=== PATIENT | male | born 1940 | race Caucasian/White ===

== ENCOUNTER 2017-02-26 18:19 | Observation (INO) | payer MEDICARE ==
[~2017-02-26 18:19] MED LIST: ISOVUE-370 76%-LOCM 1 ML ONE
[2017-02-26 18:44] LABS: #Basophils 0.1 thou/uL (0.0-0.2); #Eosinphils 0.2 thou/uL (0.0-0.7); #Lymphocytes 2.3 thou/uL (1.20-3.40); #Monocytes 1.1 thou/uL (0.11-0.59); #Neutrophils 5.6 thou/uL (1.40-6.50); %Basophils 0.6 % (0.0-1.0); %Eosinophils 2.1 % (0.0-10.0); %Monocytes 11.6 % (0.0-10.0); %Neutrophils 60.7 % (42.0-75.0); Hemoglobin 13.4 g/dL (14.0-18.0); Mean Corpuscular HGB CONC 32.2 g/dL (32.0-36.0); Mean Corpuscular Hemoglobin 32.7 pg (27.0-31.0); Mean Platelet Volume 6.6 fL (7.4-10.4); Platelet Count 257 thou/uL (130-400); RBC Distribution Width 15.2 % (11.5-14.5); Red Blood Cell (RBC) Count 4.09 mill/uL (4.70-6.10); White Blood Cell (WBC) Count 9.3 thou/uL (4.8-10.8)
[2017-02-26 18:53] LABS: PTT 29.1 SEC (22.9-36.1); Prothrombin Time 13.4 SEC (12.0-14.7)
[2017-02-26 19:12] LABS: ALT (SGPT) 27 U/L (8-55); AST (SGOT) 42 U/L (5-34); Albumin 4.1 g/dL (3.4-4.8); Alkaline Phosphatase 79 U/L (40-150); Anion Gap 16 mmol/L (10-20); BUN (Urea Nitrogen) 28 mg/dL (8.4-25.7); Bilirubin, Total 0.4 mg/dL (0.2-1.2); Calc. Creatinine Clearance 0 mL/min (70-130); Calcium 10.6 mg/dL (7.8-10.44); Carbon Dioxide 30 mmol/L (23-31); Chloride 97 mmol/L (98-107); Estimated GFR-MDRD 11; Globulin 4.5 g/dL (2.4-3.5); Glucose 88 mg/dL (83-110); Protein, Total 8.6 g/dL (5.8-8.1); Sodium 139 mmol/L (136-145)
[2017-02-26 19:15] LABS: CKMB 1.4 ng/mL (0-6.6); Troponin I 0.027 ng/mL (< 0.028)
--- NOTE | 2017-02-26 20:40 | CON ---
DATE OF CONSULTATION: 02/26/2017 NEUROLOGY CONSULTATION REASON FOR CONSULTATION: Stage 3 chronic kidney disease and CVA like symptoms. HISTORY OF PRESENT ILLNESS: This is a 76-year-old gentleman with a history of ESRD, who presented to the hospital with stroke like symptoms and the patient received contrast. The patient had dialysis today. Denies any nausea, vomiting , or chest pain, headache, numbness and tingling or weakness at this time. The patient at this time has no headache, weakness, numbness and tingling noted. PAST MEDICAL HISTORY: Significant atrial fibrillation, CABG, congestive heart failure, hypertension, ESRD, history of tunneled dialysis catheter, history of AV graft, history of knee surgery, history of CABG, and cataract extraction. ALLERGIES: The patient is allergic to PENICILLIN. SOCIAL HISTORY: No alcohol or drug use. FAMILY HISTORY: Negative for ESRD. REVIEW OF SYSTEMS: A 15-point review of systems was performed and negative except positives noted above. GENERAL: Weakness- HEAD: Headache- NECK: No swelling or lumps. NOSE: No epistaxis or discharge. EYES: No diplopia or pain. RESPIRATORY: Dyspnea- CARDIOVASCULAR: Chest pain- GASTROINTESTINAL: Nausea- /BURN OUT TENDER LACE: Hematuria- MUSCULOSKELETAL: No joint pain. NEUROPSYCHIATIC SYSTEMS: No suicidal ideation. No ideation. SKIN: Denies any rash or ulcer. CONSTITUTIONAL: No fever or chills. PHYSICAL EXAMINATION: GENERAL: The patient is awake, alert. VITAL SIGNS: Afebrile, pulse 75, breathing at 16, blood pressure 130/70. GENERAL APPEARANCE AND MENTAL STATUS: Fair. HEAD/NECK: Normocephalic. Atraumatic. EYES: EOMI. No deformity. EARS: Clear. No ulcers. NOSE: Intact. No lesions. MOUTH: Clear. No discharge. THROAT: Clear. No exudate. LUNGS: Clear. No crackles. CARDIAC: S1, S2. No rub. ABDOMEN: Benign. BS+. GENITALIA/RECTUM: Lyons absent. BACK/EXTREMITIES: Edema 0+ Ulcer- NEUROLOGICAL: Alert and motor intact. SKIN: Rash- Bruise- LYMPHATICS: Edema- Ulcer- LABORATORY DATA: Reviewed. ASSESSMENT AND RECOMMENDATIONS: 1. Stage 6 chronic kidney disease. We will plan hemodialysis per schedule. 2. Hypertension, stable. 3. Anemia, stable. 4. Medications based on glomerular filtration rate are appropriate. MTDD
--- NOTE | 2017-02-26 21:41 | CT ---
HEAD CT WITHOUT CONTRAST 02/26/17 COMPARISON: None. HISTORY: Right sided facial droop and right sided weakness following dialysis, stroke alert. TECHNIQUE: Serial axial CT imaging obtained at 5 mm intervals from vertex through skull base without contrast,. FINDINGS: There is hyperdensity in expected location of the M1 segment as well as in the region of MCA bifurcat ion on the left, possibly representing intra-arterial clot. No intracranial hemorrhage, midline shift or mass effect is seen. There is periventricular hypodensity suggesting small vessel disease. Imaged paranasal sinuses and mastoid air cells are well aerated. There is no displaced calvarial fracture. There is atherosclerotic calcification of the cavernous carotid arteries. IMPRESSION: Hyperdensity in the region of the M1 segment. No intracranial hemorrhage is seen. Dr. Gonzales made aware, 6:28 p.m., 02/26/17. Code CR
[2017-02-26] MEDS ORDERED: Aspirin 325 MG TAB ONE (21:53)
[2017-02-26] MEDS ORDERED: Ondansetron HCl/PF 4 MG/2 ML Vial IVP PRN (22:52)
[2017-02-26] MEDS ORDERED: Acetaminophen 325 MG TAB PO PRN ×2 (22:52→23:42)
[2017-02-26] MEDS ORDERED: Ondansetron ODT 4 MG TAB SL PRN (22:52)
--- NOTE | 2017-02-26 23:33 | CT ---
CT ANGIOGRAM OF THE HEAD 02/26/17 COMPARISON: None. HISTORY: Recent episode of right leg and are weakness. Two recent falls secondary to right lower extremity we akness. TECHNIQUE: Serial axial CT imaging is obtained at 1.25 mm intervals from skull base through vertex with IV contr ast using a CT angiogram protocol. Coronal and sagittal 3D reformatted imaging obtained. FINDINGS: The distal vertebral arteries are patent. The right vertebral artery is hypoplastic. The basilar artery and its branches are patent. There is a focal area of severe stenosis involving th e proximal aspect of the P1 segment on the left. There is multifocal high grade stenosis involving bi lateral posterior cerebral arteries, left greater than right. There is atherosclerotic calcification of the distal cervical ICA on the left. There is atherosclerotic calcification of bilateral cavernous carotid arteries. There is high grade stenosis within the right cavernous ICA best seen on axial images 44-46. The M1 segment appears patent bilaterally. The MCA bifurcation appears within normal limits bilateral ly. Distal MCA branches appear patent. The A1 segment on the right is hypoplastic but patent. Left A1 segment is unremarkable. Distal ALLIE br anches appear intact as does the region of the anterior communicating artery. The imaged paranasal sinuses/mastoid air cells are well aerated. There is no displaced calvarial frac ture. IMPRESSION: No central arterial occlusion noted. The M1 segment on the left is patent. There are areas of high gr anh stenosis involving the cavernous segment of the right internal carotid artery as well as bilatera l posterior cerebral arteries. Results called to Dr. Goyo Gonzales at 9:30 p.m., 02/26/17. Code CR POS: LM
[2017-02-26] MEDS ORDERED: Guaifenesin DM 100-10/5 ML UDCUP PO PRN (23:42)
[2017-02-26] MEDS ORDERED: Mag-Al 1200 mg/1200 mg/30 ML UDCUP PO PRN (23:42)
[2017-02-27 01:41] VITALS: BMI 29.0
--- NOTE | 2017-02-27 04:30 | HP ---
REASON FOR ADMISSION: Right-sided weakness. HISTORY OF PRESENT ILLNESS: The patient gives history of having hemodialysis yesterday. 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 He apparently fell x2, they are 20 minutes apart. He could not really move his right lower extremity. He had a tingling pain in his right upper extremity. He tried to walk with a walker and was unable. His family took him to his primary care physician, who in turn called the EMS and patient was brought here. His initial symptoms started around 2:00 p.m. By the time he arrived here, it was 6:30 or so. Currently, he is able to move all 4 extremities. He still has a little uneasy feeling in his right upper and lower extremities, but can easily move them at present. PAST MEDICAL AND SURGICAL HISTORY: Hypertension, end-stage renal disease from last 2 years on hemodialysis, coronary artery disease with prior CABG done in September of this year at [facility], dialysis access procedures in the left upper extremity. CURRENT MEDICATIONS: Please note, patient does not recall all his medications. He knows he takes baby aspirin but beyond that, he does not recall any of his medications. We will try to obtain the same from his or his pharmacy when it opens. ALLERGIES: PENICILLIN. PERSONAL HISTORY: Does not abuse alcohol or drugs. Quit smoking 30 years ago, prior to which smoked 2 packs a day for almost 30 years. FAMILY HISTORY: Mother of old age at the age of 88 years. Father was electrocuted at 41 years. Power of traffic law attorney is his . CODE STATUS: Full. REVIEW OF SYSTEMS: The following complete review of systems was negative, unless otherwise mentioned in the HPI or below: Constitutional: Weight loss or gain, ability to conduct usual activities. Skin: Rash, itching. Eyes: Double vision, pain. ENT/Mouth: Nose bleeding, neck stiffness, pain, tenderness. Cardiovascular: Palpitations, dyspnea on exertion, orthopnea. Respiratory: Shortness of breath, wheezing, cough, hemoptysis, fever or night sweats. Gastrointestinal: Poor appetite, abdominal pain, heartburn, nausea, vomiting, constipation, or diarrhea. Genitourinary: Urgency, frequency, dysuria, nocturia. Musculoskeletal: Pain, swelling. Neurologic/Psychiatric: Anxiety, depression. Allergy/Immunologic: Skin rash, bleeding tendency. PHYSICAL EXAMINATION: GENERAL: The patient is a 76-year-old male, who is currently not in any acute distress. VITAL SIGNS: Blood pressure 118/58, pulse 66 per minute, respiratory rate 16 per minute, saturating 97% on room air, temperature is 98.2 degrees Fahrenheit. NECK: Supple, no elevated JVD. HEENT: Eyes, extraocular muscles intact. Pupils reacting to light. Oral cavity, mucous membranes are moist. No exudates or congestion. CARDIOVASCULAR SYSTEM: S1, S2 heard. Regular rhythm. RESPIRATORY SYSTEM: Air entry 2+ bilateral. No rales or rhonchi. ABDOMEN: Soft, bowel sounds heard. No tenderness, rigidity, or guarding. EXTREMITIES: No peripheral edema or calf tenderness. VASCULAR SYSTEM: Peripheral pulses 1+ bilateral. No ischemic ulcerations or gangrene. CENTRAL NERVOUS SYSTEM: Cranial nerves are grossly intact. Motor system strength is 4/5 in right upper and lower extremity. When compared to left, patient is right-handed. Reflexes are 2+ bilateral. Babinski is downgoing. Cerebellar signs are intact. Gait was not tested. PSYCHIATRIC SYSTEM: The patient's mood is euthymic. No hallucinations or delusions. LABORATORY AND X-RAY FINDINGS: White count 9, H and H 13 and 41, platelet count 257, MCV is 101 with 60% neutrophils. PT, INR, PTT within normal limits. Electrolytes were stable. BUN 28, creatinine 5.0. Serum bicarbonate is 30, glucose 88, calcium 10, AST 42, ALT 27, alkaline phosphatase 79, troponin I 0.02. Albumin is 4.1. CT brain showed hyperdensity in the region of the M1 segment. No intracranial hemorrhage was seen. A CT angio of the brain done showed no central artery occlusion was seen, the left M1 segment was patent. There are areas of high-grade stenosis involving cavernous segment of the right internal carotid artery as well as bilateral posterior cerebral arteries. EKG done showed sinus rhythm at 64 beats per minute. CLINICAL IMPRESSION AND PLAN: The patient will be under observation on stroke unit for likely transient ischemic attack with right hemiparesis with rapid resolution prior to arrival. He will be on aspirin 325 mg daily along with Lipitor, Pepcid. We will obtain an echo with 2D Doppler for LV function and an MRI to complete his Neurology workup. We will also obtain a neurology consultation with Dr. Helton. We will continue to closely monitor him on stroke floor. [facility]ITALId[facility]
[2017-02-27 05:16] LABS: #Eosinphils 0.2 thou/uL (0.0-0.7); #Lymphocytes 2.4 thou/uL (1.20-3.40); #Monocytes 0.7 thou/uL (0.11-0.59); %Basophils 0.5 % (0.0-1.0); %Eosinophils 2.2 % (0.0-10.0); %Lymphocytes 32.8 % (21.0-51.0); %Monocytes 9.9 % (0.0-10.0); %Neutrophils 54.6 % (42.0-75.0); Hemoglobin 12.3 g/dL (14.0-18.0); Mean Corpuscular HGB CONC 32.4 g/dL (32.0-36.0); Mean Corpuscular Hemoglobin 32.7 pg (27.0-31.0); Mean Platelet Volume 6.4 fL (7.4-10.4); Platelet Count 238 thou/uL (130-400); RBC Distribution Width 15.1 % (11.5-14.5); Red Blood Cell (RBC) Count 3.75 mill/uL (4.70-6.10); White Blood Cell (WBC) Count 7.4 thou/uL (4.8-10.8)
[2017-02-27 05:44] LABS: Anion Gap 12 mmol/L (10-20); BUN (Urea Nitrogen) 34 mg/dL (8.4-25.7); Calc. Creatinine Clearance 13 mL/min (70-130); Calcium 9.8 mg/dL (7.8-10.44); Carbon Dioxide 29 mmol/L (23-31); Cardiac Risk 4.5 (Less than 4.5); Chloride 98 mmol/L (98-107); Cholesterol 197 mg/dl (< 200 Desired); Estimated GFR-MDRD 9; Glucose 74 mg/dL (83-110); HDL Cholesterol 44 mg/dL (>60 Neg Risk); LDL Cholesterol, Calculated 122 mg/dL; Potassium 4.1 mmol/L (3.5-5.1); Sodium 135 mmol/L (136-145); Triglycerides 154 mg/dL (Less than 150)
[2017-02-27] MEDS ORDERED: Aspirin 325 MG TAB PO SCH (08:00)
[2017-02-27 09:13] LABS: Prothrombin Time 13.7 SEC (12.0-14.7)
--- NOTE | 2017-02-27 09:26 | CON ---
DATE OF CONSULTATION: 02/27/2017 NEUROLOGY CONSULTATION CONSULTING PHYSICIAN: Hospitalist Service. IMPRESSION: 1. Transient ischemic attack. 2. End-stage renal disease. 3. Multivessel cerebral artery stenosis. 4. Coronary artery disease. 5. Hyperlipidemia. 6. Hypertension. PLAN: 1. Add aspirin. 2. MRI of the brain. HOSPITAL COURSE: Mr. Carrillo is a 76-year-old gentleman who presented with complaints of right arm and leg weakness and numbness that has lasted about 3 hours. It was not associated with any facial weak ness, slurred speech, headache, nausea, vomiting, vertigo, double vision, or vision loss. He has nev er had any symptoms like this in the past. His CT of the brain did not show any acute ischemic wade es. CTA was notable for high grade stenosis in the right cavernous ICA as well as bilateral posterio r cerebral artery stenosis. The left M1 segment was patent. He was started on aspirin and admitted for further evaluation and he has not had any further symptoms. PAST MEDICAL HISTORY: As listed above. ALLERGIES: PENICILLIN. MEDICATIONS: Reviewed. SOCIAL HISTORY: No tobacco or alcohol use. FAMILY HISTORY: Noncontributory. REVIEW OF SYSTEMS: No chest pain or shortness of breath. No history of palpitations. PHYSICAL EXAMINATION: GENERAL: Generally, he is a well-nourished elderly gentleman in no distress. VITAL SIGNS: Blood pressure 119/66, pulse 68, respirations 20, temperature 97.8. HEENT: Unremarkable. NECK: No lymphadenopathy. EXTREMITIES: No cyanosis. NEUROLOGIC: He is alert and appropriate. His speech is fluent and clear. His exam is nonfocal. LABORATORY STUDIES: Only notable for BUN of 34 and creatinine of 6.1. Coags and CBC were unremarkab le. Imaging was reviewed. SUMMARY: An elderly gentleman with symptoms consistent with TIA. I agree with adding aspirin. He w ill continue his statin. Echocardiogram and MRI are pending. I will be happy to follow up with him as an outpatient.
[2017-02-27] MEDS: Famotidine 20 MG TAB PO SCH (10:24)
[2017-02-27] MEDS: Heparin 5,000 UNITS/ML VIAL SC SCH ×2 (10:25→20:04)
[2017-02-27] MEDS: Aspirin 325 mg Enteric Coated Tablet PO SCH (10:25)
[2017-02-27] MEDS: Lactinex Tablet PO SCH ×2 (10:30→20:14)
[2017-02-27] MEDS: Calcitriol 0.25 MCG CAP PO SCH ×2 (10:31→20:04)
[2017-02-27] MEDS: Amiodarone 200 MG TAB PO SCH ×2 (10:31→20:05)
[2017-02-27] MEDS: Folic Acid/Vit B Comp W-C PO SCH (10:31)
--- NOTE | 2017-02-27 11:00 | PRG ---
DATE OF SERVICE: 02/27/2017 SUBJECTIVE: This is a 76-year-old gentleman being seen for end-stage renal disease. Patient denies any nausea, vomiting or chest pain. OBJECTIVE: GENERAL: Patient is awake and alert. VITAL SIGNS: Afebrile, pulse 60, breathing at 16 and blood pressure 119/62. HEAD/NECK: Normocephalic. Atraumatic. EYES: EOMI. No deformity. EARS: Clear. No ulcers. NOSE: Intact. No lesions. MOUTH: Clear. No discharge. THROAT: Clear. No exudate. LUNGS: Clear. No crackles. CARDIAC: S1, S2. No rub. ABDOMEN: Benign. BS+. GENITALIA/RECTUM: Lyons absent. BACK/EXTREMITIES: Edema 0+. Ulcer-. NEUROLOGICAL: Alert and motor intact. SKIN: Rash-. Bruise-. LYMPHATICS: Edema-. Ulcer-. LABORATORY DATA: Showed a hemoglobin of 12.3. ASSESSMENT AND RECOMMENDATIONS: 1. Stage 6 chronic kidney disease, continue hemodialysis. 2. Hypertension, stable. 3. Anemia, stable. 4. Medications based on glomerular filtration rate are appropriate.
--- NOTE | 2017-02-27 11:28 | MRI ---
BRAIN MRI WITHOUT CONTRAST: Date: 02/27/17 HISTORY: Transient ischemic attack. Left facial droop. Patient was treated with dialysis yesterday. Right-side d weakness. Right arm and leg tingling. COMPARISON: None. TECHNIQUE: MRI brain is performed without Gadolinium administration. Multisequential, multiplanar imaging is per formed. FINDINGS: No acute hemorrhage on the axial gradient echo sequence. Remote hemorrhage due to remote insults of t he left caudate nucleus and left luna radiata is noted. No parenchymal mass, mass effect, or midline shift. Brain volume is age-appropriate. Cortical barlow-wh ite matter differentiation is preserved. Ventricles and sulci are patent and symmetric. T2 and FLAIR white matter hyperintensities due to chronic small vessel ischemic changes are noted. Central arterial flow-voids are maintained. Absent restricted diffusion. Calvarium has a normal marrow signal intensity. Midline brain parenchymal structures are unremarkabl e. Adequate aeration of the sinuses and mastoid air cells. Bilateral ocular lens implants are noted. IMPRESSION: 1. Absent restricted diffusion. No acute infarct. 2. Chronic small vessel ischemic changes of the white matter. POS: LM
--- NOTE | 2017-02-27 13:13 | PDOC.PN ---
- Subjective Encounter Start Date: 02/27/17 Encounter Start Time: 13:12 Subjective: feels better. weakness has improved. - Objective Resuscitation Status: Resuscitation Status FULL:Full Resuscitation MAR Reviewed: Yes Vital Signs & Weight: Vital Signs (12 hours) Temp Pulse Pulse Pulse Resp BP BP 02/27/17 12:00 99.5 F 66 20 02/27/17 11:25 113/63 02/27/17 11:08 58 L 65 110/65 02/27/17 11:05 84/67 L 02/27/17 08:00 97.8 F 68 20 02/27/17 04:16 98.5 F 60 16 BP BP Pulse Ox 02/27/17 12:00 128/63 94 L 02/27/17 11:25 02/27/17 11:08 84/67 L 02/27/17 11:05 02/27/17 08:00 119/66 95 02/27/17 04:16 103/58 L 92 L Weight Weight 192 lb 6.4 oz I&O: 02/26/17 02/27/17 02/28/17 06:59 06:59 06:59 Intake Total 240 Balance 240 Result Diagrams: 02/27/17 04:13 02/27/17 04:13 Additional Labs: Laboratory Tests 02/26/17 02/26/17 02/27/17 18:35 18:35 04:13 INR 1.0 Calcium 10.6 H 9.8 Triglycerides 154 H Cholesterol 197 LDL Cholesterol, Calc 122 HDL Cholesterol 44 02/27/17 08:54 INR 1.0 Calcium Triglycerides Cholesterol LDL Cholesterol, Calc HDL Cholesterol Radiology Reviewed by me: Yes (MRI brain-no acute infarct) Phys Exam - Physical Examination Constitutional: NAD weak and tired looking HEENT: PERRLA, moist MMs, sclera anicteric, oral pharynx no lesions Neck: no nodes, no JVD, supple, full ROM Respiratory: no wheezing, no rales, no rhonchi, clear to auscultation bilateral Cardiovascular: RRR, no significant murmur Gastrointestinal: soft, non-tender, no distention, positive bowel sounds Musculoskeletal: no edema, pulses present Neurological: non-focal, normal sensation, moves all 4 limbs Psychiatric: normal affect, A&O x 3 Skin: no rash Dx/Plan (1) TIA (transient ischemic attack) Status: Acute (2) Chronic atrial fibrillation Code(s): I48.2 - CHRONIC ATRIAL FIBRILLATION Status: Chronic Comment: on Couamdin.NSR for now (3) Chronic anticoagulation Code(s): Z79.01 - PRECISION ASSEMBLER (CURRENT) USE OF ANTICOAGULANTS Status: Chronic Comment: INR subtherapeutic (4) ESRD (end stage renal disease) on dialysis Code(s): N18.6 - END STAGE RENAL DISEASE; Z99.2 - DEPENDENCE ON RENAL DIALYSIS Status: Chronic Comment: HD per nephrology. (5) HTN (hypertension) Code(s): I10 - ESSENTIAL (PRIMARY) HYPERTENSION Status: Chronic (6) CAD (coronary artery disease) Code(s): I25.10 - ATHSCL HEART DISEASE OF [place] CORONARY ARTERY W/O ANG PCTRS Status: Chronic (7) Cerebral artery occlusion Code(s): I66.9 - OCCLUSION AND STENOSIS OF UNSPECIFIED CEREBRAL ARTERY Status : Chronic - Plan PT/OT, nephrology social worker, out of bed/ambulate, DVT proph w/SCDs cont ASA,statin.ECHO pending.OP neurology follow up.Rehab eval. -: Increase coumadin dose as INR sub therapeutic.Set up Coumadin clinic. -: Pt will continue to F/U w his virtual reality specialist.cont Amiodarone -: Cont rest of the home meds as below. Hold anti-hypertensives as BP low -: am labs.DC when approved from rehab Vs Home w HH * . Review of Systems - Review of Systems Constitutional: Weakness, Malaise. negative: Fever, Chills, Sweats, Other Respiratory: negative: Cough, Dry, Shortness of Breath, Hemoptysis, SOB with Excertion, Pleuritic Pain, Sputum, Wheezing Cardiovascular: negative: Chest Pain, Palpitations, Orthopnea, Paroxysmal Noc. Dyspnea, Edema, Light Headedness, Other Gastrointestinal: negative: Nausea, Vomiting, Abdominal Pain, Diarrhea, Constipation, Melena, Hematochezia, Other Genitourinary: negative: Dysuria, Frequency, Incontinence, Hematuria, Retention , Other Musculoskeletal: negative: Neck Pain, Shoulder Pain, Arm Pain, Back Pain, Hand Pain, Leg Pain, Foot Pain, Other Neurological: negative: Weakness, Numbness, Incoordination, Change in Speech, Confusion, Seizures, Other - Medications/Allergies Allergies/Adverse Reactions: Allergies Allergy/AdvReac Type Severity Reaction Status Date / Time Penicillins Allergy Rash Verified 02/27/17 01:35 Medications: Current Medications Acetaminophen (Tylenol) 650 mg PO Q4H PRN PRN Reason: Headache/Fever or Pain Acidophilus (Floranex) 1 tab PO BID [facility] Last Admin: 02/27/17 10:30 Dose: 1 tab Al Hydroxide/Mg Hydroxide (Maalox) 30 ml PO Q6H PRN PRN Reason: Heartburn or Indigestion Amiodarone HCl (Cordarone) 200 mg PO BID [facility] Last Admin: 02/27/17 10:31 Dose: 200 mg Aspirin (Ecotrin) 325 mg PO DAILY [facility] Last Admin: 02/27/17 10:25 Dose: 325 mg Atorvastatin Calcium (Lipitor) 20 mg PO HS [facility] Calcitriol (Rocaltrol) 0.5 mcg PO BID [facility] Last Admin: 02/27/17 10:31 Dose: 0.5 mcg Calcium Acetate (Phoslo) 1,334 mg PO TID[facility] Famotidine (Pepcid) 20 mg PO DAILY [facility] Last Admin: 02/27/17 10:24 Dose: 20 mg Guaifenesin/Dextromethorphan (Robitussin Dm) 15 ml PO Q4H PRN PRN Reason: Cough Heparin Sodium (Porcine) (Heparin) 5,000 units SC BID [facility] Last Admin: 02/27/17 10:25 Dose: 5,000 units Sertraline HCl (Zoloft) 50 mg PO DAILY [facility] Vitamin B Complex/Vit C/Folic Acid (Nephro-Ramiro Tablet) 1 tab PO DAILY [facility] Last Admin: 02/27/17 10:31 Dose: 1 tab Warfarin Sodium (Coumadin) 5 mg PO 1700 [facility]
[2017-02-27] MEDS: Calcium Acetate 667 MG CAP PO SCH ×2 (14:06→17:45)
[2017-02-27] MEDS ORDERED: Warfarin Sodium 2 MG TAB PO SCH (17:00)
[2017-02-27] MEDS ORDERED: Warfarin Sodium 5 MG TAB PO SCH (17:00)
[2017-02-27] MEDS ORDERED: Atorvastatin Calcium 20 MG TAB PO SCH (21:00)
[2017-02-28 04:58] LABS: Prothrombin Time 13.6 SEC (12.0-14.7)
[2017-02-28 07:58] VITALS: TEMP 98.3
[2017-02-28] MEDS: Calcium Acetate 667 MG CAP PO SCH ×2 (08:56→15:30)
[2017-02-28] MEDS: Amiodarone 200 MG TAB PO SCH (08:56)
[2017-02-28] MEDS: Calcitriol 0.25 MCG CAP PO SCH (08:56)
[2017-02-28] MEDS: Folic Acid/Vit B Comp W-C PO SCH (08:56)
[2017-02-28] MEDS: Famotidine 20 MG TAB PO SCH (08:57)
[2017-02-28] MEDS: Heparin 5,000 UNITS/ML VIAL SC SCH (08:57)
[2017-02-28] MEDS: Lactinex Tablet PO SCH (08:57)
[2017-02-28] MEDS: Aspirin 325 mg Enteric Coated Tablet PO SCH (08:57)
[2017-02-28 11:57] VITALS: BP 141/68
--- NOTE | 2017-02-28 12:16 | PRG ---
DATE OF SERVICE: 02/28/2017 SUBJECTIVE: This is a 76-year-old gentleman being seen for end-stage renal disease. Patient denies any nausea, vomiting or chest pain. PHYSICAL EXAMINATION: GENERAL: Patient is awake, alert. VITAL SIGNS: Afebrile, pulse 79, breathing at 16, blood pressure 133/72. HEAD/NECK: Normocephalic. Atraumatic. EYES: EOMI. No deformity. EARS: Clear. No ulcers. NOSE: Intact. No lesions. MOUTH: Clear. No discharge. THROAT: Clear. No exudate. LUNGS: Clear. No crackles. CARDIAC: S1, S2. No rub. ABDOMEN: Benign. BS+. GENITALIA/RECTUM: Lyons absent. BACK/EXTREMITIES: Edema 0+ Ulcer- NEUROLOGICAL: Alert and motor intact. SKIN: Rash- Bruise- LYMPHATICS: Edema- Ulcer- LABORATORY DATA: Show hemoglobin is 12.5. ASSESSMENT AND PLAN: 1. Stage 6 chronic kidney disease, continue hemodialysis. 2. Hypertension, stable. 3. Anemia, stable. 4. Medications based on glomerular filtration rate are appropriate.
--- NOTE | 2017-02-28 12:19 | PDOC.PN ---
- Subjective Encounter Start Date: 02/28/17 Encounter Start Time: 12:17 Subjective: feels well. no weakness/paraesthesias - Objective Resuscitation Status: Resuscitation Status FULL:Full Resuscitation MAR Reviewed: Yes Vital Signs & Weight: Vital Signs (12 hours) Temp Pulse Resp BP Pulse Ox 02/28/17 11:57 98.3 F 79 20 141/68 H 95 02/28/17 08:20 98.3 F 80 20 02/28/17 07:58 98.3 F 80 20 142/72 H 95 02/28/17 04:00 98.5 F 79 14 133/72 95 Weight Weight 194 lb 1.6 oz I&O: 02/27/17 02/28/17 03/01/17 06:59 06:59 06:59 Intake Total 240 1910 Balance 240 1910 Result Diagrams: 02/27/17 04:13 02/27/17 04:13 Additional Labs: Laboratory Tests 02/26/17 02/27/17 02/28/17 18:35 08:54 03:36 INR 1.0 1.0 1.0 Phys Exam - Physical Examination Constitutional: NAD HEENT: PERRLA, moist MMs, sclera anicteric, oral pharynx no lesions Neck: no nodes, no JVD, supple, full ROM Respiratory: no wheezing, no rales, no rhonchi, clear to auscultation bilateral Cardiovascular: RRR, no significant murmur Gastrointestinal: soft, non-tender, no distention, positive bowel sounds Musculoskeletal: no edema, pulses present Neurological: non-focal, normal sensation, moves all 4 limbs Psychiatric: normal affect, A&O x 3 Skin: no rash Dx/Plan (1) TIA (transient ischemic attack) Status: Acute (2) Chronic atrial fibrillation Code(s): I48.2 - CHRONIC ATRIAL FIBRILLATION Status: Chronic Comment: on Couamdin.NSR for now (3) Chronic anticoagulation Code(s): Z79.01 - OFFICE ASST (CURRENT) USE OF ANTICOAGULANTS Status: Chronic Comment: INR subtherapeutic (4) ESRD (end stage renal disease) on dialysis Code(s): N18.6 - END STAGE RENAL DISEASE; Z99.2 - DEPENDENCE ON RENAL DIALYSIS Status: Chronic Comment: HD per nephrology. (5) HTN (hypertension) Code(s): I10 - ESSENTIAL (PRIMARY) HYPERTENSION Status: Chronic (6) CAD (coronary artery disease) Code(s): I25.10 - ATHSCL HEART DISEASE OF [place] CORONARY ARTERY W/O ANG PCTRS Status: Chronic (7) Cerebral artery occlusion Code(s): I66.9 - OCCLUSION AND STENOSIS OF UNSPECIFIED CEREBRAL ARTERY Status : Chronic - Plan DVT proph w/SCDs arrange HH for INR follow up. -: hemodynamically stable. -: OK to DC form IN stand point w OP Neurology f/u -: cont ASA,statin.home meds reconciled * . Review of Systems - Review of Systems Constitutional: negative: Fever, Chills, Sweats, Weakness, Malaise, Other ENT: negative: Ear Pain, Ear Discharge, Nose Pain, Nose Discharge, Nose Congestion, Mouth Pain, Mouth Swelling, Throat Pain, Throat Swelling, Other Respiratory: negative: Cough, Dry, Shortness of Breath, Hemoptysis, SOB with Excertion, Pleuritic Pain, Sputum, Wheezing Cardiovascular: negative: Chest Pain, Palpitations, Orthopnea, Paroxysmal Noc. Dyspnea, Edema, Light Headedness, Other Gastrointestinal: negative: Nausea, Vomiting, Abdominal Pain, Diarrhea, Constipation, Melena, Hematochezia, Other Genitourinary: negative: Dysuria, Frequency, Incontinence, Hematuria, Retention , Other Musculoskeletal: negative: Neck Pain, Shoulder Pain, Arm Pain, Back Pain, Hand Pain, Leg Pain, Foot Pain, Other Neurological: negative: Weakness, Numbness, Incoordination, Change in Speech, Confusion, Seizures, Other - Medications/Allergies Allergies/Adverse Reactions: Allergies Allergy/AdvReac Type Severity Reaction Status Date / Time Penicillins Allergy Rash Verified 02/27/17 01:35 Medications: Current Medications Acetaminophen (Tylenol) 650 mg PO Q4H PRN PRN Reason: Headache/Fever or Pain Acidophilus (Floranex) 1 tab PO BID [facility] Last Admin: 02/28/17 08:57 Dose: 1 tab Al Hydroxide/Mg Hydroxide (Maalox) 30 ml PO Q6H PRN PRN Reason: Heartburn or Indigestion Amiodarone HCl (Cordarone) 200 mg PO BID [facility] Last Admin: 02/28/17 08:56 Dose: 200 mg Aspirin (Ecotrin) 325 mg PO DAILY [facility] Last Admin: 02/28/17 08:57 Dose: 325 mg Atorvastatin Calcium (Lipitor) 20 mg PO HS [facility] Last Admin: 02/27/17 20:05 Dose: 20 mg Calcitriol (Rocaltrol) 0.5 mcg PO BID [facility] Last Admin: 02/28/17 08:56 Dose: 0.5 mcg Calcium Acetate (Phoslo) 1,334 mg PO TID[facility] Last Admin: 02/28/17 08:56 Dose: 1,334 mg Famotidine (Pepcid) 20 mg PO DAILY [facility] Last Admin: 02/28/17 08:57 Dose: 20 mg Guaifenesin/Dextromethorphan (Robitussin Dm) 15 ml PO Q4H PRN PRN Reason: Cough Heparin Sodium (Porcine) (Heparin) 5,000 units SC BID [facility] Last Admin: 02/28/17 08:57 Dose: 5,000 units Miscellaneous Medication (Pharmacy To Dose) 0 each PO DAILY [facility] Last Admin: 02/28/17 08:57 Dose: Not Given Sertraline HCl (Zoloft) 50 mg PO DAILY [facility] Last Admin: 02/28/17 08:56 Dose: 50 mg Vitamin B Complex/Vit C/Folic Acid (Nephro-Ramiro Tablet) 1 tab PO DAILY [facility] Last Admin: 02/28/17 08:56 Dose: 1 tab Warfarin Sodium (Coumadin) 7.5 mg PO 1700 [facility]
[2017-02-28] MEDS ORDERED: Warfarin Sodium 7.5 MG TAB PO SCH (17:00)
[2017-02-28] MEDS ORDERED: Apixaban 5 MG TAB PO SCH (21:00)
--- NOTE | 2017-02-28 22:14 | DIS ---
DATE OF ADMISSION: 02/27/2017 DATE OF DISCHARGE: 02/28/2017 CONDITION AT THE TIME OF DISCHARGE: Stable and improved. DISCHARGE DIAGNOSES: 1. Transient ischemic attack with transient right-sided hemiparesis. 2. Chronic atrial fibrillation on chronic anticoagulation with Coumadin. 3. End-stage renal disease on dialysis. 4. Hypertension. 5. Coronary artery disease. PRIMARY CARE PHYSICIAN: Dr. Kaci Pickens. PRIMARY ENGINE ASSEMBLY SUPERVISOR: Dr. Nir Macias. PRIMARY GREENKEEPER: Dr. Arron Medley. DISCHARGE DISPOSITION: Home with home health. DISCHARGE MEDICATIONS: Include allopurinol 100 mg daily, multivitamin daily, calcitriol 0.5 mcg p.o. b.i.d., amlodipine 5 mg daily, amiodarone 200 mg p.o. b.i.d., sertraline 50 mg daily, metoprolol tar trate 50 mg p.o. b.i.d., lactobacillus daily, PhosLo t.i.d., Tums b.i.d., warfarin. Please note the dose has been increased from 2 to 4 mg daily transiently without patient follow up for PT/INR. Atorv astatin increased from 10 mg to 40 mg daily. Aspirin increased from 81 mg to 325 mg daily. PROCEDURES DONE IN THE HOSPITAL: Included: 1. CT scan of the brain upon presentation, which does not show any acute hemorrhage or infarction. It does show hyperdensity in the region of M1 segment. 2. CT angio of the k[place] of [place] upon admission, which showed high grade stenosis in the cavernou s segment of the right internal carotid as well as bilateral posterior cerebral arteries. 3. Transthoracic echocardiogram, which showed an EF estimated at 60% to 65% with grade 2/3 diastolic dysfunction, moderately dilated left atrium. No significant valvular abnormalities. 4. MRI of the brain, which was negative for any acute infarction. Chronic small vessel ischemic oniel nges are noticed. No acute hemorrhage. 5. Hemodialysis. CONSULTATIONS IN-HOUSE: Include; 1. Nephrology, Dr. Arron Medley. 2. Neurology, Dr. Adryan Helton. HOSPITAL COURSE: Mr. Carrillo is a 76-year-old male with past medical history of hypertension, end-stag e renal disease, coronary artery disease, status post CABG and chronic atrial fibrillation, who prese nted to the emergency room with complaints of right-sided weakness. His symptoms have resolved by th e time he arrived to the emergency room. CT scan of the brain upon admission showed hyperdensity in the region of the M1 segment. A CT angio was followed and it did show findings consistent with high grade stenosis in the right internal carotid artery as well as bilateral posterior cerebral arteries. He was admitted to the stroke floor and started a full dose aspirin and Lipitor. Neurology was con sulted as well as stroke team. Please see admission history and physical for further details. HOSPITAL COURSE: The patient underwent evaluation for stroke. His MRI of the brain did not show any acute stroke and Neurology saw the patient. The consensus was that he most likely has suffered a TI A. He was evaluated by physical therapist, occupational therapist as well as speech therapist and was di scharged as he does not have any residual deficits. He was found to be taking Coumadin, but unfortunately he was not aware that he needs to get his blood work regularly checked. His INR was subtherapeutic at 1.0. His Coumadin was restarted at a higher dose and home health was set up for regular Coumadin checkup. I discussed this with the patient and his multiple times and emphasized the need for weekly PT/INR followups for him being on Coumadin . Thankfully, the patient has been in normal sinus rhythm at least for now. He has close followup w ith his primary sfdc consultant, Dr. Nir Macias and I have encouraged them to make another appointmen t with the sfdc consultant as well as the PCP. At this time, I have also called the pharmacy to confirm his medications. Please note that the patie nt was put on Eliquis, but during sometime earlier this year he was instructed to switch it to Coumad in likely due to financial reasons. He is not taking Eliquis anymore. He will resume his home dose of Coumadin once his INR is therapeutic with plans to follow up with a primary care physician. Home health has been arranged for PT/INR blood draws. The results should be evaluated by his PCP as well as his sfdc consultant. I have emphasized this once again to the patient's who verbalizes understa nding. He was seen and examined prior to discharge. Please see hospitalist progress note from today's date for further detail including [id number] interaction.
== END 2017-02-28 15:30 | disposition home health service (06) ==
LOC: ERS 18:19 → 2SE 20:45
PROVIDERS: ADMIT Internal Medicine; ATTEND Internal Medicine
DX: G45.9 Transient cerebral ischemic attack, unspecified (principal); G81.91 Hemiplegia, unspecified affecting right dominant side; I48.2 Chronic atrial fibrillation; D63.1 Anemia in chronic kidney disease; E78.5 Hyperlipidemia, unspecified; I25.10 Atherosclerotic heart disease of native coronary artery without angina pectoris; I13.2 Hypertensive heart and chronic kidney disease with heart failure and with stage 5 chronic kidney disease, or end stage renal disease; I50.9 Heart failure, unspecified; N18.6 End stage renal disease; Z99.2 Dependence on renal dialysis; Z79.01 Long term (current) use of anticoagulants; Z79.82 Long term (current) use of aspirin; Z79.899 Other long term (current) drug therapy; Z88.0 Allergy status to penicillin; Z95.1 Presence of aortocoronary bypass graft; Z98.49 Cataract extraction status, unspecified eye; Z98.890 Other specified postprocedural states; Z87.891 Personal history of nicotine dependence
CPT/HCPCS: 70450; 70496; 70551; 80048; 80053; 80061; 82553; 82962; 84484; 85025 ×2; 85610 ×3; 85730; 93005; 93306; 97116; 97139; 99285; G0378; G8978; G8979; 36415; 36416; G8996-GN-CH; G8997-GN-CH; J1644

== ENCOUNTER 2017-03-16 17:46 | Emergency (ER) | payer MEDICARE ==
[2017-03-16 18:33] LABS: #Eosinphils 0.2 thou/uL (0.0-0.7); #Lymphocytes 1.5 thou/uL (1.20-3.40); #Monocytes 0.6 thou/uL (0.11-0.59); #Neutrophils 7.5 thou/uL (1.40-6.50); %Basophils 0.4 % (0.0-1.0); %Eosinophils 1.8 % (0.0-10.0); %Lymphocytes 15.1 % (21.0-51.0); %Monocytes 6.6 % (0.0-10.0); Hematocrit 38.6 % (42.0-52.0); Mean Platelet Volume 6.3 fL (7.4-10.4); White Blood Cell (WBC) Count 9.8 thou/uL (4.8-10.8)
[2017-03-16 18:46] LABS: ALT (SGPT) 22 U/L (8-55); AST (SGOT) 25 U/L (5-34); Alkaline Phosphatase 86 U/L (40-150); Anion Gap 13 mmol/L (10-20); BUN (Urea Nitrogen) 38 mg/dL (8.4-25.7); Bilirubin, Total 0.4 mg/dL (0.2-1.2); Calc. Creatinine Clearance 0 mL/min (70-130); Calcium 11.4 mg/dL (7.8-10.44); Carbon Dioxide 30 mmol/L (23-31); Chloride 100 mmol/L (98-107); Estimated GFR-MDRD 9; Globulin 4.1 g/dL (2.4-3.5)
[2017-03-16 18:51] LABS: Troponin I 0.051 ng/mL (< 0.028)
[2017-03-16 19:54] LABS: PTT 38.8 SEC (22.9-36.1); Prothrombin Time 19.7 SEC (12.0-14.7)
--- NOTE | 2017-03-16 20:41 | RAD ---
PORTABLE CHEST: 03/16/17 HISTORY: Stroke-like symptoms. Numbness and tingling, wheezing. Heart size is borderline. There are postop sternotomy changes. The lungs are clear of infiltrates. IMPRESSION: Borderline heart size. POS: [facility]
== END 2017-03-16 21:35 | disposition home or self-care (01) ==
LOC: ERS 17:46
DX: R53.1 Weakness (principal); I12.0 Hypertensive chronic kidney disease with stage 5 chronic kidney disease or end stage renal disease; N18.6 End stage renal disease; Z99.2 Dependence on renal dialysis
CPT/HCPCS: 36415; 71010; 80053; 82553; 84484; 85025; 85610; 85730; 93005

== ENCOUNTER 2018-02-22 12:08 | Outpatient (CLI) | payer MEDICARE, OTHER ==
[2018-02-22 13:23] LABS: #Eosinphils 0.1 thou/uL (0.0-0.7); #Lymphocytes 1.3 thou/uL (1.20-3.40); #Monocytes 0.6 thou/uL (0.11-0.59); #Neutrophils 5.4 thou/uL (1.40-6.50); %Basophils 0.4 % (0.0-1.0); %Eosinophils 1.6 % (0.0-10.0); %Lymphocytes 17.7 % (21.0-51.0); %Monocytes 7.4 % (0.0-10.0); Hemoglobin 13.3 g/dL (14.0-18.0); Mean Corpuscular HGB CONC 32.2 g/dL (32.0-36.0); Mean Corpuscular Hemoglobin 33.2 pg (27.0-31.0); Mean Platelet Volume 6.8 fL (7.4-10.4); Platelet Count 301 thou/uL (130-400); RBC Distribution Width 14.6 % (11.5-14.5); White Blood Cell (WBC) Count 7.4 thou/uL (4.8-10.8)
--- NOTE | 2018-02-22 13:46 | RAD ---
CHEST TWO VIEWS: HISTORY: Preop. COMPARISON: 03/16/2017 FINDINGS: The cardiac silhouette remains at the upper limits of normal in size. The pulmonary vasculature is u nremarkable. The mediastinum is midline with postoperative changes and aortic calcification. No con fluent air space consolidation, pneumothorax, or pleural fluid. IMPRESSION: 1. Atherosclerosis. 2. Chronic type findings are stable. POS: [facility]
[2018-02-22 14:00] LABS: Anion Gap 19 mmol/L (10-20); BUN (Urea Nitrogen) 39 mg/dL (8.4-25.7); Calc. Creatinine Clearance 0 mL/min (70-130); Calcium 10.7 mg/dL (7.8-10.44); Carbon Dioxide 26 mmol/L (23-31); Chloride 99 mmol/L (98-107); Estimated GFR-MDRD 6; Glucose 87 mg/dL (83-110); Potassium 5.6 mmol/L (3.5-5.1); Sodium 138 mmol/L (136-145)
--- NOTE | 2018-02-23 08:21 | HP ---
HISTORY OF PRESENT ILLNESS: Quinn Carrillo is a 77-year-old male patient, who lives in [place]. The patient has a left Vonda fistula established in [place] three years ago. I am asked to see him regarding peritoneal dialysis catheter placement. The plan is for laparoscopic peritoneal dialysis catheter as an outpatient. He also has an umbilical hernia, small, and we will plan repair of that in an open fashion, possibly using mesh, although likely not. The patient is ambulatory with a walker. He has symptoms suggestive of spinal stenosis. He has an appointment to see Neurosurgery, Dr. Bae, in the near future. The patient has had a coronary artery bypass grafting in September 2016 in [place]. His seamer elastic band is Dr. Nir Macias in [place], telephone #[phone]. The patient denies coronary symptomatology. He denies dyspnea. He denies chest pain or pressure. Risk of laparoscopic peritoneal dialysis catheter placement, infection, bleeding, reoperation, malfunction of the catheter have been discussed, and he consents and we will proceed. ALLERGIES: PENICILLIN. SOCIAL HISTORY: Tobacco, none. Alcohol, none. MEDICATIONS: 1. Sevelamer two tablets with meals three times a day. 2. Midodrine 10 mg three times a day. 3. Allopurinol 300 mg once a day. 4. Lactobacillus daily. 5. Sertraline 100 mg once a day. 6. Atorvastatin 1 tablet once a day. 7. Tylenol with Codeine p.r.n. 8. Protonix p.r.n. 9. The patient has a lift chair and a rolling walker. 10. Quetiapine fumarate daily 25 mg. PAST MEDICAL HISTORY: 1. Hypertension. 2. History of coronary artery disease and coronary artery stenting with coronary artery bypass grafting last year in [place]. 3. Arthritis of the lumbar spine. 4. End-stage renal disease, on maintenance dialysis. 5. 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 6. Sleep apnea. He uses CPAP at home. PAST SURGICAL HISTORY: 1. Lumbar surgery in 1985. 2. Coronary artery stenting x2. 3. Last stress test in April 2016, after which he underwent coronary artery bypass grafting. 4. AV fistula placement 3 years ago in [place]. 5. Colonoscopy, up to date. 6. Coronary artery bypass grafting, two vessels in September 2016. 7. EGD, capsule endoscopy earlier this year. 8. AV fistula and balloon angioplasty in May 2017. PRIMARY CARE PHYSICIAN: Dr. Pickens. COUNTER CHECKER: Dr. Wellington. He dialyzes Wednesday, Wednesday, and Wednesday at [facility]. PHYSICAL EXAMINATION: VITAL SIGNS: 202 pounds, 68 inches, 30 of BMI. Blood pressure 130/60, pulse 91, temperature 98.6 degrees. HEAD, EARS, EYES, NOSE, AND THROAT: Unremarkable. LUNGS: Clear to auscultation. CARDIAC: Regular rhythm without murmur or gallop. ABDOMEN: Soft and nontender. Small umbilical hernia, reducible. Groins without hernia. Standing Valsava maneuver and testicles normal. EXTREMITIES: Unremarkable. Vonda fistula in left wrist. Left wrist brace in place. ASSESSMENT AND PLAN: 1. End-stage renal disease, desires peritoneal dialysis. We will plan on laparoscopic peritoneal dialysis catheter and umbilical hernia repair with or without mesh performed in an open fashion. Risks of infection, bleeding, reoperation, recurrence of hernia discussed. 2. Coronary artery disease, stable. Coronary artery bypass grafting last year. No further intervention from a cardiac standpoint prior to laparoscopic peritoneal dialysis catheter placement under general anesthesia. 3. Sleep apnea. 4. Ambulatory with a walker. Neurosurgery appointment in the near future. Job ID: [id number]
--- NOTE | 2018-02-23 22:02 | EKG ---
Test Reason : Blood Pressure : / mmHG Vent. Rate : 078 BPM Atrial Rate : 078 BPM P-R Int : 194 ms QRS Dur : 094 ms QT Int : 376 ms P-R-T Axes : 055 031 -27 degrees QTc Int : 428 ms Normal sinus rhythm T wave abnormality, consider inferior ischemia Abnormal ECG When compared with ECG of 16-MAR-2017 17:57, Non-specific change in ST segment in Inferior leads T wave inversion now evident in Inferior leads Confirmed by Javad TERRAZAS ([id number]) on 02/23/2018 10:02:27 PM Referred By: ANTOLIN Confirmed By:Javad TERRAZAS
== END 2018-02-22 12:09 | disposition home or self-care (01) ==
LOC: LABBT 12:08
PROVIDERS: ATTEND Specialist
DX: Z01.818 Encounter for other preprocedural examination (principal); K42.9 Umbilical hernia without obstruction or gangrene; I12.0 Hypertensive chronic kidney disease with stage 5 chronic kidney disease or end stage renal disease; N18.6 End stage renal disease; I70.0 Atherosclerosis of aorta; I25.10 Atherosclerotic heart disease of native coronary artery without angina pectoris; G47.30 Sleep apnea, unspecified; Z95.1 Presence of aortocoronary bypass graft
CPT/HCPCS: 71046; 80048; 85025; 93005; 93010

== ENCOUNTER 2018-03-01 05:48 | Day surgery (SDC) | payer MEDICARE, OTHER ==
[2018-02-22 12:29] VITALS: BMI 30.4
[2018-03-01] MEDS ORDERED: Fentanyl 100 MCG/2 ML VIAL ONE (06:22)
[2018-03-01] MEDS ORDERED: Levofloxacin 500 mg/D5W 100 ml Premix Bag ONE (06:29)
[2018-03-01] MEDS ORDERED: Bupivacaine/Epinephrine 0.25% 30 ML VIAL ONE ×2 (06:50→07:09)
[2018-03-01] MEDS ORDERED: Heparin 10,000 UNITS/1 ML VIAL ONE (06:50)
[2018-03-01] MEDS ORDERED: Bupivacaine HCl 0.5%/Epinephrine 1:200,000/PF 30 ml Vial ONE (06:50)
[2018-03-01] MEDS ORDERED: Lidocaine 2% PF 5 ML VIAL ONE ×2 (06:50→07:09)
--- NOTE | 2018-03-01 14:29 | OP ---
DATE OF PROCEDURE: 03/01/2018 PREOPERATIVE DIAGNOSES: End-stage renal disease, functioning left Vonda fistula, umbilical hernia. POSTOPERATIVE DIAGNOSES: End-stage renal disease, functioning left Vonda fistula, umbilical hernia. PROCEDURES PERFORMED: Laparoscopic peritoneal dialysis catheter, laparoscopic omentopexy, laparoscopic sling suture of 2-0 Ethibond, umbilical hernia repair without mesh (smaller defect). ANESTHESIA: General, local 0.25% Marcaine with epinephrine 60 mL. DESCRIPTION OF PROCEDURE: The patient was taken to the operating room, where under general anesthesia in the supine position, his abdomen was clipped of hair, prepared with ChloraPrep, and draped in routine fashion. Local anesthetic was infiltrated in the skin and subcutaneous tissue about the operative sites. Bilateral subcostal incision was made. Pneumoperitoneum to 15 mmHg was obtained with a Veress needle, replaced with a 5 port, and the laparoscope inserted. A contralateral 5 mm port placed under laparoscopic visualization. A stab incision was made at the planned exit site in the left lower quadrant and superior and medial to this, slightly above the umbilical level, a counterincision was made and an 8 mm port placed under laparoscopic visualization and it was directed through the subcutaneous tissue caudally, obliquely directed into the rectus sheath and penetrated the abdominal wall inferiorly. The PD catheter with double-cuffed pigtail was placed through this 8 mm port into the pelvis under laparoscopic visualization, and an internal cuff was placed in the rectus sheath and 8 mm port used. A [place] dissector was placed through the planned exit site to the counterincision, grasping the PD catheter and pulling it out the exit site. We placed an external cuff beneath the skin and subcutaneous tissues proximally 3-0 Monocryl, skin with subdermal 4-0 Monocryl as the catheter was flushed with saline solution and then heparinized saline solution with 1000 units of heparin per mL. Omentopexy was performed with 2-0 Vicryl GraNee needle the omentum to the upper abdomen. A sling suture was placed directing the catheter in the right hemipelvis because of some fatty tissue extending from the sigmoid colon to the left lower quadrant in the left hemipelvis. This was left in place. At this point, pneumoperitoneum was reduced. All instruments were removed, and all skin incisions were approximated with subdermal 4-0 Monocryl. Infraumbilical skin incision made and carried down through the skin and subcutaneous tissue and fascial defects noted for the small umbilical hernia too small to place mesh and fascial defect was closed [id number] with interrupted sutures of 0 PDS pop-offs. Subcutaneous tissue was approximated with 3-0 Monocryl, skin with subdermal 4-0 Monocryl, and [place] glue applied. Sterile dressings were applied. The patient tolerated the procedure well. Job ID: [id number]
== END 2018-03-01 09:43 | disposition home or self-care (01) ==
LOC: SDC 05:48
PROVIDERS: ATTEND Specialist
PROC: 0WQF0ZZ Repair Abdominal Wall, Open Approach (ICD-10-PCS; principal; 2018-03-01)
PROC: 0DQU4ZZ Repair Omentum, Percutaneous Endoscopic Approach (ICD-10-PCS; 2018-03-01)
DX: K42.9 Umbilical hernia without obstruction or gangrene (principal); I12.0 Hypertensive chronic kidney disease with stage 5 chronic kidney disease or end stage renal disease; N18.6 End stage renal disease; Z99.2 Dependence on renal dialysis; I25.10 Atherosclerotic heart disease of native coronary artery without angina pectoris; G47.30 Sleep apnea, unspecified; Z99.89 Dependence on other enabling machines and devices; Z88.0 Allergy status to penicillin; Z95.5 Presence of coronary angioplasty implant and graft; Z95.1 Presence of aortocoronary bypass graft; Z79.899 Other long term (current) drug therapy; Z98.890 Other specified postprocedural states
CPT/HCPCS: J0131; J0670; J1644; J1956; J2001; J3010

== ENCOUNTER 2018-03-05 08:05 | Inpatient (IN) | payer MEDICARE, OTHER ==
[2018-03-05 08:49] LABS: #Eosinphils 0.2 thou/uL (0.0-0.7); #Lymphocytes 1.4 thou/uL (1.20-3.40); #Monocytes 0.9 thou/uL (0.11-0.59); #Neutrophils 4.9 thou/uL (1.40-6.50); %Basophils 0.1 % (0.0-1.0); %Eosinophils 2.7 % (0.0-10.0); %Lymphocytes 18.7 % (21.0-51.0); %Monocytes 12.1 % (0.0-10.0); %Neutrophils 66.4 % (42.0-75.0); Hemoglobin 11.9 g/dL (14.0-18.0); Mean Corpuscular HGB CONC 31.8 g/dL (32.0-36.0); Mean Corpuscular Hemoglobin 33.2 pg (27.0-31.0); Mean Platelet Volume 6.5 fL (7.4-10.4); Platelet Count 270 thou/uL (130-400); Red Blood Cell (RBC) Count 3.59 mill/uL (4.70-6.10); White Blood Cell (WBC) Count 7.4 thou/uL (4.8-10.8)
--- NOTE | 2018-03-05 08:58 | CT ---
CT BRAIN NONCONTRAST: DATE: 03/05/18 TIME: 0826 hours HISTORY: 77-year-old male with altered mental status. COMPARISON: 02/26/17 CT. FINDINGS: There is no midline shift or any other mass effect. There is no evidence of acute intracranial hemor rhage, large cortical infarct, obstructive hydrocephalus, or extraaxial fluid collection. The calvar ium is intact. There is diffuse parenchymal volume loss. There are low attenuation areas in the whi te matter. These are nonspecific, but in a patient of this age, they are probably chronic ischemic w monty matter changes due to microvascular atherosclerosis. Multiple small and tiny old lacunar infarct ions of bilateral basal ganglia, external capsules, and caudate nuclei. No interval change overall. IMPRESSION: 1. No acute intracranial findings. 2. Involutional changes and chronic ischemic white matter changes. 3. 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 james [] POS: [facility]
--- NOTE | 2018-03-05 08:59 | RAD ---
RADIOGRAPH CHEST 1 VIEW: HISTORY: 77-year-old male with chronic renal failure, on peritoneal dialysis with altered mental status. FINDINGS: The thoracic aorta is tortuous and ectatic. There is no evidence of air space density, pneumothorax, or pulmonary edema. The lateral costophrenic angles are sharp. There is no cardiomegaly. There are sternotomy wires. IMPRESSION: 1. No acute pulmonary findings. 2. Ectasia of thoracic aorta. james [] POS: [facility]
[2018-03-05 09:09] LABS: ALT (SGPT) 12 U/L (8-55); AST (SGOT) 30 U/L (5-34); Albumin 3.8 g/dL (3.4-4.8); Alkaline Phosphatase 106 U/L (40-150); Anion Gap 15 mmol/L (10-20); BUN (Urea Nitrogen) 24 mg/dL (8.4-25.7); Bilirubin, Total 0.7 mg/dL (0.2-1.2); Calc. Creatinine Clearance 0 mL/min (70-130); Calcium 10.5 mg/dL (7.8-10.44); Carbon Dioxide 24 mmol/L (23-31); Chloride 99 mmol/L (98-107); Estimated GFR-MDRD 7; Globulin 3.9 g/dL (2.4-3.5); Glucose 82 mg/dL (83-110); Potassium 5.2 mmol/L (3.5-5.1); Protein, Total 7.7 g/dL (5.8-8.1); Sodium 133 mmol/L (136-145)
[2018-03-05 09:22] LABS: Bilirubin Negative (Negative); Blood, Urine Trace (Negative); Clarity CLEAR (Clear); Glucose, Urine (Dipstick) Negative (Negative); Leukocyte Negative (Negative); Nitrite Negative (Negative); Protein, Urine (Dipstick) 100 mg/dL (Neg-Trace); Urobilinogen 0.2 mg/dL (0.2-1.0)
[2018-03-05 09:25] LABS: Amphetamine Not Detected (NotDetected); Bacteria/HPF None Seen HPF (None Seen); Barbiturates Screen Not Detected (NotDetected); Benzodiazepine Screen Detected (NotDetected); Cocaine Metabolite Screen Not Detected (NotDetected); Hyaline Casts/LPF 0-3 HYALINE CAST LPF (0-3 Hyaline); Medtox Reader # READER 4; Methadone Not Detected (NotDetected); Methamphetamine Not Detected (NotDetected); Opiate Screen Detected (NotDetected); Oxycodone Screen Not Detected (NotDetected); Pathc Cast-AUWi Flag 0.14 (0-2.49); Phencyclidine (PCP) Not Detected (NotDetected); RBC/HPF 0-3 HPF (0-3); Squamous Epithelial 0-3 HPF (0-3); THC/Cannabinoid Screen Not Detected (NotDetected); Tricyclic Screen Not Detected (NotDetected); WBC/HPF 0-3 HPF (0-3)
[2018-03-05 09:27] LABS: Medtox Control Line Valid? VALID (VALID)
[2018-03-05 09:31] LABS: CKMB 2.5 ng/mL (0-6.6)
--- NOTE | 2018-03-05 12:34 | CON ---
DATE OF CONSULTATION: 03/05/2018 NEPHROLOGY CONSULTATION REASON FOR CONSULTATION: End-stage renal disease and hyperkalemia. HISTORY OF PRESENT ILLNESS: This is a 77-year-old gentleman, presented to the hospital with altered mental status. The patient denies any nausea, vomiting, or chest pain, but has had weakness and jerky movements, and was noted to have a potassium of 5.2. The patient was dialyzed yesterday through the AV fistula. The patient also had recent abdominal surgery for hernia as well as peritoneal dialysis catheter. PAST MEDICAL HISTORY: Hypertension, end-stage renal disease, CABG, AV fistula, tunneled dialysis catheter, peritoneal dialysis catheter, hernia repair. MEDICATIONS: Home medications list reviewed. Hospital medications list reviewed. ALLERGIES: REVIEWED. REVIEW OF SYSTEMS: A 15-point review of systems was performed and was negative except for positives noted above. NECK: No swelling or lumps. NOSE: No epistaxis or discharge. EYES: No diplopia or pain. MUSCULOSKELETAL: No joint pain. NEUROPSYCHIATRIC SYSTEMS: No suicidal ideation. No ideation. SKIN: Denies any rash or ulcer. CONSTITUTIONAL: No fever or chills. PHYSICAL EXAMINATION: CONSTITUTIONAL: Awake, alert, in no acute distress. VITAL SIGNS: Afebrile, pulse 75, breathing 16, blood pressure 140/75. GENERAL APPEARANCE AND MENTAL STATUS: Fair. HEAD/NECK: Normocephalic. Atraumatic. EYES: EOMI. No deformity. EARS: Clear. No ulcers. NOSE: Intact. No lesions. MOUTH: Clear. No discharge. THROAT: Clear. No exudate. LUNGS: Clear. No crackles. CARDIAC: S1, S2. No rub. ABDOMEN: Benign. Bowel sounds positive. GENITALIA/RECTUM: Lyons absent. BACK/EXTREMITIES: Edema 0+. NEUROLOGICAL: Alert and motor intact. LABORATORY DATA: Labs show potassium 5.2, BUN 24. ASSESSMENT AND PLAN: 1. Stage 6 chronic kidney disease, plan dialysis. 2. Hyperkalemia, plan dialysis. 3. Anemia, stable. 4. Medications based on glomerular filtration rate are appropriate. 5. Alerted mental status, could be due to infection from recent surgery versus other etiology. Management per Primary team. Job ID: [id number]
[2018-03-05] MEDS ORDERED: Vancomycin HCl 1 GM in Premix Bag 1 BAG IVPB SCH (13:00)
[2018-03-05] MEDS ORDERED: Ondansetron PF 4 MG/2 ML Vial IVP PRN (13:01)
[2018-03-05] MEDS ORDERED: HYDROcodone/Acetaminophen 5/325 mg Tablet PO PRN ×2 (13:01→13:02)
[2018-03-05] MEDS ORDERED: Acetaminophen 325 MG TAB PO PRN ×2 (13:01→14:37)
[2018-03-05] MEDS ORDERED: Ondansetron ODT 4 MG TAB PO PRN (13:01)
[2018-03-05 13:36] LABS: Troponin I 0.075 ng/mL (< 0.028)
[2018-03-05] MEDS ORDERED: Calcium Carbonate 500 MG ChewTAB PO PRN (14:37)
[2018-03-05] MEDS ORDERED: Guaifenesin DM 100-10/5 ML UDCUP PO PRN (14:37)
[2018-03-05 15:16] VITALS: BMI 31.3
--- NOTE | 2018-03-05 15:44 | HP ---
REASON FOR ADMISSION: Acute encephalopathy, acute psychosis. HISTORY OF PRESENTING ILLNESS: The patient had umbilical hernia repair with peritoneal dialysis catheter placed on Wednesday. Wednesday evening, the patient kept rolling out of bed nearly 3 times. He fell and hurt his knee. Please note, majority of this history is obtained by talking to the patient's , Ms. Trenton Carrillo, as the patient is not fully oriented. The patient thinks he is in [place], but knows that he is to his for 50 years and they have no children. The patient answers questions right about for every one in four questions. The mentions that he has not been sleeping well. On , he was answering inappropriately for questions at home. Yesterday, at dialysis, the patient was arguing with windows deployment technician, which is totally not him per . He is asking his what will they do with the house in [place], which they do not really have one. All of this prompted the to bring him to the emergency room. Also, the patient was started on temazepam from yesterday. The patient's thinks 6 hours after taking the temazepam, things got worse and he became more confused per . She also mentions that his lower extremity strength has not been the same after he had bypass for 2-vessel disease done in September of 2016 at [facility] by Dr. Jordan. His legs feel like jelly. Also, he has had a back surgery done 35 years back and she thinks that it might have been worn out. He got no strength in his leg and has severe pain in his back and is planning to see either Dr. Bae or Cheryl. She is awaiting an appointment for him. No history of fever, cough, or expectoration. No complaints of chest pain or palpitation. No complaints of shortness of breath at present. He is currently getting dialyzed. He had a 4-hour session of dialysis yesterday. The also mentions that he usually has trouble clearing out his anesthetic medications. Last time, he had CABG, he was in ICU for nearly 5 days. PAST MEDICAL AND SURGICAL HISTORY: History of CABG for 2-vessel disease done in September [address] Jordan in [facility]. He has had 2 stents placed [address] Nir Macias. End-stage renal disease, on hemodialysis; back surgery, done 35 years ago; hypertension, dyslipidemia, gout, dialysis access procedures in the left upper extremity. He has had a small umbilical hernia repair done on Wednesday without a mesh along with placement of peritoneal dialysis catheter by Dr. Escamilla. CURRENT MEDICATIONS: The patient is on allopurinol 200 mg p.o. daily; aspirin 81 mg p.o. daily; calcium acetate 667 mg p.o. daily; atorvastatin 10 mg daily; lactobacillus one tablet daily; midodrine 10 mg on Wednesday, Wednesday, Wednesday, 1 hour before dialysis; Protonix 40 mg daily; sertraline 25 mg daily; Seroquel 25 mg p.o. q.h.s. for insomnia; started temazepam 15 mg q.h.s. from the last 2 days; melatonin q.h.s. from the last 2 weeks, gbyv-rcy-acfaker; Ultram 50 mg q.6 hourly, the patient has taken nearly 6 tablets after his surgery on Wednesday. ALLERGIES: ALLERGIC TO PENICILLIN. PERSONAL HISTORY: Quit smoking 35 years ago. Quit drinking alcohol 30 years ago. Does not abuse drugs. Lives with his of 50 years. FAMILY HISTORY: Mother of old age at the age of 88 years. Father was electrocuted at 41 years of age. Code status is full. Power of environmental attorney is his . REVIEW OF SYSTEMS: Cannot be obtained as the patient is not fully oriented. PHYSICAL EXAMINATION: GENERAL: The patient is a 77-year-old male, who is currently not fully oriented and is getting hemodialysis at present. VITAL SIGNS: Blood pressure 134/70, pulse 96 per minute, respiratory rate 20 per minute, temperature 97.5 degrees Fahrenheit, saturating 97% on room air. NECK: Supple. No elevated JVD. HEENT: Eyes; extraocular muscles intact. Pupils reacting to light. Oral cavity; mucous membranes are dry. No exudates or congestion. CARDIOVASCULAR: S1, S2 heard. Regular rhythm. RESPIRATORY: Air entry 1+ bilateral. No rales or rhonchi. ABDOMEN: Soft. Bowel sounds heard. No tenderness, rigidity, or guarding. His umbilical hernia repair laparoscopic scars are healing well. EXTREMITIES: No peripheral edema or calf tenderness. VASCULAR: Peripheral pulses 1+ bilateral. No ischemic ulcerations or gangrene. CENTRAL NERVOUS SYSTEM: No gross focal deficits noted. The patient is not oriented, but awake and responds verbally to all questions, but not very accurately. PSYCHIATRIC: The patient is not oriented at present. The patient thinks he is in [place] at present. He has hallucinations. No obvious delusions at present. The patient is calm and getting dialyzed. DIAGNOSTIC STUDIES: EKG done shows normal sinus rhythm at 96 beats per minute. There is poor R-wave progression seen. CT brain done shows no acute infarct or bleed. There are involutional changes and chronic ischemic white matter changes seen. There is diffuse parenchymal volume loss seen on the CAT scan. The small and tiny old lacunar infarcts in bilateral basal ganglia, external capsules, and cardiac nuclei. Chest x-ray done shows no acute cardiopulmonary findings. There is ectasia of thoracic aorta. White count of 7, H and H of 11 and 37, platelet count 270, with 66% neutrophils , MCV is 104. Potassium 5.2, serum bicarb 24, BUN 24, creatinine 7.23, calcium is 10, serum glucose 82. Troponin I 0.07. CK-MB 2.5. CRP 11. Albumin is 3.8. TSH 4.53. Urine drug screen is positive for opioids and benzodiazepine. CLINICAL IMPRESSION AND PLAN: The patient will be admitted to telemetry for acute encephalopathy with psychosis, likely multifactorial with the patient taking multiple medications for his insomnia. He recently started melatonin from the last 2 weeks and temazepam from the last 2 days along with Seroquel that he already takes at bedtime. He also took nearly 6 tablets of Ultram. All of the above could be causing his current psychosis with hallucinations. The patient has chronic low back issue and we will place him on lidocaine patch for now and start him on 25 mg of Lyrica daily. We will also continue his allopurinol and midodrine on dialysis days, Protonix, Seroquel at bedtime, sertraline in the morning, sevelamer and Lipitor as before. We will also give him a small dose of aspirin as well. Blood and urine cultures have been obtained in the ER. I have discussed the current lab findings and the plan with the patient's over the phone. We will also obtain PT/OT evaluations. The patient has bruising on both knees from his falls at home after the procedure now. Discharge plan will be to either rehab or swing bed or if he gets better, he might go home with home health and PT. We will continue to closely monitor him for clearance of his acute encephalopathy/psychosis, possible delirium for now. Job ID: [id number] MTDIdalia
[2018-03-05] MEDS ORDERED: Prevnar 13-Val Conj/PF 0.5 ML SYRINGE IM ONE (15:45)
--- NOTE | 2018-03-05 15:45 | CT ---
CT ABDOMEN NONCONTRAST CT PELVIS NONCONTRAST: (urolithiasis protocol) DATE: 03/05/18 TIME: 2:59 p.m. HISTORY: 77-year-old male with postoperative abdominal pain. Abdominal surgery was yesterday. COMPARISON: None available. TECHNIQUE: IV injection of iodinated contrast media: none Oral contrast media: none FINDINGS: Other than for urolithiasis, the lack of IV and oral contrast limits the evaluation. There is subcutaneous emphysema anterior to the left upper quadrant anterior abdominal wall, and ther e is a small amount of gas within the intramuscular plane of that abdominal wall. This is presumably site of port from recent laparoscopy. There is a peritoneal dialysis catheter entering through the in ferior portion of the left rectus abdominis muscle, coiled in the right lower quadrant of the periton eal cavity. No ascites. Sigmoid and descending colonic diverticula. No signs of diverticulitis. No sm all bowel dilation. There is a tiny amount of extraluminal gas in the far anterior aspect of the rig ht upper quadrant intraperitoneal cavity anterior to the liver. Bilateral kidneys are small. Atherosc lerotic calcification of abdominal aorta and iliac arteries without aneurysm. A normal appendix is vi sualized anterolateral to the ascending aorta. No small bowel dilation. No hydronephrosis. Small 1 cm low density round lesion at lower pole of left kidney, too small to definitively characterize. Withi n the limitations of a noncontrast scan, no gross pathology identified involving the liver, adrenals, pancreas, spleen, or right adrenal gland. Left adrenal gland is mildly thickened, nonspecific. IMPRESSION: 1. Evidence of recent laparoscopic surgery. 2. Evidence for chronic renal failure. 3. Peritoneal dialysis catheter. 4. Colonic diverticulosis without diverticulitis. 5. No other acute pathology identified. TIMOTHY Herbert POS: LM
[2018-03-05] MEDS: Lidocaine 5% Patch TD SCH (15:58)
[2018-03-05] MEDS: Sevelamer Carbonate 800 MG TAB PO SCH (16:47)
[2018-03-05 17:00] LABS: Potassium 4.3 mmol/L (3.5-5.1)
[2018-03-05 17:12] LABS: Troponin I 0.071 ng/mL (< 0.028)
[2018-03-06] MEDS: Allopurinol 100 MG TAB PO SCH ×3 (04:26→22:00)
[2018-03-06] MEDS: Lactinex Tablet PO SCH ×3 (04:26→22:01)
[2018-03-06] MEDS: Lidocaine Patch Removal 1 EACH TOP SCH (04:35)
[2018-03-06 05:31] LABS: #Eosinphils 0.1 thou/uL (0.0-0.7); #Lymphocytes 0.9 thou/uL (1.20-3.40); #Monocytes 0.9 thou/uL (0.11-0.59); #Neutrophils 4.2 thou/uL (1.40-6.50); %Basophils 0.5 % (0.0-1.0); %Eosinophils 2.2 % (0.0-10.0); %Lymphocytes 14.2 % (21.0-51.0); %Monocytes 13.9 % (0.0-10.0); %Neutrophils 69.3 % (42.0-75.0); Hemoglobin 11.3 g/dL (14.0-18.0); Mean Corpuscular HGB CONC 32.7 g/dL (32.0-36.0); Mean Corpuscular Hemoglobin 33.8 pg (27.0-31.0); Mean Platelet Volume 6.7 fL (7.4-10.4); Platelet Count 264 thou/uL (130-400); Red Blood Cell (RBC) Count 3.33 mill/uL (4.70-6.10); White Blood Cell (WBC) Count 6.1 thou/uL (4.8-10.8)
[2018-03-06 05:39] LABS: Anion Gap 17 mmol/L (10-20); BUN (Urea Nitrogen) 19 mg/dL (8.4-25.7); Calc. Creatinine Clearance 14 mL/min (70-130); Calcium 10.1 mg/dL (7.8-10.44); Carbon Dioxide 27 mmol/L (23-31); Chloride 96 mmol/L (98-107); Estimated GFR-MDRD 10; Glucose 72 mg/dL (83-110); Potassium 4.4 mmol/L (3.5-5.1); Sodium 136 mmol/L (136-145)
[2018-03-06] MEDS: Sevelamer Carbonate 800 MG TAB PO SCH ×3 (08:44→16:35)
[2018-03-06] MEDS: Atorvastatin Calcium 10 MG TAB PO SCH (08:45)
[2018-03-06] MEDS: Folic Acid/Vit B Comp W-C PO SCH (08:45)
[2018-03-06] MEDS: Enoxaparin Sodium 30 MG/0.3 ML SYRINGE SC SCH (08:45)
[2018-03-06] MEDS: Pregabalin 25 MG CAP PO SCH (09:52)
--- NOTE | 2018-03-06 12:25 | PDOC.PN ---
- Subjective Encounter Start Date: 03/06/18 Encounter Start Time: 12:24 Subjective: Doing well. Alert and oriented, less confused. No complains - Objective Resuscitation Status - Order Detail: 03/05/18 14:31 Resuscitation Status Routine Resuscitation Status: FULL: Full Resuscitation MAR Reviewed: Yes Vital Signs & Weight: Vital Signs (12 hours) Temp Pulse Resp BP Pulse Ox 03/06/18 12:00 98.9 F 100 18 184/84 H 95 03/06/18 08:00 97.9 F 110 H 18 142/93 H 93 L 03/06/18 04:00 98.1 F 124 H 22 H 95 Weight Weight 201 lb 11.2 oz I&O: 03/05/18 03/06/18 03/07/18 06:59 06:59 06:59 Intake Total 200 Output Total 0 Balance 200 Result Diagrams: 03/06/18 04:38 03/06/18 04:38 Phys Exam - Physical Examination HEENT: PERRLA, moist MMs, sclera anicteric, TM's clear, oral pharynx no lesions , 2+ tonsils Neck: no nodes, no JVD, supple, full ROM Respiratory: no wheezing, no rales Cardiovascular: RRR, no significant murmur Gastrointestinal: soft, non-tender, no distention, positive bowel sounds Musculoskeletal: edema present Neurological: non-focal, normal sensation, moves all 4 limbs Psychiatric: normal affect Deviation from normal: alert and oriented X 2, pleasant Skin: no rash, normal turgor, cap refill <2 seconds Dx/Plan (1) Acute encephalopathy Code(s): G93.40 - ENCEPHALOPATHY, UNSPECIFIED Status: Acute Comment: CTH with no acute changes, multpile psych meds and pain meds, possible poly pharmacy , deescalate meds. Cx so far has been negative, possible DC in am after PT AND dialysis (2) Confusion Code(s): R41.0 - DISORIENTATION, UNSPECIFIED Status: Acute Comment: as above (3) Fall Code(s): W19.XXXA - UNSPECIFIED FALL, INITIAL ENCOUNTER Status: Acute Qualifiers: Encounter type: initial encounter Qualified Code(s): W19.XXXA - Unspecified fall, initial encounter Comment: S/P fall, scrapped knees, did not hit his head (4) CAD (coronary artery disease) Code(s): I25.10 - ATHSCL HEART DISEASE OF [place] CORONARY ARTERY W/O ANG PCTRS Status: Chronic Qualifiers: Coronary Disease-Associated Artery/Lesion type: [place] artery Comment: continue statin (5) Chronic anticoagulation Code(s): Z79.01 - [facility] (CURRENT) USE OF ANTICOAGULANTS Status: Chronic Comment: INR subtherapeutic (6) Chronic atrial fibrillation Code(s): I48.2 - CHRONIC ATRIAL FIBRILLATION Status: Chronic Comment: on Kostas.NSR for now (7) ESRD (end stage renal disease) on dialysis Code(s): N18.6 - END STAGE RENAL DISEASE; Z99.2 - DEPENDENCE ON RENAL DIALYSIS Status: Chronic Comment: HD per nephrology. (8) HTN (hypertension) Code(s): I10 - ESSENTIAL (PRIMARY) HYPERTENSION Status: Chronic Qualifiers: Hypertension type: essential hypertension Qualified Code(s): I10 - Essential (primary) hypertension Comment: continue home meds - Plan cont current plan of care, social contact worker, DVT proph w/SCDs * .
--- NOTE | 2018-03-06 12:43 | PRG ---
DATE OF SERVICE: SUBJECTIVE: A 77-year-old male, being seen for end-stage renal disease. The patient denies any nausea, vomiting, or chest pain. OBJECTIVE: CONSTITUTIONAL: The patient is awake and alert. VITAL SIGNS: Afebrile, pulse 110, breathing 16, and blood pressure 142/96. GENERAL APPEARANCE AND MENTAL STATUS: Fair. HEAD/NECK: Normocephalic. Atraumatic. EYES: EOMI. No deformity. EARS: Clear. No ulcers. NOSE: Intact. No lesions. MOUTH: Clear. No discharge. THROAT: Clear. No exudate. LUNGS: Clear. No crackles. CARDIAC: S1, S2. No rub. ABDOMEN: Benign. Bowel sounds positive. GENITALIA/RECTUM: Lyons absent. BACK/EXTREMITIES: Edema 0+. NEUROLOGICAL: Alert and motor intact. LABORATORY DATA: Labs show hemoglobin 11.3. ASSESSMENT AND PLAN: 1. Stage 6 chronic kidney disease, plan dialysis tomorrow. 2. Hypertension, stable. 3. Anemia, stable. 4. Medications based on GFR as appropriate. Job ID: [id number]
[2018-03-06] MEDS: Lidocaine 5% Patch TD SCH (16:29)
[2018-03-07] MEDS: Lidocaine Patch Removal 1 EACH TOP SCH (03:28)
[2018-03-07] MEDS: Folic Acid/Vit B Comp W-C PO SCH (09:37)
[2018-03-07] MEDS: Lactinex Tablet PO SCH ×2 (09:37→21:18)
[2018-03-07] MEDS: Sevelamer Carbonate 800 MG TAB PO SCH ×3 (09:37→17:10)
[2018-03-07] MEDS: Midodrine HCl 5 MG TAB PO SCH (09:37)
[2018-03-07] MEDS: Atorvastatin Calcium 10 MG TAB PO SCH (09:37)
[2018-03-07] MEDS: Allopurinol 100 MG TAB PO SCH ×2 (09:38→21:18)
[2018-03-07] MEDS: Enoxaparin Sodium 30 MG/0.3 ML SYRINGE SC SCH (09:38)
[2018-03-07] MEDS: Pregabalin 25 MG CAP PO SCH ×2 (11:55→12:14)
--- NOTE | 2018-03-07 12:24 | PQF ---
CLINICAL DOCUMENTATION IMPROVEMENT CLARIFICATION FORM: ICD-10 Updated PLEASE DO AN ADDENDUM TO THE PROGRESS NOTE WITH ANY DOCUMENTATION UPDATES OR ADDITIONS AND CARRY THROUGH TO DC SUMMARY. THANK YOU. DATE: 03/08/18 ATTN: DR. STARR Please exercise your independent, professional judgment in responding to the clarification form. Clinical indicators are provided on the bottom of this form for your review Please check appropriate box(s): [ X ] Encephalopathy: Type: [ X ] Acute [ ] Subacute [ ] Chronic Etiology: [ ] Hypertensive [ X] Metabolic [ ] Toxic [ ] Hepatic with Coma [ ] Hepatic w/o Coma [ ] Hypoxic [ ] Septic [ ] Drug induced: [ ] Unspecified [ ] in the setting of underlying dementia [ ] Other (please specify) [ ] Transient Alteration of Awareness [ ] Other diagnosis [ ] Unable to determine In addition, please specify: Present on Admission (POA): [ ] Yes [ ] No [ ] Unable to determine For continuity of documentation, please document condition throughout progress notes and discharge summary. Thank You. CLINICAL INDICATORS - SIGNS / SYMPTOMS / LABS H&P: "ACUTE ENCEPHALOPATHY" RISKS: "POSSIBLE POLY PHARMACY" (PROGRESS NOTE 03/06) "MULTIPLE PSYCH MEDS AND PAIN MEDS" TREATMENT: BRAIN CT SEROQUEL (03/05-PRESENT) "DEESCALATION OF MEDS" (PROGRESS NOTE 03/06) TELEMETRY MONITORING (This form is maintained as a part of the permanent medical record) 2014 [employer]. All Rights Reserved [email or web address] Office: [phone] [facility]PITAL CENTERIdalia
--- NOTE | 2018-03-07 14:32 | PRG ---
DATE OF SERVICE: 03/07/2018 SUBJECTIVE: A 77-year-old male, being seen for end-stage renal disease. The patient denies any nausea, vomiting, or chest pain. OBJECTIVE: CONSTITUTIONAL: The patient is awake and alert. VITAL SIGNS: Afebrile, pulse 75, breathing 16, and blood pressure /74. GENERAL APPEARANCE AND MENTAL STATUS: Fair. HEAD/NECK: Normocephalic. Atraumatic. EYES: EOMI. No deformity. EARS: Clear. No ulcers. NOSE: Intact. No lesions. MOUTH: Clear. No discharge. THROAT: Clear. No exudate. LUNGS: Clear. No crackles. CARDIAC: S1, S2. No rub. ABDOMEN: Benign. Bowel sounds positive. GENITALIA/RECTUM: Lyons absent. BACK/EXTREMITIES: Edema 0+. NEUROLOGICAL: Alert and motor intact. SKIN: LYMPHATICS: LABORATORY DATA: Labs showed hemoglobin 11.3, creatinine 5.8. ASSESSMENT AND PLAN: 1. Stage 6 chronic kidney disease, plan dialysis. 2. Hypertension, stable. 3. Anemia, stable. 4. Medications based on GFR as appropriate. Job ID: [id number]
--- NOTE | 2018-03-07 14:37 | PDOC.PN ---
- Subjective Encounter Start Date: 03/07/18 Encounter Start Time: 14:36 Subjective: Sleeping peacefully for the first time since admission -: Continued confusion, ongoing since a week,since PD cather was placed - Objective Resuscitation Status - Order Detail: 03/05/18 14:31 Resuscitation Status Routine Resuscitation Status: FULL: Full Resuscitation MAR Reviewed: Yes Vital Signs & Weight: Vital Signs (12 hours) Temp Pulse Resp BP Pulse Ox 03/07/18 08:00 97.4 F L 98 17 155/74 H 93 L 03/07/18 03:20 97.9 F 99 16 154/80 H 93 L Weight Weight 200 lb 8 oz I&O: 03/06/18 03/07/18 03/08/18 06:59 06:59 06:59 Intake Total 200 1080 Output Total 0 0 Balance 200 1080 Result Diagrams: 03/06/18 04:38 03/06/18 04:38 Phys Exam - Physical Examination HEENT: PERRLA, moist MMs, sclera anicteric, TM's clear, oral pharynx no lesions , 2+ tonsils Neck: no nodes, no JVD, supple, full ROM Respiratory: no wheezing, no rales Cardiovascular: RRR, no significant murmur Gastrointestinal: soft, non-tender, no distention Musculoskeletal: edema present Neurological: non-focal, normal sensation, moves all 4 limbs Deviation from normal: Oreinted X 2, some confusion Skin: no rash, normal turgor, cap refill <2 seconds Dx/Plan (1) Acute encephalopathy Code(s): G93.40 - ENCEPHALOPATHY, UNSPECIFIED Status: Acute Comment: CTH with no acute changes, multpile psych meds and pain meds, possible poly pharmacy , deescalate meds. Cx so far has been negative. DC to SNF when bed is available. (2) Confusion Code(s): R41.0 - DISORIENTATION, UNSPECIFIED Status: Acute Comment: as above (3) Fall Code(s): W19.XXXA - UNSPECIFIED FALL, INITIAL ENCOUNTER Status: Acute Qualifiers: Encounter type: initial encounter Qualified Code(s): W19.XXXA - Unspecified fall, initial encounter Comment: S/P fall, scrapped knees, did not hit his head (4) CAD (coronary artery disease) Code(s): I25.10 - ATHSCL HEART DISEASE OF [place] CORONARY ARTERY W/O ANG PCTRS Status: Chronic Qualifiers: Coronary Disease-Associated Artery/Lesion type: [place] artery Comment: continue statin (5) Chronic anticoagulation Code(s): Z79.01 - [facility] (CURRENT) USE OF ANTICOAGULANTS Status: Chronic Comment: INR subtherapeutic (6) Chronic atrial fibrillation Code(s): I48.2 - CHRONIC ATRIAL FIBRILLATION Status: Chronic Comment: on [place].NSR for now (7) ESRD (end stage renal disease) on dialysis Code(s): N18.6 - END STAGE RENAL DISEASE; Z99.2 - DEPENDENCE ON RENAL DIALYSIS Status: Chronic Comment: HD per nephrology. (8) HTN (hypertension) Code(s): I10 - ESSENTIAL (PRIMARY) HYPERTENSION Status: Chronic Qualifiers: Hypertension type: essential hypertension Qualified Code(s): I10 - Essential (primary) hypertension Comment: continue home meds - Plan cont current plan of care, plan discussed w/ family, PT/OT, DVT proph w/lovenox Long DW . There are main 3 areas of concern: Subacute encephalopathy: Patient has some degree of confusion in the past, seems to have increased tremndously after he received anesthesia for his PD catheter. Also significant polypharmacy Tremors: Ongoing remors/ twitching, extensive workup in the past has been unrevealing LE weakness: Since patient had his bypass surgery in 2017. Patient has an appoinment with Neurologist Dr. Dubose Presntly wants patient to go to SNF, gain some strength and rest of the follow up's as OP.
[2018-03-07] MEDS: Lidocaine 5% Patch TD SCH (17:07)
[2018-03-07] MEDS: Senokot S 8.6-50 MG TAB PO PRN (21:20)
[2018-03-08] MEDS: Lidocaine Patch Removal 1 EACH TOP SCH (03:59)
[2018-03-08] MEDS: Sevelamer Carbonate 800 MG TAB PO SCH ×3 (08:55→16:17)
[2018-03-08] MEDS: Enoxaparin Sodium 30 MG/0.3 ML SYRINGE SC SCH (08:56)
[2018-03-08] MEDS: Allopurinol 100 MG TAB PO SCH ×2 (08:56→20:12)
[2018-03-08] MEDS: Lactinex Tablet PO SCH ×2 (08:56→20:12)
[2018-03-08] MEDS: Atorvastatin Calcium 10 MG TAB PO SCH (08:56)
[2018-03-08] MEDS: Folic Acid/Vit B Comp W-C PO SCH (08:56)
[2018-03-08] MEDS: Pregabalin 25 MG CAP PO SCH (09:16)
[2018-03-08] MEDS: Senokot S 8.6-50 MG TAB PO PRN (11:48)
--- NOTE | 2018-03-08 12:14 | PRG ---
DATE OF SERVICE: SUBJECTIVE: A 77-year-old gentleman being seen for end-stage renal disease. The patient denies any nausea, vomiting, or chest pain. OBJECTIVE: CONSTITUTIONAL: The patient is awake and alert. VITAL SIGNS: Afebrile, pulse 93, breathing is 16, and blood pressure 136/76. GENERAL APPEARANCE AND MENTAL STATUS: Fair. HEAD/NECK: Normocephalic. Atraumatic. EYES: EOMI. No deformity. EARS: Clear. No ulcers. NOSE: Intact. No lesions. MOUTH: Clear. No discharge. THROAT: Clear. No exudate. LUNGS: Clear. No crackles. CARDIAC: S1, S2. No rub. ABDOMEN: Benign. Bowel sounds positive. GENITALIA/RECTUM: Lyons absent. BACK/EXTREMITIES: Edema 0+. NEUROLOGICAL: Alert and motor intact. LABORATORY DATA: Labs showed hemoglobin 11.4. ASSESSMENT AND PLAN: 1. Stage 6 chronic kidney disease. Continue hemodialysis. 2. Hypertension, stable. 3. Anemia, stable. 4. Medications based on GFR as appropriate. Job ID: [id number]
--- NOTE | 2018-03-08 14:01 | EKG ---
Test Reason : Blood Pressure : / mmHG Vent. Rate : 096 BPM Atrial Rate : 096 BPM P-R Int : 192 ms QRS Dur : 090 ms QT Int : 346 ms P-R-T Axes : 000 163 109 degrees QTc Int : 437 ms Normal sinus rhythm Right axis deviation Abnormal ECG Confirmed by NERI MARTINEZ, RIGO ([id number]), publication editor MARVIN MENDES ([id number]) on 03/08/2018 2:00:36 PM Referred By: Confirmed By:RIGO HE MD
--- NOTE | 2018-03-08 15:32 | PRG ---
DATE OF SERVICE: 03/08/2018 SUBJECTIVE: The patient is seen and examined at the bedside. He is seating in his bed and eating lunch. His mentation is significantly improved according to his , who is present during my visit in the room. OBJECTIVE: VITAL SIGNS: Blood pressure is 149/80, pulse is 99, respiratory rate is 18, temperature is 97.8, and O2 saturation is 93% on room air. GENERAL: He is not short of breath. He follows my commands. HEENT: His head is atraumatic and normocephalic. Eyes are PERRLA. Sclerae are nonicteric. Oral mucosa is moist. NECK: Supple. LUNGS: Clear. HEART: S1 and S2 normal. No S3. No S4. ABDOMEN: Soft and nontender. EXTREMITIES: No clubbing, cyanosis, or edema. NEUROLOGIC: He is following my commands. He is able to move his all 4 extremities. The examination is nonfocal. LABORATORY DATA: None today. IMPRESSION: 1. Encephalopathy, acute, resolved. 2. Status post fall without loss of consciousness. 3. Coronary artery disease, chronic, stable on statin. 4. Chronic atrial fibrillation. 5. End-stage renal disease, status post peritoneal dialysis catheter placement. 6. Hypertension. PLAN: Plan is to continue current regimen since we are still waiting for the final arrangements to go to the rehab. Job ID: [id number]
[2018-03-08] MEDS: Lidocaine 5% Patch TD SCH (16:17)
[2018-03-09] MEDS: Lidocaine Patch Removal 1 EACH TOP SCH (04:38)
[2018-03-09] MEDS: Sevelamer Carbonate 800 MG TAB PO SCH ×3 (07:26→12:13)
[2018-03-09] MEDS: Lactinex Tablet PO SCH (07:26)
[2018-03-09] MEDS: Allopurinol 100 MG TAB PO SCH (07:26)
[2018-03-09] MEDS: Folic Acid/Vit B Comp W-C PO SCH ×2 (09:02→12:13)
[2018-03-09] MEDS: Enoxaparin Sodium 30 MG/0.3 ML SYRINGE SC SCH ×2 (09:02→12:14)
[2018-03-09] MEDS: Midodrine HCl 5 MG TAB PO SCH ×2 (09:02→12:13)
[2018-03-09] MEDS: Pregabalin 25 MG CAP PO SCH (09:02)
[2018-03-09] MEDS: Atorvastatin Calcium 10 MG TAB PO SCH ×2 (09:02→12:14)
--- NOTE | 2018-03-09 10:28 | PRG ---
DATE OF SERVICE: 03/09/2018 SUBJECTIVE: This is a 77-year-old gentleman, being seen for end-stage renal disease. The patient denies any nausea, vomiting, or chest pain. OBJECTIVE: CONSTITUTIONAL: The patient is awake and alert. VITAL SIGNS: Afebrile, pulse 100, breathing 16, blood pressure 144/79. GENERAL APPEARANCE AND MENTAL STATUS: Fair. HEAD/NECK: Normocephalic. Atraumatic. EYES: EOMI. No deformity. EARS: Clear. No ulcers. NOSE: Intact. No lesions. MOUTH: Clear. No discharge. THROAT: Clear. No exudate. LUNGS: Clear. No crackles. CARDIAC: S1, S2. No rub. ABDOMEN: Benign. Bowel sounds positive. GENITALIA/RECTUM: Lyons absent. BACK/EXTREMITIES: Edema 0+. NEUROLOGICAL: Alert and motor intact. SKIN: LYMPHATICS: LABORATORY DATA: None. ASSESSMENT AND PLAN: 1. Stage 6 chronic kidney disease, plan dialysis. 2. Hypertension, stable. 3. Anemia, stable. 4. Medications based on GFR as appropriate. Job ID: [id number]
[2018-03-09 12:05] VITALS: BP 110/73; TEMP 97.7
[2018-03-09] MEDS: Lidocaine 5% Patch TD SCH (15:01)
--- NOTE | 2018-03-09 16:31 | DIS ---
DATE OF ADMISSION: 03/05/2018 DATE OF DISCHARGE: 03/09/2018 DIAGNOSES AT THE TIME OF DISCHARGE: 1. Acute encephalopathy, resolved. 2. Status post fall without loss of consciousness. 3. Coronary artery disease, chronic, stable, on statin. 4. Chronic atrial fibrillation. 5. End-stage renal disease, status post peritoneal dialysis catheter placement. 6. Hypertension. 7. Back pain. 8. Coronary artery disease, status post coronary artery bypass grafting x2 vessels. 9. Dyslipidemia. 10. Gout. CONSULTATIONS: Dr. Medley, Nephrology Service. HOSPITAL COURSE: The patient was a 77-year-old male, who was admitted to the hospital with acute encephalopathy with acute psychosis. Apparently, he had peritoneal catheter placed the day before. Apparently, he rolled out of bed three times while at home and fell and hurt his knees. He was evaluated in the emergency room. He was found to have white count of 7, hemoglobin at 11.7, hematocrit 37, and platelet count 270, with 66% of neutrophils. Potassium was 5.2, bicarbonate 24, BUN 24, creatinine 7.23, and calcium was 10. Troponin I 0.07. CK-MB was 2.5. CRP 11 and albumin 3.8. TSH 4.53. Urine drug screen was positive for opiates and benzodiazepines. He had EKG done which showed normal sinus rhythm at 96 beats per minute. There was poor R-wave progression. The CT of the brain showed no acute infarct or bleed. There were involutional changes and chronic ischemic white matter changes along with diffuse parenchymal volume loss and tiny lacunar infarcts in bilateral basal ganglia external capsules and nuclei. Chest x-ray showed no acute cardiopulmonary findings. 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 The patient got admitted to telemetry for acute encephalopathy with psychosis. It was felt that this was most likely related to the medications he is taking. He is on several medications which could contribute to this picture and recently he was started on melatonin. Apparently, he took 6 tablets of Ultram prior to this event. Also, he has some chronic low back pain. So at the time of admission, admitting doctor put him on lidocaine patch and small dose of Lyrica 25 mg once a day. His nanosystems engineer was consulted and Dr. Medley saw the patient and the patient was hemodialyzed during this hospitalization under Dr. Medley's supervision. His blood cultures came back negative. His white count was not elevated, so it was very unlikely that this was caused by recently placed peritoneal dialysis catheter. His folic acid came back on the lower side, so he was placed on folic acid. He is doing well today. His tells me that he is back to his normal. His blood pressure is 110/73, temperature 97.7, pulse is beats per minute, respiratory rate is 18, and O2 saturation is 98% on room air. He was seen and examined before he was discharged. He is discharged home on heart-healthy diet. Activities as tolerated. He will have dressing changed on his peritoneal catheter tomorrow and he will continue his dialysis per Dr. Medley's recommendations. MEDICATIONS: At the time of discharge; 1. Acetaminophen 650 mg q.4 hours p.r.n. as needed. 2. Aspirin 81 mg once a day. 3. Folic acid 1 tablet once a day. 4. Lidocaine patch 1 patch topically daily. 5. Pregabalin 25 mg daily. 6. Senokot-S 2 tablets twice a day. 7. Lactobacillus 1 tablet once a day. 8. Midodrine 10 mg as directed. 9. Pantoprazole 1 tablet once a day. 10. Atorvastatin 1 tablet once a day. 11. Allopurinol 200 mg once a day. 12. Seroquel 1 tablet at bedtime . 13. Sertraline 25 mg at bedtime. 14. Calcium acetate 1334, three times a day. FOLLOWUP: He is going to follow up with his primary care physician. TIME SPENT: The discharge is more than 30 minutes. Job ID: [id number]
--- NOTE | 2018-03-11 18:25 | PQF ---
[employer] Load [employer]anner [employer] Reports Winedy OntiverosBRYSONDEBBIECLARITA LAINEZ, FAHAD AGUILERA MD [id number] CLINICAL DOCUMENTATION CLARIFICATION FORM: POST DISCHARGE Addendum to original discharge summary date: ____ Late entry note date: __ DATE: ATTN: Please exercise your independent, professional judgment in responding to the clarification form. Clinical indicators are provided on the bottom of this form for your review Please check appropriate box(s): [ ] Adverse effect (correctly prescribed and properly administered) [ ] Overdose [ ] Other diagnosis [ ] Unable to determine In addition, please specify: Present on Admission (POA): [ ] Yes [ ] No [ ] Unable to determine For continuity of documentation, please document condition throughout progress notes and discharge summary. Thank You. CLINICAL INDICATORS - SIGNS / SYMPTOMS / LABS Encephalopathy - medication related, 6 tablets of Ultram (discharge summary) RISK FACTORS ESRD HTN AFIB CAD TREATMENTS: Change in medications (This form is maintained as a part of the permanent medical record) 2014 [email or web address]. All Rights Reserved [email or web address] [email or web address] [phone] [email or web address]
--- NOTE | 2018-03-14 10:33 | PQF ---
DEBBIE LEAL ZBIGNIEW A MD [id number] [id number] [id number] CLINICAL DOCUMENTATION CLARIFICATION FORM: POST DISCHARGE Addendum to original discharge summary date: ____ Late entry note date: __ DATE: 03/14/18 ATTN: Please exercise your independent, professional judgment in responding to the clarification form. Clinical indicators are provided on the bottom of this form for your review Please check appropriate box(s): [ X] Adverse effect (correctly prescribed and administered [ ] Overdose [ ] Other diagnosis [ ] Unable to determine In addition, please specify: Present on Admission (POA): [ ] Yes [ ] No [ ] Unable to determine For continuity of documentation, please document condition throughout progress notes and discharge summary. Thank You. CLINICAL INDICATORS - SIGNS / SYMPTOMS / LABS Encephalopathy - medication related, 6 tablets of Ultram (discharge summary) RISK FACTORS ESRD HTN AFIB CAD TREATMENTS: Change in medication (This form is maintained as a part of the permanent medical record) 2014 [email or web address]. All Rights Reserved Matteo [email or web address] [phone] [email or web address]
== END 2018-03-09 15:56 | disposition home or self-care (01) | DRG 70 ==
LOC: ERS 08:05 → ERHOLD 11:59 → 2NO 12:53 → T4-B 03-07 21:12
PROVIDERS: ADMIT Internal Medicine; ATTEND Internal Medicine
PROC: 3E1M39Z Irrigation of Peritoneal Cavity using Dialysate, Percutaneous Approach (ICD-10-PCS; principal; 2018-03-05)
DX: G93.41 Metabolic encephalopathy (principal); N18.6 End stage renal disease; F19.959 Other psychoactive substance use, unspecified with psychoactive substance-induced psychotic disorder, unspecified; Z99.2 Dependence on renal dialysis; Z95.1 Presence of aortocoronary bypass graft; T40.2X5A Adverse effect of other opioids, initial encounter; I25.10 Atherosclerotic heart disease of native coronary artery without angina pectoris; I48.2 Chronic atrial fibrillation; Z79.01 Long term (current) use of anticoagulants; Z79.899 Other long term (current) drug therapy; Z79.82 Long term (current) use of aspirin; G47.00 Insomnia, unspecified; Z88.0 Allergy status to penicillin; G89.29 Other chronic pain; E78.5 Hyperlipidemia, unspecified; M10.9 Gout, unspecified
CPT/HCPCS: 36415; 51701; 70450; 71045; 74176; 80048; 80053; 80306; 81003; 81015; 82140; 82553; 82607; 82746; 84443; 84484; 85025; 85652; 86140; 87040; 87086; 90935; 93005; G0257; G8978-GP-CM; G8979-GP-CJ; J0690; J1650

== ENCOUNTER 2018-04-01 15:22 | Inpatient (IN) | payer MEDICARE, OTHER ==
[2018-04-01 16:09] LABS: #Basophils 0.1 thou/uL (0.0-0.2); #Eosinphils 0.2 thou/uL (0.0-0.7); #Lymphocytes 1.3 thou/uL (1.20-3.40); #Monocytes 0.5 thou/uL (0.11-0.59); #Neutrophils 5.6 thou/uL (1.40-6.50); %Basophils 0.7 % (0.0-1.0); %Eosinophils 2.5 % (0.0-10.0); %Lymphocytes 16.8 % (21.0-51.0); %Monocytes 6.9 % (0.0-10.0); %Neutrophils 73.1 % (42.0-75.0); Hemoglobin 7.2 g/dL (14.0-18.0); Mean Corpuscular HGB CONC 32.1 g/dL (32.0-36.0); Mean Platelet Volume 6.7 fL (7.4-10.4); Platelet Count 296 thou/uL (130-400); RBC Distribution Width 17.3 % (11.5-14.5); Red Blood Cell (RBC) Count 2.06 mill/uL (4.70-6.10); White Blood Cell (WBC) Count 7.6 thou/uL (4.8-10.8)
[2018-04-01 16:34] LABS: ALT (SGPT) 9 U/L (8-55); AST (SGOT) 20 U/L (5-34); Albumin 3.8 g/dL (3.4-4.8); Alkaline Phosphatase 94 U/L (40-150); Anion Gap 20 mmol/L (10-20); Anisocytosis SLIGHT = 6-15 cells (100X) (0-5/hpf); BUN (Urea Nitrogen) 58 mg/dL (8.4-25.7); Basophilic Stippling SLIGHT = 1-2 cells (100X) (None Seen); Bilirubin, Total 0.6 mg/dL (0.2-1.2); Calc. Creatinine Clearance 0 mL/min (70-130); Calcium 9.9 mg/dL (7.8-10.44); Carbon Dioxide 26 mmol/L (23-31); Chloride 102 mmol/L (98-107); Estimated GFR-MDRD 5; Globulin 3.2 g/dL (2.4-3.5); MDiff Complete? YES; Macrocytosis SLIGHT = 6-15 cells (100X) (0-5/hpf); Platelet Morphology Comment Appears Adequate; Polychromasia SLIGHT = 2-3 cells (100X) (0-2/hpf); Potassium 5.1 mmol/L (3.5-5.1); Sodium 143 mmol/L (136-145)
[2018-04-01 16:38] LABS: Glucose 51 mg/dL (83-110)
[2018-04-01] MEDS ORDERED: Pantoprazole 80 MG in Sodium Chloride 0.9% 100 ML IVP SCH (18:30)
[2018-04-01 18:32] LABS: INR-International Normal Ratio 0.9; PTT 27.4 SEC (22.9-36.1); Prothrombin Time 12.6 SEC (12.0-14.7)
[2018-04-01] MEDS ORDERED: Bisacodyl 5 MG TAB PO PRN (20:38)
[2018-04-01] MEDS ORDERED: Calcium Carbonate 500 MG ChewTAB PO PRN (20:38)
[2018-04-01] MEDS ORDERED: Acetaminophen 325 MG TAB PO PRN ×2 (20:38→20:41)
[2018-04-01] MEDS ORDERED: Senokot S 8.6-50 MG TAB PO PRN (20:38)
[2018-04-01] MEDS ORDERED: Midodrine HCl 5 MG TAB PO SCH (20:45)
[2018-04-01 21:10] LABS: #Eosinphils 0.1 thou/uL (0.0-0.7); #Lymphocytes 1.2 thou/uL (1.20-3.40); #Monocytes 0.4 thou/uL (0.11-0.59); #Neutrophils 5.8 thou/uL (1.40-6.50); %Basophils 0.5 % (0.0-1.0); %Eosinophils 1.9 % (0.0-10.0); %Lymphocytes 15.6 % (21.0-51.0); %Monocytes 4.9 % (0.0-10.0); Hemoglobin 7.6 g/dL (14.0-18.0); Mean Corpuscular HGB CONC 32.7 g/dL (32.0-36.0); Mean Platelet Volume 6.2 fL (7.4-10.4); Platelet Count 253 thou/uL (130-400); RBC Distribution Width 19.7 % (11.5-14.5); Red Blood Cell (RBC) Count 2.23 mill/uL (4.70-6.10); White Blood Cell (WBC) Count 7.6 thou/uL (4.8-10.8)
[2018-04-01 21:30] LABS: Iron 221 ug/dL (65-175); Iron Binding Capacity, Total 249 mcg/dL (261-462)
[2018-04-02 01:51] VITALS: BMI 31.1
[2018-04-02] MEDS ORDERED: Lidocaine Patch Removal 1 EACH TOP SCH (03:00)
[2018-04-02] MEDS: Pantoprazole 80 MG in Sodium Chloride 0.9% 100 ML IVP SCH ×3 (04:01→23:36)
--- NOTE | 2018-04-02 07:21 | HP ---
CHIEF COMPLAINT: Abnormal labs. HISTORY OF PRESENT ILLNESS: This is a 77-year-old male with past medical history of hypertension, end-stage renal disease on peritoneal dialysis, presenting with abnormal lab results. The patient stated that he was seen by Dr. Wellington, senior ui software engineer. The patient was seen for a peritoneal dialysis, and the labs were drawn. Labs showed the patient's hemoglobin is 6.5. Therefore, the patient has been referred to come to the hospital to be further evaluated and treated. At this point, the patient endorses feeling very tired. Otherwise, the patient denies any fever, chills, headaches, dizziness, chest pain, palpitations, abdominal pain, nausea, vomiting, constipation, diarrhea, hematuria, hematochezia, or melena. Of note, the patient has history of CABG x2 vessels in the past, which was done in September of [address] Otto in the [facility]. The patient also has 2 stents placed [address] Nir Macias. The patient is on peritoneal dialysis, because the patient has end-stage renal disease. REVIEW OF SYSTEMS: Positive for fatigue, otherwise as documented in the HPI. All systems have been reviewed and are negative. PAST MEDICAL HISTORY: Hypertension; coronary artery disease, status post CABG and stents; end-stage renal disease, on hemodialysis; hypertension; hyperlipidemia. FAMILY HISTORY: Reviewed and noncontributory to this visit. PAST SURGICAL HISTORY: Coronary artery bypass graft surgery, 4 vessels; dialysis shunt, left upper extremity; peritoneal dialysis placed. PSYCHIATRIC HISTORY: No previous psych history. SOCIAL HISTORY: The patient denies alcohol use. Denies any illicit drug use. The patient denies any smoking history. ALLERGIES: THE PATIENT IS ALLERGIC TO PENICILLINS. CURRENT MEDICATIONS: The patient is on, 1. Allopurinol 100 mg. 2. Calcium acetate 667 mg t.i.d. 3. Atorvastatin 10 mg. 4. Lactobacillus. 5. Midodrine 10 mg, Mondays, Wednesdays, Fridays before dialysis. 6. Protonix. 7. Sertraline 50 mg. 8. Quetiapine 25 mg. PHYSICAL EXAMINATION: VITAL SIGNS: The patient's blood pressure is 156/79, pulse of 103, respiratory rate of 20, O2 saturation is 98, temperature is 97.6. GENERAL: The patient is currently lying in bed, does not appear to be in any acute distress. The patient is speaking in full sentences. HEENT: Normocephalic, atraumatic. Pupils are equally round and reactive to light. Extraocular movements are intact. No scleral icterus. No conjunctival pallor. Mucous membranes are moist. NECK: Trachea is midline. Full range of motion. No JVD. LUNGS: Clear to auscultation bilaterally. No wheezing, no rales, no rhonchi appreciated. CARDIAC: Positive S1 and S2. Regular rate and rhythm. The patient has a grade 3/6 holosystolic murmur that can be appreciated at the left sternal border. ABDOMEN: Soft, nontender, and nondistended. Positive bowel sounds in all quadrants. Peritoneal dialysis tube is in place at the abdomen. EXTREMITIES: The patient has 5/5 upper extremity strength and 5/5 lower extremity strength with good pulses bilaterally at the upper and lower extremities. NEURO: Cranial nerves 2 through 12 are grossly intact. No neurologic deficits noted. SKIN: Warm, dry, and intact. PSYCH: Alert and oriented x3. Good affect. LABORATORY DATA: WBC is 7.6, hemoglobin is 7.2, hematocrit is 22.5, MCV is 109.0, RDW is 17.3, MCV is 109.0. Coagulation; PT is 12.6, INR is 0.9, and PTT is 27.4. Chemistry; sodium is 143, potassium is 5.1, chloride is 102, carbon dioxide of 26, anion gap of 20, BUN is 58, creatinine is 9.53, glucose is 51. Iron level is 221, TIBC is 249, B12 is 299, and folic acid is 6.00. ASSESSMENT AND PLAN: This is a 77-year-old male being admitted for, 1. Symptomatic anemia likely due to combination of anemia of acute blood loss and anemia of chronic inflammation. At this point, we are going to transfuse the patient 1 unit of blood. We have consulted GI doctors to evaluate the patient. We will follow up with their recommendations. In addition, this patient is on peritoneal dialysis, and the patient also has anemia of chronic inflammation, most likely due to end-stage renal disease. At this point, the patient will benefit from epoetin. We will defer this treatment to Nephrology, and we will follow up with their recommendations. We will follow up on morning H and H. We will follow up on morning labs. 2. Hyperlipidemia. We will continue the patient on home medications. 3. Hypertension. We will monitor the patient's blood pressure and treat accordingly. 4. Hypoglycemia. We will give the patient orange juice and D50, if the patient's blood sugar continues to trend down. 5. Coronary artery disease, status post coronary artery bypass graft, currently stable. Continue the patient on home medications. 6. Deep venous thrombosis/gastrointestinal prophylaxis. Job ID: [id number]
[2018-04-02 07:39] LABS: Anion Gap 16 mmol/L (10-20); BUN (Urea Nitrogen) 66 mg/dL (8.4-25.7); Calc. Creatinine Clearance 8 mL/min (70-130); Calcium 9.1 mg/dL (7.8-10.44); Carbon Dioxide 26 mmol/L (23-31); Chloride 104 mmol/L (98-107); Estimated GFR-MDRD 5; Glucose 76 mg/dL (83-110); Sodium 141 mmol/L (136-145)
[2018-04-02 08:22] LABS: #Basophils 0.1 thou/uL (0.0-0.2); #Eosinphils 0.2 thou/uL (0.0-0.7); #Lymphocytes 1.4 thou/uL (1.20-3.40); #Monocytes 0.4 thou/uL (0.11-0.59); #Neutrophils 4.9 thou/uL (1.40-6.50); %Basophils 0.9 % (0.0-1.0); %Eosinophils 2.3 % (0.0-10.0); %Lymphocytes 20.2 % (21.0-51.0); %Monocytes 6.1 % (0.0-10.0); %Neutrophils 70.5 % (42.0-75.0); Basophilic Stippling SLIGHT = 1-2 cells (100X) (None Seen); Hemoglobin 6.8 g/dL (14.0-18.0); Hypochromia SLIGHT = 6-15 cells (100X) (0-5/hpf); MDiff Complete? YES; Macrocytosis SLIGHT = 6-15 cells (100X) (0-5/hpf); Mean Corpuscular HGB CONC 32.8 g/dL (32.0-36.0); Mean Corpuscular Hemoglobin 34.3 pg (27.0-31.0); Mean Platelet Volume 6.5 fL (7.4-10.4); Platelet Count 230 thou/uL (130-400); Platelet Morphology Comment Appears Adequate; Polychromasia SLIGHT = 2-3 cells (100X) (0-2/hpf); RBC Distribution Width 20.6 % (11.5-14.5); Red Blood Cell (RBC) Count 1.99 mill/uL (4.70-6.10); White Blood Cell (WBC) Count 6.9 thou/uL (4.8-10.8)
[2018-04-02] MEDS: Calcium Acetate 667 MG CAP PO SCH ×3 (09:26→19:59)
[2018-04-02] MEDS: Enoxaparin Sodium 30 MG/0.3 ML SYRINGE SC SCH (09:28)
[2018-04-02] MEDS: Lidocaine 5% Patch TD SCH (09:29)
[2018-04-02] MEDS ORDERED: Epoetin (ESRD) 20,000 UNITS/ML SC SCH (11:00)
[2018-04-02] MEDS ORDERED: Epoetin (ESRD) 10,000 UNITS/ML VIAL SC SCH (11:00)
--- NOTE | 2018-04-02 13:25 | PDOC.PN ---
- Subjective Encounter Start Date: 04/02/18 Encounter Start Time: 08:20 Pt seen for followup re:symptomatic anemia. Feels better. - Objective Resuscitation Status - Order Detail: 04/01/18 20:38 Resuscitation Status Routine Resuscitation Status: FULL: Full Resuscitation MAR Reviewed: Yes Vital Signs & Weight: Vital Signs (12 hours) Temp Pulse Resp BP Pulse Ox 04/02/18 12:00 98.7 F 98 16 110/56 L 99 04/02/18 08:00 97 04/02/18 07:46 98.3 F 103 H 18 134/61 97 04/02/18 03:53 97.8 F 110 H 18 129/60 96 Weight Weight 204 lb 11.2 oz I&O: 04/01/18 04/02/18 04/03/18 06:59 06:59 06:59 Intake Total 70 Balance 70 Result Diagrams: 04/02/18 07:04 04/02/18 07:04 Additional Labs: Accuchecks 04/02/18 04/02/18 04/01/18 11:07 01:59 22:11 POC Glucose 90 99 90 04/01/18 17:41 POC Glucose 94 EKG Reviewed by me: Yes (Tele: NSR) Phys Exam - Physical Examination Constitutional: NAD HEENT: moist MMs, sclera anicteric, oral pharynx no lesions, 2+ tonsils pallor Neck: no nodes, no JVD, supple, full ROM Respiratory: clear to auscultation bilateral Cardiovascular: RRR, no rub S1, S2 Gastrointestinal: soft, non-tender, no distention, positive bowel sounds Neurological: moves all 4 limbs Psychiatric: normal affect, A&O x 3 Dx/Plan (1) Symptomatic anemia Code(s): D64.9 - ANEMIA, UNSPECIFIED Status: Acute Comment: workup in progress, likely a combination of acute blood loss anemia and chronic inflammation (2) Folate deficiency Code(s): E53.8 - DEFICIENCY OF OTHER SPECIFIED B GROUP VITAMINS Status: Acute Comment: replace folic acid (3) CAD (coronary artery disease) Code(s): I25.10 - ATHSCL HEART DISEASE OF [place] CORONARY ARTERY W/O ANG PCTRS Status: Chronic Qualifiers: Coronary Disease-Associated Artery/Lesion type: [place] artery Comment: stable (4) ESRD (end stage renal disease) on dialysis Code(s): N18.6 - END STAGE RENAL DISEASE; Z99.2 - DEPENDENCE ON RENAL DIALYSIS Status: Chronic Comment: nephrology consulted (5) HTN (hypertension) Code(s): I10 - ESSENTIAL (PRIMARY) HYPERTENSION Status: Chronic Qualifiers: Hypertension type: essential hypertension Qualified Code(s): I10 - Essential (primary) hypertension Comment: controlled - Plan * . Review of Systems - Review of Systems Constitutional: weakness. negative: fever, chills, sweats, malaise Respiratory: negative: Cough, Shortness of Breath, SOB with Excertion, Pleuritic Pain, Wheezing Cardiovascular: negative: chest pain, palpitations, orthopnea, paroxysmal nocturnal dyspnea, edema, light headedness Gastrointestinal: negative: Nausea, Vomiting, Abdominal Pain, Diarrhea, Constipation, Melena, Hematochezia Genitourinary: negative: Dysuria, Frequency, Incontinence, Hematuria, Retention - Medications/Allergies Allergies/Adverse Reactions: Allergies Allergy/AdvReac Type Severity Reaction Status Date / Time Penicillins Allergy Rash Verified 03/05/18 15:24 Medications: Current Medications Acetaminophen (Tylenol) 650 mg PO Q4H PRN PRN Reason: Headache/Fever/Mild Pain (1-3) Acidophilus (Floranex) 1 tab PO DAILY [facility] Allopurinol (Zyloprim) 200 mg PO DAILY [facility] Aspirin (Ecotrin) 81 mg PO DAILY [facility] Atorvastatin Calcium (Lipitor) 10 mg PO QAM [facility] Bisacodyl (Dulcolax) 10 mg PO DAILYPRN PRN PRN Reason: Constipation Calcium Acetate (Phoslo) 1,334 mg PO TID-[facility] Last Admin: 04/02/18 09:26 Dose: Not Given Calcium Carbonate (Tums) 1,000 mg PO Q4H PRN PRN Reason: Heartburn or Indigestion Enoxaparin Sodium (Lovenox) 30 mg SC 0900 [facility] Last Admin: 04/02/18 09:28 Dose: Not Given Epoetin Real (Procrit) 10,000 units SC Q7D@1100 [facility] Folic Acid (Folvite) 1 mg PO DAILY [facility] Pantoprazole Sodium 80 mg/ (Sodium Chloride) 100 mls @ 10 mls/hr IVP INF [facility] Last Admin: 04/02/18 04:01 Dose: 100 mls Lidocaine (Lidoderm 5% Patch) 1 patch TD 0900 [facility] Last Admin: 01/12/19 09:29 Dose: 1 patch Midodrine (Proamatine) 5 mg PO ASDIR [facility] Miscellaneous Medication (Lidocaine Patch Removal) 1 each TOP 2100 [facility] Pregabalin (Lyrica) 25 mg PO DAILY [facility] Quetiapine Fumarate (Seroquel) 25 mg PO HS [facility] Last Admin: 04/02/18 01:05 Dose: Not Given Senna/Docusate Sodium (Senokot S) 2 tab PO BID PRN PRN Reason: Constipation Sertraline HCl (Zoloft) 50 mg PO QAM [facility] Sodium Chloride (Flush - Normal Saline) 10 ml IVF Q12HR PRN PRN Reason: Saline Flush Sodium Chloride (Flush - Normal Saline) 10 ml IVF PRN PRN PRN Reason: Saline Flush Vitamin B Complex/Vit C/Folic Acid (Nephro-Ramiro Tablet) 1 tab PO DAILY [facility] Zolpidem Tartrate (Ambien) 5 mg PO HSPRN PRN PRN Reason: Insomnia
[2018-04-02] MEDS: Lactinex Tablet PO SCH (14:32)
[2018-04-02] MEDS: Folic Acid/Vit B Comp W-C PO SCH (14:32)
[2018-04-02] MEDS: Aspirin 81 mg Enteric Coated Tablet PO SCH (14:33)
[2018-04-02] MEDS: Atorvastatin Calcium 10 MG TAB PO SCH (14:33)
[2018-04-02] MEDS: Allopurinol 100 MG TAB PO SCH (14:33)
[2018-04-02] MEDS: Pregabalin 25 MG CAP PO SCH (14:34)
--- NOTE | 2018-04-02 14:39 | CON ---
DATE OF CONSULTATION: HISTORY OF PRESENT ILLNESS: The patient is a 77-year-old male, who is in normal state of health until a few days prior to admission when he noticed some black tarry stools. He also reported feeling very fatigued and somewhat dizzy. He was noted to be significantly anemic on recent labs. The patient has end-stage renal disease, he is on hemodialysis; however, he is converting to ambulatory peritoneal dialysis in the near future. He had an episode with anemia back in 2017 at [facility]. He reports he had an evaluation, which included colonoscopy and no etiology for the anemia was noted. He denies any abdominal pain, any weight loss, any melena, or any hematochezia. PAST MEDICAL HISTORY: Includes hypertension, coronary artery disease, end-stage renal disease, on hemodialysis, and hyperlipidemia. PAST SURGICAL HISTORY: Includes coronary artery bypass with dialysis shunt, coronary artery stent placement, and placement of peritoneal dialysis catheter. SOCIAL HISTORY: He does not smoke or drink. ALLERGIES: PENICILLIN. MEDICATIONS: Include; 1. Zoloft 50 mg p.o. daily. 2. Senokot two p.o. b.i.d. p.r.n. 3. Seroquel one p.o. at bedtime. 4. Pantoprazole 40 mg p.o. daily. 5. Midodrine 10 mg p.o. daily. 6. Nephro-Ramiro one p.o. daily. 7. Calcium acetate p.o. t.i.d. 8. Atorvastatin one p.o. q.p.m. 9. Aspirin 81 mg p.o. daily. 10. Allopurinol 200 mg p.o. daily. REVIEW OF SYSTEMS: CONSTITUTIONAL: No fever or chills. No weight loss. HEENT: Eyes, no blurred vision or double vision. ENT, no sore throat or earaches. CARDIOVASCULAR: No chest pain or palpitations. PULMONARY: No shortness of breath, cough, or wheezing. GI: See above. : No hematuria or dysuria. MUSCULOSKELETAL: No joint pain or muscle weakness. SKIN: No rashes. NEUROLOGIC: No numbness or seizure activity. PHYSICAL EXAMINATION: GENERAL: Shows a pale white male, in no acute distress. VITAL SIGNS: Temperature 98.3, pulse 103, respiratory rate 18, and blood pressure 134/61. HEENT: Unremarkable. NECK: Supple. CHEST: Clear. CARDIOVASCULAR: Regular rate and rhythm. ABDOMEN: Soft and nontender without organomegaly or masses. He has a peritoneal dialysis catheter in place in the left lower quadrant. LABORATORY DATA: Shows admission hemoglobin of 7.2, decreasing to 6.8, MCV is 109. Chemistry showed BUN 66, creatinine 9.18, glucose 76. Iron is 221, TIBC is 249. B12 is 299 and folic acid level is 6. Stool for occult blood is negative. ASSESSMENT: 1. Melena. 2. Anemia-multifactorial with folate deficiency, anemia of chronic disease and possibly GI blood loss. 3. End-stage renal disease, on hemodialysis. 4. Coronary artery disease. RECOMMENDATIONS: 1. EGD in a.m. 2. Correct folate deficiency. Job ID: [id number]
[2018-04-02] MEDS: Lidocaine Patch Removal 1 EACH TOP SCH (20:01)
--- NOTE | 2018-04-02 20:46 | PRG ---
DATE OF SERVICE: 04/02/2018 OBJECTIVE: GENERAL: This is a well-built male, in no apparent distress. VITAL SIGNS: Temperature 98.7, pulse 90, respiratory rate 20, and blood pressure 110/56. LABORATORY DATA: Potassium is 5.0, BUN is 66, and creatinine is 9.0. ASSESSMENT: 1. End-stage renal disease. Continue hemodialysis as tolerated. 2. Edema. 3. Hypertension, stable. 4. Anemia status post transfusion. We will give another unit. We will dialyze today. PLAN: To continue hemodialysis while at the hospital, continue PD as outpatient. We will follow. Monitor hemoglobin. Follow up with GI. Job ID: [id number]
[2018-04-02] MEDS: Zolpidem Tartrate 5 MG TAB PO PRN ×2 (21:35→23:37)
[2018-04-03] MEDS ORDERED: KETAMINE 100 MG/ML (5ML VIAL) ONE (08:37)
[2018-04-03] MEDS ORDERED: Promethazine HCl 25 MG/ML VIAL SLOW IVP PRN (09:20)
[2018-04-03] MEDS ORDERED: Promethazine HCl 25 MG/ML VIAL IM PRN (09:20)
[2018-04-03] MEDS ORDERED: Ondansetron HCl/PF 4 MG/2 ML Vial IVP PRN (09:20)
[2018-04-03 10:04] LABS: #Eosinphils 0.2 thou/uL (0.0-0.7); #Monocytes 0.6 thou/uL (0.11-0.59); #Neutrophils 7.8 thou/uL (1.40-6.50); %Basophils 0.2 % (0.0-1.0); %Monocytes 5.9 % (0.0-10.0); Hemoglobin 8.9 g/dL (14.0-18.0); Mean Corpuscular HGB CONC 33.8 g/dL (32.0-36.0); Mean Corpuscular Hemoglobin 34.3 pg (27.0-31.0); Mean Platelet Volume 6.1 fL (7.4-10.4); Platelet Count 204 thou/uL (130-400); RBC Distribution Width 18.4 % (11.5-14.5); Red Blood Cell (RBC) Count 2.59 mill/uL (4.70-6.10); White Blood Cell (WBC) Count 9.5 thou/uL (4.8-10.8)
[2018-04-03] MEDS: Pantoprazole 80 MG in Sodium Chloride 0.9% 100 ML IVP SCH ×2 (10:25→21:11)
[2018-04-03] MEDS: Calcium Acetate 667 MG CAP PO SCH ×3 (10:27→17:24)
[2018-04-03] MEDS: Aspirin 81 mg Enteric Coated Tablet PO SCH (11:42)
[2018-04-03] MEDS: Lactinex Tablet PO SCH (11:42)
[2018-04-03] MEDS: Allopurinol 100 MG TAB PO SCH (11:42)
[2018-04-03] MEDS: Folic Acid/Vit B Comp W-C PO SCH (11:42)
[2018-04-03] MEDS: Atorvastatin Calcium 10 MG TAB PO SCH (11:42)
[2018-04-03] MEDS: Folic Acid 1 MG TAB PO SCH (11:42)
[2018-04-03] MEDS: Enoxaparin Sodium 30 MG/0.3 ML SYRINGE SC SCH (11:43)
[2018-04-03] MEDS: Lidocaine 5% Patch TD SCH (11:46)
[2018-04-03] MEDS: Pregabalin 25 MG CAP PO SCH (12:23)
--- NOTE | 2018-04-03 13:13 | PDOC.PN ---
- Subjective Encounter Start Date: 04/03/18 Encounter Start Time: 08:00 Pt seen for followup re: symptomatic anemia. Feels better. - Objective Resuscitation Status - Order Detail: 04/01/18 20:38 Resuscitation Status Routine Resuscitation Status: FULL: Full Resuscitation Vital Signs & Weight: Vital Signs (12 hours) Temp Pulse Resp BP Pulse Ox 04/03/18 11:48 97.2 F L 106 H 16 158/51 H 97 04/03/18 10:25 98 136/76 04/03/18 09:45 100 18 142/71 H 96 04/03/18 07:44 98.0 F 104 H 18 136/71 97 04/03/18 07:40 96 04/03/18 03:19 98.6 F 112 H 18 146/70 H 96 Weight Weight 201 lb 3.2 oz I&O: 04/02/18 04/03/18 04/04/18 06:59 06:59 06:59 Intake Total 70 830 Output Total 450 Balance 70 380 Result Diagrams: 04/03/18 09:58 04/02/18 07:04 Additional Labs: Accuchecks 04/03/18 04/03/18 04/02/18 11:15 05:49 17:26 POC Glucose 81 77 108 04/02/18 05:42 POC Glucose 90 Phys Exam - Physical Examination Constitutional: NAD HEENT: moist MMs Neck: supple Respiratory: clear to auscultation bilateral Cardiovascular: RRR Gastrointestinal: soft Neurological: moves all 4 limbs Psychiatric: normal affect Dx/Plan (1) Symptomatic anemia Code(s): D64.9 - ANEMIA, UNSPECIFIED Status: Acute Comment: s/p EGD. Hemoglobin stable (2) Folate deficiency Code(s): E53.8 - DEFICIENCY OF OTHER SPECIFIED B GROUP VITAMINS Status: Acute Comment: continue folic acid (3) CAD (coronary artery disease) Code(s): I25.10 - ATHSCL HEART DISEASE OF [place] CORONARY ARTERY W/O ANG PCTRS Status: Chronic Qualifiers: Coronary Disease-Associated Artery/Lesion type: [place] artery Comment: stable (4) ESRD (end stage renal disease) on dialysis Code(s): N18.6 - END STAGE RENAL DISEASE; Z99.2 - DEPENDENCE ON RENAL DIALYSIS Status: Chronic Comment: nephrology following (5) HTN (hypertension) Code(s): I10 - ESSENTIAL (PRIMARY) HYPERTENSION Status: Chronic Qualifiers: Hypertension type: essential hypertension Qualified Code(s): I10 - Essential (primary) hypertension Comment: controlled - Plan * . Review of Systems - Review of Systems Cardiovascular: negative: chest pain, palpitations, orthopnea, paroxysmal nocturnal dyspnea, edema, light headedness Gastrointestinal: negative: Nausea, Vomiting, Abdominal Pain, Diarrhea, Constipation, Melena, Hematochezia - Medications/Allergies Allergies/Adverse Reactions: Allergies Allergy/AdvReac Type Severity Reaction Status Date / Time Penicillins Allergy Rash Verified 03/05/18 15:24 Medications: Current Medications Acetaminophen (Tylenol) 650 mg PO Q4H PRN PRN Reason: Headache/Fever/Mild Pain (1-3) Last Admin: 04/03/18 01:03 Dose: 650 mg Acidophilus (Floranex) 1 tab PO DAILY [facility] Last Admin: 04/03/18 11:42 Dose: 1 tab Allopurinol (Zyloprim) 200 mg PO DAILY [facility] Last Admin: 04/03/18 11:42 Dose: 200 mg Aspirin (Ecotrin) 81 mg PO DAILY [facility] Last Admin: 04/03/18 11:42 Dose: 81 mg Atorvastatin Calcium (Lipitor) 10 mg PO QAM [facility] Last Admin: 04/03/18 11:42 Dose: 10 mg Bisacodyl (Dulcolax) 10 mg PO DAILYPRN PRN PRN Reason: Constipation Calcium Acetate (Phoslo) 1,334 mg PO TID-WM [facility] Last Admin: 04/03/18 11:42 Dose: 1,334 mg Calcium Carbonate (Tums) 1,000 mg PO Q4H PRN PRN Reason: Heartburn or Indigestion Enoxaparin Sodium (Lovenox) 30 mg SC 0900 [facility] Last Admin: 04/03/18 11:43 Dose: 30 mg Epoetin Real (Procrit) 10,000 units SC Q7D@1100 [facility] Last Admin: 04/02/18 13:54 Dose: 10,000 units Folic Acid (Folvite) 1 mg PO DAILY [facility] Last Admin: 04/03/18 11:42 Dose: 1 mg Pantoprazole Sodium 80 mg/ (Sodium Chloride) 100 mls @ 10 mls/hr IVP INF [facility] Last Admin: 04/03/18 10:25 Dose: 100 mls Lidocaine (Lidoderm 5% Patch) 1 patch TD 0900 [facility] Last Admin: 04/03/18 11:46 Dose: Not Given Midodrine (Proamatine) 5 mg PO ASDIR [facility] Miscellaneous Medication (Lidocaine Patch Removal) 1 each TOP 2100 [facility] Last Admin: 04/02/18 20:01 Dose: Not Given Pregabalin (Lyrica) 25 mg PO DAILY [facility] Last Admin: 04/03/18 12:23 Dose: 25 mg Quetiapine Fumarate (Seroquel) 25 mg PO HS [facility] Last Admin: 04/02/18 19:59 Dose: 25 mg Senna/Docusate Sodium (Senokot S) 2 tab PO BID PRN PRN Reason: Constipation Sertraline HCl (Zoloft) 50 mg PO QAM [facility] Last Admin: 04/03/18 11:42 Dose: 50 mg Sodium Chloride (Flush - Normal Saline) 10 ml IVF Q12HR PRN PRN Reason: Saline Flush Last Admin: 04/02/18 19:59 Dose: 10 ml Sodium Chloride (Flush - Normal Saline) 10 ml IVF PRN PRN PRN Reason: Saline Flush Vitamin B Complex/Vit C/Folic Acid (Nephro-Ramiro Tablet) 1 tab PO DAILY [facility] Last Admin: 04/03/18 11:42 Dose: 1 tab Zolpidem Tartrate (Ambien) 5 mg PO HSPRN PRN PRN Reason: Insomnia Last Admin: 04/02/18 23:37 Dose: 5 mg
[2018-04-03] MEDS ORDERED: PROPOFOL 200 MG/20 ML VIAL ONE (15:46)
--- NOTE | 2018-04-03 19:01 | PRG ---
DATE OF SERVICE: 04/03/2018 SUBJECTIVE: Patient was seen and examined at bedside and overnight events noted. Patient denies any shortness of breath or chest pain or palpitation. No history of nausea or vomiting or diarrhea or fever or chills or cramps. OBJECTIVE: GENERAL: This is a well-built male, in no apparent distress. VITAL SIGNS: Temperature 97.7, pulse 103, respiratory rate , and blood pressure 151/76. HEENT: Atraumatic, normocephalic. Oral mucosa is moist NECK: Supple. CARDIOVASCULAR: S1, S2 heard. Rate and rhythm regular. RESPIRATORY: Clear to auscultation. GASTROINTESTINAL: Abdomen is soft. MUSCULOSKELETAL: No tenderness. No edema. DERMATOLOGIC: No skin rash. NEUROLOGIC: Alert and awake and oriented X3. No focal neurologic deficits. Moving all the extremities. PSYCHIATRIC: Mood and affect normal. LABORATORY DATA: Not done today. ASSESSMENT AND PLAN: 1. End-stage renal disease. Continue on hemodialysis, Wednesday, Wednesday, and Wednesday. 2. Edema. 3. Hypertension. 4. Anemia. PLAN: To continue hemodialysis while inpatient and as outpatient. Monitor hemoglobin. Follow up with GI. Job ID: [id number]
[2018-04-03] MEDS: Lidocaine Patch Removal 1 EACH TOP SCH (21:04)
[2018-04-04] MEDS: Calcium Acetate 667 MG CAP PO SCH ×3 (08:59→19:36)
[2018-04-04 09:13] LABS: #Eosinphils 0.2 thou/uL (0.0-0.7); #Lymphocytes 1.2 thou/uL (1.20-3.40); #Monocytes 0.6 thou/uL (0.11-0.59); #Neutrophils 6.8 thou/uL (1.40-6.50); %Basophils 0.5 % (0.0-1.0); %Eosinophils 2.3 % (0.0-10.0); %Lymphocytes 13.2 % (21.0-51.0); %Monocytes 6.3 % (0.0-10.0); %Neutrophils 77.7 % (42.0-75.0); Mean Corpuscular HGB CONC 33.5 g/dL (32.0-36.0); Mean Corpuscular Hemoglobin 34.1 pg (27.0-31.0); Mean Platelet Volume 6.6 fL (7.4-10.4); Platelet Count 239 thou/uL (130-400); RBC Distribution Width 17.3 % (11.5-14.5); Red Blood Cell (RBC) Count 2.64 mill/uL (4.70-6.10); White Blood Cell (WBC) Count 8.7 thou/uL (4.8-10.8)
--- NOTE | 2018-04-04 09:22 | CON ---
DATE OF CONSULTATION: 04/01/2018 TYPE OF CONSULTATION: Nephrology. CONSULTING PHYSICIAN: Dr. Callahan. REASON FOR CONSULT: evaluation and care. REASON FOR ADMISSION: Low hemoglobin. HISTORY OF PRESENT ILLNESS: This is a 77-year-old white male with history of end-stage renal disease, on peritoneal dialysis, currently getting trained, was on hemodialysis; coronary artery disease, hyperlipidemia, and gout, came to the hospital with a low hemoglobin. The patient had outpatient labs done for dialysis and was found to have hemoglobin of around 7, repeat showed 6.8, was sent to the hospital. The patient was also having black tarry stools and is being evaluated and was getting blood. The patient was seen in ER. No nausea or vomiting. No shortness of breath, chest pain, or palpitations reported. No fever or chills. No skin rash. The patient recently started on peritoneal dialysis training and was getting trained today. He was on hemodialysis prior to that. PAST MEDICAL HISTORY: Positive for end-stage renal disease, coronary artery disease, hypertension, hyperlipidemia, back pain, and gait issues. PAST SURGICAL HISTORY: CABG, coronary artery stents, hemodialysis access placement, and back surgery. MEDICATIONS: Home medication list includes; 1. Zoloft. 2. Seroquel. 3. Lyrica. 4. Lactobacillus. 5. Nephro-Ramiro. 6. Atorvastatin. 7. Aspirin. 8. Allopurinol. 9. Pantoprazole. ALLERGIES: PENICILLIN. SOCIAL HISTORY: No smoking, alcohol, or illicit drug abuse. FAMILY HISTORY: No history of any kidney disease. REVIEW OF SYSTEMS: CONSTITUTIONAL: Negative for weight loss or gain, ability to conduct usual activities. SKIN: Negative for rash, itching. EYES: Negative for double vision, pain. ENT/MOUTH: Negative for nose bleeding, neck stiffness, pain, tenderness. CARDIOVASCULAR: Negative for palpitations, dyspnea on exertion, orthopnea. RESPIRATORY: Negative for shortness of breath, wheezing, cough, hemoptysis, fever or night sweats. GASTROINTESTINAL: Negative for poor appetite, abdominal pain, heartburn, nausea, vomiting, constipation, or diarrhea. GENITOURINARY: Negative for urgency, frequency, dysuria, nocturia. MUSCULOSKELETAL: Negative for pain, swelling. NEUROLOGIC/PSYCHIATRIC: Negative for anxiety, depression. ALLERGY/IMMUNOLOGIC: Negative for skin rash, bleeding tendency. PHYSICAL EXAMINATION: GENERAL: This is an elderly male, in no apparent distress. VITAL SIGNS: Temperature 98.6, pulse 70, respirations 18, blood pressure 128/78. HEENT: Atraumatic and normocephalic. Oral mucosa moist. NECK: Supple. CVS: S1 and S2 heard. Rate and rhythm regular. RESPIRATORY: Clear. GASTROINTESTINAL: Abdomen is soft. MUSCULOSKELETAL: 1+ edema. DERMATOLOGIC: No skin rash. NEUROLOGICAL: Alert and awake. PSYCHIATRIC: Normal mood and affect. LABORATORY DATA: Hemoglobin is 7.6, potassium is 5.1, BUN is 58, creatinine is 9.5 ASSESSMENT AND PLAN: 1. End-stage renal disease. Plan is to have hemodialysis tomorrow and continue hemodialysis while inpatient and can resume peritoneal dialysis training as outpatient. 2. Anemia. Agree with Gastroenterology evaluation and blood transfusion. 3. Edema, controlled. 4. Hypertension, stable. 5. . 6. Mild hyperkalemia, limit potassium intake. 7. We will repeat labs and we will have hemodialysis in the morning. No acute indication for dialysis. Thank you for the consult. Job ID: [id number]
[2018-04-04 09:34] LABS: Anion Gap 15 mmol/L (10-20); BUN (Urea Nitrogen) 51 mg/dL (8.4-25.7); Calc. Creatinine Clearance 9 mL/min (70-130); Calcium 9.2 mg/dL (7.8-10.44); Carbon Dioxide 27 mmol/L (23-31); Chloride 105 mmol/L (98-107); Estimated GFR-MDRD 5; Glucose 81 mg/dL (83-110); Potassium 4.8 mmol/L (3.5-5.1); Sodium 142 mmol/L (136-145)
[2018-04-04] MEDS: Pantoprazole 80 MG in Sodium Chloride 0.9% 100 ML IVP SCH (09:40)
[2018-04-04] MEDS: Aspirin 81 mg Enteric Coated Tablet PO SCH (09:41)
[2018-04-04] MEDS: Enoxaparin Sodium 30 MG/0.3 ML SYRINGE SC SCH (09:58)
--- NOTE | 2018-04-04 10:30 | PRG ---
DATE OF SERVICE: 04/04/2018 SUBJECTIVE: A 77-year-old gentleman being seen for end-stage renal disease. The patient denies any nausea, vomiting, or chest pain. OBJECTIVE: CONSTITUTIONAL: The patient is awake and alert. VITAL SIGNS: Afebrile, pulse 93, breathing 16, and blood pressure 142/72. GENERAL APPEARANCE AND MENTAL STATUS: Fair. HEAD/NECK: Normocephalic. Atraumatic. EYES: EOMI. No deformity. EARS: Clear. No ulcers. NOSE: Intact. No lesions. MOUTH: Clear. No discharge. THROAT: Clear. No exudate. LUNGS: Clear. No crackles. CARDIAC: S1, S2. No rub. ABDOMEN: Benign. Bowel sounds positive. GENITALIA/RECTUM: Lyons absent. BACK/EXTREMITIES: Edema 0+. NEUROLOGICAL: Alert and motor intact. SKIN: LYMPHATICS: LABORATORY DATA: Labs show hemoglobin is 9. Potassium ASSESSMENT AND PLAN: 1. Stage 6 chronic kidney disease, plan dialysis . 2. Hypertension, stable. 3. Anemia, stable. 4. Medications based on GFR appropriate. Job ID: [id number]
[2018-04-04 11:38] VITALS: BP 157/75; TEMP 98
[2018-04-04] MEDS: Lidocaine 5% Patch TD SCH (11:49)
--- NOTE | 2018-04-04 11:55 | OP ---
DATE OF PROCEDURE: 04/03/2018 PREOPERATIVE DIAGNOSIS: Gastrointestinal bleed. DESCRIPTION OF PROCEDURE: After informed consent was obtained, the patient was placed in left lateral decubitus position. Anesthesia was administered per the Anesthesia Department. Forward-viewing endoscope was inserted into the esophagus under direct visualization with ease and to the second portion of duodenum with ease. There was some bloody effluent was noted. It was difficult to find that the source of the bloody effluent, but eventually that seemed to be an AVM in the medial aspect of the second portion of the duodenum. Because of its location, it was very difficult to see. A 10-[place] BICAP electrocautery probe was used to ablate the AVM. Good hemostasis was achieved after the procedure. The remainder of the stomach was essentially normal. The esophagus was normal throughout. 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 RECOMMENDATIONS: 1. B.i.d. PPI. 2. Serial H and H. Job ID: [id number]
--- NOTE | 2018-04-04 12:44 | PRG ---
DATE OF SERVICE: 04/04/2018 SUBJECTIVE: The patient is feeling well. He is having no further bleeding. He has no abdominal pain. OBJECTIVE: VITAL SIGNS: Temperature is 98.2, pulse 96, respiratory rate is 16, and blood pressure 157/75. CHEST: Clear. CARDIOVASCULAR: Regular rate and rhythm. ABDOMEN: Soft, nontender without organomegaly or masses. LABORATORY DATA: Shows a BUN 51, creatinine 9.45. CBC shows a hemoglobin of 9, hematocrit of 26.9. ASSESSMENT: 1. Bleeding arteriovenous malformation in the duodenum - status post cautery. 2. Anemia secondary to gastrointestinal blood loss. 3. End-stage renal disease. 4. Coronary artery disease. RECOMMENDATIONS: 1. Protonix b.i.d. for the next 6 weeks and then daily thereafter. 2. Stable for discharge from GI standpoint. 3. Continue folate deficiency correction. Job ID: [id number]
[2018-04-04] MEDS ORDERED: Heparin 5,000 UNITS/ML VIAL SC SCH (15:00)
[2018-04-04] MEDS: Atorvastatin Calcium 10 MG TAB PO SCH (19:35)
[2018-04-04] MEDS: Folic Acid 1 MG TAB PO SCH (19:35)
[2018-04-04] MEDS: Allopurinol 100 MG TAB PO SCH (19:35)
[2018-04-04] MEDS: Pregabalin 25 MG CAP PO SCH (19:36)
[2018-04-04] MEDS: Lactinex Tablet PO SCH (19:36)
[2018-04-04] MEDS: Folic Acid/Vit B Comp W-C PO SCH (19:36)
--- NOTE | 2018-04-05 04:43 | DIS ---
DATE OF ADMISSION: 04/01/2018 DATE OF DISCHARGE: 04/04/2018 PRIMARY CARE PROVIDER: Kaci Pickens MD DISCHARGE DIAGNOSES: 1. Symptomatic anemia. 2. Acute blood loss anemia. 3. Folic acid deficiency. 4. Duodenal AV malformation. CONDITION OF PATIENT ON THE DAY OF DISCHARGE: Stable. I assessed Mr. Carrillo on the day of discharge. He denies any chest pain or shortness of breath. Vital signs are stable. S1 and S2 are heard, regular. Lungs are clear to auscultation bilaterally. CONSULTATIONS DURING THIS HOSPITALIZATION: 1. Nephrology, Parveen Wellington MD. 2. Gastroenterology, Rm Carpenter MD. DISCHARGE MEDICATIONS: Aspirin has been discontinued. Protonix dose has been changed to 40 mg 2 times a day for 6 weeks, followed by once daily. Otherwise, no change was made to his pre-admission home medications as dictated on Dr. Cheung's history and physical note dated April 02, 2018. HOSPITAL COURSE: Mr. Carrillo is a pleasant 77-year-old gentleman, who was admitted to [facility] on April 01, 2018 for symptomatic anemia secondary to acute blood loss. He was seen by Gastroenterology Service. He was also seen by Nephrology Service for maintenance hemodialysis. He underwent EGD on April 03 and was found to have an actively bleeding AV malformation in the medial wall of the second portion of the duodenum. He underwent electrocautery. His hemoglobin remained stable. He told me that his aspirin was discontinued by his screw driver operator in [place], because of previous episode of bleeding. I have advised him to hold aspirin and follow up with his screw driver operator. On the day of discharge, Mr. Carrillo has white count 8700, hemoglobin 9, platelet count 239,000. Sodium 142, potassium 4.8, and blood urea nitrogen 9.45. He is being dialyzed prior to discharge. Many thanks for allowing me to participate in your patient's care. Please feel free to contact me with any questions or concerns. DISCHARGE DESTINATION: Home. Total amount of time spent coordinating this discharge: 33 minutes. Job ID: [id number]
== END 2018-04-04 18:42 | disposition home or self-care (01) | DRG 377 ==
LOC: ERS 15:22 → ERHOLD 19:24 → 2NO 23:56
PROVIDERS: ADMIT Internal Medicine; ATTEND Internal Medicine
PROC: 30233N1 Transfusion of Nonautologous Red Blood Cells into Peripheral Vein, Percutaneous Approach (ICD-10-PCS; 2018-04-01)
PROC: 0W3P8ZZ Control Bleeding in Gastrointestinal Tract, Via Natural or Artificial Opening Endoscopic (ICD-10-PCS; principal; 2018-04-03)
PROC: 5A1D70Z Performance of Urinary Filtration, Intermittent, Less than 6 Hours Per Day (ICD-10-PCS; 2018-04-04)
DX: K31.811 Angiodysplasia of stomach and duodenum with bleeding (principal); N18.6 End stage renal disease; D62 Acute posthemorrhagic anemia; I12.0 Hypertensive chronic kidney disease with stage 5 chronic kidney disease or end stage renal disease; I25.10 Atherosclerotic heart disease of native coronary artery without angina pectoris; E78.5 Hyperlipidemia, unspecified; E16.2 Hypoglycemia, unspecified; D63.1 Anemia in chronic kidney disease; E87.5 Hyperkalemia; E53.8 Deficiency of other specified B group vitamins; Z95.1 Presence of aortocoronary bypass graft; Z99.2 Dependence on renal dialysis; Z88.0 Allergy status to penicillin
CPT/HCPCS: 36415; 36416; 36430; 80048; 80053; 82274; 82607; 82746; 83540; 83550; 85025; 85610; 85730; 86850; 86900; 86901; 93306; 94760; 96365; 96366; 99211; C9113; G0463; J1610; J1650; J2704; J7050; P9016; Q4081

== ENCOUNTER 2018-05-13 09:07 | Inpatient (IN) | payer MEDICARE, OTHER ==
--- NOTE | 2018-05-12 17:13 | HP ---
HISTORY OF PRESENT ILLNESS: Quinn Carrillo is a 77-year-old male patient, who had a laparoscopic peritoneal dialysis catheter on 03/01/2018. They have been trying to get trained to do this, they finally started draining. It is not draining correctly. X-ray of the abdomen was obtained and to the patient and the coroner technician's perception, he had a "kink," but on my review, the catheter is in good position and is only curved in the angle of which it appears on imaging appears kink, but it is not. Nonetheless, he needs to have laparoscopic evaluation. He currently dialyzes on Wednesday, Wednesday, and Wednesday at [facility]. Radiographically, the tube was in good position. Chest x-ray, two views, on 05/10/2018, reveals no active disease. This was obtained for falls. The patient's reminds me that after anesthesia a day later, he always gets confused and fall. She does not want him to break hip. She wants me to observe him after his general anesthetic. She insisted that this be done last admission. Prior to this visit, he fell while out in a shop. I remind him that he fell while out in a shop and did not have any anesthesia. Nonetheless, we will plan to keep him overnight, observe him, dialyze him the next day and then discharged home. Dr. Wellington is his nut sheller. MEDICATIONS: 1. Midrin 10 mg a day. 2. Atorvastatin daily. 3. Tylenol daily. 4. Rolling walker, seat, mobility, lift chair as directed. 5. Quetiapine fumarate daily. 6. Aspirin 81 mg a day. 7. Floranex daily. 8. Allopurinol daily. 9. Calcium acetate daily. 10. Melatonin daily. 11. Protonix daily. 12. Sertraline 50 mg daily. PAST MEDICAL HISTORY: Hypertension, gout, dyslipidemia, end-stage renal disease, on maintenance dialysis using right arm fistula, coronary artery disease followed by Dr. 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 PAST SURGICAL HISTORY: Lumbar surgery, cardiac stent x2, last stress test on April 2016 and early 1999 was normal, AV fistula placement, right upper arm functioning 03/01/2018, umbilical hernia repair, laparoscopic PD catheter. SOCIAL HISTORY: Tobacco use, no known history of tobacco use. Alcohol, none. PHYSICAL EXAMINATION: VITAL SIGNS: Blood pressure 147/74, pulse 119, temperature 99.3 degrees, and weight 206 pounds. HEAD, EARS, EYES, NOSE, AND THROAT: Unremarkable. LUNGS: Clear to auscultation. CARDIAC: Regular rate and rhythm without murmur or gallop. ABDOMEN: Soft. PD catheter in place. EXTREMITIES: Right upper arm fistula functioning well. ASSESSMENT: Dysfunctional peritoneal dialysis catheter, currently dialyzing via fistula. PLAN: Laparoscopic evaluation of his PD catheter as it is not draining well. Risks and benefits were explained. He consents. Job ID: [id number]
[2018-05-13] MEDS ORDERED: Levofloxacin 500 mg/D5W 100 ml Premix Bag ONE (11:04)
[2018-05-13 11:07] LABS: Hemoglobin 12.7 g/dL (14.0-18.0); Mean Corpuscular HGB CONC 30.2 g/dL (32.0-36.0); Mean Corpuscular Hemoglobin 31.9 pg (27.0-31.0); Mean Platelet Volume 7.1 fL (7.4-10.4); Platelet Count 277 thou/uL (130-400); RBC Distribution Width 15.7 % (11.5-14.5); Red Blood Cell (RBC) Count 3.99 mill/uL (4.70-6.10); White Blood Cell (WBC) Count 9.8 thou/uL (4.8-10.8)
[2018-05-13 11:21] LABS: Anion Gap 21 mmol/L (10-20); BUN (Urea Nitrogen) 56 mg/dL (8.4-25.7); Calc. Creatinine Clearance 7 mL/min (70-130); Calcium 10.1 mg/dL (7.8-10.44); Carbon Dioxide 24 mmol/L (23-31); Chloride 100 mmol/L (98-107); Estimated GFR-MDRD 4; Glucose 101 mg/dL (83-110); Potassium 5.5 mmol/L (3.5-5.1); Sodium 139 mmol/L (136-145)
[2018-05-13 11:25] LABS: Band 6 % (5-11); Eosinophils 1 % (0-10); Lymphocytes 18 % (21-51); MDiff Complete? YES; Macrocytosis SLIGHT = 6-15 cells (100X) (0-5/hpf); Monocytes 8 % (0-10); Neutrophil 67 % (42-75); Platelet Morphology Comment Appears Adequate
[2018-05-13] MEDS ORDERED: Ondansetron ODT 4 MG TAB PO PRN (11:32)
[2018-05-13] MEDS ORDERED: hydrALAZINE 20 MG/ML VIAL SLOW IVP PRN (11:32)
[2018-05-13] MEDS ORDERED: Senokot S 8.6-50 MG TAB PO PRN (11:43)
--- NOTE | 2018-05-13 12:52 | RAD ---
TWO VIEWS CHEST: COMPARISON: 02/22/2018. HISTORY: Fever and poor breath sounds. FINDINGS: A single view of the chest shows a normal-size cardiomediastinal silhouette. The patient is status p ost sternotomy. There is no evidence of consolidation, mass, or pleural effusion. IMPRESSION: No evidence of acute cardiopulmonary disease. POS: [facility]
--- NOTE | 2018-05-13 12:53 | HP ---
ADDENDUM: Mr. Carrillo was seen in my office yesterday. He has a dysfunctional peritoneal dialysis catheter, but is able to dialyze using a left Vonda fistula. The patient had fallen, having right chest wall pain. He had a chest x-ray on 05/10/2018, it was unremarkable, this was obtained prior to the fall. He presents for elective laparoscopic peritoneal dialysis catheter evaluation/revision for a dysfunctional catheter this morning, but has a fever to 100.2 degrees, is congested, and is not feeling well. The patient has been having poor balance at home and poor mobility. He is mobile with a rolling walker. He lives in [place]. He dialyzes Wednesday, Wednesday, and Wednesday. The patient's surgery was postponed today and he is admitted for further evaluation of his fever, blood cultures, sputum cultures, chest x-ray, antibiotics repeated. Perhaps in 48 to 72 hours, he can have his laparoscopic peritoneal dialysis catheter revision. We will admit him to the floor, obtain blood cultures, initiate antibiotics, and consult Pulmonary Medicine and Medical. The patient had an echocardiogram on 04/03/2018 demonstrating a 55% to 60% ejection fraction, left atrium dilated, severe mitral regurg, mild tricuspid regurg. He had laboratories obtained today. White count 9 and hemoglobin 12.7. Basic metabolic profile normal, except for potassium of 5.5, creatinine 11.65, changed to end-stage renal disease consistent with dialysis. PHYSICAL EXAMINATION: VITAL SIGNS: The patient is 100.2 degrees. He is splaying on his right side. He has tenderness. LUNGS: Demonstrated a few rhonchi, but no wheezing. CARDIAC: Regular rate and rhythm. ABDOMEN: Soft and nontender. Peritoneal dialysis catheter in place with left Vonda fistula. EXTREMITIES: Bruising. ASSESSMENT AND PLAN: A 77-year-old male with balance problems, poor mobility, and falls. We will postpone his surgery today. Admit him to the hospital. Consult Pulmonary Medicine, Medical, and Nephrology and hope that we can address his peritoneal dialysis catheter at a later date. Job ID: [id number]
--- NOTE | 2018-05-13 17:07 | EKG ---
Test Reason : PREOP Blood Pressure : / mmHG Vent. Rate : 120 BPM Atrial Rate : 120 BPM P-R Int : 180 ms QRS Dur : 088 ms QT Int : 308 ms P-R-T Axes : 047 026 041 degrees QTc Int : 435 ms Sinus tachycardia Otherwise normal ECG When compared with ECG of 05-MAR-2018 08:13, QRS axis Shifted left Confirmed by UGO CRUMP ([id number]) on 05/13/2018 5:07:29 PM Referred By: ANTOLIN Confirmed By:UGO CRUMP
[2018-05-13] MEDS ORDERED: HYDROcodone/Acetaminophen 5/325 mg Tablet PO PRN (18:06)
[2018-05-13 18:29] VITALS: BMI 31.9
[2018-05-13] MEDS ORDERED: traMADol HCl 50 MG TAB PO PRN (18:29)
[2018-05-13] MEDS ORDERED: Acetaminophen 500 MG TAB PO PRN (18:29)
[2018-05-13] MEDS: Calcium Acetate 667 MG CAP PO SCH ×2 (19:56→20:48)
[2018-05-13] MEDS: Heparin 5,000 UNITS/ML VIAL SC SCH ×2 (19:57→20:48)
--- NOTE | 2018-05-13 20:48 | CON ---
DATE OF CONSULTATION: 05/13/2018 REASON FOR CONSULTATION: Fever, questionable pneumonitis. HISTORY OF PRESENT ILLNESS: The patient is a 77-year-old male, who was scheduled to have peritoneal dialysis catheter placed today by Dr. Escamilla. Preoperatively, he was found to have a temperature 100.2. He had been complaining of chest pain for the last week after falling on his left side. The case was postponed because of question of etiology of febrile illness. PAST MEDICAL HISTORY: 1. End-stage renal disease requiring hemodialysis. 2. Hypertension. 3. Gout. 4. Hyperlipidemia. 5. Soo's syndrome. 6. Pseudogout. 7. JOSE ANGEL. PAST SURGICAL HISTORY: 1. Lumbar disk surgery. 2. Coronary stent x2. 3. AV fistula placement in the left arm. 4. Umbilical hernia repair. 5. Laparoscopic PD catheter placement. SOCIAL HISTORY: Nonsmoker. Does not consume alcohol. Does not use illicit drugs. MEDICATIONS: Prior to admission; 1. Midrin. 2. Atorvastatin. 3. Tylenol. 4. Seroquel. 5. Aspirin. 6. Floranex. 7. Allopurinol. 8. Calcium acetate. 9. Melatonin. 10. Protonix. 11. Sertraline. Current inpatient medications: Additionally, he is on Levaquin. ALLERGIES: PENICILLIN. REVIEW OF SYSTEMS: 10-point review of systems is otherwise negative. Specifically, he has not had any nausea, vomiting, diarrhea. No sore throat. No runny nose. PHYSICAL EXAMINATION: VITAL SIGNS: Temperature 100.2, pulse 85, respirations 20. GENERAL: He is awake and alert, and in no distress. Currently receiving dialysis as I am talking to him. HEENT: Pupils are reactive. Sclerae anicteric. Oropharynx is clear. NECK: No adenopathy, no JVD. LUNGS: Clear to auscultation bilaterally. He has tenderness to palpation in the left inferior chest where he has a bruise from his previous fall. CARDIAC: S1, S2. Regular. ABDOMEN: Soft, nontender, and nondistended. EXTREMITIES: No clubbing, cyanosis, or edema. LABORATORY DATA: White count 9.8, hematocrit 42.2, and platelet count 277 with 67% neutrophils, 6% bands. Sodium 133, potassium 5.5, chloride 100, CO2 of 24, BUN 56, creatinine 11.6, glucose 101. His chest x-ray showed no evidence of a rib fracture. No mass, effusion, or infiltrate. ASSESSMENT: 1. Pneumonia is possible given the scenario of fall to the chest and some splinting in the area. It is not obvious on x-ray, but I think it is reasonable to treat him for pneumonitis. 2. End-stage renal disease. PLAN: The patient will continue Levaquin. We will monitor and follow closely with you. Job ID: [id number]
--- NOTE | 2018-05-14 00:33 | CON ---
DATE OF CONSULTATION: PRIMARY CARE PHYSICIAN: Dr. Kaci Pickens. CHIEF COMPLAINT: The patient is admitted for peritoneal dialysis placement. The hospitalist team consulted for medical management. HISTORY OF PRESENT ILLNESS: The patient is a 77-year-old male with past medical history of ESRD, duodenal AV malformation, folic acid deficiency, chronic anemia , who was admitted for peritoneal dialysis placement by the Surgery Team. They were applying to do the surgery on him; however, his temperature was noted to be 100.2 and his surgery was postponed. The patient complained about chest pain after having a fall on the left side. I went to see the patient. The patient denied any chest pain. The patient reports that he has been on oxygen recently, but he is not sure why. The patient denies any nausea or vomiting. The patient reports abdominal pain. The patient has been admitted in the past for peritoneal dialysis placement. MEDICAL HISTORY: End-stage renal disease requiring hemodialysis, hypertension, gout, hyperlipidemia, Soo's disease, JOSE ANGEL. PAST SURGICAL HISTORY: Lumbar disk surgery, coronary stent placement, AV fistula placement, umbilical hernia repair, and laparoscopic peritoneal dialysis placement. SOCIAL HISTORY: The patient does not smoke or drink alcohol or use any kind of illicit drugs. MEDICATIONS: 1. Midodrine. 2. Atorvastatin. 3. Atenolol. 4. Seroquel. 5. Aspirin. 6. Allopurinol. 7. Calcium acetate. 8. Melatonin. 9. Protonix. 10. Serotonin. ALLERGIES: THE PATIENT IS ALLERGIC TO PENICILLIN. REVIEW OF SYSTEMS: A 10-point review of system negative other than mentioned in the HPI. PHYSICAL EXAMINATION: VITAL SIGNS: Blood pressure 129/72, pulse 114, temperature 97.7, O2 saturation 93% on 2.5 L nasal cannula, respiration rate 18. GENERAL: The patient appears to be alert, answering to questions. He is on nasal cannula. HEAD: Atraumatic. EARS, NOSE, AND THROAT: No drainage or exudate noted. EYES: Extraocular movement intact. NECK: No lymphadenopathy noted. CARDIOVASCULAR: The patient appeared to be tachycardic with regular rhythm. No murmurs, rubs, or gallops noted. RESPIRATORY: The patient does not have any wheezes or rales. ABDOMEN: Soft, nontender but discomfort. The patient does have a catheter and no surrounding erythema was noted. EXTREMITIES: No lower extremity edema noted. NEURO: The patient is alert. SKIN: No rash noted. FAMILY HISTORY: The patient unable to tell his family history. LABORATORY DATA: The patient's labs reviewed. Sodium 139, potassium 5.5, chloride 100, bicarb 24, BUN 56, creatinine 11.65. CBC; white blood cell count is 9.8, hemoglobin 12.7, hematocrit 42.2, and platelets 277. CXR reviewed ASSESSMENT: 1. Suspected pneumonia. 2. End-stage renal disease. 3. Hypertension 4. Abd pain 5. Low grade fever PLAN: 1. The patient was placed on Levaquin by the Pulmonary team, was continuing Levaquin at this point. 2. Nephrology consulted for end-stage dialysis. The patient will likely need dialysis soon, we will leave it up the structural steel worker helper. 3. Peritoneal dialysis catheter placement per surgery. 4. Continue home medications. 5. The patient's medical power of nuclear plant technical advisor is . 6. Ct abd/pelvis w/o contrast as pt had discomfort on exam Thank you very much for the consult. The hospitalist team will continue to follow. Job ID: [id number] [facility]ENTER[facility]
[2018-05-14] MEDS: Calcium Acetate 667 MG CAP PO SCH ×3 (08:53→20:43)
[2018-05-14] MEDS: Folic Acid/Vit B Comp W-C PO SCH (08:53)
[2018-05-14 08:54] LABS: Anion Gap 16 mmol/L (10-20); BUN (Urea Nitrogen) 37 mg/dL (8.4-25.7); Calc. Creatinine Clearance 11 mL/min (70-130); Calcium 10.1 mg/dL (7.8-10.44); Carbon Dioxide 28 mmol/L (23-31); Chloride 96 mmol/L (98-107); Estimated GFR-MDRD 7; Glucose 86 mg/dL (83-110); Potassium 4.3 mmol/L (3.5-5.1); Sodium 136 mmol/L (136-145)
[2018-05-14] MEDS: Famotidine 20 MG TAB PO SCH (08:54)
[2018-05-14] MEDS: Allopurinol 100 MG TAB PO SCH (08:54)
[2018-05-14] MEDS: Folic Acid 1 MG TAB PO SCH (08:54)
[2018-05-14] MEDS: Atorvastatin Calcium 10 MG TAB PO SCH (08:54)
[2018-05-14] MEDS: Lactinex Tablet PO SCH (08:54)
[2018-05-14] MEDS: traMADol HCl 50 MG TAB PO PRN ×2 (08:54→23:23)
[2018-05-14] MEDS: Heparin 5,000 UNITS/ML VIAL SC SCH ×3 (08:55→20:43)
[2018-05-14] MEDS: Polyethylene Glycol 3350 17 GM Packet PO SCH (08:58)
[2018-05-14] MEDS ORDERED: Prevnar 13-Val Conj/PF 0.5 ML SYRINGE IM ONE (09:00)
--- NOTE | 2018-05-14 10:47 | PRG ---
DATE OF SERVICE: 05/14/2018 SUBJECTIVE: Patient was seen and examined at bedside and overnight events noted. Patient denies any shortness of breath or chest pain or palpitation. No history of nausea or vomiting or diarrhea or fever or chills or cramps. OBJECTIVE: GENERAL: This is a well-built male, in no apparent distress. VITAL SIGNS: Temperature 98.2. Heart rate 116. Respiratory rate 20. Blood pressure 131/73. HEENT: Atraumatic, normocephalic. Oral mucosa is moist NECK: Supple. CARDIOVASCULAR: S1, S2 heard. Rate and rhythm regular. RESPIRATORY: Clear to auscultation. GASTROINTESTINAL: Abdomen is soft. MUSCULOSKELETAL: No tenderness. No edema. DERMATOLOGIC: No skin rash. NEUROLOGIC: Alert and awake and oriented X3. No focal neurologic deficits. Moving all the extremities. PSYCHIATRIC: Mood and affect normal. LABORATORY DATA: Potassium is 4.3, BUN creatinine is 7.7 ASSESSMENT AND PLAN: 1. End-stage renal disease. Currently on hemodialysis as tolerated. 2. Edema 3. Anemia. 4. Hypertension. Plan is to continue on dialysis as tolerated and limit fluid intake. Job ID: [id number] [facility]
--- NOTE | 2018-05-14 11:38 | PRG ---
DATE OF SERVICE: 05/14/2018 SUBJECTIVE: He reports that he does not feel any better compared to yesterday. OBJECTIVE: VITAL SIGNS: Temperature is 98.2, pulse 116, respirations 20, O2 saturation is 91% on 2 L, and blood pressure 131/73. HEENT: Unremarkable. NECK: No JVD. LUNGS: Clear to auscultation. CARDIAC: S1 and S2 regular without murmur. ABDOMEN: Old peritoneal dialysis catheter noted. EXTREMITIES: No edema. LABORATORY DATA: Sodium 136, potassium 4.3, chloride 96, CO2 of 28, BUN 37, creatinine 7.7, and glucose 86. ASSESSMENT: The patient's pulmonary status remains stable. He could have pneumonia given the previous fall. I think his primary problem on admission was fluid overload from inadequate dialysis prior to admission. PLAN: 1. Continue Levaquin as you are doing. 2. Continue the antibiotics. 3. Likely, he is stable enough to have his peritoneal dialysis catheter repositioned tomorrow. Job ID: [id number]
--- NOTE | 2018-05-14 14:01 | PRG ---
DATE OF SERVICE: 05/14/2018 SUBJECTIVE: Quinn Carrillo is doing fairly well today. He states he is still having some right chest pain secondary to his fall, probably chest wall contusion. OBJECTIVE: VITAL SIGNS: Temperature 98.3 degrees, heart rate 112, and 23 respiratory rate. LUNGS: Clear to auscultation. No wheezing. CARDIAC: Regular rate and rhythm. ABDOMEN: Soft. LABORATORY DATA: No new laboratories today except for basic metabolic profile, which is stable consistent with end-stage renal disease. ASSESSMENT AND PLAN: PD catheter in place. Fistula left arm good thrill and bruit. Dr. Jefferson seen the patient. His delivery supervisor Dr. Wellington seen the patient. I have discussed with both these physicians. Plan is continue Levaquin. It was felt that after discussion with Dr. Jefferson and Dr. Wellington, that I could proceed with laparoscopic peritoneal dialysis catheter evaluation. We will plan that tomorrow Wednesday. We will discuss with his discharge planning via home health versus home therapy versus rehab. Given his fall and chest wall tenderness, he may need Rehab evaluation. Job ID: [id number]
--- NOTE | 2018-05-14 17:00 | PDOC.PN ---
- Subjective Encounter Start Date: 05/14/18 Encounter Start Time: 08:40 Pt seen for followup re: pneumonia. Denies fevers. No nausea or vomiting. - Objective MAR Reviewed: Yes Vital Signs & Weight: Vital Signs (12 hours) Temp Pulse Resp BP Pulse Ox 05/14/18 15:08 98.3 F 108 H 20 143/80 H 93 L 05/14/18 11:28 98.3 F 112 H 23 H 132/77 91 L 05/14/18 11:00 98.3 F 112 H 23 H 132/77 92 L 05/14/18 07:55 98.2 F 116 H 20 131/73 91 L Weight Weight 204 lb Result Diagrams: 05/13/18 10:52 05/15/18 05:47 Additional Labs: Labs reviewed by me Phys Exam - Physical Examination Obese HEENT: moist MMs Neck: supple Respiratory: clear to auscultation bilateral Cardiovascular: RRR Gastrointestinal: soft PD catheter Neurological: moves all 4 limbs Psychiatric: normal affect Dx/Plan (1) Pneumonia Code(s): J18.9 - PNEUMONIA, UNSPECIFIED ORGANISM Status: Acute Comment: continue levofloxacin (2) CAD (coronary artery disease) Code(s): I25.10 - ATHSCL HEART DISEASE OF [place] CORONARY ARTERY W/O ANG PCTRS Status: Chronic Comment: stable (3) ESRD (end stage renal disease) on dialysis Code(s): N18.6 - END STAGE RENAL DISEASE; Z99.2 - DEPENDENCE ON RENAL DIALYSIS Status: Chronic Comment: nephrology following (4) HTN (hypertension) Code(s): I10 - ESSENTIAL (PRIMARY) HYPERTENSION Status: Chronic Qualifiers: Comment: controlled - Plan * . Review of Systems - Review of Systems Respiratory: negative: Cough, Shortness of Breath, SOB with Excertion, Pleuritic Pain, Wheezing Cardiovascular: negative: chest pain, palpitations, orthopnea, paroxysmal nocturnal dyspnea, edema, light headedness - Medications/Allergies Allergies/Adverse Reactions: Allergies Allergy/AdvReac Type Severity Reaction Status Date / Time Penicillins Allergy Rash Verified 05/12/18 17:40 Medications: Current Medications Acetaminophen (Tylenol) 650 mg PO Q4H PRN PRN Reason: Headache/Fever/Mild Pain (1-3) Acetaminophen (Tylenol) 1,000 mg PO Q6H PRN PRN Reason: Moderate to Severe Pain (6-10) Acidophilus (Floranex) 1 tab PO DAILY [facility] Last Admin: 05/14/18 08:54 Dose: 1 tab Albuterol/Ipratropium (Duoneb) 3 ml NEB [id number] PRN PRN Reason: SOB &/or Wheezing Allopurinol (Zyloprim) 200 mg PO DAILY [facility] Last Admin: 05/14/18 08:54 Dose: 200 mg Atorvastatin Calcium (Lipitor) 10 mg PO QAM [facility] Last Admin: 05/14/18 08:54 Dose: 10 mg Calcium Acetate (Phoslo) 1,334 mg PO TID [facility] Last Admin: 05/14/18 14:38 Dose: 1,334 mg Famotidine (Pepcid) 20 mg PO DAILY [facility] Last Admin: 05/14/18 08:54 Dose: 20 mg Folic Acid (Folvite) 1 mg PO DAILY [facility] Last Admin: 05/14/18 08:54 Dose: 1 mg Heparin Sodium (Porcine) (Heparin) 5,000 units SC TID [facility] Last Admin: 05/14/18 14:39 Dose: 5,000 units Hydralazine HCl (Apresoline) 10 mg SLOW IVP Q4H PRN PRN Reason: SBP > 170 or DBP > 100 Levofloxacin 500 mg/ Device 100 mls @ 100 mls/hr IVPB Q2D [facility] Midodrine (Proamatine) 5 mg PO ASDIR [facility] Ondansetron HCl (Zofran Odt) 4 mg PO Q6H PRN PRN Reason: Nausea/Vomiting Pantoprazole Sodium (Protonix) 40 mg PO BID [facility] Last Admin: 05/14/18 08:54 Dose: 40 mg Polyethylene Glycol (Miralax) 17 gm PO DAILY [facility] Last Admin: 05/14/18 08:58 Dose: 17 gm Quetiapine Fumarate (Seroquel) 25 mg PO HS [facility] Last Admin: 05/13/18 20:48 Dose: 25 mg Senna/Docusate Sodium (Senokot S) 2 tab PO BID PRN PRN Reason: Constipation Sertraline HCl (Zoloft) 50 mg PO QAM [facility] Last Admin: 05/14/18 08:54 Dose: 50 mg Sodium Chloride (Flush - Normal Saline) 10 ml IVF PRN PRN PRN Reason: Saline Flush Tramadol HCl (Ultram) 50 mg PO Q6H PRN PRN Reason: Pain 1-5 Last Admin: 05/14/18 08:54 Dose: 50 mg Vitamin B Complex/Vit C/Folic Acid (Nephro-Ramiro Tablet) 1 tab PO DAILY [facility] Last Admin: 05/14/18 08:53 Dose: 1 tab
[2018-05-14] MEDS: Acetaminophen 325 MG TAB PO PRN (23:23)
[2018-05-15 06:14] LABS: Anion Gap 20 mmol/L (10-20); Carbon Dioxide 26 mmol/L (23-31); Chloride 96 mmol/L (98-107); Potassium 4.4 mmol/L (3.5-5.1); Sodium 138 mmol/L (136-145)
[2018-05-15] MEDS: Folic Acid/Vit B Comp W-C PO SCH (09:00)
[2018-05-15] MEDS: Allopurinol 100 MG TAB PO SCH (09:00)
[2018-05-15] MEDS: Calcium Acetate 667 MG CAP PO SCH ×3 (09:00→20:32)
[2018-05-15] MEDS: Famotidine 20 MG TAB PO SCH (09:00)
[2018-05-15] MEDS: Atorvastatin Calcium 10 MG TAB PO SCH (09:00)
[2018-05-15] MEDS: Heparin 5,000 UNITS/ML VIAL SC SCH ×3 (09:00→20:31)
[2018-05-15] MEDS: Polyethylene Glycol 3350 17 GM Packet PO SCH (09:00)
[2018-05-15] MEDS: Folic Acid 1 MG TAB PO SCH (09:00)
[2018-05-15] MEDS: Lactinex Tablet PO SCH (09:00)
[2018-05-15] MEDS ORDERED: Bupivacaine HCl 0.5%/Epinephrine 1:200,000/PF 30 ml Vial ONE (09:27)
[2018-05-15] MEDS ORDERED: Lidocaine 2% PF 5 ML VIAL ONE (09:27)
[2018-05-15] MEDS ORDERED: Heparin 10,000 UNITS/1 ML VIAL ONE (09:27)
[2018-05-15] MEDS ORDERED: Sodium Chloride 0.9% 0 ML ONE (09:28)
[2018-05-15] MEDS ORDERED: PROPOFOL 40 ML ONE (09:30)
[2018-05-15] MEDS ORDERED: Fentanyl 100 MCG/2 ML VIAL ONE (09:30)
[2018-05-15] MEDS ORDERED: Lidocaine 2% PF 100 mg/5 ml Syringe ONE (09:32)
[2018-05-15] MEDS ORDERED: Levofloxacin 500 mg/D5W 100 ml Premix Bag ONE (09:38)
[2018-05-15] MEDS ORDERED: traMADol HCl 50 MG TAB PO PRN (10:08)
[2018-05-15] MEDS ORDERED: Promethazine HCl 25 MG/ML VIAL SLOW IVP PRN (10:27)
[2018-05-15] MEDS ORDERED: Morphine Sulfate 2 MG/ML SYRINGE SLOW IVP PRN (10:27)
[2018-05-15] MEDS ORDERED: Promethazine HCl 25 MG/ML VIAL IM PRN (10:27)
[2018-05-15] MEDS ORDERED: SUGAMMADEX SODIUM 500 MG/5 ML VIAL ONE (10:38)
--- NOTE | 2018-05-15 11:15 | OP ---
DATE OF PROCEDURE: 05/15/2018 PREOPERATIVE DIAGNOSES: End-stage renal disease and dysfunctional peritoneal dialysis catheter. POSTOPERATIVE DIAGNOSES: End-stage renal disease and dysfunctional peritoneal dialysis catheter. INDICATIONS FOR PROCEDURE: The patient had a laparoscopic peritoneal dialysis catheter, omentopexy, and sling suture placed. He had poor drainage from his catheter. He has undergone laparoscopic revision on Wednesday because on Wednesday when he presented, he had a fall, had low-grade fevers, and retained secretions and needed medical stabilization and dialysis prior to the procedure. FINDINGS: PD catheter was not involved with the omentum, but drainage was affected by sigmoid colon in the vicinity. ANESTHESIA: General. PROCEDURES PERFORMED: Laparoscopic revision of peritoneal dialysis catheter with omentopexy and sling suture. DESCRIPTION OF PROCEDURE: The patient was taken to the operating room, where under general anesthesia in supine position, abdomen and catheter prepared with ChloraPrep and draped in routine fashion. Bilateral subcostal incision was made at the old laparoscopic port sites and pneumoperitoneum to 15 mmHg obtained with a Veress needle, replaced with a 5 port and contralateral port placed under laparoscopic visualization. Omentopexy was intact in the upper abdomen. Omentum was not involved in the problem. Nonetheless, omentopexy performed with another leaflet of omentum secured to the abdominal wall with transabdominal wall fixation suture of 2 Ethibond using GraNee needle. The peritoneal dialysis catheter; however, was directed to the left lower quadrant of the sigmoid colon. The catheter seemed to be partially occluded by some fatty tissue around the colon. This was removed and repositioned more to the right of midline in the pelvis. A sling suture of 2 Ethibond GraNee needle transabdominal wall fixation suture applied to retract the catheter in the right lower quadrant and pelvis. This was secured. It was then flushed with heparinized saline solution with 1000 units of heparin per mL in 10 mL without obstruction. Pneumoperitoneum reduced. All instruments removed and all skin incisions were approximated with interrupted subdermal 4-0 Monocryl and [place]line glue applied. Job ID: [id number]
--- NOTE | 2018-05-15 11:18 | PRG ---
DATE OF SERVICE: 05/15/2018 SUBJECTIVE: He is seen postop in the PACU. He had his peritoneal dialysis catheter replaced. OBJECTIVE: VITAL SIGNS: Temperature 97.4, pulse 93, respirations 20, O2 saturation 95% 2 L, and blood pressure 150/82. HEENT: Unremarkable. NECK: No JVD. CHEST: Clear anteriorly. CARDIAC: S1 and S2. Regular. ABDOMEN: Soft. EXTREMITIES: No edema. LABORATORY DATA: Sodium 138, potassium 4.4, chloride 96, and CO2 of 26. ASSESSMENT: 1. Stable pulmonary status postop from peritoneal dialysis catheter replacement. 2. Possible pneumonia, although I think most of what we see on the x-ray was probably related to fluid overload at the time of admission. PLAN: 1. He is continuing Levaquin. 2. Increase activity as tolerated. 3. Likely home in the next day or 2. Job ID: [id number]
[2018-05-15] MEDS: traMADol HCl 50 MG TAB PO PRN ×2 (12:30→20:33)
--- NOTE | 2018-05-15 13:20 | PRG ---
DATE OF SERVICE: 05/15/2018 SUBJECTIVE: Patient was seen and examined at bedside and overnight events noted. Patient denies any shortness of breath or chest pain or palpitation. No history of nausea or vomiting or diarrhea or fever or chills or cramps. OBJECTIVE: GENERAL: This is a well-built male in no apparent distress. VITAL SIGNS: Temperature 97.9. Heart rate 104. Respiratory rate 18. Blood pressure 139/71. HEENT: Atraumatic, normocephalic. Oral mucosa is moist NECK: Supple. CARDIOVASCULAR: S1, S2 heard. Rate and rhythm regular. RESPIRATORY: Clear to auscultation. GASTROINTESTINAL: Abdomen is soft. MUSCULOSKELETAL: No tenderness. No edema. DERMATOLOGIC: No skin rash. NEUROLOGIC: Alert and awake and oriented X3. No focal neurologic deficits. Moving all the extremities. PSYCHIATRIC: Mood and affect normal. LABORATORY DATA: Potassium is 4.4. ASSESSMENT AND PLAN: 1. End-stage renal disease, currently on hemodialysis [id number]. 2. Edema, controlled. 3. Hypertension. 4. Anemia. Limit fluid and salt intake. We will continue dialysis with fluid removal as tolerated. Job ID: [id number]
[2018-05-15] MEDS ORDERED: PROPOFOL 200 MG/20 ML VIAL ONE (13:21)
[2018-05-15] MEDS ORDERED: Rocuronium Bromide 10 MG/ML (10ML VIAL) ONE (13:21)
[2018-05-15] MEDS ORDERED: Glycopyrrolate 0.2 MG/ML 5 ML SYRINGE ONE (13:21)
[2018-05-15] MEDS ORDERED: PHENYLEPHRINE-NS 100 MCG/ML 10 ML SYRINGE ONE (13:21)
[2018-05-15] MEDS ORDERED: Lidocaine 1% PF 5 ML VIAL ONE (13:21)
[2018-05-15] MEDS ORDERED: Ondansetron PF 4 MG/2 ML Vial ONE (13:21)
--- NOTE | 2018-05-15 15:14 | PDOC.PN ---
- Subjective Encounter Start Date: 05/15/18 Encounter Start Time: 15:12 Pt seen for followup re: pneumonia. Has cough, no fever. On and off episodes of confusion. - Objective MAR Reviewed: Yes Vital Signs & Weight: Vital Signs (12 hours) Temp Pulse Resp BP Pulse Ox 05/15/18 11:35 97.9 F 104 H 16 129/71 95 05/15/18 07:30 97.4 F L 93 20 143/82 H 95 05/15/18 07:22 97.4 F L 93 20 143/82 H 95 Weight Weight 204 lb Result Diagrams: 05/13/18 10:52 05/15/18 05:47 Additional Labs: Labs reviewed by me Phys Exam - Physical Examination Obese HEENT: moist MMs Neck: supple Respiratory: clear to auscultation bilateral Cardiovascular: RRR Gastrointestinal: soft, non-tender dialysis catheter Neurological: moves all 4 limbs Psychiatric: normal affect Dx/Plan (1) Pneumonia Code(s): J18.9 - PNEUMONIA, UNSPECIFIED ORGANISM Status: Acute Comment: on levofloxacin (2) CAD (coronary artery disease) Code(s): I25.10 - ATHSCL HEART DISEASE OF [place] CORONARY ARTERY W/O ANG PCTRS Status: Chronic Comment: stable (3) ESRD (end stage renal disease) on dialysis Code(s): N18.6 - END STAGE RENAL DISEASE; Z99.2 - DEPENDENCE ON RENAL DIALYSIS Status: Chronic Comment: nephrology following; PD catheter replaced today (4) HTN (hypertension) Code(s): I10 - ESSENTIAL (PRIMARY) HYPERTENSION Status: Chronic Qualifiers: Comment: controlled - Plan * . Review of Systems - Review of Systems Respiratory: Cough, Sputum. negative: Dry, Shortness of Breath, Hemoptysis, SOB with Excertion, Pleuritic Pain, Wheezing Cardiovascular: negative: chest pain, palpitations, orthopnea, paroxysmal nocturnal dyspnea, edema, light headedness - Medications/Allergies Allergies/Adverse Reactions: Allergies Allergy/AdvReac Type Severity Reaction Status Date / Time Penicillins Allergy Rash Verified 05/12/18 17:40 Medications: Current Medications Acetaminophen (Tylenol) 650 mg PO Q4H PRN PRN Reason: Headache/Fever/Mild Pain (1-3) Last Admin: 05/14/18 23:23 Dose: 650 mg Acetaminophen (Tylenol) 1,000 mg PO Q6H PRN PRN Reason: Moderate to Severe Pain (6-10) Acidophilus (Floranex) 1 tab PO DAILY [facility] Last Admin: 05/15/18 09:00 Dose: Not Given Albuterol/Ipratropium (Duoneb) 3 ml NEB [id number] PRN PRN Reason: SOB &/or Wheezing Allopurinol (Zyloprim) 200 mg PO DAILY [facility] Last Admin: 05/15/18 09:00 Dose: Not Given Atorvastatin Calcium (Lipitor) 10 mg PO QAM [facility] Last Admin: 05/15/18 09:00 Dose: Not Given Calcium Acetate (Phoslo) 1,334 mg PO TID [facility] Last Admin: 05/15/18 14:27 Dose: 1,334 mg Famotidine (Pepcid) 20 mg PO DAILY [facility] Last Admin: 05/15/18 09:00 Dose: Not Given Folic Acid (Folvite) 1 mg PO DAILY [facility] Last Admin: 05/15/18 09:00 Dose: Not Given Heparin Sodium (Porcine) (Heparin) 5,000 units SC TID [facility] Last Admin: 05/15/18 14:28 Dose: 5,000 units Hydralazine HCl (Apresoline) 10 mg SLOW IVP Q4H PRN PRN Reason: SBP > 170 or DBP > 100 Levofloxacin 500 mg/ Device 100 mls @ 100 mls/hr IVPB Q2D [facility] Last Admin: 05/15/18 10:00 Dose: Not Given Midodrine (Proamatine) 5 mg PO [facility] Ondansetron HCl (Zofran Odt) 4 mg PO Q6H PRN PRN Reason: Nausea/Vomiting Pantoprazole Sodium (Protonix) 40 mg PO BID [facility] Last Admin: 05/15/18 09:00 Dose: Not Given Polyethylene Glycol (Miralax) 17 gm PO DAILY [facility] Last Admin: 05/15/18 09:00 Dose: Not Given Quetiapine Fumarate (Seroquel) 25 mg PO HS [facility] Last Admin: 05/14/18 20:43 Dose: 25 mg Senna/Docusate Sodium (Senokot S) 2 tab PO BID PRN PRN Reason: Constipation Sertraline HCl (Zoloft) 50 mg PO QAM [facility] Last Admin: 05/15/18 09:00 Dose: Not Given Sodium Chloride (Flush - Normal Saline) 10 ml IVF PRN PRN PRN Reason: Saline Flush Tramadol HCl (Ultram) 50 mg PO Q6H PRN PRN Reason: Pain 1-5 Last Admin: 05/15/18 12:30 Dose: 50 mg Tramadol HCl (Ultram) 100 mg PO Q6H PRN PRN Reason: Moderate to Severe Pain (6-10) Vitamin B Complex/Vit C/Folic Acid (Nephro-Ramiro Tablet) 1 tab PO DAILY [facility] Last Admin: 05/15/18 09:00 Dose: Not Given
[2018-05-15] MEDS: Acetaminophen 325 MG TAB PO PRN (20:31)
[2018-05-15] MEDS ORDERED: Sodium Chloride 0.9% 250 ML 250 ML IVPB SCH (22:15)
[2018-05-15] MEDS: Midodrine HCl 5 MG TAB PO SCH (23:53)
--- NOTE | 2018-05-16 03:20 | CON ---
DATE OF CONSULTATION: 05/13/2018 CONSULTING PHYSICIAN: Dr. Corbin Escamilla. REASON FOR CONSULTATION: End-stage renal disease evaluation and care. REASON FOR ADMISSION: Shortness of breath. HISTORY OF PRESENT ILLNESS: This is a 77-year-old male who was being evaluated by Dr. Escamilla for peritoneal dialysis catheter exchange for possible kink in the catheter. He was brought for the surgery and was found to have shortness of breath and I was called by Dr. Escamilla to have dialysis and consulted for evaluation of care. The patient also had a fever and looked congested and was admitted for dialysis before the procedure. Potassium was also mildly elevated. The patient was seen during dialysis and tolerating well. No chest pain, palpitations. PAST MEDICAL HISTORY: Positive for: 1. Hypertension. 2. Gout. 3. Hyperlipidemia. 4. End-stage renal disease. 5. Coronary artery disease. 6. Pseudogout. 7. Sleep apnea. PAST SURGICAL HISTORY: 1. Lumbar surgery. 2. Cardiac stents. 3. AV fistula placement. HOME MEDICATIONS: Reviewed including 1. Midodrine. 2. Tylenol. 3. Quetiapine. 4. Aspirin. 5. Floranex. 6. Allopurinol. 7. Calcium acetate. 8. Melatonin. 9. Protonix. 10. Sertraline. ALLERGIES: ALLERGIC TO PENICILLIN. SOCIAL HISTORY: No smoking, alcohol, or illicit drug abuse. FAMILY HISTORY: No history of any kidney disease. REVIEW OF SYSTEMS: CONSTITUTIONAL: Negative for weight loss or gain, ability to conduct usual activities. SKIN: Negative for rash, itching. EYES: Negative for double vision, pain. ENT/MOUTH: Negative for nose bleeding, neck stiffness, pain, tenderness. CARDIOVASCULAR: Negative for palpitations, dyspnea on exertion, orthopnea. RESPIRATORY: Negative for shortness of breath, wheezing, cough, hemoptysis, fever or night sweats. GASTROINTESTINAL: Negative for poor appetite, abdominal pain, heartburn, nausea, vomiting, constipation, or diarrhea. GENITOURINARY: Negative for urgency, frequency, dysuria, nocturia. MUSCULOSKELETAL: Negative for pain, swelling. NEUROLOGIC/PSYCHIATRIC: Negative for anxiety, depression. ALLERGY/IMMUNOLOGIC: Negative for skin rash, bleeding tendency. PHYSICAL EXAMINATION: GENERAL: Reveals a well-developed male, in no apparent distress. VITAL SIGNS: Temperature 98.6, pulse 78, HEENT: Atraumatic and normocephalic. Oral mucosa is moist. NECK: Supple. CARDIOVASCULAR: S1 and S2. Regular rate and rhythm. RESPIRATORY: Clear. GASTROINTESTINAL: Abdomen is soft. MUSCULOSKELETAL: 1+ edema. DERMATOLOGIC: No rash. NEUROLOGIC: Alert and awake. PSYCHIATRIC: Mood and affect normal. LABORATORY DATA: Hemoglobin is 12.7, potassium is 5.5, BUN is 56, ASSESSMENT AND PLAN: 1. End-stage renal disease. The patient seen during dialysis. Tolerated hemodialysis well, was taken to room. 2. Edema, controlled. 3. Hypertension. 4. Mild hyperkalemia. 5. Anemia, we will monitor. 6. We will plan for dialysis as tolerated and continue dialysis Wednesday, Wednesday, Wednesday. Limit fluid take. We will reevaluate tomorrow. Thank you for the consult. Job ID: [id number] MTDD
[2018-05-16] MEDS: Midodrine HCl 5 MG TAB PO SCH (07:28)
--- NOTE | 2018-05-16 10:01 | PRG ---
DATE OF SERVICE: 05/16/2018 SUBJECTIVE: The patient feels okay. He had no acute complaints. OBJECTIVE: VITAL SIGNS: T-max 100.0 and currently 98.6, pulse 106, respirations 18, O2 saturation 96%, and blood pressure 139/72. HEENT: Unremarkable. NECK: No JVD. CHEST: Clear to auscultation. CARDIAC: S1 and S2. Regular. ABDOMEN: New peritoneal dialysis catheter site looks good. EXTREMITIES: No edema. ASSESSMENT: 1. Possible pneumonia - symptoms better. 2. Status post dialysis catheter revision. PLAN: From my standpoint, can probably converted over to oral antibiotics with discharge to home in the next 24 hours. Job ID: [id number]
--- NOTE | 2018-05-16 11:04 | PDOC.PN ---
- Subjective Encounter Start Date: 05/16/18 Encounter Start Time: 08:00 Pt seen for followup re: pneumonia. Cough+. - Objective Vital Signs & Weight: Vital Signs (12 hours) Temp Pulse Resp BP Pulse Ox 05/16/18 07:30 98.4 F 107 H 14 143/74 H 94 L 05/16/18 04:00 98.6 F 106 H 18 139/72 96 05/16/18 00:32 100.0 F H 116 H 18 132/66 94 L Weight Weight 204 lb I&O: 05/15/18 05/16/18 05/17/18 06:59 06:59 06:59 Intake Total 550 Output Total 0 Balance 550 Result Diagrams: 05/13/18 10:52 05/15/18 05:47 Phys Exam - Physical Examination Constitutional: NAD HEENT: moist MMs Neck: supple Respiratory: clear to auscultation bilateral Cardiovascular: RRR Gastrointestinal: soft PD catheter Neurological: moves all 4 limbs Psychiatric: normal affect Dx/Plan (1) Pneumonia Code(s): J18.9 - PNEUMONIA, UNSPECIFIED ORGANISM Status: Acute Comment: will continue levofloxacin (2) CAD (coronary artery disease) Code(s): I25.10 - ATHSCL HEART DISEASE OF [place] CORONARY ARTERY W/O ANG PCTRS Status: Chronic Comment: stable (3) ESRD (end stage renal disease) on dialysis Code(s): N18.6 - END STAGE RENAL DISEASE; Z99.2 - DEPENDENCE ON RENAL DIALYSIS Status: Chronic Comment: nephrology following; PD catheter replaced yesterday (4) HTN (hypertension) Code(s): I10 - ESSENTIAL (PRIMARY) HYPERTENSION Status: Chronic Qualifiers: Comment: controlled - Plan * . Review of Systems - Review of Systems Respiratory: Cough, Sputum. negative: Dry, Shortness of Breath, Hemoptysis, SOB with Excertion, Pleuritic Pain, Wheezing Cardiovascular: negative: chest pain, palpitations, orthopnea, paroxysmal nocturnal dyspnea, edema, light headedness - Medications/Allergies Allergies/Adverse Reactions: Allergies Allergy/AdvReac Type Severity Reaction Status Date / Time Penicillins Allergy Rash Verified 05/12/18 17:40 Medications: Current Medications Acetaminophen (Tylenol) 650 mg PO Q4H PRN PRN Reason: Headache/Fever/Mild Pain (1-3) Last Admin: 05/15/18 20:31 Dose: 650 mg Acetaminophen (Tylenol) 1,000 mg PO Q6H PRN PRN Reason: Moderate to Severe Pain (6-10) Acidophilus (Floranex) 1 tab PO DAILY [facility] Last Admin: 05/15/18 09:00 Dose: Not Given Albuterol/Ipratropium (Duoneb) 3 ml NEB [id number] PRN PRN Reason: SOB &/or Wheezing Allopurinol (Zyloprim) 200 mg PO DAILY [facility] Last Admin: 05/15/18 09:00 Dose: Not Given Atorvastatin Calcium (Lipitor) 10 mg PO QAM [facility] Last Admin: 05/15/18 09:00 Dose: Not Given Calcium Acetate (Phoslo) 1,334 mg PO TID [facility] Last Admin: 05/15/18 20:32 Dose: 1,334 mg Famotidine (Pepcid) 20 mg PO DAILY [facility] Last Admin: 05/15/18 09:00 Dose: Not Given Folic Acid (Folvite) 1 mg PO DAILY [facility] Last Admin: 05/15/18 09:00 Dose: Not Given Heparin Sodium (Porcine) (Heparin) 5,000 units SC TID [facility] Last Admin: 05/15/18 20:31 Dose: 5,000 units Hydralazine HCl (Apresoline) 10 mg SLOW IVP Q4H PRN PRN Reason: SBP > 170 or DBP > 100 Levofloxacin 500 mg/ Device 100 mls @ 100 mls/hr IVPB Q2D [facility] Last Admin: 05/15/18 10:00 Dose: Not Given Midodrine (Proamatine) 5 mg PO ASDIR [facility] Last Admin: 05/16/18 07:28 Dose: 5 mg Ondansetron HCl (Zofran Odt) 4 mg PO Q6H PRN PRN Reason: Nausea/Vomiting Pantoprazole Sodium (Protonix) 40 mg PO BID [facility] Last Admin: 05/15/18 20:32 Dose: 40 mg Polyethylene Glycol (Miralax) 17 gm PO DAILY [facility] Last Admin: 05/15/18 09:00 Dose: Not Given Quetiapine Fumarate (Seroquel) 25 mg PO HS [facility] Last Admin: 05/15/18 20:32 Dose: 25 mg Senna/Docusate Sodium (Senokot S) 2 tab PO BID PRN PRN Reason: Constipation Sertraline HCl (Zoloft) 50 mg PO QAM [facility] Last Admin: 05/15/18 09:00 Dose: Not Given Sodium Chloride (Flush - Normal Saline) 10 ml IVF PRN PRN PRN Reason: Saline Flush Last Admin: 05/15/18 20:32 Dose: 10 ml Tramadol HCl (Ultram) 50 mg PO Q6H PRN PRN Reason: Pain 1-5 Last Admin: 05/15/18 20:33 Dose: 50 mg Tramadol HCl (Ultram) 100 mg PO Q6H PRN PRN Reason: Moderate to Severe Pain (6-10) Vitamin B Complex/Vit C/Folic Acid (Nephro-Ramiro Tablet) 1 tab PO DAILY [facility] Last Admin: 05/15/18 09:00 Dose: Not Given
--- NOTE | 2018-05-16 11:28 | PRG ---
DATE OF SERVICE: 05/16/2018 SUBJECTIVE: A 77-year-old gentleman being seen for acute kidney injury. The patient denies any nausea, vomiting, or chest pain. OBJECTIVE: GENERAL: The patient is awake and alert. VITAL SIGNS: Afebrile. Pulse 75, breathing 16, blood pressure 143/73. GENERAL APPEARANCE AND MENTAL STATUS: Fair. HEAD/NECK: Normocephalic. Atraumatic. EYES: EOMI. No deformity. EARS: Clear. No ulcers. NOSE: Intact. No lesions. MOUTH: Clear. No discharge. THROAT: Clear. No exudate. LUNGS: Clear. No crackles. CARDIAC: S1, S2. No rub. ABDOMEN: Benign. Bowel sounds positive. GENITALIA/RECTUM: Lyons absent. BACK/EXTREMITIES: Edema 0+. NEUROLOGICAL: Alert and motor intact. SKIN: LYMPHATICS: LABORATORY DATA: Labs reviewed. ASSESSMENT: 1. Stage 6 chronic kidney disease, continue dialysis. 2. Hypertension, stable. 3. Anemia, stable. PLAN: Medication based on GFR appropriate. Job ID: [id number]
[2018-05-16] MEDS: Famotidine 20 MG TAB PO SCH (13:07)
[2018-05-16] MEDS: Calcium Acetate 667 MG CAP PO SCH ×3 (13:07→20:12)
[2018-05-16] MEDS: Allopurinol 100 MG TAB PO SCH (13:07)
[2018-05-16] MEDS: Atorvastatin Calcium 10 MG TAB PO SCH (13:07)
[2018-05-16] MEDS: Lactinex Tablet PO SCH (13:08)
[2018-05-16] MEDS: Polyethylene Glycol 3350 17 GM Packet PO SCH (13:08)
[2018-05-16] MEDS: Folic Acid 1 MG TAB PO SCH (13:08)
[2018-05-16] MEDS: Folic Acid/Vit B Comp W-C PO SCH (13:09)
[2018-05-16] MEDS: Heparin 5,000 UNITS/ML VIAL SC SCH ×3 (13:09→20:13)
[2018-05-16 14:13] LABS: Hemoglobin 12.2 g/dL (14.0-18.0); Mean Corpuscular HGB CONC 31.2 g/dL (32.0-36.0); Mean Corpuscular Hemoglobin 32.8 pg (27.0-31.0); Platelet Count 291 thou/uL (130-400); RBC Distribution Width 15.2 % (11.5-14.5); Red Blood Cell (RBC) Count 3.73 mill/uL (4.70-6.10)
[2018-05-16 14:26] LABS: Anion Gap 17 mmol/L (10-20); BUN (Urea Nitrogen) 27 mg/dL (8.4-25.7); Calc. Creatinine Clearance 13 mL/min (70-130); Calcium 10.3 mg/dL (7.8-10.44); Carbon Dioxide 27 mmol/L (23-31); Chloride 97 mmol/L (98-107); Estimated GFR-MDRD 9; Glucose 96 mg/dL (83-110); Potassium 4.1 mmol/L (3.5-5.1); Sodium 137 mmol/L (136-145)
[2018-05-16 14:50] LABS: Anisocytosis SLIGHT = 6-15 cells (100X) (0-5/hpf); Band 3 % (5-11); Lymphocytes 8 % (21-51); MDiff Complete? YES; Macrocytosis SLIGHT = 6-15 cells (100X) (0-5/hpf); Monocytes 8 % (0-10); Neutrophil 80 % (42-75); Ovalocytes SLIGHT = 2-5 cells (100X) (0-1/hpf); Platelet Morphology Comment Appears Adequate; Polychromasia SLIGHT = 2-3 cells (100X) (0-2/hpf); Reactive Lymphocytes 1 % (0-10)
--- NOTE | 2018-05-16 16:02 | PDOC.EVN ---
Event Note - Event Note Event Note: Discussed with patient's . Pt's reports worsening cognitive decline. Reports neurosurgeon recommended MRI brain three weeks ago but pt did not have it. Requesting MRI brain.
[2018-05-17] MEDS: traMADol HCl 50 MG TAB PO PRN (03:48)
[2018-05-17] MEDS: Acetaminophen 325 MG TAB PO PRN (03:48)
[2018-05-17] MEDS: Polyethylene Glycol 3350 17 GM Packet PO SCH (08:43)
[2018-05-17] MEDS: Famotidine 20 MG TAB PO SCH (08:44)
[2018-05-17] MEDS: Allopurinol 100 MG TAB PO SCH (08:44)
[2018-05-17] MEDS: Calcium Acetate 667 MG CAP PO SCH ×3 (08:44→20:38)
[2018-05-17] MEDS: Lactinex Tablet PO SCH (08:44)
[2018-05-17] MEDS: Folic Acid/Vit B Comp W-C PO SCH (08:44)
[2018-05-17] MEDS: Folic Acid 1 MG TAB PO SCH (08:44)
[2018-05-17] MEDS: Heparin 5,000 UNITS/ML VIAL SC SCH ×3 (08:45→20:39)
[2018-05-17] MEDS: Atorvastatin Calcium 10 MG TAB PO SCH (08:49)
--- NOTE | 2018-05-17 08:52 | PRG ---
DATE OF SERVICE: 05/17/2018 SUBJECTIVE: The patient is doing well. He had no acute complaints. OBJECTIVE: VITAL SIGNS: Temperature 97.6, pulse 110, respirations 20, O2 saturation 94% on room air, and blood pressure 166/79. HEENT: Unremarkable. NECK: No JVD. LUNGS: Clear anteriorly. CARDIAC: S1 and S2, regular. ABDOMEN: No distention. EXTREMITIES: No edema. ASSESSMENT: 1. Status post revision of peritoneal dialysis catheter. 2. Question pneumonitis - appears to be back to baseline. I doubt he was ever infected. I think it was probably all due to ineffective dialysis because his peritoneal dialysis catheter was malfunctioning. PLAN: From my standpoint, he can finish out a total of 5 days of antibiotics and be discharged to home. Job ID: [id number]
--- NOTE | 2018-05-17 09:56 | PQF ---
DEBBIE LEAL DAVID R MD [id number] SURG B- [id number] CLINICAL DOCUMENTATION IMPROVEMENT CLARIFICATION FORM: ICD-10 Updated PLEASE DO AN ADDENDUM TO THE PROGRESS NOTE WITH ANY DOCUMENTATION UPDATES OR ADDITIONS AND CARRY THROUGH TO DC SUMMARY. THANK YOU. DATE: 05/17/2018 ,05/18 05/19 ATTN : DR. Idalia ROCHA Please exercise your independent, professional judgment in responding to the clarification form. Clinical indicators are provided on the bottom of this form for your review. Please check appropriate box(s): Conflicting documentation was noted in the Medical Record, please clarify if patient is being treated/monitored for: [ ] Fever, unknown origin [x ] Fever d/t Simple community acquired pneumonia [ ] Fever d/t empirically treating gram negative pneumonia [ ] Other diagnosis [ ] Unable to determine In addition, please specify: Present on Admission (POA): [ x ] Yes [ ] No [ ] Unable to determine For continuity of documentation, please document condition throughout progress notes and discharge summary. Thank You. CLINICAL INDICATORS - SIGNS / SYMPTOMS/ LABS 05/13 (ANTOLIN) : FEVER 05/13 PULMONOLOGY H & P (LACHELLE): ASSESSMENT: 1) PNEUMONIA, I THINK IT IS REASONABLE TO TREAT HIM FOR PNEUMONITIS 05/14 H & P CONSULT (DWIGHT): ASSESSMENT :1) SUSPECTED PNEUMONIA 05/14-05/16 PN (ALE): ASSESSMENT: 1) PNEUMONIA-UNSPECIFIED- CONTINUE LEVAQUIN RISK FACTORS: FEVER SOB TREATMENT IV LEVAQUIN (05/13-05/16, PO 05/17) SUPPLEMENTAL O2 (05/13-PRESENT) THANK YOU! MYRIAM 2014 [employer], [employer]. All Rights Reserved [email or web address] [phone] (This form is maintained as a part of the permanent medical record) [facility]ATR[facility] CENTERIdalia
--- NOTE | 2018-05-17 12:42 | PRG ---
DATE OF SERVICE: 05/17/2018 SUBJECTIVE: A 77-year-old gentleman being seen for end-stage renal disease. The patient denies any nausea, vomiting, or chest pain. OBJECTIVE: GENERAL: The patient is awake and alert. VITAL SIGNS: Afebrile. Pulse 75, breathing 16, blood pressure 133/72. GENERAL APPEARANCE AND MENTAL STATUS: Fair. HEAD/NECK: Normocephalic. Atraumatic. EYES: EOMI. No deformity. EARS: Clear. No ulcers. NOSE: Intact. No lesions. MOUTH: Clear. No discharge. THROAT: Clear. No exudate. LUNGS: Clear. No crackles. CARDIAC: S1, S2. No rub. ABDOMEN: Benign. Bowel sounds positive. GENITALIA/RECTUM: Lyons absent. BACK/EXTREMITIES: Edema 0+. NEUROLOGICAL: Alert and motor intact. SKIN: LYMPHATICS: LABORATORY DATA: Labs reviewed. ASSESSMENT AND PLAN: 1. Stage 6 chronic kidney disease, stable. 2. Hypertension, stable. 3. Anemia, stable. 4. Medication based on GFR appropriate. Job ID: [id number]
--- NOTE | 2018-05-17 14:21 | PDOC.GSPN ---
Surgery Progress Note: Subj - Subjective Narrative: Patient is feeling okay. He is not having much postoperative pain. He feels like his breathing is better. Abdomen is soft and nondistended. Laparoscopic incisions are well-healed. Appropriate postoperative tenderness. Assessment/plan: Doing well from a surgical standpoint status post laparoscopic PD catheter placement. From a surgical standpoint he is ready for discharge. Discharge home when appropriate from a medical standpoint. Surgery Progress Note: Obj - Vital signs Vital signs: Vital Signs - Most Recent Temp Pulse Resp BP Pulse Ox 97.9 F 102 H 20 133/72 94 L 05/17/18 11:22 05/17/18 11:22 05/17/18 11:22 05/17/18 11:22 05/17/18 11:22 Surgery Progress Note: Results - Labs Result Diagrams: 05/16/18 14:01 05/16/18 14:01
--- NOTE | 2018-05-17 17:55 | PDOC.PN ---
- Subjective Encounter Start Date: 05/17/18 Encounter Start Time: 10:00 Says he has a bunch of concrete in his abdomen and we need to go in and take it out. - Objective Vital Signs & Weight: Vital Signs (12 hours) Temp Pulse Resp BP Pulse Ox 05/17/18 15:38 97.7 F 92 18 128/64 92 L 05/17/18 11:22 97.9 F 102 H 20 133/72 94 L 05/17/18 08:00 97.6 F 110 H 20 166/79 H 94 L Weight Weight 204 lb I&O: 05/16/18 05/17/18 05/18/18 06:59 06:59 06:59 Intake Total 1040 Output Total 2558 Balance -1518 Result Diagrams: 05/16/18 14:01 05/16/18 14:01 Phys Exam - Physical Examination Constitutional: NAD Respiratory: no wheezing, no rales, no rhonchi, clear to auscultation bilateral Cardiovascular: RRR, no significant murmur, no rub Gastrointestinal: soft, non-tender, no distention PD catheter in place. Abdominal binder in place. Musculoskeletal: no edema Neurological: non-focal Deviation from normal: Appears calm, but confused. Dx/Plan (1) Peritoneal dialysis catheter dysfunction Code(s): T85.611A - BREAKDOWN OF INTRAPERITONEAL DIALYSIS CATHETER, INIT Status: Acute (2) Acute encephalopathy Code(s): G93.40 - ENCEPHALOPATHY, UNSPECIFIED Status: Acute Comment: CTH with no acute changes, multpile psych meds and pain meds, possible poly pharmacy , deescalate meds. Cx so far has been negative. DC to SNF when bed is available. (3) CAD (coronary artery disease) Code(s): I25.10 - ATHSCL HEART DISEASE OF [place] CORONARY ARTERY W/O ANG PCTRS Status: Chronic Comment: stable (4) Chronic atrial fibrillation Code(s): I48.2 - CHRONIC ATRIAL FIBRILLATION Status: Chronic Comment: on Couamdin.NSR for now (5) ESRD (end stage renal disease) on dialysis Code(s): N18.6 - END STAGE RENAL DISEASE; Z99.2 - DEPENDENCE ON RENAL DIALYSIS Status: Chronic Comment: nephrology following; PD catheter replaced yesterday (6) HTN (hypertension) Code(s): I10 - ESSENTIAL (PRIMARY) HYPERTENSION Status: Chronic Qualifiers: Comment: controlled - Plan * Patient is doing well from the PD catheter. That has been resolved. * Continue HD. * Has MRI of the head pending. Unfortunately, order was for late today (in error) so results pending. * Trying to assess the source of the confusion. * Other than confusion, medically stable.
--- NOTE | 2018-05-17 18:56 | MRI ---
MRI BRAIN WITHOUT CONTRAST 05/17/18 Multiplanar and multisequential imaging of the brain obtained. INDICATIONS: Confusion. Exam is severely limited due to motion artifact. Mild cortical atrophy. Moderate chronic ischemic white matter change. No evidence of restricted diffu jocy. No mass or edema. The intracranial internal carotid arteries and proximal cerebral arteries show expected flow voids. IMPRESSION: Mild cortical atrophy and moderate chronic ischemic white matter change. No acute process apparent. POS: LM
[2018-05-18 04:56] LABS: #Eosinphils 0.2 thou/uL (0.0-0.7); #Lymphocytes 1.3 thou/uL (1.20-3.40); #Monocytes 0.7 thou/uL (0.11-0.59); #Neutrophils 4.8 thou/uL (1.40-6.50); %Basophils 0.6 % (0.0-1.0); %Eosinophils 3.1 % (0.0-10.0); %Lymphocytes 18.2 % (21.0-51.0); %Monocytes 10.5 % (0.0-10.0); %Neutrophils 67.7 % (42.0-75.0); Mean Corpuscular Hemoglobin 33.4 pg (27.0-31.0); Mean Platelet Volume 7.2 fL (7.4-10.4); Platelet Count 271 thou/uL (130-400); RBC Distribution Width 15.3 % (11.5-14.5); Red Blood Cell (RBC) Count 3.58 mill/uL (4.70-6.10); White Blood Cell (WBC) Count 7.1 thou/uL (4.8-10.8)
[2018-05-18 05:21] LABS: Anion Gap 18 mmol/L (10-20); BUN (Urea Nitrogen) 61 mg/dL (8.4-25.7); Calc. Creatinine Clearance 8 mL/min (70-130); Calcium 10.4 mg/dL (7.8-10.44); Carbon Dioxide 27 mmol/L (23-31); Chloride 96 mmol/L (98-107); Estimated GFR-MDRD 5; Glucose 73 mg/dL (83-110); Potassium 4.8 mmol/L (3.5-5.1); Sodium 136 mmol/L (136-145)
[2018-05-18] MEDS: Famotidine 20 MG TAB PO SCH (09:01)
[2018-05-18] MEDS: Atorvastatin Calcium 10 MG TAB PO SCH (09:01)
[2018-05-18] MEDS: Calcium Acetate 667 MG CAP PO SCH ×3 (09:01→20:24)
[2018-05-18] MEDS: Folic Acid 1 MG TAB PO SCH (09:01)
[2018-05-18] MEDS: Allopurinol 100 MG TAB PO SCH (09:01)
[2018-05-18] MEDS: Lactinex Tablet PO SCH (09:02)
[2018-05-18] MEDS: Heparin 5,000 UNITS/ML VIAL SC SCH ×3 (09:02→20:24)
[2018-05-18] MEDS: Polyethylene Glycol 3350 17 GM Packet PO SCH (09:02)
[2018-05-18] MEDS: Folic Acid/Vit B Comp W-C PO SCH (09:02)
--- NOTE | 2018-05-18 12:12 | PRG ---
DATE OF SERVICE: 05/18/2018 SUBJECTIVE: This 77-year-old gentleman is being seen for end-stage renal disease. The patient denied nausea, vomiting or chest pain. OBJECTIVE: CONSTITUTIONAL: The patient is awake and alert. VITAL SIGNS: Afebrile. Pulse 75, breathing 16, blood pressure 148/76. GENERAL APPEARANCE AND MENTAL STATUS: Fair. HEAD/NECK: Normocephalic. Atraumatic. EYES: EOMI. No deformity. EARS: Clear. No ulcers. NOSE: Intact. No lesions. MOUTH: Clear. No discharge. THROAT: Clear. No exudate. LUNGS: Clear. No crackles. CARDIAC: S1, S2. No rub. ABDOMEN: Benign. Bowel sounds positive. GENITALIA/RECTUM: Lyons absent. BACK/EXTREMITIES: Edema 0+. NEUROLOGICAL: Alert and motor intact. SKIN: LYMPHATICS: LABORATORY DATA: Labs reviewed. ASSESSMENT: 1. Stage 6 chronic kidney disease, continue hemodialysis. 2. Hypertension, stable. 3. Anemia, stable. 4. Medication based on GFR is appropriate. Job ID: [id number]
[2018-05-18] MEDS ORDERED: HEPARIN FS PRN (14:15)
--- NOTE | 2018-05-18 14:25 | PRG ---
DATE OF SERVICE: 05/18/2018 SUBJECTIVE: Quinn Carrillo is doing well today. His MRI of brain was normal, chronic changes. OBJECTIVE: VITAL SIGNS: Temperature 97.9 degrees, pulse 84, blood pressure 116/66. LUNGS: Clear to auscultation. CARDIAC: Regular rate and rhythm. No murmur or gallop. ABDOMEN: Soft, nontender. Laparoscopic site is well healed. EXTREMITIES: Unremarkable. LABORATORY DATA: Hemoglobin 12, white count 7.1. Basic metabolic profile is stable consistent with end-stage renal disease. ASSESSMENT/PLAN: Stable. The patient is ready to transfer to rehab. I have communicated with the Dialysis nurses that he can start peritoneal dialysis tonight to try his catheter. He is utilizing a left arm fistula for dialysis access. There is nothing surgical to add. Job ID: [id number]
--- NOTE | 2018-05-18 23:22 | PDOC.PN ---
- Subjective Encounter Start Date: 05/18/18 Encounter Start Time: 14:00 He is status post dialysis. Denies complaints. He is aware that he has had some difficulty with clarity of thinking. - Objective Vital Signs & Weight: Vital Signs (12 hours) Temp Pulse Resp BP Pulse Ox 05/18/18 20:00 98.6 F 92 17 148/81 H 93 L 05/18/18 15:25 98.2 F 82 18 107/73 94 L 05/18/18 11:40 97.9 F 84 18 116/66 94 L Weight Weight 204 lb I&O: 05/17/18 05/18/18 05/19/18 06:59 06:59 06:59 Intake Total 1040 240 200 Output Total 2558 Balance -1518 240 200 Result Diagrams: 05/18/18 04:27 05/18/18 04:27 Additional Labs: Accuchecks 05/18/18 11:43 POC Glucose 72 Phys Exam - Physical Examination Constitutional: NAD Looks a little fatigued. Respiratory: no wheezing, no rales, no rhonchi, clear to auscultation bilateral Cardiovascular: RRR, no significant murmur, no rub Gastrointestinal: soft, non-tender, no distention, positive bowel sounds PD catheter in place. Musculoskeletal: no edema Normal thrill in L FA Not oriented to place. Dx/Plan (1) Peritoneal dialysis catheter dysfunction Code(s): T85.611A - BREAKDOWN OF INTRAPERITONEAL DIALYSIS CATHETER, INIT Status: Acute (2) Acute encephalopathy Code(s): G93.40 - ENCEPHALOPATHY, UNSPECIFIED Status: Acute Comment: Has a hx of encephalopathy likely due to meds. Unclear etiology now. (3) CAD (coronary artery disease) Code(s): I25.10 - ATHSCL HEART DISEASE OF [place] CORONARY ARTERY W/O ANG PCTRS Status: Chronic Comment: stable (4) Chronic atrial fibrillation Code(s): I48.2 - CHRONIC ATRIAL FIBRILLATION Status: Chronic Comment: on Couamdin.NSR for now (5) ESRD (end stage renal disease) on dialysis Code(s): N18.6 - END STAGE RENAL DISEASE; Z99.2 - DEPENDENCE ON RENAL DIALYSIS Status: Chronic Comment: nephrology following; PD catheter replaced yesterday (6) HTN (hypertension) Code(s): I10 - ESSENTIAL (PRIMARY) HYPERTENSION Status: Chronic Qualifiers: Comment: controlled - Plan * MRI of head was negative. * Awaiting Neuro consult. * PD catheter obstruction resolved. Likely to initiate PD tonight. * Has bed at IRF when ready.
--- NOTE | 2018-05-19 09:01 | PRG ---
DATE OF SERVICE: 05/19/2018 SUBJECTIVE: The patient is doing relatively well, wants to go home. OBJECTIVE: VITAL SIGNS: Temperature 98.4, pulse 79, respirations 18, O2 saturation 98%, and blood pressure 151/74. HEENT: Unremarkable. NECK: No JVD. LUNGS: Clear. CARDIAC: S1 and S2, regular. ABDOMEN: Soft. EXTREMITIES: No edema. ASSESSMENT: Possible pneumonia/sepsis at time of admission, otherwise I think the primary issue was the patient was uremic. PLAN: He is safe to go home. I would discontinue Levaquin after seven total days of treatment. Follow up as needed. Job ID: [id number]
[2018-05-19] MEDS: Allopurinol 100 MG TAB PO SCH (09:49)
[2018-05-19] MEDS: Polyethylene Glycol 3350 17 GM Packet PO SCH (09:49)
[2018-05-19] MEDS: Atorvastatin Calcium 10 MG TAB PO SCH (09:50)
[2018-05-19] MEDS: Famotidine 20 MG TAB PO SCH (09:50)
[2018-05-19] MEDS: Lactinex Tablet PO SCH (09:51)
[2018-05-19] MEDS: Folic Acid/Vit B Comp W-C PO SCH (09:51)
[2018-05-19] MEDS: Calcium Acetate 667 MG CAP PO SCH (09:51)
[2018-05-19] MEDS: Folic Acid 1 MG TAB PO SCH (09:51)
[2018-05-19] MEDS: Heparin 5,000 UNITS/ML VIAL SC SCH (09:52)
[2018-05-19 11:42] VITALS: BP 157/78; TEMP 98.3
--- NOTE | 2018-05-19 12:30 | PRG ---
DATE OF SERVICE: 05/19/2018 SUBJECTIVE: A 77-year-old male being seen for end-stage renal disease. The patient denies any nausea, vomiting, or chest pain. OBJECTIVE: CONSTITUTIONAL: The patient is awake and alert. VITAL SIGNS: Afebrile. Pulse 98, breathing 16, blood pressure 157/78. GENERAL APPEARANCE AND MENTAL STATUS: Fair. HEAD/NECK: Normocephalic. Atraumatic. EYES: EOMI. No deformity. EARS: Clear. No ulcers. NOSE: Intact. No lesions. MOUTH: Clear. No discharge. THROAT: Clear. No exudate. LUNGS: Clear. No crackles. CARDIAC: S1, S2. No rub. ABDOMEN: Benign. Bowel sounds positive. GENITALIA/RECTUM: Lyons absent. BACK/EXTREMITIES: Edema 0+. NEUROLOGICAL: Alert and motor intact. SKIN: LYMPHATICS: LABORATORY DATA: Potassium 4.8. IMPRESSION: 1. Stage 6 chronic kidney disease, stable. 2. Hypertension, stable. 3. Anemia, stable. 4. Medication based on GFR appropriate. Job ID: [id number]
--- NOTE | 2018-05-19 14:49 | PRG ---
DATE OF SERVICE: 05/19/2018 SUBJECTIVE: Quinn Carrillo is doing well today. He did peritoneal dialysis last night, it seemed to work well for him. OBJECTIVE: LUNGS: Clear to auscultation. CARDIAC: Regular rate and rhythm. No murmur or gallop. ABDOMEN: Soft and nontender. IMAGING DATA: MRI scan brain, chronic ischemic changes. No acute changes. ASSESSMENT AND PLAN: I have discussed with Dr. Alberto. The patient is being transferred to rehab today. He will follow up with me in the next 2 to 3 weeks. He has a past history of dementia symptoms and poor balance and tendency to fall. Hopefully, he can improve his balance and ambulatory ability in rehab before going to home. Job ID: [id number]
== END 2018-05-19 13:15 | DRG 981 ==
LOC: SDC 09:07 → SURG B 11:32
PROVIDERS: ADMIT Specialist; ATTEND Specialist
PROC: 5A1D70Z Performance of Urinary Filtration, Intermittent, Less than 6 Hours Per Day (ICD-10-PCS; 2018-05-13)
PROC: 0WWG43Z Revision of Infusion Device in Peritoneal Cavity, Percutaneous Endoscopic Approach (ICD-10-PCS; principal; 2018-05-15)
PROC: 0DUU4JZ Supplement Omentum with Synthetic Substitute, Percutaneous Endoscopic Approach (ICD-10-PCS; 2018-05-15)
PROC: 5A1D70Z Performance of Urinary Filtration, Intermittent, Less than 6 Hours Per Day (ICD-10-PCS; 2018-05-16)
PROC: 5A1D70Z Performance of Urinary Filtration, Intermittent, Less than 6 Hours Per Day (ICD-10-PCS; 2018-05-18)
PROC: 3E1M39Z Irrigation of Peritoneal Cavity using Dialysate, Percutaneous Approach (ICD-10-PCS; 2018-05-18)
DX: J18.9 Pneumonia, unspecified organism (principal); N18.6 End stage renal disease; T85.611A Breakdown (mechanical) of intraperitoneal dialysis catheter, initial encounter; I12.0 Hypertensive chronic kidney disease with stage 5 chronic kidney disease or end stage renal disease; G93.40 Encephalopathy, unspecified; Z79.82 Long term (current) use of aspirin; Z99.2 Dependence on renal dialysis; M10.9 Gout, unspecified; I25.10 Atherosclerotic heart disease of native coronary artery without angina pectoris; Z95.5 Presence of coronary angioplasty implant and graft; I48.2 Chronic atrial fibrillation; G47.33 Obstructive sleep apnea (adult) (pediatric); D64.9 Anemia, unspecified; E87.5 Hyperkalemia
CPT/HCPCS: 36415; 36416; 70551; 71046; 80048; 80051; 85025; 87040; 87149; 89220; 90935; 90945; 93005; 93010; G0257; J0670; J1644; J1956; J2001; J2405; J2704; J3010; J7050

== ENCOUNTER 2018-12-08 08:18 | Outpatient (CLI) | payer MEDICARE, OTHER ==
--- NOTE | 2018-12-08 13:56 | NM ---
NUCLEAR MEDICINE BRAIN IMAGING: HISTORY: Unspecified abnormalities of gait and mobility TECHNIQUE: A Niyah scan with axial tomographic images of the brain was obtained 3 hours following the intravenous administration of 5.5mCi I-123 Ioflupane. The patient was pretreated with 130 mg of oral potassium iodide 1 hour prior to the injection. FINDINGS: There is loss of normal symmetric comma shaped shaped uptake in the striata, left greater than right. IMPRESSION: Parkinsonian syndrome. 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
== END 2018-12-08 08:19 | disposition home or self-care (01) ==
LOC: NM 08:18
PROVIDERS: ATTEND Psychiatry & Neurology Neurology
DX: R53.1 Weakness (principal); R25.9 Unspecified abnormal involuntary movements; R26.9 Unspecified abnormalities of gait and mobility; R41.81 Age-related cognitive decline; G20 Parkinson's disease
CPT/HCPCS: 78607; A9584

== ENCOUNTER 2019-01-20 07:00 | Day surgery (SDC) | payer MEDICARE, OTHER ==
[2019-01-19 11:06] VITALS: BMI 33.2
--- NOTE | 2019-01-19 11:19 | HP ---
HISTORY OF PRESENT ILLNESS: A 78-year-old male patient undergoing peritoneal dialysis utilizing a peritoneal dialysis catheter exiting his left lower quadrant. I placed this peritoneal dialysis catheter laparoscopically with omentopexy and umbilical hernia repair, March 01, 2018. The patient has a left Vonda fistula placed in [place] 6 years ago, which has undergone a balloon angioplasty May 29, 2017, but is functional. The patient is associated with [facility] in [place]. He is followed by Dr. Wellington. He has had prior coronary artery bypass grafting 3 years ago, coronary artery stents 15 years prior to that, and is followed by escrow secretary in [place], who in 2018 gave preoperative clearance for his laparoscopic PD catheter. The patient presents now with persistent peritonitis and I have been asked by his [employer] systems to remove his PD catheter and eventually, we will be able to replace it. We will plan this under IV sedation and local anesthesia. He has a left Vonda fistula use for hemodialysis. He will not need a dialysis catheter. Plan this is an outpatient under IV sedation or local anesthesia. The patient also has been seeing a neurologist at [facility], Dr. Ramires for progressive weakness. He has had multiple MRIs, spinal TAPs, and evaluations to rule out Parkinson disease, but they are still uncertain as to the etiology of his progressive weakness to the point that he is mobile in a wheelchair. He uses a rolling walker occasionally, but mostly a wheelchair. MEDICATIONS: 1. Clindamycin three tablets q.6 hours. 2. Probiotic daily. 3. Atorvastatin 10 mg once a day. 4. Quetiapine fumarate 25 mg once a day. 5. Calcium acetate three times a day 667 mg. 6. Sertraline 50 mg a day. 7. Allopurinol 100 mg two tablets once a day. 8. Dialyvite 800 mg daily. TOBACCO: Abuse in the past, none currently. ALCOHOL: None. PAST MEDICAL HISTORY: Hypertension, gout, dyslipidemia, anemia, DJD, CKD, undergoing peritoneal dialysis, now will be starting hemodialysis using his left Vonda fistula, coronary artery disease followed by Dr. Nir Macias, . The patient had a coronary artery bypass grafting three years ago prior to that stents placed. He has not had any cardiac problems since his bypass three years ago. 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 He is associated with [facility], end-stage renal disease, undergoing peritoneal dialysis, plan as above. PAST SURGICAL HISTORY: Lumbar surgery at 87, cardiac stents x2 in the early , coronary artery bypass grafting three years ago, AV fistula placed six years ago, left Vonda balloon angioplasty in May 2017, colonoscopy in the past, coronary artery bypass grafting in September [facility] [address] [facility], capsule endoscopy May 2017, laparoscopic peritoneal dialysis catheter, omental pexy, umbilical hernia repair without mesh 03/01/2018. BICAP cautery active bleeding AVM, second portion duodenum in the past. REVIEW OF SYSTEMS: Ten-point noncontributory, otherwise. ALLERGIES: PENICILLIN. PHYSICAL EXAMINATION: VITAL SIGNS: Weight, 219 pounds. Blood pressure 152/71, pulse 92, temperature 96.8 degrees. Left Vonda fistula, good thrill and bruit. Peritoneal dialysis catheter, left lower quadrant exiting. There was some inflammatory mild reaction at the exit site, probably the cuff is too close to the skin. ABDOMEN: Soft and nontender. LUNGS: Clear to auscultation. CARDIAC: Regular rate and rhythm. No murmur or gallop. ABDOMEN: Soft and nontender. GENERAL: The patient is in a wheelchair. He is alert and oriented. ASSESSMENT AND PLAN: 1. Chronic infection peritoneal dialysis catheter. Dr. Wellington has tried to treat this, but unsuccessfully and now, we need to remove it under IV sedation or local anesthesia. We can replace it under general anesthesia in 4 to 6 weeks. 2. Other medical problems as noted above. Job ID: [id number]
[2019-01-20 07:59] LABS: #Eosinphils 0.1 thou/uL (0.0-0.7); #Lymphocytes 0.8 thou/uL (1.20-3.40); #Monocytes 0.6 thou/uL (0.11-0.59); #Neutrophils 8.2 thou/uL (1.40-6.50); %Basophils 0.2 % (0.0-1.0); %Eosinophils 1.4 % (0.0-10.0); %Lymphocytes 8.6 % (21.0-51.0); %Monocytes 6.3 % (0.0-10.0); %Neutrophils 83.5 % (42.0-75.0); Hemoglobin 9.6 g/dL (14.0-18.0); Mean Corpuscular HGB CONC 31.2 g/dL (32.0-36.0); Mean Corpuscular Hemoglobin 31.6 pg (27.0-31.0); Platelet Count 333 thou/uL (130-400); Red Blood Cell (RBC) Count 3.05 mill/uL (4.70-6.10); White Blood Cell (WBC) Count 9.8 thou/uL (4.8-10.8)
[2019-01-20 08:19] LABS: Anion Gap 14 mmol/L (10-20); BUN (Urea Nitrogen) 47 mg/dL (8.4-25.7); Calc. Creatinine Clearance 8 mL/min (70-130); Calcium 10.1 mg/dL (7.8-10.44); Carbon Dioxide 31 mmol/L (23-31); Chloride 99 mmol/L (98-107); Estimated GFR-MDRD 5; Glucose 127 mg/dL (83-110); Potassium 4.1 mmol/L (3.5-5.1); Sodium 140 mmol/L (136-145)
[2019-01-20] MEDS ORDERED: Bupivacaine HCl 0.5%/Epinephrine 1:200,000/PF 30 ml Vial ONE (09:25)
[2019-01-20] MEDS ORDERED: Lidocaine 2% PF 5 ML VIAL ONE (09:25)
[2019-01-20] MEDS ORDERED: Fentanyl 100 MCG/2 ML VIAL ONE (09:33)
[2019-01-20] MEDS ORDERED: Propofol 500 MG/50 ML VIAL ONE (09:33)
[2019-01-20] MEDS ORDERED: ePHEDrine/0.9% NaCl/PF SYRINGE 50 mg/10 ml ONE (11:30)
[2019-01-20] MEDS ORDERED: PHENYLEPHRINE-NS 100 MCG/ML 10 ML SYRINGE ONE (11:31)
[2019-01-20 12:08] LABS: #Eosinphils 0.1 thou/uL (0.0-0.7); #Lymphocytes 1.3 thou/uL (1.20-3.40); #Monocytes 0.5 thou/uL (0.11-0.59); #Neutrophils 6.1 thou/uL (1.40-6.50); %Basophils 0.2 % (0.0-1.0); %Eosinophils 1.7 % (0.0-10.0); %Lymphocytes 15.9 % (21.0-51.0); %Monocytes 6.4 % (0.0-10.0); %Neutrophils 75.8 % (42.0-75.0); Mean Corpuscular HGB CONC 32.8 g/dL (32.0-36.0); Mean Corpuscular Hemoglobin 33.1 pg (27.0-31.0); Mean Platelet Volume 6.1 fL (7.4-10.4); Platelet Count 275 thou/uL (130-400); Red Blood Cell (RBC) Count 2.72 mill/uL (4.70-6.10); White Blood Cell (WBC) Count 8.1 thou/uL (4.8-10.8)
--- NOTE | 2019-01-20 16:56 | OP ---
DATE OF PROCEDURE: 01/20/2019 PREOPERATIVE DIAGNOSES: Peritoneal dialysis status, infected peritoneal dialysis catheter, refractory peritonitis, and end-stage renal disease. POSTOPERATIVE DIAGNOSES: Peritoneal dialysis status, infected peritoneal dialysis catheter, refractory peritonitis, and end-stage renal disease. PROCEDURE PERFORMED: Removal of PD catheter. ANESTHESIA: Intravenous sedation, local, 0.5% Marcaine with epinephrine 30 mL, mixed with 2% Xylocaine, 10 mL. DESCRIPTION OF PROCEDURE: The patient was taken to the operating room, where under intravenous sedation, abdomen was clipped of hair, prepared with ChloraPrep and draped in routine fashion. Local anesthetic was infiltrated in the skin and subcutaneous tissue about the operative site. The peritoneal dialysis catheter both cuffs dissected free from the skin and subcutaneous tissues, removing the catheter intact, placing a gauze dressing. The patient tolerated the procedure well. Job ID: [id number]
--- NOTE | 2019-01-23 11:26 | EKG ---
Test Reason : PREOP Blood Pressure : / mmHG Vent. Rate : 092 BPM Atrial Rate : 092 BPM P-R Int : 202 ms QRS Dur : 092 ms QT Int : 388 ms P-R-T Axes : 055 024 053 degrees QTc Int : 479 ms Normal sinus rhythm Nonspecific T wave abnormality Prolonged QT Abnormal ECG Confirmed by DAVON HINSON ([id number]) on 01/23/2019 11:26:38 AM Referred By: ANTOLIN Confirmed By:DAVON HINSON
== END 2019-01-20 13:15 | disposition home or self-care (01) ==
LOC: SDC 07:00
PROVIDERS: ATTEND Specialist
PROC: 0WPG33Z Removal of Infusion Device from Peritoneal Cavity, Percutaneous Approach (ICD-10-PCS; principal; 2019-01-20)
DX: T85.71XA Infection and inflammatory reaction due to peritoneal dialysis catheter, initial encounter (principal); K65.9 Peritonitis, unspecified; I12.0 Hypertensive chronic kidney disease with stage 5 chronic kidney disease or end stage renal disease; N18.6 End stage renal disease; M10.9 Gout, unspecified; E78.5 Hyperlipidemia, unspecified; M19.90 Unspecified osteoarthritis, unspecified site; G47.30 Sleep apnea, unspecified; Z87.891 Personal history of nicotine dependence; Z79.899 Other long term (current) drug therapy; Z88.0 Allergy status to penicillin; Z91.19 Patient's noncompliance with other medical treatment and regimen; Z95.1 Presence of aortocoronary bypass graft; Z95.5 Presence of coronary angioplasty implant and graft; Z99.2 Dependence on renal dialysis
CPT/HCPCS: 36415; 80048; 85025; 86850; 86900; 86901; 93005; 93010; J0670; J2001; J2704; J3010; J3370

== ENCOUNTER 2019-02-21 22:17 | Inpatient (IN) | payer MEDICARE, OTHER ==
--- NOTE | 2019-02-21 23:47 | RAD ---
Exam: Chest one view HISTORY:Altered metal status. Lactic acidosis. Comparison: 03/05/2018 FINDINGS: Cardiac silhouette:Normal cardiac silhouette for portable technique. Sternotomy wires are noted. Aorta: Atherosclerosis. Pulmonary vessels: Normal Costophrenic angles: Small left pleural effusion is suspected. LUNGS: Diminished lung volumes, likely due to a poor inspiratory effort. Bibasilar parenchymal opacit ies due to atelectasis, pneumonia or aspiration. Pneumothorax: None Osseous abnormalities: None IMPRESSION: 1. Diminished lung volumes due to poor history effort. Bibasilar parenchymal changes are suspected. S mall left-sided pleural effusion. 2. Atherosclerosis.
[2019-02-21 23:55] LABS: #Eosinphils 0.1 thou/uL (0.0-0.7); #Lymphocytes 1.1 thou/uL (1.20-3.40); %Basophils 0.4 % (0.0-1.0); %Eosinophils 1.3 % (0.0-10.0); %Lymphocytes 12.1 % (21.0-51.0); %Monocytes 10.7 % (0.0-10.0); %Neutrophils 75.5 % (42.0-75.0); Hemoglobin 10.8 g/dL (14.0-18.0); Mean Corpuscular HGB CONC 32.1 g/dL (32.0-36.0); Mean Corpuscular Hemoglobin 32.6 pg (27.0-31.0); Mean Platelet Volume 6.6 fL (7.4-10.4); Platelet Count 263 thou/uL (130-400); RBC Distribution Width 14.9 % (11.5-14.5); Red Blood Cell (RBC) Count 3.32 mill/uL (4.70-6.10); White Blood Cell (WBC) Count 9.3 thou/uL (4.8-10.8)
[2019-02-22 00:16] LABS: ALT (SGPT) 20 U/L (8-55); AST (SGOT) 59 U/L (5-34); Albumin 3.5 g/dL (3.4-4.8); Alkaline Phosphatase 97 U/L (40-110); Anion Gap 15 mmol/L (10-20); BUN (Urea Nitrogen) 24 mg/dL (8.4-25.7); Bilirubin, Total 0.5 mg/dL (0.2-1.2); CK (CPK) 1749 U/L (30-200); Calc. Creatinine Clearance 0 mL/min (70-130); Calcium 9.2 mg/dL (7.8-10.44); Carbon Dioxide 26 mmol/L (23-31); Chloride 101 mmol/L (98-107); Estimated GFR-MDRD 7; Globulin 3.7 g/dL (2.4-3.5); Glucose 116 mg/dL (83-110); Lipase 50 U/L (8-78); Protein, Total 7.2 g/dL (5.8-8.1); Sodium 138 mmol/L (136-145)
[2019-02-22 00:54] LABS: CKMB 29.7 ng/mL (0-6.6)
[2019-02-22] MEDS ORDERED: Ondansetron ODT 4 MG TAB SL PRN (01:06)
[2019-02-22] MEDS ORDERED: Ondansetron PF 4 MG/2 ML Vial IVP PRN (01:06)
[2019-02-22 01:12] VITALS: BMI 31.8
[2019-02-22] MEDS ORDERED: Senokot S 8.6-50 MG TAB PO PRN (01:58)
[2019-02-22] MEDS ORDERED: Acetaminophen 325 MG TAB PO PRN (01:58)
[2019-02-22] MEDS: Folic Acid 1 MG TAB PO SCH (10:55)
[2019-02-22] MEDS: Gabapentin 100 MG CAP PO SCH (10:56)
[2019-02-22] MEDS: Enoxaparin Sodium 30 MG/0.3 ML SYRINGE SC SCH (10:56)
[2019-02-22] MEDS: Atorvastatin Calcium 10 MG TAB PO SCH (10:56)
[2019-02-22] MEDS: Lactinex Tablet PO SCH (10:56)
[2019-02-22] MEDS: Allopurinol 100 MG TAB PO SCH (10:58)
--- NOTE | 2019-02-22 11:41 | HP ---
CHIEF COMPLAINT: Generalized weakness. HISTORY OF PRESENT ILLNESS: The patient is a 78-year-old male with a past medical history of atrial fibrillation, CAD, heart failure, end-stage renal disease, on dialysis, who presents to the hospital with change in his mental status. The patient has been having episodes of multiple diarrhea about 5 days ago. He went to dialysis today and after he came back from dialysis, he took all his blood pressure medications and kind of felt generalized weakness. The patient's mentioned this per notes that he was not acting right and was appeared to be confused. At this time, he was brought into the hospital for further evaluation. The patient currently denies any nausea, vomiting, chest pain, shortness of breath, fevers, or chills. He denies any diarrhea either. PAST MEDICAL HISTORY: 1. History of atrial fibrillation. 2. CAD. 3. Heart failure. 4. End-stage renal disease, on dialysis. 5. Hypertension. PAST SURGICAL HISTORY: He has had cataract extraction. He has an AV graft in his left arm. He has had a CABG. He has had an IR lumbar puncture diagnostic, knee surgery. REVIEW OF SYSTEMS: All negative except for the ones mentioned above in the HPI. FAMILY HISTORY: Denies any history of heart disease or cancer. ALLERGIES: ALLERGIC TO PENICILLIN. MEDICATIONS: Are as of the followin. Allopurinol 100 mg daily. 2. Amlodipine 5 mg daily. 3. Atorvastatin 10 mg daily. 4. Pantoprazole 40 mg daily. 5. Seroquel 50 mg nightly. 6. Zoloft 100 mg daily. 7. Sevelamer (Renagel) 800 mg daily. 8. Aspirin 81 mg daily. 9. Colchicine 0.6 mg daily. 10. Metoprolol 25 mg daily. 11. Midodrine 5 mg p.o. daily. SOCIAL HISTORY: He is a former smoker. Denies any alcohol use or drug use. He is currently a full code. Lives with his . PHYSICAL EXAMINATION: VITAL SIGNS: Temperature of 98.8, respirations 18, saturations 99% on 2 L. His initial blood pressure in the ER was 87/50, this was at the outside ER. His current blood pressure is 102/60. GENERAL: He is awake, alert, and oriented x2. Does not appear in any distress. HEENT: Normocephalic, atraumatic. No lymphadenopathy noted. Pupils equal and reactive to light. CV: S1 and S2 present. No murmurs, rubs, or gallops. LUNGS: Clear to auscultation. No rhonchi or wheezes noted. ABDOMEN: Soft. Bowel sounds are present x2. EXTREMITIES: He has no edema. Pedal pulses are present x2. NEUROVASCULAR: He is able to move all 4 extremities. SKIN: No cuts, lesions, or bruises noted. He does have an AV fistula on his left arm. He did have a PD catheter which was removed. Dermal site appears to be intact. LABORATORY RESULTS: At the outside ER, he initially had a lactic acid of 2.5, the recheck was 1.6. Urine appeared normal. His WBC was 11.0, hemoglobin of 12.2, hematocrit of 40.3, platelets of 268. His INR was 1.0. His troponin x1 was negative. His sodium was 141, potassium of 4.0, BUN of 20, creatinine of 7.17, his bilirubin was 0.6. He did have a CT head, which did not indicate any acute abnormalities. He had a CT of abdomen and pelvis without contrast, which did not indicate any acute abnormalities either. The CT head indicated just stable mild age-related changes. Chest x-ray did not show any infiltrates either. ASSESSMENT AND PLAN: The patient is a very pleasant 78-year-old male, who presents to the hospital with complaints of generalized weakness. 1. Acute metabolic encephalopathy. I believe this is transient from the hypotension. I do not see any reason for infectious etiology. His urine appears to be normal. He does not have a cough. He currently has no diarrhea, and his chest x-ray appears to be stable. I am going to go ahead and hold off on any sort of antibiotics. We will continue to monitor this patient. He did receive antibiotics in the ER. 2. Hypotension. This could be post dialysis. They removed 1 L according to the notes. The patient did take his antihypertensives after dialysis, and this could have caused hypotension. We will continue to monitor his blood pressure. We will hold antihypertensives. Also, he was given a total of 1 L bolus. 3. Atrial fibrillation. The patient only on aspirin, unclear why he is not on any anticoagulation and I am unable to look at it because the computers are not working. 4. Coronary artery disease. We will continue the aspirin and the statin and continue to monitor this patient. 5. Deep vein thrombosis prophylaxis. We will put the patient on subcu heparin. Job ID: [id number]
--- NOTE | 2019-02-22 19:31 | PDOC.HOSPP ---
- Subjective Encounter Date: 02/22/19 Encounter Time: 19:25 Subjective: f/u for AMS and hypotension now resolved. ESRD with dialysis resumed over the last month. - Objective Vital Signs & Weight: Vital Signs (12 hours) Temp Pulse Resp BP Pulse Ox 02/22/19 15:47 97.6 F 95 18 110/54 L 97 Weight Weight 209 lb 9 oz Result Diagrams: 02/21/19 23:30 02/21/19 23:30 Additional Labs: Microbiology 02/21/19 23:36 Nasal swab Influenza Types A,B Direct EIA - Final Laboratory Tests 02/21/19 23:30 Creatine Kinase 1749 H EKG Reviewed by me: Yes (Tele - SR) - Exam General Appearance: NAD, awake alert Eye: PERRL, anicteric sclera ENT: normocephalic atraumatic, no oropharyngeal lesions Neck: supple, symmetric, no JVD, no thyromegaly Heart: RRR, no gallops, no rubs, normal peripheral pulses Respiratory: CTAB, no wheezes, no rales, no ronchi, normal chest expansion Gastrointestinal: soft, non-tender, non-distended, normal bowel sounds Extremities: no cyanosis, no clubbing, no edema Skin: normal turgor, no lesions Neurological: cranial nerve grossly intact, no new deficit Musculoskeletal: normal tone, generalized weakness Psychiatric: normal affect, A&O x 3 Hosp A/P (1) Acute metabolic encephalopathy Code(s): G93.41 - METABOLIC ENCEPHALOPATHY Status: Acute Plan: ? etiology but likely multifactorial, improved (2) Hypotension Status: Acute Plan: Iatrogenic, serial BP monitoring, hold antihypertensives (3) ESRD (end stage renal disease) on dialysis Code(s): N18.6 - END STAGE RENAL DISEASE; Z99.2 - DEPENDENCE ON RENAL DIALYSIS Status: Chronic Plan: HD per Renal service (4) CAD (coronary artery disease) Code(s): I25.10 - ATHSCL HEART DISEASE OF [place] CORONARY ARTERY W/O ANG PCTRS Status: Chronic Plan: Continue med mgmt - Plan plan discussed w/ family, PT/OT, social professionals, out of bed/ambulate, DVT proph w/SCDs Stable currently HD per Renal service Hold antihypertensives PT evaluation for functional assessment AM lab: BMP, CPK Likely home in 24h
[2019-02-23 05:27] LABS: Anion Gap 15 mmol/L (10-20); BUN (Urea Nitrogen) 40 mg/dL (8.4-25.7); CK (CPK) 1038 U/L (30-200); Calc. Creatinine Clearance 8 mL/min (70-130); Calcium 9.5 mg/dL (7.8-10.44); Carbon Dioxide 25 mmol/L (23-31); Chloride 103 mmol/L (98-107); Estimated GFR-MDRD 5; Glucose 87 mg/dL (83-110); Potassium 4.1 mmol/L (3.5-5.1); Sodium 139 mmol/L (136-145)
--- NOTE | 2019-02-23 12:59 | PRG ---
DATE OF SERVICE: 02/23/2019 SUBJECTIVE: A 78-year-old gentleman being seen for endstage renal disease. The patient denied nausea, vomiting, or chest pain. OBJECTIVE: See above. The patient is awake and alert. VITAL SIGNS: Afebrile, pulse 92, breathing 16, blood pressure 122/63. GENERAL APPEARANCE AND MENTAL STATUS: Fair. HEAD/NECK: Normocephalic. Atraumatic. EYES: EOMI. No deformity. EARS: Clear. No ulcers. NOSE: Intact. No lesions. MOUTH: Clear. No discharge. THROAT: Clear. No exudate. LUNGS: Clear. No crackles. CARDIAC: S1, S2. No rub. ABDOMEN: Benign. Bowel sounds positive. GENITALIA/RECTUM: Lyons absent. BACK/EXTREMITIES: Edema 0+. NEUROLOGICAL: Alert and motor intact. SKIN: LYMPHATICS: LABORATORY DATA: Reviewed. ASSESSMENT: 1. Stage 6 chronic renal failure, on dialysis today. 2. Hypertension, stable. 3. Anemia, stable. 4. Medication, based on GFR appropriate. Job ID: [id number]
--- NOTE | 2019-02-23 13:23 | CON ---
DATE OF CONSULTATION: 02/22/2019 REASON FOR CONSULTATION: End-stage renal disease for maintenance hemodialysis. HISTORY OF PRESENT ILLNESS: This is a very pleasant 78-year-old gentleman, who presented to the hospital with generalized weakness. The patient is on dialysis on Wednesday, , and Wednesday. Denies any nausea, vomiting, or chest pain. PAST MEDICAL HISTORY: 1. Hypertension. 2. Atrial fibrillation. 3. Coronary artery disease. 4. End-stage renal disease. 5. Hypertension. 6. History of cataract extraction. 7. AV graft. 8. CABG. 9. History of lumbar puncture. 10. Knee surgery. 11. History of peritoneal dialysis. FAMILY HISTORY: Negative for ESRD. ALLERGIES: REVIEWED. SOCIOECONOMIC HISTORY: No alcohol or drug use. HOME MEDICATIONS: List reviewed. HOSPITAL MEDICATIONS: List reviewed. REVIEW OF SYSTEMS: A 13-point review of systems was performed and negative except what is noted above. GENERAL: HEAD: NECK: No swelling or lumps. NOSE: No epistaxis or discharge. EYES: No diplopia or pain. RESPIRATORY: CARDIOVASCULAR: GASTROINTESTINAL: /FIELD SUPPORT TECHNICIAN: MUSCULOSKELETAL: No joint pain. NEUROPSYCHIATRIC: No suicidal ideation. No ideation. SKIN: Denies any rash or ulcer. CONSTITUTIONAL: No fever or chills. PHYSICAL EXAMINATION: GENERAL: The patient is awake, alert. VITAL SIGNS: Afebrile. Pulse 95, breathing 16, blood pressure 102/60. GENERAL APPEARANCE AND MENTAL STATUS: Fair. HEAD/NECK: Normocephalic. Atraumatic. EYES: EOMI. No deformity. EARS: Clear. No ulcers. NOSE: Intact. No lesions. MOUTH: Clear. No discharge. THROAT: Clear. No exudate. LUNGS: Clear. No crackles. CARDIAC: S1, S2. No rub. ABDOMEN: Benign. Bowel sounds positive. GENITALIA/RECTUM: Lyons absent. BACK/EXTREMITIES: Edema 0+. NEUROLOGICAL: Alert and motor intact. SKIN: LYMPHATICS: LABORATORY DATA: Labs showed potassium was 4. ASSESSMENT: 1. Stage 6 chronic kidney disease. Plan dialysis. 2. Hypertension, stable. 3. Anemia, stable. 4. Medication based on GFR appropriate. Job ID: [id number]
[2019-02-23] MEDS: Atorvastatin Calcium 10 MG TAB PO SCH (13:50)
[2019-02-23] MEDS: Allopurinol 100 MG TAB PO SCH (13:50)
[2019-02-23] MEDS: Gabapentin 100 MG CAP PO SCH (13:51)
[2019-02-23] MEDS: Enoxaparin Sodium 30 MG/0.3 ML SYRINGE SC SCH (13:51)
[2019-02-23] MEDS: Lactinex Tablet PO SCH (13:51)
[2019-02-23] MEDS: Folic Acid 1 MG TAB PO SCH (13:51)
--- NOTE | 2019-02-23 16:23 | PDOC.HOSPP ---
- Subjective Encounter Date: 02/23/19 Encounter Time: 16:20 Subjective: f/u ESRD on HD. AMS intermittently per nursing. Feels better overall but weak. Only walked a few steps with PT. - Objective Vital Signs & Weight: Vital Signs (12 hours) Temp Pulse Pulse Pulse Resp BP BP 02/23/19 15:36 98.0 F 101 H 18 02/23/19 14:11 96 108 H 114/55 L 131/61 02/23/19 13:30 97.5 F L 99 18 02/23/19 08:00 92 18 BP Pulse Ox 02/23/19 15:36 128/60 97 02/23/19 14:11 02/23/19 13:30 130/62 97 02/23/19 08:00 122/63 Weight Weight 208 lb 9.6 oz I&O: 02/22/19 02/23/19 02/24/19 06:59 06:59 06:59 Intake Total 700 Output Total 0 Balance 700 Result Diagrams: 02/21/19 23:30 02/23/19 04:40 Additional Labs: Microbiology 02/21/19 23:36 Nasal swab Influenza Types A,B Direct EIA - Final Laboratory Tests 02/21/19 23:30 Creatine Kinase 1749 H EKG Reviewed by me: Yes (Tele - SR) Hospitalist ROS - Medication Medications: Active Medications Generic Name Dose Route Start Last Admin Trade Name Freq PRN Reason Stop Dose Admin Acidophilus 1 tab 02/22/19 09:00 02/23/19 13:51 Floranex PO Not Given DAILY [facility] Allopurinol 200 mg 02/22/19 09:00 02/23/19 13:50 Zyloprim PO Not Given DAILY [facility] Atorvastatin Calcium 10 mg 02/22/19 09:00 02/23/19 13:50 Lipitor PO Not Given QAM [facility] Enoxaparin Sodium 30 mg 02/22/19 09:00 02/23/19 13:51 Lovenox SC Not Given 0900 [facility] Folic Acid 1 mg 02/22/19 09:00 02/23/19 13:51 Folvite PO Not Given DAILY [facility] Gabapentin 100 mg 02/22/19 09:00 02/23/19 13:51 Neurontin PO Not Given DAILY [facility] Pantoprazole Sodium 40 mg 02/22/19 09:00 02/23/19 13:51 Protonix PO Not Given BID HERMILA Quetiapine Fumarate 25 mg 02/22/19 21:00 02/22/19 21:19 Seroquel PO 25 mg HS HERMILA Administration Sodium Chloride 10 ml 02/22/19 09:00 02/23/19 13:51 Flush - Normal Saline IVF Not Given Q12HR HERMILA - Exam General Appearance: NAD, awake alert Eye: PERRL, anicteric sclera ENT: normocephalic atraumatic, no oropharyngeal lesions Neck: supple, symmetric, no JVD, no thyromegaly, no lymphadenopathy Heart: RRR, no murmur, no gallops, no rubs Respiratory: CTAB, no wheezes, no rales, no ronchi Gastrointestinal: soft, non-tender, non-distended, normal bowel sounds, no palpable masses Extremities: no cyanosis, no clubbing, no edema Skin: normal turgor, no lesions Neurological: cranial nerve grossly intact, no new deficit Musculoskeletal: normal tone, generalized weakness Psychiatric: oriented to person, oriented to place, flat affect Hosp A/P (1) Acute metabolic encephalopathy Code(s): G93.41 - METABOLIC ENCEPHALOPATHY Status: Acute Plan: Persistent, likely multifactorial, re-orientation techniques, serial HD (2) Hypotension Status: Acute Plan: Resolved, continue supportive mgmt, serial BP monitoring (3) ESRD (end stage renal disease) on dialysis Code(s): N18.6 - END STAGE RENAL DISEASE; Z99.2 - DEPENDENCE ON RENAL DIALYSIS Status: Chronic Plan: HD per Renal service (4) CAD (coronary artery disease) Code(s): I25.10 - ATHSCL HEART DISEASE OF [place] CORONARY ARTERY W/O ANG PCTRS Status: Chronic (5) Physical deconditioning Code(s): R53.81 - OTHER MALAISE Status: Acute Plan: PT for mobilization, SNF options per CM - Plan PT/OT, social worker assistant, out of bed/ambulate Stable currently HD per Renal service Hold antihypertensives PT evaluation for functional assessment CM for SNF options AM lab: BMP, CPK
[2019-02-24 05:25] LABS: Anion Gap 14 mmol/L (10-20); BUN (Urea Nitrogen) 22 mg/dL (8.4-25.7); CK (CPK) 371 U/L (30-200); Calc. Creatinine Clearance 11 mL/min (70-130); Calcium 9.5 mg/dL (7.8-10.44); Carbon Dioxide 29 mmol/L (23-31); Chloride 98 mmol/L (98-107); Estimated GFR-MDRD 7; Glucose 83 mg/dL (83-110); Potassium 3.8 mmol/L (3.5-5.1); Sodium 137 mmol/L (136-145)
[2019-02-24] MEDS ORDERED: Amlodipine 5 MG TAB PO SCH (09:00)
[2019-02-24] MEDS ORDERED: Folic Acid/Vit B Comp W-C PO SCH (09:00)
[2019-02-24] MEDS: Calcium Acetate 667 MG CAP PO SCH ×3 (09:35→17:08)
[2019-02-24] MEDS: Lactinex Tablet PO SCH (09:35)
[2019-02-24] MEDS: Gabapentin 100 MG CAP PO SCH (09:35)
[2019-02-24] MEDS: Folic Acid 1 MG TAB PO SCH (09:36)
[2019-02-24] MEDS: Atorvastatin Calcium 10 MG TAB PO SCH (09:36)
[2019-02-24] MEDS: Enoxaparin Sodium 30 MG/0.3 ML SYRINGE SC SCH (09:36)
[2019-02-24] MEDS: Allopurinol 100 MG TAB PO SCH (09:36)
--- NOTE | 2019-02-24 10:28 | PRG ---
DATE OF SERVICE: 02/24/2019 SUBJECTIVE: A 78-year-old gentleman being seen for end-stage renal disease. The patient denies any nausea, vomiting, or chest pain. OBJECTIVE: See above. GENERAL: The patient is awake and alert. VITAL SIGNS: Afebrile, pulse 89, breathing 16, and blood pressure 128/62. GENERAL APPEARANCE AND MENTAL STATUS: Fair. HEAD/NECK: Normocephalic. Atraumatic. EYES: EOMI. No deformity. EARS: Clear. No ulcers. NOSE: Intact. No lesions. MOUTH: Clear. No discharge. THROAT: Clear. No exudate. LUNGS: Clear. No crackles. CARDIAC: S1, S2. No rub. ABDOMEN: Benign. Bowel sounds positive. GENITALIA/RECTUM: Lyons absent. BACK/EXTREMITIES: Edema 0+. NEUROLOGICAL: Alert and motor intact. SKIN: LYMPHATICS: LABORATORY DATA: Reviewed. ASSESSMENT AND PLAN: 1. Stage chronic kidney disease, on hemodialysis. 2. Hypertension, stable. 3. Anemia, stable. 4. Medication based on GFR appropriate. Job ID: [id number]
--- NOTE | 2019-02-24 12:30 | PDOC.HOSPP ---
- Subjective Encounter Date: 02/24/19 Encounter Time: 12:25 Subjective: f/u for AMS, deconditioining and ESRD with HD. Feels weak but no new complaints. Appetite ok. Voiding ok. - Objective Vital Signs & Weight: Vital Signs (12 hours) Temp Pulse Resp BP Pulse Ox 02/24/19 11:35 97.7 F 101 H 20 170/76 H 97 02/24/19 07:20 97.5 F L 89 18 141/66 H 96 02/24/19 03:42 97.7 F 89 16 128/66 97 Weight Weight 208 lb 9.6 oz I&O: 02/23/19 02/24/19 02/25/19 06:59 06:59 06:59 Intake Total 700 720 Output Total 0 845 Balance 700 -125 Result Diagrams: 02/21/19 23:30 02/24/19 04:41 Additional Labs: Microbiology 02/21/19 23:36 Nasal swab Influenza Types A,B Direct EIA - Final Laboratory Tests 02/21/19 23:30 Creatine Kinase 1749 H EKG Reviewed by me: Yes (Tele - SR) Hospitalist ROS - Medication Medications: Active Medications Generic Name Dose Route Start Last Admin Trade Name Freq PRN Reason Stop Dose Admin Acidophilus 1 tab 02/22/19 09:00 02/24/19 09:35 Floranex PO 1 tab DAILY HERMILA Administration Allopurinol 200 mg 02/22/19 09:00 02/24/19 09:36 Zyloprim PO 200 mg DAILY HERMILA Administration Amlodipine Besylate 5 mg 02/24/19 09:00 02/24/19 09:36 Norvasc PO 5 mg DAILY HERMILA Administration Atorvastatin Calcium 10 mg 02/22/19 09:00 02/24/19 09:36 Lipitor PO 10 mg QAM HERMILA Administration Calcium Acetate 1,334 mg 02/24/19 08:00 02/24/19 09:35 Phoslo PO 1,334 mg TID-WM HERMILA Administration Enoxaparin Sodium 30 mg 02/22/19 09:00 02/24/19 09:36 Lovenox SC Not Given 0900 HERMILA Folic Acid 1 mg 02/22/19 09:00 02/24/19 09:36 Folvite PO 1 mg DAILY HERMILA Administration Gabapentin 100 mg 02/22/19 09:00 12/06/19 09:35 Neurontin PO 100 mg DAILY [facility]MILA Administration Pantoprazole Sodium 40 mg 02/24/19 09:00 02/24/19 09:36 Protonix PO 40 mg DAILY [facility] Administration Quetiapine Fumarate 25 mg 02/22/19 21:00 02/23/19 21:16 Seroquel PO 25 mg HS HERMILA Administration Sertraline HCl 50 mg 02/24/19 09:00 02/24/19 09:35 Zoloft PO 50 mg DAILY HERMILA Administration Sodium Chloride 10 ml 02/22/19 09:00 02/24/19 09:37 Flush - Normal Saline IVF 10 ml Q12HR HERMILA Administration Vitamin B Complex/Vit C/Folic Acid 1 tab 02/24/19 09:00 02/24/19 09:36 Nephro-Ramiro Tablet PO 1 tab DAILY HERMILA Administration - Exam General Appearance: NAD, awake alert Eye: PERRL, anicteric sclera ENT: normocephalic atraumatic, no oropharyngeal lesions Neck: supple, symmetric, no JVD, no thyromegaly Heart: RRR, no gallops, no rubs, normal peripheral pulses Respiratory: CTAB, no wheezes, no rales, no ronchi, normal chest expansion Gastrointestinal: soft, non-tender, non-distended, normal bowel sounds, no palpable masses Extremities: no cyanosis, no clubbing, no edema Skin: normal turgor, no lesions Neurological: cranial nerve grossly intact, no new deficit Musculoskeletal: normal tone, generalized weakness Psychiatric: oriented to person, oriented to place Hosp A/P (1) Acute metabolic encephalopathy Code(s): G93.41 - METABOLIC ENCEPHALOPATHY Status: Acute Plan: Intermittent, improved, continue supportive mgmt (2) Hypotension Status: Acute Plan: Resolved, serial BP monitoring (3) ESRD (end stage renal disease) on dialysis Code(s): N18.6 - END STAGE RENAL DISEASE; Z99.2 - DEPENDENCE ON RENAL DIALYSIS Status: Chronic Plan: HD per Renal service (4) CAD (coronary artery disease) Code(s): I25.10 - ATHSCL HEART DISEASE OF [place] CORONARY ARTERY W/O ANG PCTRS Status: Chronic (5) Physical deconditioning Code(s): R53.81 - OTHER MALAISE Status: Chronic Plan: PT for mobilization, Rehab/SNF options per CM - Plan PT/OT, social group worker, out of bed/ambulate, DVT proph w/SCDs Stable currently HD per Renal service Resume antihypertensives PT evaluation for functional assessment CM for SNF options
[2019-02-24 16:03] VITALS: TEMP 97.9
[2019-02-24 16:33] VITALS: BP 162/74
--- NOTE | 2019-02-25 03:39 | DIS ---
DATE OF ADMISSION: 02/22/2019 DATE OF DISCHARGE: 02/24/2019 DISCHARGE DIAGNOSES: 1. Acute metabolic encephalopathy multifactorial resolving. 2. Hypotension, iatrogenic, resolved. 3. End-stage renal disease with hemodialysis, stable. 4. Coronary artery disease, chronic and stable. 5. Physical deconditioning. CONSULTATIONS: Dr. Medley with Nephrology Service. PERTINENT LABORATORY AND X-RAY FINDINGS: Creatinine ranged between 7.21 to 10.57. Estimated GFR ranged between 5-7. Total CK ranged between 371-1749. Lipase 50. CBC showed a white blood cell count of 9.3, hemoglobin 11, hematocrit 34, MCV 101, platelet count 263. Blood culture x2 dated 02/21/2019, showed no growth at 48 hours. Influenza A and B antigen dated 02/21/2019, negative. Portable chest x-ray dated 02/21/2019, showed diminished lung volumes in the bibasilar segments. HOSPITAL COURSE: The patient was initially admitted to the telemetry unit after presenting with generalized weakness in the context of end-stage renal disease with hemodialysis and coronary artery disease. The patient was also initially noted with hypotension, likely iatrogenic in conjunction with recent hemodialysis with continuation of home antihypertensive regimen. The patient was held on his blood pressure regimen for approximately 24 hours with overall resolution of the hypotension. The patient was initiated back on his blood pressure regimen with stable vital signs and blood pressure for the remainder of the hospital course. The patient continued to receive hemodialysis at the direction of the Nephrology Service, tolerating without complication. The patient was evaluated by the Physical Therapy Service due to minimal ambulatory status and generalized weakness. Due to patient's comorbid status and limited mobility, patient was deemed an appropriate candidate for ongoing acute inpatient rehabilitation. I have examined the patient at the time of discharge and discussed followup instructions. The patient verbalized understanding and agreement, ready for discharge to inpatient rehabilitation on 02/24/2019. DISCHARGE MEDICATIONS: 1. Allopurinol 100 mg p.o. daily. 2. Norvasc 5 mg p.o. daily. 3. Lipitor 10 mg p.o. q.a.m. 4. Calcium acetate 1334 mg p.o. t.i.d. with meals. 5. Folic acid with vitamin B complex 1 tablet p.o. daily. 6. Gabapentin 100 mg p.o. daily. 7. Protonix 40 mg p.o. daily. 8. Seroquel 50 mg p.o. at bedtime. 9. Sertraline 50 mg p.o. daily. FOLLOWUP: The patient followup with Dr. Kaci Pickens after discharge from inpatient rehabilitation. CONDITION ON DISCHARGE: Fair. ACTIVITY: Ad levi rolling, rolling walker with contact guard/standby assistance for ambulation. DIET: Heart healthy and renal. CODE STATUS: Full. DISPOSITION: Discharged to [facility]. TIME SPENT WITH PATIENT: Total time preparing and coordinating discharge 32 minutes. Job ID: [id number]
== END 2019-02-24 18:32 | DRG 314 ==
LOC: ERS 22:17 → 2NO 02-22 00:37
PROVIDERS: ADMIT Internal Medicine; ATTEND Internal Medicine
DX: I95.9 Hypotension, unspecified (principal); N18.6 End stage renal disease; G93.41 Metabolic encephalopathy; E87.2 Acidosis; I13.0 Hypertensive heart and chronic kidney disease with heart failure and stage 1 through stage 4 chronic kidney disease, or unspecified chronic kidney disease; D63.1 Anemia in chronic kidney disease; I25.10 Atherosclerotic heart disease of native coronary artery without angina pectoris; I48.91 Unspecified atrial fibrillation; I50.9 Heart failure, unspecified; Z99.2 Dependence on renal dialysis; Z95.1 Presence of aortocoronary bypass graft; Z88.0 Allergy status to penicillin; Z79.01 Long term (current) use of anticoagulants; Z98.49 Cataract extraction status, unspecified eye
CPT/HCPCS: 36415; 36416; 71045; 80048; 80053; 82550; 82553; 83605; 83690; 83880; 84484; 85025; 87040; 87804; 93005

== ENCOUNTER 2019-04-05 18:24 | Emergency (ER) | payer MEDICARE, OTHER ==
[2019-04-05 19:10] LABS: #Eosinphils 0.1 thou/uL (0.0-0.7); #Monocytes 0.8 thou/uL (0.11-0.59); #Neutrophils 9.8 thou/uL (1.40-6.50); %Basophils 0.1 % (0.0-1.0); %Lymphocytes 8.4 % (21.0-51.0); %Monocytes 6.6 % (0.0-10.0); %Neutrophils 83.9 % (42.0-75.0); Hemoglobin 13.3 g/dL (14.0-18.0); Mean Corpuscular HGB CONC 32.3 g/dL (32.0-36.0); Mean Corpuscular Hemoglobin 32.4 pg (27.0-31.0); Mean Platelet Volume 6.8 fL (7.4-10.4); Platelet Count 267 thou/uL (130-400); RBC Distribution Width 14.6 % (11.5-14.5); Red Blood Cell (RBC) Count 4.11 mill/uL (4.70-6.10); White Blood Cell (WBC) Count 11.7 thou/uL (4.8-10.8)
[2019-04-05] MEDS ORDERED: Lidocaine 1% w/Epinephrine 1:100K 20 ML VIAL ONE (19:15)
--- NOTE | 2019-04-05 19:15 | RAD ---
Right knee 4 views HISTORY: Knee injury. FINDINGS: Mild joint space narrowing and osteophytosis. No acute fracture or dislocation. Calcificati on over the arterial structures. Hemostasis clips at the catheter. IMPRESSION: Mild arthritic changes. No acute osseous abnormalities are demonstrated. Atherosclerosis.
[2019-04-05 19:31] LABS: ALT (SGPT) 9 U/L (8-55); AST (SGOT) 18 U/L (5-34); Albumin 3.8 g/dL (3.4-4.8); Alkaline Phosphatase 87 U/L (40-110); Anion Gap 19 mmol/L (10-20); BUN (Urea Nitrogen) 60 mg/dL (8.4-25.7); Bilirubin, Total 0.6 mg/dL (0.2-1.2); Calc. Creatinine Clearance 0 mL/min (70-130); Calcium 9.9 mg/dL (7.8-10.44); Carbon Dioxide 27 mmol/L (23-31); Chloride 102 mmol/L (98-107); Estimated GFR-MDRD 5; Glucose 100 mg/dL (83-110); Potassium 4.4 mmol/L (3.5-5.1); Protein, Total 7.8 g/dL (5.8-8.1); Sodium 144 mmol/L (136-145)
--- NOTE | 2019-04-05 19:36 | CT ---
CT HEAD WITHOUT CONTRAST: 04/05/19 HISTORY: Trauma. Fall. Pain. Scalp laceration. COMPARISON: 05/21/18. FINDINGS: Left frontal scalp laceration with associated subcutaneous emphysema. Underlying calvarium and the re mainder of the calvarium is intact. Adequate aeration of the sinuses and mastoid air cells. Cavernous carotid atherosclerosis. No parenchymal hemorrhage. No extra-axial hematoma. No midline shift. Basilar cisterns are patent. Ag e appropriate atrophy. Remote lacunar infarct involving bilateral luna radiata. White matter hypode nsities due to chronic small vessel ischemic changes are noted. Remote lacunar infarct in the right t halamus. IMPRESSION: 1. Left frontal scalp posttraumatic change. 2. No intracranial posttraumatic sequela. POS: PPP
--- NOTE | 2019-04-05 19:37 | RAD ---
LEFT KNEE FOUR VIEWS: 04/05/19 HISTORY: Fall. Pain. FINDINGS: Mild bone demineralization. Preserved joint spaces. No fracture, cortical irregularity, or periosteal reaction. No significant joint effusion. IMPRESSION: No posttraumatic change. POS: PPP
--- NOTE | 2019-04-05 19:44 | CT ---
CT CERVICAL SPINE WITHOUT CONTRAST: 04/05/19 HISTORY: Fall. Pain. FINDINGS: No craniocervical dissociation. Appropriate alignment of the lateral masses of C1 and C2. Appropriate alignment of the facets. Intact odontoid process. Cervical spine vertebral body height is maintained. There is no fracture. Th e visualized upper mediastinum and lung apices are unremarkable. Atherosclerosis of both cervical car otid arteries, incompletely evaluated. There are varying degrees of central canal stenosis and neural foraminal narrowing on the basis of de generative change. Limited evaluation due to technique. Cervical spine vertebral body height is maintained. No cervical spine fracture. IMPRESSION: No cervical spine fracture. POS: PPP
== END 2019-04-05 22:29 | disposition home or self-care (01) ==
LOC: ERS 18:24
DX: S01.81XA Laceration without foreign body of other part of head, initial encounter (principal); S61.412A Laceration without foreign body of left hand, initial encounter; I12.9 Hypertensive chronic kidney disease with stage 1 through stage 4 chronic kidney disease, or unspecified chronic kidney disease; N18.6 End stage renal disease; Z99.2 Dependence on renal dialysis; Z87.891 Personal history of nicotine dependence; W18.30XA Fall on same level, unspecified, initial encounter; Y92.009 Unspecified place in unspecified non-institutional (private) residence as the place of occurrence of the external cause
CPT/HCPCS: 12004; 12015; 36415; 70450; 72125; 80053; 85025; 93005

== ENCOUNTER 2019-04-08 10:52 | Inpatient (IN) | payer MEDICARE ==
[2019-04-08 11:27] LABS: Actual Bicarbonate (HCO3a) 29.1 mEq/L (22-28); Analyzer IN Cardio ER; Base Excess (BEa) 2.7 mEq/L (-2.0 to +3.0); Calcium, Ionized 1.14 mmol/L (1.12-1.30); Carboxyhemoglobin (COHb) 1.2 gm% (0.0-3.0); Hemoglobin (Hb) 12.1 g/dL (14.0-18.0); Potassium - ABG Lab 3.89 mmol/L (3.70-5.30); pH, Arterial 7.36 (7.35-7.45)
[2019-04-08 11:30] LABS: O2 Tension (PaO2) 58.4 mmHg (> 70.0)
[2019-04-08 11:31] LABS: Puncture Site RRA
[2019-04-08 11:36] LABS: #Basophils 0.1 thou/uL (0.0-0.2); #Eosinphils 0.2 thou/uL (0.0-0.7); #Lymphocytes 1.1 thou/uL (1.20-3.40); #Monocytes 0.9 thou/uL (0.11-0.59); #Neutrophils 8.2 thou/uL (1.40-6.50); %Basophils 0.6 % (0.0-1.0); %Eosinophils 1.7 % (0.0-10.0); %Lymphocytes 10.9 % (21.0-51.0); %Monocytes 8.6 % (0.0-10.0); %Neutrophils 78.1 % (42.0-75.0); Hemoglobin 12.2 g/dL (14.0-18.0); Mean Corpuscular HGB CONC 31.5 g/dL (32.0-36.0); Mean Corpuscular Hemoglobin 32.1 pg (27.0-31.0); Mean Platelet Volume 7.5 fL (7.4-10.4); Platelet Count 254 thou/uL (130-400); RBC Distribution Width 14.5 % (11.5-14.5); White Blood Cell (WBC) Count 10.4 thou/uL (4.8-10.8)
--- NOTE | 2019-04-08 11:45 | RAD ---
EXAM: XR Chest 1 View Portable PROVIDED CLINICAL HISTORY: Altered mental status COMPARISON: 02/21/2019 FINDINGS: Cardiac and mediastinal silhouette is unchanged in appearance. Median sternotomy changes are again se en. There is left perihilar airspace disease. Right lung appears clear. There is no pleural fluid or pneumothorax apparent. IMPRESSION: 1. Cardiomegaly. 2. Left perihilar airspace disease, which may reflect pneumonia in the appropriate clinical context. Follow-up is recommended
[2019-04-08 11:55] LABS: ALT (SGPT) 9 U/L (8-55); AST (SGOT) 27 U/L (5-34); Albumin 3.3 g/dL (3.4-4.8); Alkaline Phosphatase 82 U/L (40-110); Anion Gap 18 mmol/L (10-20); BUN (Urea Nitrogen) 50 mg/dL (8.4-25.7); Bilirubin, Total 0.7 mg/dL (0.2-1.2); CK (CPK) 261 U/L (30-200); Calc. Creatinine Clearance 0 mL/min (70-130); Calcium 9.6 mg/dL (7.8-10.44); Carbon Dioxide 29 mmol/L (23-31); Chloride 96 mmol/L (98-107); Estimated GFR-MDRD 4; Globulin 4.3 g/dL (2.4-3.5); Glucose 123 mg/dL (83-110); Lipase 7 U/L (8-78); Potassium 4.4 mmol/L (3.5-5.1); Protein, Total 7.6 g/dL (5.8-8.1); Sodium 139 mmol/L (136-145)
--- NOTE | 2019-04-08 11:55 | CT ---
EXAM: CT Abdomen Pelvis WO Con PROVIDED CLINICAL HISTORY: Chest pain COMPARISON: 03/07/2019 FINDINGS: Cardiac and mediastinal silhouettes is unchanged in appearance. Median sternotomy changes are again s een. There is left basilar pleural and/or parenchymal opacity, which appears new with respect to prior. There is no evidence for pneumothorax. IMPRESSION: Left basilar pleural and/or parenchymal opacity. This may reflect pleural effusion with adjacent atel ectasis or pneumonia. Follow-up is recommended.
[2019-04-08 12:15] LABS: CKMB 3.2 ng/mL (0-6.6)
--- NOTE | 2019-04-08 12:30 | CT ---
EXAM: CT Abdomen Pelvis WO Con PROVIDED CLINICAL HISTORY: Pain COMPARISON: 03/05/2018 FINDINGS: At least moderate right and mild left pleural effusions partially visualized. There is mild left hydronephrosis and left hydroureter, etiology of which is uncertain. No evidence f or urinary tract calculi. The kidneys are diminutive. The solid abdominal organs are suboptimally evaluated in the absence of IV contrast material but demonstrate an otherwise unremarkable CT appeara nce. Peritoneal dialysis catheter is noted with associated minimal free intraperitoneal fluid. There is conspicuous stranding of the subcutaneous adipose layer anterior to the pubis and at the ant erior aspect of the visualized scrotum. There are bilateral fat-containing inguinal hernias. There is no evidence for bowel obstruction. Small foci of free intraperitoneal air are demonstrated o n the basis of dialysis catheter. There is no inflammatory fat stranding evident. The osseous structures demonstrate no concerning lytic or blastic lesions. IMPRESSION: 1. At least moderate right and mild left pleural effusions. 2. Left hydronephrosis and left hydroureter, etiology and significance of which are uncertain. Follow -up is recommended. 3. Fat-containing bilateral inguinal hernias. 4. Stranding of the subcutaneous adipose layer involving the infrapubic anterior abdominal wall and v isualized anterior scrotum. Clinical correlation for infection is necessary.
--- NOTE | 2019-04-08 13:16 | CON ---
DATE OF CONSULTATION: REASON FOR CONSULTATION: End-stage renal disease, on maintenance hemodialysis. HISTORY OF PRESENT ILLNESS: This is a very pleasant 78-year-old gentleman, who presented to the hospital with fall and some dyspnea. The patient denies any nausea, vomiting, or chest pain. The patient was on peritoneal dialysis and had just started peritoneal dialysis again. The patient can give no further history. PAST MEDICAL HISTORY: Significant for hypertension, gout, hyperlipidemia, end-stage renal disease, coronary artery disease, pseudogout, PD catheter, AV fistula, and tunneled dialysis catheter. MEDICATIONS: Home medications list, reviewed. Hospital medications list, reviewed. ALLERGIES: REVIEWED. REVIEW OF SYSTEMS: A 15-point review of systems was performed and was negative except for positives noted above. GENERAL: HEAD: NECK: No swelling or lumps. NOSE: No epistaxis or discharge. EYES: No diplopia or pain. RESPIRATORY: CARDIOVASCULAR: GASTROINTESTINAL: /DATA ANALYTICS ANALYST: MUSCULOSKELETAL: No joint pain. NEUROPSYCHIATIC SYSTEMS: No suicidal ideation. No ideation. SKIN: Denies any rash or ulcer. CONSTITUTIONAL: No fever or chills. SOCIOECONOMIC HISTORY: No alcohol or drug use. FAMILY HISTORY: Negative for ESRD. PHYSICAL EXAMINATION: GENERAL: The patient is awake and alert. VITAL SIGNS: Afebrile, pulse 75, breathing 16, blood pressure 120/70. GENERAL APPEARANCE AND MENTAL STATUS: Fair. HEAD/NECK: Normocephalic. Atraumatic. EYES: EOMI. No deformity. EARS: Clear. No ulcers. NOSE: Intact. No lesions. MOUTH: Clear. No discharge. THROAT: Clear. No exudate. LUNGS: Clear. No crackles. CARDIAC: S1, S2. No rub. ABDOMEN: Benign. Bowel sounds positive. GENITALIA/RECTUM: Lyons absent. BACK/EXTREMITIES: Edema 0+. NEUROLOGICAL: Alert and motor intact. SKIN: LYMPHATICS: LABORATORY DATA: Reviewed. ASSESSMENT AND PLAN: 1. Stage 6 chronic kidney disease with dyspnea. We will plan on urgent dialysis. Discussed risks versus benefits. 2. Anemia, stable. 3. Medication based on GFR, appropriate. 4. Fall, management per primary team. 5. Peritoneal dialysis catheter. We will consult Surgery on Wednesday. Job ID: [id number]
--- NOTE | 2019-04-08 14:36 | HP ---
REASON FOR ADMISSION: Volume overload, acute respiratory failure with hypoxia due to volume overload, clogged up peritoneal dialysis catheter, possible pneumonia. HISTORY OF PRESENTING ILLNESS: Please note majority of this history is obtained by talking to the patient's and ER physician as he is not fully oriented. The patient apparently fell on Wednesday and had 13 stitches to his left hand and 9 stitches to the left eyebrow area. He was trying to fix something in the kitchen when he fell. Last night, the could not really lift him and she called EMS who helped her out. This morning, the patient became more incoherent and his blood pressure was elevated. Peritoneal dialysis nurse had come to check on him and found out that the catheter was not working, and with him being more lethargic, she called the EMS and the patient was brought here. mentions that the patient was hospitalized here in February. From here, he was discharged to rehab for 2 weeks and then went home with physical therapy. He was in fact doing all his activities of daily living by himself prior to the fall on Wednesday. No fever at home. No complaints of chest pain or palpitation. He has been on peritoneal dialysis catheter for the last 1 year now. He has had nearly two or three changes of his catheter done due to either infection or the catheter not working. The last one was placed in [place] and he has been using it for the last one week, but it stopped working from yesterday. PAST MEDICAL AND SURGICAL HISTORY: History of having had the peritoneal dialysis catheter removed on the 20 January 2019 due to refractory peritonitis by Dr. Escamilla. End-stage renal disease, on hemodialysis for the last 5 years or so. He was on hemodialysis for 4 years and the mentions that it would tire him out very badly and hence they started on peritoneal dialysis. History of CABG, left forearm AV fistula, history of paroxysmal atrial fibrillation, and hypertension dyslipidemia, depression, anxiety, gout. CURRENT MEDICATIONS: The patient is on; 1. Atorvastatin 10 mg p.o. q.a.m. 2. Norvasc 5 mg p.o. daily. 3. Allopurinol 100 mg p.o. daily. 4. PhosLo 1334 mg p.o. three times daily. 5. Nephro-Ramiro one tablet daily. 6. Gabapentin 100 mg daily. 7. Protonix 40 mg daily. 8. Seroquel 50 mg at bedtime. 9. Sertraline 50 mg daily. ALLERGIES: ALLERGIC TO PENICILLIN. PERSONAL HISTORY: Quit smoking more than 35 years ago. Does not abuse alcohol or drugs. He lives with his . FAMILY HISTORY: Mother at the age of 85 from natural causes. Father was electrocuted when he was 56 years old. A sister committed suicide. CODE STATUS: Do not attempt to resuscitate. This was discussed with the patient's , who is also power of core cutter and reamer for him. REVIEW OF SYSTEMS: Cannot be obtained as the patient is not oriented. PHYSICAL EXAMINATION: GENERAL: The patient is a 78-year-old male, who is currently not in any acute distress and is tolerating BiPAP. VITAL SIGNS: Blood pressure 116/54, pulse 110 per minute, respiratory rate 16 per minute, saturating 94% on BiPAP, temperature 98.3 degrees Fahrenheit. NECK: Supple. No elevated JVD. HEENT: Eyes; extraocular muscles intact. Pupils reacting to light. Oral cavity, mucous membranes are moist. No exudates or congestion. CARDIOVASCULAR SYSTEM: S1, S2 heard. Tachycardic with regular rhythm. RESPIRATORY SYSTEM: Air entry 1+ bilateral. Scattered rales plus in the infrascapular area. ABDOMEN: Soft. Bowel sounds heard. No rigidity or guarding. There is mild tenderness at the PD catheter site. EXTREMITIES: Mild peripheral edema. No calf tenderness. VASCULAR SYSTEM: Peripheral pulses 1+ bilateral. No ischemic ulcerations or gangrene. CENTRAL NERVOUS SYSTEM: No gross focal deficits noted. The patient is severely deconditioned. PSYCHIATRIC SYSTEM: No obvious hallucinations or delusions. LABORATORY DATA: CT of the abdomen and pelvis done shows left basal parenchymal opacity with mild pleural effusion. CT cervical spine done on the showed no C-spine fracture. Abdominal and pelvic CAT scan done today shows bilateral pleural effusions, left hydronephrosis with left hydroureter, fat containing bilateral inguinal hernias, stranding of subcutaneous adipose tissue involving the infrapubic anterior abdominal wall and visualized anterior scrotum. White count of 10, H and H 12 and 38, platelet count 254, MCV is 102 with 78% neutrophils. Blood gas done shows a pH of 7.36, pCO2 53, PO2 58, serum bicarb 29, BUN 50, creatinine 11.7, potassium 4.4, serum glucose 123, CK levels 261, troponin I 0.19, CK-MB 3.2. Albumin is 3.3. Lipase is 7. BNP is 105. Influenza A and B antigens are negative. EKG done shows sinus tach at 114 beats per minute. There is poor R-wave progression noted. CLINICAL IMPRESSION AND PLAN: The patient will be admitted to [facility] for volume overload, acute respiratory failure with hypoxia on BiPAP, possible peritonitis with mild tenderness around the PD catheter with peritoneal dialysis catheter not working. Blood cultures and peritoneal catheter fluid cultures have been obtained in the ER. We will place him on cefepime and vancomycin for now. He has AV fistula in the left forearm and we will get dialyzed. We will have hemodialysis per Dr. Medley today. After this, the patient may be downgraded to medical floor, once he is off BiPAP. We will continue his Norvasc Lipitor, PhosLo, Nephro-Ramiro, gabapentin, sertraline, and Protonix as before. The patient likely will need removal of his current peritoneal dialysis catheter as it is not working at present. Dr. Medley will talk to the surgeon and decide further course of action with regard to the PD catheter. We will continue to closely monitor him in [facility] for now. Job ID: [id number] MTDD
[2019-04-08 14:45] VITALS: BMI 32.4
[2019-04-08 16:05] LABS: CSF Source CSF
[2019-04-08 16:06] LABS: Clarity Hazy (Clear); Tube # EDTA
[2019-04-08 16:08] LABS: Cell Count Non Hematic 8 %; Eosinophils 5 %; Lymphocytes 67 %; Segmented Neutrophils 20 %
[2019-04-08] MEDS ORDERED: Guaifenesin DM 100-10/5 ML UDCUP PO PRN (16:33)
[2019-04-08] MEDS ORDERED: Ondansetron PF 4 MG/2 ML Vial IVP PRN (16:33)
[2019-04-08] MEDS ORDERED: Bisacodyl 10 MG SUPP PR PRN (16:33)
[2019-04-08] MEDS ORDERED: Vancomycin HCl 1.75 GM in Sodium Chloride 0.9% 500 ML IVPB SCH (16:45)
[2019-04-08] MEDS ORDERED: Vancomycin HCl 750 MG in Sodium Chloride 0.9% 250 ML 250 ML IVPB SCH ×2 (17:00→22:30)
[2019-04-08] MEDS ORDERED: Vancomycin HCl 1.25 GM in Sodium Chloride 0.9% 250 ML 250 ML IVPB SCH (17:00)
[2019-04-08] MEDS ORDERED: Vancomycin HCl 1 GM in Premix Bag 1 BAG IVPB SCH (17:00)
[2019-04-08] MEDS ORDERED: HOLD VANCOMYCIN FOR LEVEL >20 FS SCH (17:00)
[2019-04-08] MEDS ORDERED: Vancomycin HCl 500 MG in Sodium Chloride 0.9% 100 ML IVPB SCH (17:00)
[2019-04-08] MEDS ORDERED: Acetaminophen/Codeine 30-300mg Tablet PO PRN (17:29)
[2019-04-08] MEDS ORDERED: Cefepime 1 GM in Sodium Chloride 0.9% 100 ML IVPB SCH (21:00)
[2019-04-08 21:48] LABS: Vancomycin, Random 12.4 ug/mL (See Comment)
[2019-04-08] MEDS: Atorvastatin Calcium 10 MG TAB PO SCH (21:52)
[2019-04-08] MEDS: Calcium Acetate 667 MG CAP PO SCH (21:52)
[2019-04-09 03:54] LABS: #Eosinphils 0.3 thou/uL (0.0-0.7); #Monocytes 0.8 thou/uL (0.11-0.59); #Neutrophils 7.1 thou/uL (1.40-6.50); %Basophils 0.5 % (0.0-1.0); %Eosinophils 3.5 % (0.0-10.0); %Monocytes 8.3 % (0.0-10.0); %Neutrophils 76.7 % (42.0-75.0); Hemoglobin 10.4 g/dL (14.0-18.0); Mean Corpuscular Hemoglobin 31.4 pg (27.0-31.0); Mean Platelet Volume 7.1 fL (7.4-10.4); Platelet Count 237 thou/uL (130-400); RBC Distribution Width 14.2 % (11.5-14.5); Red Blood Cell (RBC) Count 3.31 mill/uL (4.70-6.10); White Blood Cell (WBC) Count 9.3 thou/uL (4.8-10.8)
[2019-04-09 04:18] LABS: Anion Gap 14 mmol/L (10-20); BUN (Urea Nitrogen) 24 mg/dL (8.4-25.7); BUN/Creatinine Ratio 3.46; Calc. Creatinine Clearance 12 mL/min (70-130); Calcium 9.4 mg/dL (7.8-10.44); Carbon Dioxide 28 mmol/L (23-31); Chloride 99 mmol/L (98-107); Estimated GFR-MDRD 8; Glucose 94 mg/dL (83-110); Phosphorus 4.1 mg/dL (2.3-4.7); Potassium 4.1 mmol/L (3.5-5.1); Sodium 137 mmol/L (136-145)
[2019-04-09] MEDS ORDERED: Acetaminophen 500 MG TAB PO SCH (08:56)
[2019-04-09] MEDS: Gabapentin 100 MG CAP PO SCH (09:35)
[2019-04-09] MEDS: Folic Acid/Vit B Comp W-C PO SCH (09:35)
[2019-04-09] MEDS: Calcium Acetate 667 MG CAP PO SCH ×3 (09:35→21:31)
[2019-04-09] MEDS: Allopurinol 100 MG TAB PO SCH (09:36)
[2019-04-09] MEDS: Amlodipine 5 MG TAB PO SCH (09:36)
[2019-04-09] MEDS: Aspirin Chewable 81 MG TAB PO SCH (09:36)
[2019-04-09] MEDS: Enoxaparin Sodium 30 MG/0.3 ML SYRINGE SC SCH (09:37)
--- NOTE | 2019-04-09 11:30 | CT ---
Exam: CT brain PROVIDED CLINICAL HISTORY: Altered mental status COMPARISON: 04/05/2019 FINDINGS: The ventricular system is normal in size and morphology. No evidence for intracranial hemorrhage or mass effect. The extracranial soft tissues and osseous structures demonstrate no evidence for an acute abnormality. Chronic microvascular ischemic changes are redemonstrated. IMPRESSION: No evidence for intracranial hemorrhage or mass effect.
--- NOTE | 2019-04-09 11:53 | PDOC.HOSPP ---
- Subjective Encounter Date: 04/09/19 Encounter Time: 09:45 Subjective: is more awake than yesterday in ER, responds to questions, still lethargic and weak - Objective Vital Signs & Weight: Vital Signs (12 hours) Temp Pulse BP Pulse Ox 04/09/19 11:10 99.6 F 04/09/19 09:36 118 H 133/74 04/09/19 07:52 99 04/09/19 07:43 100.9 F H 04/09/19 01:30 96 04/09/19 00:33 98.3 F Weight Weight 207 lb Most Recent Monitor Data Heart Rate from ECG 119 NIBP 111/50 NIBP BP-Mean 70 Respiration from ECG 27 SpO2 94 Result Diagrams: 04/09/19 03:34 04/09/19 03:34 Hospitalist ROS - Medication Medications: Active Medications Generic Name Dose Route Start Last Admin Trade Name Freq PRN Reason Stop Dose Admin Acetaminophen/Codeine Phosphate 2 tab 04/08/19 17:29 04/08/19 18:07 Tylenol #3 PO 2 tab Q6H PRN Administration Moderate Pain (4-6) Allopurinol 100 mg 04/09/19 09:00 04/09/19 09:36 Zyloprim PO 100 mg DAILY HERMILA Administration Amlodipine Besylate 5 mg 04/09/19 09:00 04/09/19 09:36 Norvasc PO 5 mg DAILY HERMILA Administration Aspirin 81 mg 04/09/19 09:00 04/09/19 09:36 Aspirin Chewable PO 81 mg DAILY HERMILA Administration Atorvastatin Calcium 10 mg 04/08/19 21:00 04/08/19 21:52 Lipitor PO 10 mg HS HERMILA Administration Calcium Acetate 1,334 mg 04/08/19 21:00 04/09/19 09:35 Phoslo PO 1,334 mg TID HERMILA Administration Enoxaparin Sodium 30 mg 04/09/19 09:00 04/09/19 09:37 Lovenox SC 30 mg 09 HERMILA Administration Gabapentin 100 mg 04/09/19 09:00 04/09/19 09:35 Neurontin PO 100 mg DAILY HERMILA Administration Pantoprazole Sodium 40 mg 04/09/19 09:00 04/09/19 09:36 Protonix PO 40 mg DAILY HERMILA Administration Sertraline HCl 50 mg 04/09/19 09:00 04/09/19 09:36 Zoloft PO 50 mg DAILY HERMILA Administration Vitamin B Complex/Vit C/Folic Acid 1 tab 04/09/19 09:00 04/09/19 09:35 Nephro-Ramiro Tablet PO 1 tab DAILY HERMILA Administration - Exam General Appearance: ill appearing Eye: PERRL, anicteric sclera ENT: no oropharyngeal lesions, dry oral mucosa Neck: supple, no JVD Heart: RRR, no murmur Respiratory: no wheezes, no rales Gastrointestinal: soft, non-tender, non-distended, normal bowel sounds, no rigidity Gastrointestinal - other findings: PD cath+ Extremities: no cyanosis, no edema Neurological: cranial nerve grossly intact, no focal deficits Hosp A/P (1) Acute respiratory failure with hypoxia Code(s): J96.01 - ACUTE RESPIRATORY FAILURE WITH HYPOXIA Status: Resolved (2) PNA (pneumonia) Code(s): J18.9 - PNEUMONIA, UNSPECIFIED ORGANISM Status: Suspected Qualifiers: Pneumonia type: due to unspecified organism Laterality: left Lung location: lower lobe of lung Qualified Code(s): J18.9 - Pneumonia, unspecified organism (3) Volume overload Code(s): E87.70 - FLUID OVERLOAD, UNSPECIFIED Status: Acute (4) Acute metabolic encephalopathy Code(s): G93.41 - METABOLIC ENCEPHALOPATHY Status: Acute (5) Fall Code(s): W19.XXXA - UNSPECIFIED FALL, INITIAL ENCOUNTER Status: Acute Qualifiers: Encounter type: subsequent encounter Qualified Code(s): W19.XXXD - Unspecified fall, subsequent encounter (6) Peritoneal dialysis catheter dysfunction Code(s): T85.611A - BREAKDOWN OF INTRAPERITONEAL DIALYSIS CATHETER, INIT Status: Acute Qualifiers: Encounter type: subsequent encounter Qualified Code(s): T85.611D - Breakdown (mechanical) of intraperitoneal dialysis catheter, subsequent encounter (7) CAD (coronary artery disease) Code(s): I25.10 - ATHSCL HEART DISEASE OF [place] CORONARY ARTERY W/O ANG PCTRS Status: Chronic Qualifiers: Coronary Disease-Associated Artery/Lesion type: bypass graft [place] vs. transplanted heart: [place] heart Associated angina: without angina Qualified Code(s): I25.810 - Atherosclerosis of coronary artery bypass graft(s) without angina pectoris (8) Chronic atrial fibrillation Code(s): I48.2 - CHRONIC ATRIAL FIBRILLATION * DO NOT USE * Status: Chronic (9) ESRD (end stage renal disease) on dialysis Code(s): N18.6 - END STAGE RENAL DISEASE; Z99.2 - DEPENDENCE ON RENAL DIALYSIS Status: Chronic (10) HTN (hypertension) Code(s): I10 - ESSENTIAL (PRIMARY) HYPERTENSION Status: Chronic Qualifiers: (11) Physical deconditioning Code(s): R53.81 - OTHER MALAISE Status: Chronic - Plan is more awake than yesterday but still lethargic CT brain did not reveal any ac cva/bleed he usually gets very weak and tired after HD per has had peritonitis before with removal of PD cath, last one was placed a week back in [place], prior to that he had one put in nov here. PT/OT to mobilize as tolerated encourage po intake with asp precautions he is off bipap may transfer to telemetry if he awakens a bit more continue cefepime and vanc PD cath fluid is -ve for any organsim on gm stain, suspected left LL infiltrate/ fluid/atelectasis hemostable for now
--- NOTE | 2019-04-09 13:05 | PRG ---
DATE OF SERVICE: 04/09/2019 SUBJECTIVE: This is a 78-year-old gentleman, being seen for end-stage renal disease. The patient denied any nausea, vomiting, or chest pain. OBJECTIVE: CONSTITUTIONAL: On exam, the patient is awake and alert. VITAL SIGNS: Afebrile, pulse 79, breathing 16, and blood pressure 120/60. GENERAL APPEARANCE AND MENTAL STATUS: Fair. HEAD/NECK: Normocephalic. Atraumatic. EYES: EOMI. No deformity. EARS: Clear. No ulcers. NOSE: Intact. No lesions. MOUTH: Clear. No discharge. THROAT: Clear. No exudate. LUNGS: Clear. No crackles. CARDIAC: S1, S2. No rub. ABDOMEN: Benign. Bowel sounds positive. GENITALIA/RECTUM: Lyons absent. BACK/EXTREMITIES: Edema 0+. NEUROLOGICAL: Alert and motor intact. SKIN: LYMPHATICS: LABORATORY DATA: Hemoglobin 10.4. ASSESSMENT AND PLAN: 1. Stage 6, chronic kidney disease. Plan dialysis as scheduled. 2. Hypertension, stable. 3. Anemia, stable. 4. Medications based on glomerular filtration rate are appropriate. Job ID: [id number]
--- NOTE | 2019-04-09 13:48 | MRI ---
MRI BRAIN WITHOUT CONTRAST: 04/09/2019 HISTORY: Fall. Worsening altered mental status. COMPARISON: None. TECHNIQUE: Multiplanar, multisequence MR imaging of the brain is obtained without contrast. FINDINGS: The diffusion weighted imaging demonstrates no evidence for acute infarction. There is mild mucosal thickening involving the ethmoid air cells bilaterally. Arterial flow voids at the axial level of the skull base appear grossly unremarkable on the T2 weighted imaging. There is mi ld mucosal thickening involving the alveolar recess of the maxillary sinus on the right. Regional bone marrow signal intensity appears within normal limits. Scattered foci of increased T2 and FLAIR signal within the periventricular, deep and subcortical whit e matter noted, evidence of moderate small vessel disease. There is associated cerebral volume loss. The axial gradient echo imaging demonstrates no evidence for intracranial hemorrhage. IMPRESSION: Small vessel disease and cerebral volume loss. No evidence for acute infarction or intracranial hemor rhage. POS: [facility]
--- NOTE | 2019-04-09 15:05 | CON ---
DATE OF CONSULTATION: 04/09/2019 HISTORY OF PRESENT ILLNESS: Quinn Carrillo is a very pleasant gentleman who has a peritoneal dialysis catheter. He presented with febrile illness. He has also been a little bit confused according to his . I was consulted because of his presence in the critical care unit/intermediate care unit. It is felt that perhaps his catheter was malfunctioning prior to this admission. He has had several catheter replacements. PAST MEDICAL HISTORY: 1. Remarkable for end-stage renal disease, on dialysis. He did not do well with hemodialysis and so they started peritoneal dialysis. 2. History of peritonitis. 3. History of coronary artery bypass grafting. 4. History of left forearm AV fistula. 5. History of atrial fibrillation. 6. History of hypertension. 7. Depression. 8. Lipid disorder. 9. Gout. 10. Status post transplant evaluation. He declined to be transplanted. MEDICATIONS: Have been reviewed. ALLERGIES: HE REPORTS PENICILLIN ALLERGY. SOCIAL HISTORY: He is a nonsmoker and nondrinker. FAMILY HISTORY: Positive for depression. He lost a sister to suicide. His father was apparently electrocuted. REVIEW OF SYSTEMS: Ten point review of systems completed, is otherwise negative , except for fever. PHYSICAL EXAMINATION: GENERAL: Quinn Carrillo is a very pleasant gentleman who has a peritoneal dialysis catheter. VITAL SIGNS: He is afebrile, heart rate is 109, blood pressure is 120/68, respiratory rates in the teens. HEENT: Pupils are equal. He has a large laceration that has been sutured over his left eye. He apparently fell and hit the floor. He has a left black eye. His extraocular movements are full. NECK: Supple without lymphadenopathy. LUNGS: Clear. HEART: Regular rhythm. S1 and S2 normal. ABDOMEN: Soft and nontender. EXTREMITIES: Without clubbing, cyanosis, or edema. LABORATORY DATA: White count is 9.3, hemoglobin 10.4, platelets 237. Sodium 137, potassium 4.1, chloride 99, bicarb 28, BUN 24, creatinine 6.94. PH yesterday 7.36, CO2 of 53, and PO2 of 58. Peritoneal fluid showed 20% neutrophils, 67% lymphocytes. This is put in as CSF, but this was peritoneal fluid. 94, nucleated white cells was 69. Chest x-ray was reviewed. He has a faint alveolar infiltrate in his left perihilar area. IMPRESSION: 1. Probable pneumonia. 2. End-stage renal disease, on peritoneal dialysis. 3. Right pleural effusion, seen on CT of his abdomen and pelvis with small area of loculated fluid in his left base, but not big enough to tap. Overall, hopefully his fever is related to a small pneumonia. We will await peritoneal fluid cultures. The preliminary cultures of his peritoneal fluid from yesterday are negative at 24 hours. We will follow with the other physicians caring for him. This is a 50 minute consult, with greater than 50% of time spent on unit coordinating care. Job ID: [id number] [facility]
[2019-04-09] MEDS ORDERED: Cefepime 0.5 GM, Admixture Fee 1 EACH in Sodium Chloride 0.9% 100 ML IVPB SCH (21:00)
[2019-04-09] MEDS: Atorvastatin Calcium 10 MG TAB PO SCH (21:31)
[2019-04-10] MEDS: Allopurinol 100 MG TAB PO SCH (09:43)
[2019-04-10] MEDS: Folic Acid/Vit B Comp W-C PO SCH (09:43)
[2019-04-10] MEDS: Amlodipine 5 MG TAB PO SCH (09:43)
[2019-04-10] MEDS: Aspirin Chewable 81 MG TAB PO SCH (09:43)
[2019-04-10] MEDS: Calcium Acetate 667 MG CAP PO SCH ×3 (09:43→23:05)
[2019-04-10] MEDS: Gabapentin 100 MG CAP PO SCH (09:43)
[2019-04-10] MEDS: Enoxaparin Sodium 30 MG/0.3 ML SYRINGE SC SCH (09:44)
[2019-04-10] MEDS ORDERED: rOPINIRole HCl 0.5 MG TAB PO SCH (11:00)
[2019-04-10 11:04] LABS: Actual Bicarbonate (HCO3a) 25.2 mEq/L (22-28); Base Excess (BEa) -0.2 mEq/L (-2.0 to +3.0); Calcium, Ionized 1.19 mmol/L (1.12-1.30); Carboxyhemoglobin (COHb) 1.2 gm% (0.0-3.0); O2 Tension (PaO2) 64.6 mmHg (> 70.0); Potassium - ABG Lab 4.12 mmol/L (3.70-5.30); pH, Arterial 7.38 (7.35-7.45)
[2019-04-10 11:05] LABS: Puncture Site RRA
--- NOTE | 2019-04-10 11:09 | PRG ---
DATE OF SERVICE: 04/10/2019 SUBJECTIVE: A 78-year-old gentleman, being seen for end-stage renal disease. The patient denied nausea, vomiting, or chest pain. OBJECTIVE: GENERAL: The patient is awake, alert. VITAL SIGNS: Show temperature 99.2, pulse 100, breathing 16, blood pressure 126/58. GENERAL APPEARANCE AND MENTAL STATUS: Fair. HEAD/NECK: Normocephalic. Atraumatic. EYES: EOMI. No deformity. EARS: Clear. No ulcers. NOSE: Intact. No lesions. MOUTH: Clear. No discharge. THROAT: Clear. No exudate. LUNGS: Clear. No crackles. CARDIAC: S1, S2. No rub. ABDOMEN: Benign. Bowel sounds positive. GENITALIA/RECTUM: Lyons absent. BACK/EXTREMITIES: Edema 0+. NEUROLOGICAL: Alert and motor intact. SKIN: LYMPHATICS: LABORATORY DATA: Labs are reviewed. ASSESSMENT AND PLAN: 1. chronic kidney disease, plan dialysis on Wednesday, , and Wednesday. 2. Hypertension, stable. 3. Anemia, stable. 4. Medication based on GFR appropriate. Job ID: [id number]
--- NOTE | 2019-04-10 13:18 | PRG ---
DATE OF SERVICE: 04/10/2019 SUBJECTIVE: Mr. Carrillo is still encephalopathic. He will awaken, but goes back to sleep. OBJECTIVE: VITAL SIGNS: He is afebrile. Heart rate is 107 and blood pressure 123/69. LUNGS: Clear. HEART: Regular rhythm. ABDOMEN: Soft. LABORATORY DATA: Blood gas; pH 7.38, CO2 of 44, pO2 of 64 on room air. Acid-base status, his CO2 level is improved. Electrolytes are normal. Creatinine 6.94. White count 9.3 yesterday. There is no CBC today. Microbiology is reviewed. Blood cultures are negative. Peritoneal fluid cultures are preliminary negative. IMPRESSION: Encephalopathy associated with febrile illness. There is no evidence of peritonitis or bacteremia. At this point in time, there is no clinical evidence of pneumonia. I doubt he has meningitis. We will continue to follow. Job ID: [id number]
--- NOTE | 2019-04-10 14:47 | PDOC.HOSPP ---
- Subjective Encounter Date: 04/10/19 Encounter Time: 10:45 Subjective: More lethargic than yesterday, not oriented. Not eating much. Not in distress. - Objective Vital Signs & Weight: Vital Signs (12 hours) Temp Pulse BP Pulse Ox 04/10/19 11:43 98.9 F 04/10/19 09:43 118 H 133/74 04/10/19 07:39 99.2 F 04/10/19 07:36 100 04/10/19 03:38 98.4 F Weight Weight 207 lb Most Recent Monitor Data Heart Rate from ECG 107 NIBP 123/69 NIBP BP-Mean 87 Respiration from ECG 19 SpO2 89 Result Diagrams: 04/09/19 03:34 04/09/19 03:34 Hospitalist ROS - Medication Medications: Active Medications Generic Name Dose Route Start Last Admin Trade Name Freq PRN Reason Stop Dose Admin Acetaminophen/Codeine Phosphate 2 tab 04/08/19 17:29 04/08/19 18:07 Tylenol #3 PO 2 tab Q6H PRN Administration Moderate Pain (4-6) Allopurinol 100 mg 04/09/19 09:00 04/10/19 09:43 Zyloprim PO 100 mg DAILY HERMILA Administration Amlodipine Besylate 5 mg 04/09/19 09:00 04/10/19 09:43 Norvasc PO 5 mg DAILY HERMILA Administration Aspirin 81 mg 04/09/19 09:00 04/10/19 09:43 Aspirin Chewable PO 81 mg DAILY HERMILA Administration Atorvastatin Calcium 10 mg 04/08/19 21:00 04/09/19 21:31 Lipitor PO 10 mg HS HERMILA Administration Calcium Acetate 1,334 mg 04/08/19 21:00 04/10/19 09:43 Phoslo PO 1,334 mg TID HERMILA Administration Enoxaparin Sodium 30 mg 04/09/19 09:00 04/10/19 09:44 Lovenox SC 30 mg 0900 HERMILA Administration Gabapentin 100 mg 04/09/19 09:00 04/10/19 09:43 Neurontin PO 100 mg DAILY HERMILA Administration Cefepime HCl 0.5 gm/ 100 mls @ 200 mls/hr 04/09/19 21:00 04/09/19 21:32 Miscellaneous Medication 1 IVPB 100 mls each/ Sodium Chloride 2100 HERMILA Administration Pantoprazole Sodium 40 mg 04/09/19 09:00 04/10/19 09:43 Protonix PO 40 mg DAILY HERMILA Administration Sertraline HCl 50 mg 04/09/19 09:00 04/10/19 09:43 Zoloft PO 50 mg DAILY HERMILA Administration Vitamin B Complex/Vit C/Folic Acid 1 tab 04/09/19 09:00 04/10/19 09:43 Nephro-Ramiro Tablet PO 1 tab DAILY HERMILA Administration - Exam General Appearance: ill appearing Eye: PERRL, anicteric sclera ENT: no oropharyngeal lesions, moist mucosa Neck: supple, no JVD Heart: RRR, no murmur Respiratory: no wheezes, no rales Gastrointestinal: soft, non-tender, normal bowel sounds Extremities: no cyanosis, no edema Neurological: cranial nerve grossly intact, no focal deficits Hosp A/P (1) Acute respiratory failure with hypoxia Code(s): J96.01 - ACUTE RESPIRATORY FAILURE WITH HYPOXIA Status: Resolved (2) PNA (pneumonia) Code(s): J18.9 - PNEUMONIA, UNSPECIFIED ORGANISM Status: Suspected Qualifiers: Pneumonia type: due to unspecified organism Laterality: left Lung location: lower lobe of lung Qualified Code(s): J18.9 - Pneumonia, unspecified organism (3) Volume overload Code(s): E87.70 - FLUID OVERLOAD, UNSPECIFIED Status: Acute (4) Acute metabolic encephalopathy Code(s): G93.41 - METABOLIC ENCEPHALOPATHY Status: Acute (5) Peritoneal dialysis catheter dysfunction Code(s): T85.611A - BREAKDOWN OF INTRAPERITONEAL DIALYSIS CATHETER, INIT Status: Acute Qualifiers: Encounter type: subsequent encounter Qualified Code(s): T85.611D - Breakdown (mechanical) of intraperitoneal dialysis catheter, subsequent encounter (6) CAD (coronary artery disease) Code(s): I25.10 - ATHSCL HEART DISEASE OF [place] CORONARY ARTERY W/O ANG PCTRS Status: Chronic Qualifiers: Coronary Disease-Associated Artery/Lesion type: bypass graft [place] vs. transplanted heart: [place] heart Associated angina: without angina Qualified Code(s): I25.810 - Atherosclerosis of coronary artery bypass graft(s) without angina pectoris (7) Chronic atrial fibrillation Code(s): I48.2 - CHRONIC ATRIAL FIBRILLATION * DO NOT USE * Status: Chronic (8) ESRD (end stage renal disease) on dialysis Code(s): N18.6 - END STAGE RENAL DISEASE; Z99.2 - DEPENDENCE ON RENAL DIALYSIS Status: Chronic (9) HTN (hypertension) Code(s): I10 - ESSENTIAL (PRIMARY) HYPERTENSION Status: Chronic Qualifiers: (10) Physical deconditioning Code(s): R53.81 - OTHER MALAISE Status: Chronic - Plan more lethargic, has myoclonic jerks CT/ MRI brain did not reveal any ac cva/bleed he usually gets very weak and tired after HD per has had peritonitis before, removal of PD cath x3, last one was placed a week back in [place], prior to that he had one put in nov here. PT/OT to mobilize as tolerated encourage po intake with asp precautions he is off bipap may transfer to telemetry if he awakens a bit more continue cefepime and vanc PD cath fluid is -ve for any organsim on gm stain, suspected left LL infiltrate/ fluid/atelectasis hemostable for now
--- NOTE | 2019-04-10 17:15 | CON ---
DATE OF CONSULTATION: HISTORY OF PRESENT ILLNESS: A 78-year-old male dialyzes in [place]. He has a Vonda fistula left arm placed in [place] 7 to 8 years ago. It is functioning for dialysis. Previous interview with him revealed that he has had an angioplasty at one point. He is not able to give a history at this point. History is obtained from the old chart. The patient was admitted with confusion and supposed to have a pneumonia followed by Pulmonary Medicine and Medical and Nephrology. I saw him in February of 2018, for laparoscopic peritoneal dialysis catheter and umbilical hernia repair. He underwent this and then on 05/15/2018, this PD catheter was laparoscopically revised because of failure to adequately drain. The sling suture was placed to directed in the right pelvis as he had sigmoid fatty tissue wrapped around the PD catheter interfering with drainage. Postoperatively, after that I saw him again when he had persistent peritonitis requiring removal of the PD catheter. Plan was to place a new one in the future. In the interim, the patient has apparently been sent to [place] for a PD catheter, which is in place. He has been admitted on this occasion because of confusion and inadequate dialysis, and Dr. Ivey seen him, believes that he has a pneumonia. The patient is not able to give me a history. Dr. Medley is seeing him and is uncertain as to the status of the PD catheter. Dr. Wellington is his yoker. He will be returning to service tomorrow. The patient again is not able to give me a history. He has a right antecubital IV, which I will have the nurses removed immediately. He has end-stage renal disease, the patient should not have this. He has a functioning fistula left arm, but he may need future fistula in his right arm if this fails. Femoral catheter and IJ catheter could be placed if necessary, if hand IV cannot be established. ALLERGIES: PENICILLIN. SOCIAL HISTORY: Tobacco, none. Alcohol, none. MEDICATIONS: 1. Vancomycin. 2. Cefepime. 3. Tylenol. 4. Aspirin. 5. Atorvastatin. 6. Lovenox. 7. ReQuip. 8. Sertraline. PAST SURGICAL HISTORY: Vonda fistula left arm, laparoscopic PD catheter was placed and revised and removed and replaced, and history of coronary artery bypass grafting. PAST MEDICAL HISTORY: End-stage renal disease, on dialysis at [facility], followed by Dr. Wellington. Paroxysmal atrial fibrillation, hypertension, dyslipidemia, depression, anxiety, gout, and pneumonia, currently in IM. PHYSICAL EXAMINATION: VITAL SIGNS: Height 5 feet 7 inches, 207 pounds, and 32 BMI. 98.9, 123/69, and 87. HEAD, EARS, EYES, NOSE, AND THROAT: Unremarkable. LUNGS: Clear to auscultation. CARDIAC: Regular rate and rhythm without murmur or gallop. ABDOMEN: Soft and nontender. PD catheter in place. Vonda fistula, left wrist. Good thrill and bruit. Antecubital IV right. EXTREMITIES: Mild edema. LABORATORY DATA: White count 10 yesterday and 9 today, and hemoglobin 10. Basic metabolic profile normal except for changes of end-stage renal disease. On 04/09/2019, CAT scan of brain, no acute disease. MRI brain, small vessel disease. No acute disease. CT scan of the abdomen and pelvis 04/08/2019, left basilar opacity density, possible pneumonia. No mention of his PD catheter in that report. ASSESSMENT AND PLAN: End-stage renal disease with functioning Vonda fistula. Right antecubital IV should be removed immediately and should not be placed in the end-stage renal disease and chronic kidney disease patient. Dysfunctional PD catheter. Continue hemodialysis. We will discuss with Dr. Medley merits of laparoscopic revising his PD catheter when he is medically more stable, certainly not appropriate at this time. Job ID: [id number]
[2019-04-10] MEDS ORDERED: Dextrose 50 % In Water 50 ML SYRINGE ONE (18:00)
--- NOTE | 2019-04-10 18:48 | CT ---
CT BRAIN WITHOUT CONTRAST: History: History of altered mental status. Comparison: 04-09-2019 FINDINGS: No midline shift is evident. Remote lacunar infarction involve the basal ganglia bilaterally are stab le appearing. Mild generalized cerebral and cerebellar atrophy is similar appearing. No acute infarct or hemorrhage is evident. No hydrocephalus. The skull and extracranial soft tissues appear within no rmal limits. IMPRESSION: 1. No acute intracranial abnormality. 2. Stable chronic findings as above. POS: BH
[2019-04-10 18:49] LABS: #Eosinphils 0.2 thou/uL (0.0-0.7); #Lymphocytes 0.8 thou/uL (1.20-3.40); #Monocytes 0.5 thou/uL (0.11-0.59); #Neutrophils 4.3 thou/uL (1.40-6.50); %Basophils 0.3 % (0.0-1.0); %Eosinophils 4.2 % (0.0-10.0); %Lymphocytes 13.4 % (21.0-51.0); %Monocytes 8.9 % (0.0-10.0); %Neutrophils 73.1 % (42.0-75.0); Hemoglobin 9.6 g/dL (14.0-18.0); Mean Corpuscular HGB CONC 31.6 g/dL (32.0-36.0); Mean Corpuscular Hemoglobin 31.8 pg (27.0-31.0); Mean Platelet Volume 6.6 fL (7.4-10.4); Platelet Count 235 thou/uL (130-400); Red Blood Cell (RBC) Count 3.02 mill/uL (4.70-6.10); White Blood Cell (WBC) Count 5.9 thou/uL (4.8-10.8)
[2019-04-10] MEDS: MEROPENEM 1 GM/50 ML 1 GM in Premix Bag 1 BAG IVPB SCH (19:16)
[2019-04-10 19:17] LABS: ALT (SGPT) 15 U/L (8-55); AST (SGOT) 33 U/L (5-34); Albumin 2.9 g/dL (3.4-4.8); Alkaline Phosphatase 81 U/L (40-110); Anion Gap 16 mmol/L (10-20); BUN (Urea Nitrogen) 50 mg/dL (8.4-25.7); Bilirubin, Total 0.4 mg/dL (0.2-1.2); Calc. Creatinine Clearance 8 mL/min (70-130); Calcium 9.3 mg/dL (7.8-10.44); Carbon Dioxide 25 mmol/L (23-31); Chloride 100 mmol/L (98-107); Estimated GFR-MDRD 5; Globulin 3.5 g/dL (2.4-3.5); Glucose 107 mg/dL (83-110); Potassium 4.1 mmol/L (3.5-5.1); Protein, Total 6.4 g/dL (5.8-8.1); Sodium 137 mmol/L (136-145)
[2019-04-10 20:03] LABS: CKMB 4.8 ng/mL (0-6.6)
[2019-04-10 22:50] LABS: Critical Call Chem Troponin I RESULT DECREASING
[2019-04-10] MEDS: Atorvastatin Calcium 10 MG TAB PO SCH (23:04)
[2019-04-10] MEDS: Dextrose 5 % And 0.9 % NaCl 1,000 ML IV SCH (23:04)
[2019-04-10] MEDS: Carbidopa/Levodopa 25-100 mg Tablet PO SCH (23:05)
[2019-04-10 23:09] LABS: CKMB 5.1 ng/mL (0-6.6)
[2019-04-11] MEDS: Dextrose 5 % And 0.9 % NaCl 1,000 ML IV SCH ×2 (03:53→15:33)
--- NOTE | 2019-04-11 08:28 | PRG ---
DATE OF SERVICE: 04/11/2019 SUBJECTIVE: Patient was seen and examined at bedside and overnight events noted. Patient denies any shortness of breath or chest pain or palpitation. No history of nausea or vomiting or diarrhea or fever or chills or cramps. OBJECTIVE: GENERAL: This is a well-built male, in no apparent distress. VITAL SIGNS: Temperature 98.0. Heart rate 97. Respiratory rate 20. Blood pressure 127/61. HEENT: Atraumatic, normocephalic. Oral mucosa is moist NECK: Supple. CARDIOVASCULAR: S1, S2 heard. Rate and rhythm regular. RESPIRATORY: Clear to auscultation. GASTROINTESTINAL: Abdomen is soft. MUSCULOSKELETAL: No tenderness. No edema. DERMATOLOGIC: No skin rash. NEUROLOGIC: Alert and awake and oriented X3. No focal neurologic deficits. Moving all the extremities. PSYCHIATRIC: Mood and affect normal. LABORATORY DATA: Not done today. ASSESSMENT AND PLAN: 1. End-stage renal disease. Continue on hemodialysis as tolerated. PD was on hold, will have hemodialysis as tolerated. 2. Altered mentation, will have dialysis. 3. Hypertension. 4. Anemia. 5. Edema, controlled. PLAN: To have dialysis as tolerated. Prognosis guarded. We will follow. Job ID: [id number]
[2019-04-11] MEDS ORDERED: rOPINIRole HCl 0.5 MG TAB PO SCH (09:00)
[2019-04-11] MEDS: Folic Acid/Vit B Comp W-C PO SCH (09:21)
[2019-04-11] MEDS: Aspirin Chewable 81 MG TAB PO SCH (09:21)
[2019-04-11] MEDS: Amlodipine 5 MG TAB PO SCH (09:21)
[2019-04-11] MEDS: Calcium Acetate 667 MG CAP PO SCH ×3 (09:21→17:58)
[2019-04-11] MEDS: Carbidopa/Levodopa 25-100 mg Tablet PO SCH ×3 (09:21→20:40)
[2019-04-11] MEDS: Allopurinol 100 MG TAB PO SCH (09:22)
[2019-04-11] MEDS: Enoxaparin Sodium 30 MG/0.3 ML SYRINGE SC SCH (09:22)
--- NOTE | 2019-04-11 14:34 | PDOC.HOSPP ---
- Subjective Encounter Date: 04/11/19 Encounter Time: 10:00 Subjective: this am is awake, eating breakfast, responds to some verbal questions at bedside is not fully oriented but alert and awake - Objective Vital Signs & Weight: Vital Signs (12 hours) Temp Pulse BP Pulse Ox 04/11/19 11:54 98.2 F 04/11/19 09:21 118 H 133/74 04/11/19 08:00 98 04/11/19 07:25 98.0 F 04/11/19 03:50 98.3 F Weight Weight 207 lb Most Recent Monitor Data Heart Rate from ECG 96 NIBP 139/67 NIBP BP-Mean 91 Respiration from ECG 15 SpO2 93 Result Diagrams: 04/10/19 18:34 04/10/19 18:34 Additional Labs: Accuchecks 04/10/19 16:52 POC Glucose 69 L Hospitalist ROS - Medication Medications: Active Medications Generic Name Dose Route Start Last Admin Trade Name Freq PRN Reason Stop Dose Admin Allopurinol 100 mg 04/09/19 09:00 04/11/19 09:22 Zyloprim PO 100 mg DAILY HERMILA Administration Amlodipine Besylate 5 mg 04/09/19 09:00 04/11/19 09:21 Norvasc PO 5 mg DAILY HERMILA Administration Aspirin 81 mg 04/09/19 09:00 04/11/19 09:21 Aspirin Chewable PO 81 mg DAILY HERMILA Administration Atorvastatin Calcium 10 mg 04/08/19 21:00 04/10/19 23:04 Lipitor PO Not Given HS [facility] Calcium Acetate 1,334 mg 04/08/19 21:00 04/11/19 09:21 Phoslo PO 1,334 mg TID HERMILA Administration Carbidopa/Levodopa 1 tab 04/10/19 21:00 04/11/19 09:21 Sinemet 25-100 PO 1 tab TID HERMILA Administration Enoxaparin Sodium 30 mg 04/09/19 09:00 04/11/19 09:22 Lovenox SC 30 mg 0900 HERMILA Administration Dextrose/Sodium Chloride 1,000 mls @ 100 mls/hr 04/10/19 18:00 04/11/19 03:53 D5 0.9% Ns IV Not Given .Q10H HERMILA Meropenem 1 gm/ Device 50 mls @ 100 mls/hr 04/10/19 18:00 04/10/19 19:16 IVPB Not Given 1800 HERMILA Pantoprazole Sodium 40 mg 04/09/19 09:00 04/11/19 09:21 Protonix PO 40 mg DAILY HERMILA Administration Sertraline HCl 50 mg 04/09/19 09:00 04/11/19 09:21 Zoloft PO 50 mg DAILY HERMILA Administration Vitamin B Complex/Vit C/Folic Acid 1 tab 04/09/19 09:00 04/11/19 09:21 Nephro-Ramiro Tablet PO 1 tab DAILY HERMILA Administration - Exam General Appearance: awake alert Eye: PERRL, anicteric sclera ENT: no oropharyngeal lesions, moist mucosa Neck: supple, no JVD Heart: RRR, no murmur Respiratory: no wheezes, no rales Gastrointestinal: soft, non-tender, non-distended, normal bowel sounds Extremities: no cyanosis, no edema Neurological: cranial nerve grossly intact, no focal deficits Hosp A/P (1) Acute respiratory failure with hypoxia Code(s): J96.01 - ACUTE RESPIRATORY FAILURE WITH HYPOXIA Status: Resolved (2) PNA (pneumonia) Code(s): J18.9 - PNEUMONIA, UNSPECIFIED ORGANISM Status: Suspected Qualifiers: Pneumonia type: due to unspecified organism Laterality: left Lung location: lower lobe of lung Qualified Code(s): J18.9 - Pneumonia, unspecified organism (3) Volume overload Code(s): E87.70 - FLUID OVERLOAD, UNSPECIFIED Status: Acute (4) Acute metabolic encephalopathy Code(s): G93.41 - METABOLIC ENCEPHALOPATHY Status: Acute (5) Peritoneal dialysis catheter dysfunction Code(s): T85.611A - BREAKDOWN OF INTRAPERITONEAL DIALYSIS CATHETER, INIT Status: Acute Qualifiers: Encounter type: subsequent encounter Qualified Code(s): T85.611D - Breakdown (mechanical) of intraperitoneal dialysis catheter, subsequent encounter (6) CAD (coronary artery disease) Code(s): I25.10 - ATHSCL HEART DISEASE OF [place] CORONARY ARTERY W/O ANG PCTRS Status: Chronic Qualifiers: Coronary Disease-Associated Artery/Lesion type: bypass graft [place] vs. transplanted heart: [place] heart Associated angina: without angina Qualified Code(s): I25.810 - Atherosclerosis of coronary artery bypass graft(s) without angina pectoris (7) Chronic atrial fibrillation Code(s): I48.2 - CHRONIC ATRIAL FIBRILLATION * DO NOT USE * Status: Chronic (8) ESRD (end stage renal disease) on dialysis Code(s): N18.6 - END STAGE RENAL DISEASE; Z99.2 - DEPENDENCE ON RENAL DIALYSIS Status: Chronic (9) HTN (hypertension) Code(s): I10 - ESSENTIAL (PRIMARY) HYPERTENSION Status: Chronic Qualifiers: (10) Physical deconditioning Code(s): R53.81 - OTHER MALAISE Status: Chronic - Plan encephalopathy sec to uremia, is getting resolved with back to back HD, is scheduled for another session today. trial of levodopa, ?parkinson's, will evaluated today. CT/ MRI brain did not reveal any ac cva/bleed he usually gets very weak and tired after HD per has had peritonitis before, removal of PD cath x3, last one was placed a week back in [place], prior to that he had one put in nov here. PT/OT to mobilize as tolerated encourage po intake with asp precautions may transfer to medical floor if he remains awake as of now continue merrem and vanc PD cath fluid is -ve for any organsim on gm stain, suspected left LL infiltrate/ fluid/atelectasis hemostable for now d/w in detail at bedside.
--- NOTE | 2019-04-11 15:09 | CON ---
DATE OF CONSULTATION: HISTORY OF PRESENT ILLNESS: The patient is an unfortunate 78-year-old gentleman , who presented after having a fall. He was noted to have an elevated troponin level. The patient has a long history of coronary artery disease,and he is status post coronary artery bypass surgery x2 several years ago. He is followed by a claims adjuster supervisor in [place]. Following the surgery, he had postoperative atrial fibrillation. The patient's states he has subsequently done well.He does have difficulty with marked weakness and is undergoing a Neurology evaluation. The patient is unable to give a coherent history. He denied having any chest discomfort or dyspnea. PAST MEDICAL HISTORY: 1. Coronary artery disease. 2. End-stage renal disease. 3. Hypertension. 4. Gout. 5. Depression. PAST SURGICAL HISTORY: Coronary artery bypass surgery, knee surgery, back surgery, and AV fistulas. SOCIAL HISTORY: Nonsmoker. ALLERGIES: TO PENICILLIN. FAMILY HISTORY: No strong family history of heart disease. REVIEW OF SYSTEMS: No history of easy bruising or bleeding or bright red blood per rectum. Unremarkable. PHYSICAL EXAMINATION: GENERAL: Obese gentleman, in no acute distress. VITAL SIGNS: Blood pressure 133/74. NECK: No jugular venous distention. LUNGS: Clear to auscultation. HEART: Regular rate and rhythm with a normal S1 and S2 and a 3/6 holosystolic murmur. ABDOMEN: Distended. EXTREMITIES: Showed mild bilateral edema. VASCULAR: Radial pulse 2+. LABORATORY DATA: Sodium 137, potassium 4.1, chloride 100, bicarbonate 25, BUN 50, and creatinine 10. Troponin was 0.6 and BNP 697. White blood cell count 5.9, hemoglobin 9.6, hematocrit 30.4, and platelets are 235. His EKG revealed sinus tachycardia, nonspecific T-wave abnormality. Chest x-ray revealed possible pneumonia. IMPRESSION AND PLAN: 1. Altered mental status. 2. Status post fall. 3. Elevated troponin level. 4. History of coronary artery bypass surgery x2. 5. History of postoperative atrial fibrillation. 6. Severe mitral regurgitation. 7. End-stage renal disease. This gentleman presented after a fall. He may have evidence of pneumonia. From a cardiac standpoint, his troponin level was elevated, which may be secondary to chronic renal failure or demand ischemia. There is no evidence this gentleman is having an acute coronary syndrome. From a cardiac standpoint, we will follow this patient with you through his hospitalization,and would continue him on his present medications. Job ID: [id number] MTDD
--- NOTE | 2019-04-11 15:39 | PRG ---
DATE OF SERVICE: 04/11/2019 SUBJECTIVE: Mr. Carrillo is in no distress. He is much more alert than he was yesterday. OBJECTIVE: VITAL SIGNS: Stable. He is afebrile. Blood pressure 139/67, heart rate 96, respiratory rate in the teens. LUNGS: Clear. HEART: Regular rhythm. ABDOMEN: Soft. EXTREMITIES: Without edema. He has been currently being dialyzed through his access in his left upper extremity. White count yesterday 5.9. There is no CBC today, no electrolytes today. Cultures all remained negative. IMPRESSION: Encephalopathy of unclear etiology. We will check a cortisol level on him in the morning. Overall, he appears to be improving. Given his negative cultures, I would think he could be switched to p.o. antimicrobial therapy. Job ID: [id number]
--- NOTE | 2019-04-11 16:21 | PRG ---
DATE OF SERVICE: 04/11/2019 SUBJECTIVE: Quinn Carrillo is doing better today. He is more communicative, although still confused. His is present. His informs me that he had his peritoneal dialysis catheter placed in [place] several weeks ago. She reports the dialysis catheter has been functioning well at home, draining well. Currently, there is no indication to remove it. He has a functioning left arm fistula. I am told he goes to Dr. Wilson's dialysis unit periodically every three months for a fistulogram, although there has been no intervention and his fistula has been working well. The patient has an antecubital IV right. I have recommended they remove that immediately to preserve right arm veins for future dialysis access should left arm fistula fail. At this point, there is no intervention indicated for his PD catheter. I will see him as needed. Please call if necessary. Job ID: [id number]
[2019-04-11] MEDS: MEROPENEM 1 GM/50 ML 1 GM in Premix Bag 1 BAG IVPB SCH (18:00)
[2019-04-11] MEDS ORDERED: Tetrahydrozoline 0.05% OPTH 15 ML BOT EA EYE PRN (19:11)
--- NOTE | 2019-04-11 20:33 | PRG ---
DATE OF SERVICE: 04/11/2019 Mr. Carrillo was admitted at this occasion for change in mental status. He was noted to be markedly uremic, as well as hypoxic and hypercapnic. He has been started on dialysis. He has awoke from his lethargy. His reports this has happened in the past when he was sick. He has more recently been seen in the office for gait difficulties. There was some suspicion for Parkinson disease. A DaTscan was performed, which was positive for Parkinson's. He has not been on any treatment for this until now. He has had some persistent gait problems and seen to other neurologist over the last couple of years. He had a spinal tap done to rule out normal-pressure hydrocephalus. He had a very brief treatment trial by Dr. Ramires for Parkinson's. He is coming out of his confusional state. He is still confused about his time and place, where he is at this point. He is able to follow commands. His exam is nonfocal. I did not really appreciate any cogwheel rigidity. No tremor was present. Gait was not testable at this time due to the fact he was on dialysis. I would suggest we get physical therapy to assess him and see how he responds to the Sinemet. Job ID: [id number]
[2019-04-11] MEDS: Atorvastatin Calcium 10 MG TAB PO SCH (20:40)
[2019-04-12] MEDS: Dextrose 5 % And 0.9 % NaCl 1,000 ML IV SCH ×2 (01:21→10:58)
[2019-04-12 04:26] LABS: Critical Call Chem Troponin I RESULT DECREASING
[2019-04-12] MEDS: Calcium Acetate 667 MG CAP PO SCH ×3 (08:47→16:42)
[2019-04-12] MEDS ORDERED: EPOETIN ALFA-EPBX (ESRD) 10,000 UNIT/ML VIAL SC SCH (09:15)
--- NOTE | 2019-04-12 09:25 | PRG ---
DATE OF SERVICE: 04/12/2019 SUBJECTIVE: Patient was seen and examined at bedside and overnight events noted. Patient denies any shortness of breath or chest pain or palpitation. No history of nausea or vomiting or diarrhea or fever or chills or cramps. OBJECTIVE: GENERAL: This is a well-built male, in no apparent distress. VITAL SIGNS: Temperature 98.2. Heart rate 75. Respiratory rate 18. Blood pressure 141/87. HEENT: Atraumatic, normocephalic. Oral mucosa is moist NECK: Supple. CARDIOVASCULAR: S1, S2 heard. Rate and rhythm regular. RESPIRATORY: Clear to auscultation. GASTROINTESTINAL: Abdomen is soft. MUSCULOSKELETAL: No tenderness. No edema. DERMATOLOGIC: No skin rash. NEUROLOGIC: Alert and awake and oriented X3. No focal neurologic deficits. Moving all the extremities. PSYCHIATRIC: Mood and affect normal. LABORATORY DATA: Not done today. ASSESSMENT AND PLAN: 1. End-stage renal disease. Plan to try peritoneal dialysis today. 2. Altered mentation, better. We will hold hemodialysis and start on peritoneal dialysis. We will also check KUB film to check on the position of PD catheter. 3. Edema, controlled. 4. Hypertension. 5. Anemia. We will have Epogen as tolerated. We will follow. Job ID: [id number]
[2019-04-12] MEDS: Folic Acid/Vit B Comp W-C PO SCH (09:48)
[2019-04-12] MEDS: Amlodipine 5 MG TAB PO SCH (09:48)
[2019-04-12] MEDS: Allopurinol 100 MG TAB PO SCH (09:48)
[2019-04-12] MEDS: Carbidopa/Levodopa 25-100 mg Tablet PO SCH ×3 (09:48→20:17)
[2019-04-12] MEDS: Aspirin Chewable 81 MG TAB PO SCH (09:48)
[2019-04-12] MEDS: Enoxaparin Sodium 30 MG/0.3 ML SYRINGE SC SCH (09:49)
--- NOTE | 2019-04-12 11:17 | PDOC.HOSPP ---
- Subjective Encounter Date: 04/12/19 Encounter Time: 10:00 Subjective: didn't sleep well last night is more alert and awake at bedside is eating better now - Objective Vital Signs & Weight: Vital Signs (12 hours) Temp Pulse BP Pulse Ox 04/12/19 09:48 118 H 133/74 04/12/19 08:00 96 04/12/19 07:32 98.2 F 04/12/19 03:27 95 04/12/19 00:00 98.5 F 94 L Weight Weight 207 lb Most Recent Monitor Data Heart Rate from ECG 96 NIBP 141/87 NIBP BP-Mean 105 Respiration from ECG 21 SpO2 93 I&O: 04/11/19 04/12/19 04/13/19 06:59 06:59 06:59 Intake Total 970 Output Total 2700 Balance -1730 Result Diagrams: 04/10/19 18:34 04/10/19 18:34 Hospitalist ROS - Medication Medications: Active Medications Generic Name Dose Route Start Last Admin Trade Name Freq PRN Reason Stop Dose Admin Allopurinol 100 mg 04/09/19 09:00 04/12/19 09:48 Zyloprim PO 100 mg DAILY HERMILA Administration Amlodipine Besylate 5 mg 04/09/19 09:00 04/12/19 09:48 Norvasc PO 5 mg DAILY HERMILA Administration Aspirin 81 mg 04/09/19 09:00 04/12/19 09:48 Aspirin Chewable PO 81 mg DAILY HERMILA Administration Atorvastatin Calcium 10 mg 04/08/19 21:00 04/11/19 20:40 Lipitor PO 10 mg HS HERMILA Administration Calcium Acetate 1,334 mg 04/11/19 17:00 04/12/19 08:47 Phoslo PO 1,334 mg TID-WM HERMILA Administration Carbidopa/Levodopa 1 tab 04/10/19 21:00 04/12/19 09:48 Sinemet 25-100 PO 1 tab TID HERMILA Administration Enoxaparin Sodium 30 mg 04/09/19 09:00 04/12/19 09:49 Lovenox SC 30 mg 0900 HERMILA Administration Dextrose/Sodium Chloride 1,000 mls @ 100 mls/hr 04/10/19 18:00 04/12/19 10:58 D5 0.9% Ns IV Not Given .Q10H HERMILA Meropenem 1 gm/ Device 50 mls @ 100 mls/hr 04/10/19 18:00 04/11/19 18:00 IVPB 50 mls 1800 HERMILA Administration Pantoprazole Sodium 40 mg 04/09/19 09:00 04/12/19 09:48 Protonix PO 40 mg DAILY HERMILA Administration Sertraline HCl 50 mg 04/09/19 09:00 04/12/19 09:48 Zoloft PO 50 mg DAILY HERMILA Administration Vitamin B Complex/Vit C/Folic Acid 1 tab 04/09/19 09:00 04/12/19 09:48 Nephro-Ramiro Tablet PO 1 tab DAILY HERMILA Administration - Exam General Appearance: NAD, awake alert Eye: PERRL, anicteric sclera ENT: no oropharyngeal lesions, moist mucosa Neck: supple, no JVD Heart: RRR, no murmur Respiratory: no wheezes, no rales Gastrointestinal: soft, non-tender, non-distended, normal bowel sounds Gastrointestinal - other findings: PD cath+ Extremities: no clubbing, no edema Skin: normal turgor, no rashes Neurological: cranial nerve grossly intact, no focal deficits Hosp A/P (1) Acute respiratory failure with hypoxia Code(s): J96.01 - ACUTE RESPIRATORY FAILURE WITH HYPOXIA Status: Resolved (2) PNA (pneumonia) Code(s): J18.9 - PNEUMONIA, UNSPECIFIED ORGANISM Status: Suspected Qualifiers: Pneumonia type: due to unspecified organism Laterality: left Lung location: lower lobe of lung Qualified Code(s): J18.9 - Pneumonia, unspecified organism (3) Volume overload Code(s): E87.70 - FLUID OVERLOAD, UNSPECIFIED Status: Acute (4) Acute metabolic encephalopathy Code(s): G93.41 - METABOLIC ENCEPHALOPATHY Status: Acute (5) Peritoneal dialysis catheter dysfunction Code(s): T85.611A - BREAKDOWN OF INTRAPERITONEAL DIALYSIS CATHETER, INIT Status: Acute Qualifiers: Encounter type: subsequent encounter Qualified Code(s): T85.611D - Breakdown (mechanical) of intraperitoneal dialysis catheter, subsequent encounter (6) CAD (coronary artery disease) Code(s): I25.10 - ATHSCL HEART DISEASE OF [place] CORONARY ARTERY W/O ANG PCTRS Status: Chronic Qualifiers: Coronary Disease-Associated Artery/Lesion type: bypass graft [place] vs. transplanted heart: [place] heart Associated angina: without angina Qualified Code(s): I25.810 - Atherosclerosis of coronary artery bypass graft(s) without angina pectoris (7) Chronic atrial fibrillation Code(s): I48.2 - CHRONIC ATRIAL FIBRILLATION * DO NOT USE * Status: Chronic (8) ESRD (end stage renal disease) on dialysis Code(s): N18.6 - END STAGE RENAL DISEASE; Z99.2 - DEPENDENCE ON RENAL DIALYSIS Status: Chronic (9) HTN (hypertension) Code(s): I10 - ESSENTIAL (PRIMARY) HYPERTENSION Status: Chronic Qualifiers: (10) Physical deconditioning Code(s): R53.81 - OTHER MALAISE Status: Chronic - Plan encephalopathy sec to uremia, is getting resolved with back to back HD. will try to work his PD cath to see if it works well today. trial of levodopa, ?parkinson's, is seeing him CT/ MRI brain did not reveal any ac cva/bleed he usually gets very weak and tired after HD per has had peritonitis before, removal of PD cath x3, last one was placed a week back in [place], prior to that he had one put in nov here. PT/OT to mobilize as tolerated encourage po intake with asp precautions may transfer to medical floor oral omnicef, all cultures are -ve so far PD cath fluid is -ve for any organsim on gm stain, suspected left LL infiltrate/ fluid/atelectasis hemostable for now d/w in detail at bedside. rehab eval, dc planning (has deconditioning), PT to mobilize as tolerated
--- NOTE | 2019-04-12 11:55 | RAD ---
ABDOMEN 1 VIEW: Date: 04/12/2019 HISTORY: Peritoneal dialysis catheter. COMPARISON: CT abdomen and pelvis dated 04/08/2019. FINDINGS: Catheter projects over the abdomen from the patient's left to the patient's right, with tip projecti ng in the right lower quadrant of the abdomen. IMPRESSION: Satisfactory location of the dialysis catheter on the radiograph. POS: [facility]
--- NOTE | 2019-04-12 15:00 | PQF ---
CLINICAL DOCUMENTATION IMPROVEMENT CLARIFICATION FORM: ICD-10 Updated PLEASE DO AN ADDENDUM TO THE PROGRESS NOTE WITH ANY DOCUMENTATION UPDATES OR ADDITIONS AND CARRY THROUGH TO DC SUMMARY. THANK YOU. DATE: 04/12/19 ATTN: DR. LAINEZ Please exercise your independent, professional judgment in responding to the clarification form. Clinical indicators are provided on the bottom of this form for your review Please check appropriate box(s) to clarify if the following diagnosis has been ruled in or ruled out: "SEPSIS" [ x ] Ruled in diagnosis [ ] Continue to treat [ x ] Resolved [ ] Ruled out diagnosis [ ] Cannot rule out diagnosis [ ] Other diagnosis [ ] Unable to determine In addition, please specify: Present on Admission (POA): [ x ] Yes [ ] No [ ] Unable to determine For continuity of documentation, please document condition throughout progress notes and discharge summary. Thank You. CLINICAL INDICATORS - SIGNS / SYMPTOMS / LABS / RESULTS AND LOCATION IN MR ER NOTE: "PATIENT HAS LIFE-THREATENING HYPOXIA AND RESPIRATORY DISTRESS ALONG WITH SEPSIS." PULSE 117 BP 89/66 LETHARGY (PROGRESS NOTE 04/09) RISKS: POSSIBLE PERITONITIS (H&P 04/08) ACUTE RESPIRATORY FAILURE (H&P 04/08) ESRD (ER NOTE) PD CATHETER DYSFUNCTION (PROGRESS NOTE 04/12) TREATMENT: BIPAP (PLACED IN ER) IV LEVAQUIN (ER) IV VANCOMYCIN (ER-04/08) IV MERREM (04/10-04/11) OMICEF (START 04/13) IV FLUIDS (ER) IMCU MONITORING BLOOD CULTURES AND CULTURE OF PERITONEAL FLUID (04/08) (This form is maintained as a part of the permanent medical record) 2014 [email or web address]. All Rights Reserved [email or web address] Office: [phone] [facility] CENTERIdalia
--- NOTE | 2019-04-12 19:02 | PRG ---
DATE OF SERVICE: 04/12/2019 SUBJECTIVE: Mr. Carrillo continues to be stable. OBJECTIVE: VITAL SIGNS: He is afebrile, heart rate is 97, respiratory rate is 18, oximetry is 95%, and blood pressure 141/78. GENERAL: He is alert. His hemodynamics are stable. LUNGS: Unchanged. HEART: Unchanged. ABDOMEN: Unchanged. I think he is stable to transfer out of the intermediate care unit. We will continue to follow. His cortisol level this morning was 5, which is an appropriate level for the morning, so I doubt adrenal insufficiency accounts for his encephalopathy. We will continue to follow. Job ID: [id number]
[2019-04-12] MEDS: Acetaminophen 325 MG TAB PO PRN (20:17)
[2019-04-12] MEDS: Atorvastatin Calcium 10 MG TAB PO SCH (20:17)
[2019-04-13 05:20] LABS: Anion Gap 17 mmol/L (10-20); BUN (Urea Nitrogen) 49 mg/dL (8.4-25.7); Calc. Creatinine Clearance 9 mL/min (70-130); Carbon Dioxide 27 mmol/L (23-31); Chloride 101 mmol/L (98-107); Estimated GFR-MDRD 6; Glucose 77 mg/dL (83-110); Potassium 4.7 mmol/L (3.5-5.1); Sodium 140 mmol/L (136-145)
[2019-04-13] MEDS: Enoxaparin Sodium 30 MG/0.3 ML SYRINGE SC SCH (09:04)
[2019-04-13] MEDS: Cefdinir 300 MG CAP PO SCH (09:05)
[2019-04-13] MEDS: Allopurinol 100 MG TAB PO SCH (09:05)
[2019-04-13] MEDS: Aspirin Chewable 81 MG TAB PO SCH (09:05)
[2019-04-13] MEDS: Carbidopa/Levodopa 25-100 mg Tablet PO SCH ×3 (09:06→20:28)
[2019-04-13] MEDS: Calcium Acetate 667 MG CAP PO SCH ×3 (09:06→17:57)
[2019-04-13] MEDS: Folic Acid/Vit B Comp W-C PO SCH (09:07)
--- NOTE | 2019-04-13 10:27 | PRG ---
DATE OF SERVICE: 04/13/2019 SUBJECTIVE: Patient was seen and examined at bedside and overnight events noted. Patient denies any shortness of breath or chest pain or palpitation. No history of nausea or vomiting or diarrhea or fever or chills or cramps. OBJECTIVE: GENERAL: This is a well-built male, in no apparent distress. VITAL SIGNS: Temperature 98.3. Heart rate 99. Respiratory rate 16. Blood pressure 148/76. HEENT: Atraumatic, normocephalic. Oral mucosa is moist NECK: Supple. CARDIOVASCULAR: S1, S2 heard. Rate and rhythm regular. RESPIRATORY: Clear to auscultation. GASTROINTESTINAL: Abdomen is soft. MUSCULOSKELETAL: No tenderness. No edema. DERMATOLOGIC: No skin rash. NEUROLOGIC: Alert and awake and oriented X3. No focal neurologic deficits. Moving all the extremities. PSYCHIATRIC: Mood and affect normal. LABORATORY DATA: Potassium 4.0, BUN is 49, and creatinine is 8.8. ASSESSMENT AND PLAN: 1. End-stage renal disease. Plan is to have hemodialysis. It seems like PD catheter is not positioned well and might need intervention, will need to follow up with his surgeon in [place]. 2. Altered mentation, getting better. 3. Edema, controlled. 4. Hypertension. 5. Anemia. Continue Epogen. Altered mentation is better. May need rehab placement. Plan is to continue hemodialysis on Wednesday, , and Wednesday as tolerated and needs PD catheter revision when stable and this will be done in [place]. We will follow. Thank you for the consult. Job ID: [id number]
--- NOTE | 2019-04-13 11:21 | PDOC.HOSPP ---
- Subjective Encounter Date: 04/13/19 Encounter Time: 11:00 Subjective: is getting HD now responds to verbal questions, is awake but not fully oriented - Objective Vital Signs & Weight: Vital Signs (12 hours) Temp Pulse Resp BP Pulse Ox 04/13/19 08:00 97.5 F L 96 16 148/76 H 97 04/13/19 03:46 98.3 F 99 16 162/75 H 98 04/12/19 23:27 98.5 F 97 16 144/67 H 94 L Weight Weight 207 lb Most Recent Monitor Data Heart Rate from ECG 96 NIBP 141/87 NIBP BP-Mean 105 Respiration from ECG 21 SpO2 93 I&O: 04/12/19 04/13/19 04/14/19 06:59 06:59 06:59 Intake Total 970 400 Output Total 2700 Balance -1730 400 Result Diagrams: 04/10/19 18:34 04/13/19 04:35 Hospitalist ROS - Medication Medications: Active Medications Generic Name Dose Route Start Last Admin Trade Name Freq PRN Reason Stop Dose Admin Acetaminophen 650 mg 04/08/19 16:33 04/12/19 20:17 Tylenol PO 650 mg Q4H PRN Administration Headache/Fever/Mild Pain (1-3) Allopurinol 100 mg 04/09/19 09:00 04/13/19 09:05 Zyloprim PO 100 mg DAILY HERMILA Administration Amlodipine Besylate 5 mg 04/09/19 09:00 04/12/19 09:48 Norvasc PO 5 mg DAILY HERMILA Administration Aspirin 81 mg 04/09/19 09:00 04/13/19 09:05 Aspirin Chewable PO 81 mg DAILY HERMILA Administration Atorvastatin Calcium 10 mg 04/08/19 21:00 04/12/19 20:17 Lipitor PO 10 mg HS HERMILA Administration Calcium Acetate 1,334 mg 04/11/19 17:00 04/13/19 09:06 Phoslo PO 1,334 mg TID-WM HERMILA Administration Carbidopa/Levodopa 1 tab 04/10/19 21:00 04/13/19 09:06 Sinemet 25-100 PO 1 tab TID HERMILA Administration Cefdinir 300 mg 04/13/19 09:00 04/13/19 09:05 Omnicef PO 300 mg DAILY HERMILA Administration Enoxaparin Sodium 30 mg 04/09/19 09:00 04/13/19 09:04 Lovenox SC 30 mg 0900 HERMILA Administration Epoetin Real-epbx 10,000 unit 04/12/19 09:15 04/12/19 12:29 Retacrit SC 10,000 unit Q7D HERMILA Administration Pantoprazole Sodium 40 mg 04/09/19 09:00 04/13/19 09:05 Protonix PO 40 mg DAILY HERMILA Administration Quetiapine Fumarate 25 mg 04/12/19 21:00 04/12/19 20:17 Seroquel PO 25 mg HS HERMILA Administration Sertraline HCl 50 mg 04/09/19 09:00 04/13/19 09:06 Zoloft PO 50 mg DAILY HERMILA Administration Vitamin B Complex/Vit C/Folic Acid 1 tab 04/09/19 09:00 04/13/19 09:07 Nephro-Ramiro Tablet PO 1 tab DAILY HERMILA Administration - Exam General Appearance: awake alert Eye: PERRL, anicteric sclera ENT: no oropharyngeal lesions, dry oral mucosa Neck: supple, no JVD Heart: RRR, no murmur Respiratory: no wheezes, no rales Gastrointestinal: soft, non-tender, non-distended, normal bowel sounds Extremities: no cyanosis, no edema Neurological: cranial nerve grossly intact, no focal deficits Hosp A/P (1) Acute respiratory failure with hypoxia Code(s): J96.01 - ACUTE RESPIRATORY FAILURE WITH HYPOXIA Status: Resolved (2) PNA (pneumonia) Code(s): J18.9 - PNEUMONIA, UNSPECIFIED ORGANISM Status: Suspected Qualifiers: Pneumonia type: due to unspecified organism Laterality: left Lung location: lower lobe of lung Qualified Code(s): J18.9 - Pneumonia, unspecified organism (3) Volume overload Code(s): E87.70 - FLUID OVERLOAD, UNSPECIFIED Status: Resolved (4) Acute metabolic encephalopathy Code(s): G93.41 - METABOLIC ENCEPHALOPATHY Status: Acute (5) Peritoneal dialysis catheter dysfunction Code(s): T85.611A - BREAKDOWN OF INTRAPERITONEAL DIALYSIS CATHETER, INIT Status: Acute Qualifiers: Encounter type: subsequent encounter Qualified Code(s): T85.611D - Breakdown (mechanical) of intraperitoneal dialysis catheter, subsequent encounter (6) CAD (coronary artery disease) Code(s): I25.10 - ATHSCL HEART DISEASE OF [place] CORONARY ARTERY W/O ANG PCTRS Status: Chronic Qualifiers: Coronary Disease-Associated Artery/Lesion type: bypass graft [place] vs. transplanted heart: [place] heart Associated angina: without angina Qualified Code(s): I25.810 - Atherosclerosis of coronary artery bypass graft(s) without angina pectoris (7) Chronic atrial fibrillation Code(s): I48.2 - CHRONIC ATRIAL FIBRILLATION * DO NOT USE * Status: Chronic (8) ESRD (end stage renal disease) on dialysis Code(s): N18.6 - END STAGE RENAL DISEASE; Z99.2 - DEPENDENCE ON RENAL DIALYSIS Status: Chronic (9) HTN (hypertension) Code(s): I10 - ESSENTIAL (PRIMARY) HYPERTENSION Status: Chronic Qualifiers: (10) Physical deconditioning Code(s): R53.81 - OTHER MALAISE Status: Chronic - Plan encephalopathy sec to uremia, is getting resolved with back to back HD. D/w PD cath does not work (is too high in location?). trial of levodopa, ?parkinson's, saw him, he did not ambulate with PT yesterday. CT/ MRI brain did not reveal any ac cva/bleed he usually gets very weak and tired after HD per has had peritonitis before, removal of PD cath x3, last one was placed a week back in [place], prior to that he had one put in nov here. PT/OT to mobilize as tolerated encourage po intake with asp precautions oral omnicef, all cultures are -ve so far PD cath fluid is -ve for any organsim on gm stain, suspected left LL infiltrate/ fluid/atelectasis hemostable for now rehab eval, dc planning (has deconditioning) if not swing/snf, PT to mobilize as tolerated
[2019-04-13] MEDS: Amlodipine 5 MG TAB PO SCH (12:35)
[2019-04-13] MEDS: Senokot S 8.6-50 MG TAB PO PRN (12:45)
[2019-04-13] MEDS: Atorvastatin Calcium 10 MG TAB PO SCH (20:28)
--- NOTE | 2019-04-13 20:43 | PRG ---
DATE OF SERVICE: 04/13/2019 SUBJECTIVE: Quinn Carrillo looks much better today. He is in no distress. Random a.m. cortisol was 5. I doubt given his improvement that adrenal insufficiency was a cause of his confusion. OBJECTIVE: VITAL SIGNS: He is afebrile. Heart rate 72, respiratory rate is 18, oximetry is 94% on room air, blood pressure 132/62. LUNGS: Clear. HEART: Regular rhythm. ABDOMEN: Soft. IMPRESSION: End-stage renal disease. He is continuing on hemodialysis. He is still little confused. States that he is undergoing peritoneal dialysis. His surgeon for vascular access and peritoneal access is in [facility]. This will need to be addressed probably at a later date. His encephalopathy is improved. No clear culture positive. Explanation for his encephalopathy is identified. I will see him today, just followup on him being in the intermediate care unit. We will sign off. Job ID: [id number]
--- NOTE | 2019-04-14 08:25 | PRG ---
DATE OF SERVICE: 04/14/2019 SUBJECTIVE: Patient was seen and examined at bedside and overnight events noted. Patient denies any shortness of breath or chest pain or palpitation. No history of nausea or vomiting or diarrhea or fever or chills or cramps. OBJECTIVE: GENERAL: This is a well-built male, in no apparent distress. VITAL SIGNS: Temperature 98.9. Heart rate 108. Respiratory rate 18. Blood pressure 137/68. HEENT: Atraumatic, normocephalic. Oral mucosa is moist. NECK: Supple. CARDIOVASCULAR: S1, S2 heard. Rate and rhythm regular. RESPIRATORY: Clear to auscultation. GASTROINTESTINAL: Abdomen is soft. MUSCULOSKELETAL: No tenderness. No edema. DERMATOLOGIC: No skin rash. NEUROLOGIC: Alert and awake and oriented x3. No focal neurologic deficits. Moving all the extremities. PSYCHIATRIC: Mood and affect normal. LABORATORY DATA: Potassium 4.7, BUN is 49, and creatinine is 8.8. ASSESSMENT AND PLAN: 1. End-stage renal disease. Plan to continue hemodialysis on Wednesday, , and Wednesday. Follow with [facility] for status post hemodialysis. I have informed them and they are aware. 2. Altered mentation, better. 3. Edema, controlled. 4. Hypertension, stable. 5. Anemia, continue Epogen. Rehab screening and continue dialysis on Wednesday, , and Wednesday at this point. PD catheter in remission and need to follow up with the surgeon at [place]. We will follow up and [facility] is aware of these changes and PD nurse is also aware. Job ID: [id number]
[2019-04-14] MEDS: Calcium Acetate 667 MG CAP PO SCH ×3 (08:27→15:38)
[2019-04-14] MEDS: Cefdinir 300 MG CAP PO SCH (08:28)
[2019-04-14] MEDS: Amlodipine 5 MG TAB PO SCH (08:28)
[2019-04-14] MEDS: Allopurinol 100 MG TAB PO SCH (08:29)
[2019-04-14] MEDS: Senokot S 8.6-50 MG TAB PO PRN (08:29)
[2019-04-14] MEDS: Folic Acid/Vit B Comp W-C PO SCH (08:30)
[2019-04-14] MEDS: Enoxaparin Sodium 30 MG/0.3 ML SYRINGE SC SCH (08:30)
[2019-04-14] MEDS: Carbidopa/Levodopa 25-100 mg Tablet PO SCH ×3 (08:30→19:59)
[2019-04-14] MEDS: Aspirin Chewable 81 MG TAB PO SCH (08:31)
--- NOTE | 2019-04-14 14:53 | PDOC.HOSPP ---
- Subjective Encounter Date: 04/14/19 Encounter Time: 11:00 Subjective: awake, responds well to verbal questions, no sob or palp not fully oriented yet but is getting better - Objective Vital Signs & Weight: Vital Signs (12 hours) Temp Pulse Resp BP Pulse Ox 04/14/19 08:28 108 H 04/14/19 08:00 98.9 F 99 18 136/63 92 L Weight Weight 207 lb Most Recent Monitor Data Heart Rate from ECG 96 NIBP 141/87 NIBP BP-Mean 105 Respiration from ECG 21 SpO2 93 I&O: 04/13/19 04/14/19 04/15/19 06:59 06:59 06:59 Intake Total 400 100 Balance 400 100 Result Diagrams: 04/10/19 18:34 04/13/19 04:35 Hospitalist ROS - Medication Medications: Active Medications Generic Name Dose Route Start Last Admin Trade Name Freq PRN Reason Stop Dose Admin Acetaminophen 650 mg 04/08/19 16:33 04/12/19 20:17 Tylenol PO 650 mg Q4H PRN Administration Headache/Fever/Mild Pain (1-3) Allopurinol 100 mg 04/09/19 09:00 04/14/19 08:29 Zyloprim PO 100 mg DAILY HERMILA Administration Amlodipine Besylate 5 mg 04/09/19 09:00 04/14/19 08:28 Norvasc PO 5 mg DAILY HERMILA Administration Aspirin 81 mg 04/09/19 09:00 04/14/19 08:31 Aspirin Chewable PO 81 mg DAILY HERMILA Administration Atorvastatin Calcium 10 mg 04/08/19 21:00 04/13/19 20:28 Lipitor PO 10 mg HS HERMILA Administration Calcium Acetate 1,334 mg 04/11/19 17:00 04/14/19 08:27 Phoslo PO 1,334 mg TID-WM HERMILA Administration Carbidopa/Levodopa 1 tab 04/10/19 21:00 04/14/19 08:30 Sinemet 25-100 PO 1 tab TID HERMILA Administration Cefdinir 300 mg 04/13/19 09:00 04/14/19 08:28 Omnicef PO 300 mg DAILY HERMIAL Administration Enoxaparin Sodium 30 mg 04/09/19 09:00 04/14/19 08:30 Lovenox SC 30 mg 0900 HERMILA Administration Epoetin Real-epbx 10,000 unit 04/12/19 09:15 04/12/19 12:29 Retacrit SC 10,000 unit Q7D HERMILA Administration Pantoprazole Sodium 40 mg 04/09/19 09:00 04/14/19 08:28 Protonix PO 40 mg DAILY HERMILA Administration Quetiapine Fumarate 25 mg 04/12/19 21:00 04/13/19 20:28 Seroquel PO 25 mg HS HERMILA Administration Senna/Docusate Sodium 2 tab 04/08/19 16:33 04/14/19 08:29 Senokot S PO 2 tab BIDPRN PRN Administration Constipation Sertraline HCl 50 mg 04/09/19 09:00 04/14/19 08:28 Zoloft PO 50 mg DAILY HERMILA Administration Vitamin B Complex/Vit C/Folic Acid 1 tab 04/09/19 09:00 04/14/19 08:30 Nephro-Ramiro Tablet PO 1 tab DAILY HERMILA Administration - Exam General Appearance: awake alert Eye: PERRL, anicteric sclera ENT: no oropharyngeal lesions, moist mucosa Neck: supple, no JVD Heart: RRR, no murmur Respiratory: no wheezes, no rales Gastrointestinal: soft, non-tender, non-distended, normal bowel sounds Gastrointestinal - other findings: PD cath+ Extremities: no clubbing, no edema Neurological: cranial nerve grossly intact, no focal deficits Hosp A/P (1) Acute respiratory failure with hypoxia Code(s): J96.01 - ACUTE RESPIRATORY FAILURE WITH HYPOXIA Status: Resolved (2) PNA (pneumonia) Code(s): J18.9 - PNEUMONIA, UNSPECIFIED ORGANISM Status: Suspected Qualifiers: Pneumonia type: due to unspecified organism Laterality: left Lung location: lower lobe of lung Qualified Code(s): J18.9 - Pneumonia, unspecified organism (3) Volume overload Code(s): E87.70 - FLUID OVERLOAD, UNSPECIFIED Status: Resolved (4) Acute metabolic encephalopathy Code(s): G93.41 - METABOLIC ENCEPHALOPATHY Status: Acute (5) Peritoneal dialysis catheter dysfunction Code(s): T85.611A - BREAKDOWN OF INTRAPERITONEAL DIALYSIS CATHETER, INIT Status: Acute Qualifiers: Encounter type: subsequent encounter Qualified Code(s): T85.611D - Breakdown (mechanical) of intraperitoneal dialysis catheter, subsequent encounter (6) CAD (coronary artery disease) Code(s): I25.10 - ATHSCL HEART DISEASE OF [place] CORONARY ARTERY W/O ANG PCTRS Status: Chronic Qualifiers: Coronary Disease-Associated Artery/Lesion type: bypass graft [place] vs. transplanted heart: [place] heart Associated angina: without angina Qualified Code(s): I25.810 - Atherosclerosis of coronary artery bypass graft(s) without angina pectoris (7) Chronic atrial fibrillation Code(s): I48.2 - CHRONIC ATRIAL FIBRILLATION * DO NOT USE * Status: Chronic (8) ESRD (end stage renal disease) on dialysis Code(s): N18.6 - END STAGE RENAL DISEASE; Z99.2 - DEPENDENCE ON RENAL DIALYSIS Status: Chronic (9) HTN (hypertension) Code(s): I10 - ESSENTIAL (PRIMARY) HYPERTENSION Status: Chronic Qualifiers: (10) Physical deconditioning Code(s): R53.81 - OTHER MALAISE Status: Chronic - Plan encephalopathy sec to uremia, is getting resolved with back to back HD. D/w PD cath does not work (is too high in location?). trial of levodopa, ?parkinson's, saw him, ambulated a bit with PT after called in (initially refused). CT/ MRI brain did not reveal any ac cva/bleed he usually gets very weak and tired after HD per has had peritonitis before, removal of PD cath x3, last one was placed a week back in [place], prior to that he had one put in nov here. PT/OT to mobilize as tolerated encourage po intake with asp precautions oral omnicef, all cultures are -ve so far PD cath fluid is -ve for any organsim on gm stain, suspected left LL infiltrate/ fluid/atelectasis hemostable for now rehab eval, dc planning (has deconditioning) if not swing/snf
[2019-04-14] MEDS: Atorvastatin Calcium 10 MG TAB PO SCH (19:59)
[2019-04-15] MEDS: Allopurinol 100 MG TAB PO SCH (08:14)
[2019-04-15] MEDS: Amlodipine 5 MG TAB PO SCH (08:15)
[2019-04-15] MEDS: Aspirin Chewable 81 MG TAB PO SCH (08:15)
[2019-04-15] MEDS: Cefdinir 300 MG CAP PO SCH (08:15)
[2019-04-15] MEDS: Calcium Acetate 667 MG CAP PO SCH ×3 (08:15→16:38)
[2019-04-15] MEDS: Enoxaparin Sodium 30 MG/0.3 ML SYRINGE SC SCH (08:16)
[2019-04-15] MEDS: Folic Acid/Vit B Comp W-C PO SCH (08:17)
[2019-04-15] MEDS: Carbidopa/Levodopa 25-100 mg Tablet PO SCH ×3 (08:17→20:13)
--- NOTE | 2019-04-15 10:01 | PRG ---
DATE OF SERVICE: 04/15/2019 SUBJECTIVE: Patient was seen and examined at bedside and overnight events noted. Patient denies any shortness of breath or chest pain or palpitation. No history of nausea or vomiting or diarrhea or fever or chills or cramps. OBJECTIVE: GENERAL: This is a well-built male, in no apparent distress. VITAL SIGNS: Temperature 98.6. Pulse 85. Respiratory rate 18. Blood pressure 120/61. HEENT: Atraumatic, normocephalic. Oral mucosa is moist NECK: Supple. CARDIOVASCULAR: S1, S2 heard. Rate and rhythm regular. RESPIRATORY: Clear to auscultation. GASTROINTESTINAL: Abdomen is soft. MUSCULOSKELETAL: No tenderness. No edema. DERMATOLOGIC: No skin rash. NEUROLOGIC: Alert and awake and oriented X3. No focal neurologic deficits. Moving all the extremities. PSYCHIATRIC: Mood and affect normal. LABORATORY DATA: Potassium 4.7, BUN is 49, and creatinine is 8.8. ASSESSMENT AND PLAN: 1. End-stage renal disease. Continue on hemodialysis as tolerated. 2. Edema, controlled. 3. Altered mentation. 4. Hypertension. 5. Anemia. Continue Epogen. Labs are stable. Continue on dialysis Wednesday, , and Wednesday as tolerated. Job ID: [id number]
--- NOTE | 2019-04-15 20:11 | PDOC.HOSPP ---
- Subjective Subjective: No new complaints. - Objective Vital Signs & Weight: Vital Signs (12 hours) Temp Pulse Resp BP BP Pulse Ox 04/15/19 15:05 97.6 F 97 18 105/56 L 94 L 04/15/19 08:15 95 120/61 Weight Weight 207 lb Most Recent Monitor Data Heart Rate from ECG 96 NIBP 141/87 NIBP BP-Mean 105 Respiration from ECG 21 SpO2 93 I&O: 04/14/19 04/15/19 04/16/19 06:59 06:59 06:59 Intake Total 100 740 500 Balance 100 740 500 Result Diagrams: 04/10/19 18:34 04/13/19 04:35 Hospitalist ROS - Review of Systems Constitutional: denies: fever, chills, sweats, weakness, malaise, other Eyes: denies: pain, vision change, conjunctivae inflammation, eyelid inflammation, redness, other ENT: denies: ear pain, ear discharge, nose pain, nose discharge, nose congestion , mouth pain, mouth swelling, throat pain, throat swelling, other Respiratory: denies: cough, dry, shortness of breath, hemoptysis, SOB with excertion, pleuritic pain, sputum, wheezing, other Cardiovascular: denies: chest pain, palpitations, orthopnea, paroxysmal noc. dyspnea, edema, light headedness, other Gastrointestinal: denies: nausea, vomiting, abdominal pain, diarrhea, constipation, melena, hematochezia, other Genitourinary: denies: dysuria, frequency, incontinence, hematuria, retention, other Musculoskeletal: denies: neck pain, shoulder pain, arm pain, back pain, hand pain, leg pain, foot pain, other Skin: denies: rash, lesions, bruno, bruising, other Neurological: denies: weakness, numbness, incoordination, change in speech, confusion, seizures, other - Medication Medications: Active Medications Generic Name Dose Route Start Last Admin Trade Name Freq PRN Reason Stop Dose Admin Acetaminophen 650 mg 04/08/19 16:33 04/12/19 20:17 Tylenol PO 650 mg Q4H PRN Administration Headache/Fever/Mild Pain (1-3) Allopurinol 100 mg 04/09/19 09:00 04/15/19 08:14 Zyloprim PO 100 mg DAILY HERMILA Administration Amlodipine Besylate 5 mg 04/09/19 09:00 04/15/19 08:15 Norvasc PO 5 mg DAILY HERMILA Administration Aspirin 81 mg 04/09/19 09:00 04/15/19 08:15 Aspirin Chewable PO 81 mg DAILY HERMILA Administration Atorvastatin Calcium 10 mg 04/08/19 21:00 04/14/19 19:59 Lipitor PO 10 mg HS HERMILA Administration Calcium Acetate 1,334 mg 04/11/19 17:00 04/15/19 16:38 Phoslo PO 1,334 mg TID-WM HERMILA Administration Carbidopa/Levodopa 1 tab 04/10/19 21:00 04/15/19 15:05 Sinemet 25-100 PO 1 tab TID HERMILA Administration Cefdinir 300 mg 04/13/19 09:00 04/15/19 08:15 Omnicef PO 300 mg DAILY HERMILA Administration Enoxaparin Sodium 30 mg 04/09/19 09:00 04/15/19 08:16 Lovenox SC 30 mg 0900 HERMILA Administration Epoetin Real-epbx 10,000 unit 04/12/19 09:15 04/12/19 12:29 Retacrit SC 10,000 unit Q7D HERMILA Administration Pantoprazole Sodium 40 mg 04/09/19 09:00 04/15/19 08:15 Protonix PO 40 mg DAILY HERMILA Administration Quetiapine Fumarate 25 mg 04/12/19 21:00 04/14/19 19:59 Seroquel PO 25 mg HS [facility] Administration Senna/Docusate Sodium 2 tab 04/08/19 16:33 04/14/19 08:29 Senokot S PO 2 tab BIDPRN PRN Administration Constipation Sertraline HCl 50 mg 04/09/19 09:00 04/15/19 08:16 Zoloft PO 50 mg DAILY [facility] Administration Vitamin B Complex/Vit C/Folic Acid 1 tab 04/09/19 09:00 04/15/19 08:17 Nephro-Ramiro Tablet PO 1 tab DAILY HERMILA Administration - Exam General Appearance: NAD, awake alert Eye: PERRL, anicteric sclera ENT: normocephalic atraumatic Neck: supple, symmetric, no JVD, no thyromegaly, no lymphadenopathy Heart: RRR, no murmur, no gallops, no rubs Respiratory: CTAB, no wheezes, no rales, no ronchi Gastrointestinal: soft, non-tender, non-distended, normal bowel sounds Gastrointestinal - other findings: PD cath noted. Extremities: no cyanosis, no clubbing, no edema Skin: no lesions, no rashes Neurological: cranial nerve grossly intact, no focal deficits Musculoskeletal: normal strength, no muscle wasting Psychiatric: normal affect, normal behavior, A&O x 3 Hosp A/P (1) PNA (pneumonia) Code(s): J18.9 - PNEUMONIA, UNSPECIFIED ORGANISM Status: Suspected Qualifiers: Pneumonia type: due to unspecified organism Laterality: left Lung location: lower lobe of lung Qualified Code(s): J18.9 - Pneumonia, unspecified organism Plan: Cont abx. (2) ESRD (end stage renal disease) on dialysis Code(s): N18.6 - END STAGE RENAL DISEASE; Z99.2 - DEPENDENCE ON RENAL DIALYSIS Status: Chronic Plan: Cont PD per Nephrology. (3) HTN (hypertension) Code(s): I10 - ESSENTIAL (PRIMARY) HYPERTENSION Status: Chronic Qualifiers: Plan: Stable. Cont current meds. (4) CAD (coronary artery disease) Code(s): I25.10 - ATHSCL HEART DISEASE OF [place] CORONARY ARTERY W/O ANG PCTRS Status: Chronic Qualifiers: Coronary Disease-Associated Artery/Lesion type: bypass graft [place] vs. transplanted heart: [place] heart Associated angina: without angina Qualified Code(s): I25.810 - Atherosclerosis of coronary artery bypass graft(s) without angina pectoris Plan: Stable. Cont med mgt. (5) Chronic atrial fibrillation Code(s): I48.2 - CHRONIC ATRIAL FIBRILLATION * DO NOT USE * Status: Chronic Plan: Rate controlled. Cont med mgt. (6) Physical deconditioning Code(s): R53.81 - OTHER MALAISE Status: Chronic Plan: Awaiting d/c to SNF. Cont PT/OT while in the hospital. - Plan PPx: SCDs. CODE: FULL. Dispo: Cont current mgt. D/c when accpeted to SNF.
[2019-04-15] MEDS: Atorvastatin Calcium 10 MG TAB PO SCH (20:13)
[2019-04-15 20:31] LABS: #Basophils 0.1 thou/uL (0.0-0.2); #Eosinphils 0.2 thou/uL (0.0-0.7); #Monocytes 0.5 thou/uL (0.11-0.59); #Neutrophils 4.5 thou/uL (1.40-6.50); %Eosinophils 3.2 % (0.0-10.0); %Lymphocytes 15.3 % (21.0-51.0); %Monocytes 8.2 % (0.0-10.0); %Neutrophils 72.4 % (42.0-75.0); Hemoglobin 10.7 g/dL (14.0-18.0); Mean Corpuscular HGB CONC 31.9 g/dL (32.0-36.0); Mean Corpuscular Hemoglobin 31.7 pg (27.0-31.0); Mean Corpuscular Volume 99.4 fL (78.0-98.0); Mean Platelet Volume 6.3 fL (7.4-10.4); Platelet Count 320 thou/uL (130-400); RBC Distribution Width 14.3 % (11.5-14.5); Red Blood Cell (RBC) Count 3.36 mill/uL (4.70-6.10); White Blood Cell (WBC) Count 6.2 thou/uL (4.8-10.8)
[2019-04-16 04:39] LABS: Anion Gap 15 mmol/L (10-20); BUN (Urea Nitrogen) 31 mg/dL (8.4-25.7); Calc. Creatinine Clearance 14 mL/min (70-130); Calcium 9.2 mg/dL (7.8-10.44); Carbon Dioxide 29 mmol/L (23-31); Chloride 100 mmol/L (98-107); Estimated GFR-MDRD 10; Glucose 85 mg/dL (83-110); Potassium 4.5 mmol/L (3.5-5.1); Sodium 139 mmol/L (136-145)
[2019-04-16] MEDS: Folic Acid/Vit B Comp W-C PO SCH (09:59)
[2019-04-16] MEDS: Allopurinol 100 MG TAB PO SCH (09:59)
[2019-04-16] MEDS: Cefdinir 300 MG CAP PO SCH (09:59)
[2019-04-16] MEDS: Enoxaparin Sodium 30 MG/0.3 ML SYRINGE SC SCH (09:59)
[2019-04-16] MEDS: Amlodipine 5 MG TAB PO SCH (10:00)
[2019-04-16] MEDS: Calcium Acetate 667 MG CAP PO SCH ×3 (10:00→16:13)
[2019-04-16] MEDS: Aspirin Chewable 81 MG TAB PO SCH (10:00)
[2019-04-16] MEDS: Carbidopa/Levodopa 25-100 mg Tablet PO SCH ×3 (10:00→20:29)
--- NOTE | 2019-04-16 12:05 | PRG ---
DATE OF SERVICE: 04/16/2019 SUBJECTIVE: Patient was seen and examined at bedside and overnight events noted. Patient denies any shortness of breath or chest pain or palpitation. No history of nausea or vomiting or diarrhea or fever or chills or cramps. OBJECTIVE: GENERAL: This is a well-built male, in no apparent distress. VITAL SIGNS: Temperature 97.5. Heart rate 92. Respiratory rate 18. Blood pressure 136/60. HEENT: Atraumatic, normocephalic. Oral mucosa is moist NECK: Supple. CARDIOVASCULAR: S1, S2 heard. Rate and rhythm regular. RESPIRATORY: Clear to auscultation. GASTROINTESTINAL: Abdomen is soft. MUSCULOSKELETAL: No tenderness. No edema. DERMATOLOGIC: No skin rash. NEUROLOGIC: Alert and awake and oriented X3. No focal neurologic deficits. Moving all the extremities. PSYCHIATRIC: Mood and affect normal. LABORATORY DATA: Potassium 4.5, BUN is 31, creatinine is 5.8. ASSESSMENT AND PLAN: 1. End-stage renal disease, continue on hemodialysis as tolerated, Wednesday, , and Wednesday. 2. Edema, controlled. 3. Altered mentation, better. 4. History of hypertension. 5. Anemia, on Epogen. 6. Continue hemodialysis, Wednesday, , and Wednesday as tolerated. Continue Epogen. Agree with rehab screening. Job ID: [id number]
--- NOTE | 2019-04-16 15:34 | PDOC.HOSPP ---
- Subjective Subjective: No new issues. - Objective Vital Signs & Weight: Vital Signs (12 hours) Temp Pulse Resp BP Pulse Ox 04/16/19 12:15 97.2 F L 92 20 117/62 93 L 04/16/19 10:00 92 04/16/19 08:00 97.4 F L 92 18 136/60 96 Weight Weight 207 lb Most Recent Monitor Data Heart Rate from ECG 96 NIBP 141/87 NIBP BP-Mean 105 Respiration from ECG 21 SpO2 93 I&O: 04/15/19 04/16/19 04/17/19 06:59 06:59 06:59 Intake Total 740 500 Balance 740 500 Result Diagrams: 04/15/19 20:25 04/16/19 04:12 Hospitalist ROS - Review of Systems Constitutional: denies: fever, chills, sweats, weakness, malaise, other Eyes: denies: pain, vision change, conjunctivae inflammation, eyelid inflammation, redness, other ENT: denies: ear pain, ear discharge, nose pain, nose discharge, nose congestion , mouth pain, mouth swelling, throat pain, throat swelling, other Respiratory: denies: cough, dry, shortness of breath, hemoptysis, SOB with excertion, pleuritic pain, sputum, wheezing, other Cardiovascular: denies: chest pain, palpitations, orthopnea, paroxysmal noc. dyspnea, edema, light headedness, other Gastrointestinal: denies: nausea, vomiting, abdominal pain, diarrhea, constipation, melena, hematochezia, other Genitourinary: denies: dysuria, frequency, incontinence, hematuria, retention, other Musculoskeletal: denies: neck pain, shoulder pain, arm pain, back pain, hand pain, leg pain, foot pain, other Skin: denies: rash, lesions, bruno, bruising, other Neurological: denies: weakness, numbness, incoordination, change in speech, confusion, seizures, other - Medication Medications: Active Medications Generic Name Dose Route Start Last Admin Trade Name Freq PRN Reason Stop Dose Admin Acetaminophen 650 mg 04/08/19 16:33 04/12/19 20:17 Tylenol PO 650 mg Q4H PRN Administration Headache/Fever/Mild Pain (1-3) Allopurinol 100 mg 04/09/19 09:00 04/16/19 09:59 Zyloprim PO 100 mg DAILY HERMILA Administration Amlodipine Besylate 5 mg 04/09/19 09:00 04/16/19 10:00 Norvasc PO 5 mg DAILY HERMILA Administration Aspirin 81 mg 04/09/19 09:00 04/16/19 10:00 Aspirin Chewable PO 81 mg DAILY HERMILA Administration Atorvastatin Calcium 10 mg 04/08/19 21:00 04/15/19 20:13 Lipitor PO 10 mg HS HERMILA Administration Calcium Acetate 1,334 mg 04/11/19 17:00 04/16/19 13:23 Phoslo PO 1,334 mg TID-WM HERMILA Administration Carbidopa/Levodopa 1 tab 04/10/19 21:00 04/16/19 10:00 Sinemet 25-100 PO 1 tab TID HERMILA Administration Cefdinir 300 mg 04/13/19 09:00 04/16/19 09:59 Omnicef PO 300 mg DAILY HERMILA Administration Enoxaparin Sodium 30 mg 04/09/19 09:00 04/16/19 09:59 Lovenox SC 30 mg 0900 [facility] Administration Epoetin Real-epbx 10,000 unit 04/12/19 09:15 04/12/19 12:29 Retacrit SC 10,000 unit Q7D [facility] Administration Pantoprazole Sodium 40 mg 04/09/19 09:00 04/16/19 09:59 Protonix PO 40 mg DAILY HERMILA Administration Quetiapine Fumarate 25 mg 04/12/19 21:00 04/15/19 20:13 Seroquel PO 25 mg HS HERMILA Administration Senna/Docusate Sodium 2 tab 04/08/19 16:33 04/14/19 08:29 Senokot S PO 2 tab BIDPRN PRN Administration Constipation Sertraline HCl 50 mg 04/09/19 09:00 04/16/19 10:00 Zoloft PO 50 mg DAILY HERMILA Administration Vitamin B Complex/Vit C/Folic Acid 1 tab 04/09/19 09:00 04/16/19 09:59 Nephro-Ramiro Tablet PO 1 tab DAILY HERMILA Administration - Exam General Appearance: NAD, awake alert, ill appearing Eye: PERRL, anicteric sclera ENT: normocephalic atraumatic, no oropharyngeal lesions Neck: supple, symmetric, no JVD, no thyromegaly, no lymphadenopathy Heart: RRR, no murmur, no gallops, no rubs Respiratory: CTAB, no wheezes, no rales, no ronchi Gastrointestinal: soft, non-tender, non-distended, normal bowel sounds Extremities: no cyanosis, no clubbing, no edema Skin: no lesions, no rashes Neurological: cranial nerve grossly intact, normal sensation to touch Musculoskeletal: normal tone, normal strength, no muscle wasting Psychiatric: normal affect, normal behavior, A&O x 3 Hosp A/P - Plan Hosp A/P (1) PNA (pneumonia) Code(s): J18.9 - PNEUMONIA, UNSPECIFIED ORGANISM Status: Suspected Qualifiers: Pneumonia type: due to unspecified organism Laterality: left Lung location: lower lobe of lung Qualified Code(s): J18.9 - Pneumonia, unspecified organism Plan: Cont abx. (2) ESRD (end stage renal disease) on dialysis Code(s): N18.6 - END STAGE RENAL DISEASE; Z99.2 - DEPENDENCE ON RENAL DIALYSIS Status: Chronic Plan: Cont PD per Nephrology. (3) HTN (hypertension) Code(s): I10 - ESSENTIAL (PRIMARY) HYPERTENSION Status: Chronic Qualifiers: Plan: Stable. Cont current meds. (4) CAD (coronary artery disease) Code(s): I25.10 - ATHSCL HEART DISEASE OF [place] CORONARY ARTERY W/O ANG PCTRS Status: Chronic Qualifiers: Coronary Disease-Associated Artery/Lesion type: bypass graft [place] vs. transplanted heart: [place] heart Associated angina: without angina Qualified Code(s): I25.810 - Atherosclerosis of coronary artery bypass graft(s) without angina pectoris Plan: Stable. Cont med mgt. (5) Chronic atrial fibrillation Code(s): I48.2 - CHRONIC ATRIAL FIBRILLATION * DO NOT USE * Status: Chronic Plan: Rate controlled. Cont med mgt. (6) Physical deconditioning Code(s): R53.81 - OTHER MALAISE Status: Chronic Plan: Awaiting d/c to SNF. Cont PT/OT while in the hospital. PPx: SCDs. CODE: FULL. Dispo: Cont current mgt. D/c when accpeted to SNF.
[2019-04-16] MEDS: Atorvastatin Calcium 10 MG TAB PO SCH (20:29)
[2019-04-17] MEDS: Calcium Acetate 667 MG CAP PO SCH ×3 (09:00→18:00)
[2019-04-17] MEDS: Folic Acid/Vit B Comp W-C PO SCH (09:19)
[2019-04-17] MEDS: Allopurinol 100 MG TAB PO SCH (09:21)
[2019-04-17] MEDS: Carbidopa/Levodopa 25-100 mg Tablet PO SCH ×3 (09:21→20:22)
[2019-04-17] MEDS: Amlodipine 5 MG TAB PO SCH (09:22)
[2019-04-17] MEDS: Aspirin Chewable 81 MG TAB PO SCH (09:22)
[2019-04-17] MEDS: Cefdinir 300 MG CAP PO SCH (09:23)
[2019-04-17] MEDS: Enoxaparin Sodium 30 MG/0.3 ML SYRINGE SC SCH (09:23)
--- NOTE | 2019-04-17 09:56 | PRG ---
DATE OF SERVICE: 04/17/2019 SUBJECTIVE: A 78-year-old male, being seen for end-stage renal disease. The patient denies any nausea, vomiting, or chest pain. OBJECTIVE: GENERAL: The patient is awake and alert. VITAL SIGNS: Afebrile, pulse 75, breathing 16, blood pressure 132/62. GENERAL APPEARANCE AND MENTAL STATUS: Fair. HEAD/NECK: Normocephalic. Atraumatic. EYES: EOMI. No deformity. EARS: Clear. No ulcers. NOSE: Intact. No lesions. MOUTH: Clear. No discharge. THROAT: Clear. No exudate. LUNGS: Clear. No crackles. CARDIAC: S1, S2. No rub. ABDOMEN: Benign. Bowel sounds positive. GENITALIA/RECTUM: Lyons absent. BACK/EXTREMITIES: Edema 0+. NEUROLOGICAL: Alert and motor intact. SKIN: LYMPHATICS: LABORATORY DATA: Reviewed. ASSESSMENT AND PLAN: 1. Stage 6 chronic kidney disease. Plan dialysis Wednesday, , and Wednesday. 2. Hypertension, stable. 3. Anemia, stable. 4. Medication based on GFR, appropriate. Job ID: [id number]
--- NOTE | 2019-04-17 18:01 | PDOC.HOSPP ---
- Subjective Subjective: No new issues. Awaiting placement. - Objective Vital Signs & Weight: Vital Signs (12 hours) Temp Pulse Resp BP BP Pulse Ox 04/17/19 09:22 84 132/61 04/17/19 07:57 97.2 F L 85 18 131/62 95 04/17/19 07:54 95 Weight Weight 207 lb Most Recent Monitor Data Heart Rate from ECG 96 NIBP 141/87 NIBP BP-Mean 105 Respiration from ECG 21 SpO2 93 I&O: 04/16/19 04/17/19 04/18/19 06:59 06:59 06:59 Intake Total 500 300 Balance 500 300 Result Diagrams: 04/15/19 20:25 04/16/19 04:12 Hospitalist ROS - Review of Systems Constitutional: denies: fever, chills, sweats, weakness, malaise, other Eyes: denies: pain, vision change, conjunctivae inflammation, eyelid inflammation, redness, other ENT: denies: ear pain, ear discharge, nose pain, nose discharge, nose congestion , mouth pain, mouth swelling, throat pain, throat swelling, other Respiratory: denies: cough, dry, shortness of breath, hemoptysis, SOB with excertion, pleuritic pain, sputum, wheezing, other Cardiovascular: denies: chest pain, palpitations, orthopnea, paroxysmal noc. dyspnea, edema, light headedness, other Gastrointestinal: denies: nausea, vomiting, abdominal pain, diarrhea, constipation, melena, hematochezia, other Genitourinary: denies: dysuria, frequency, incontinence, hematuria, retention, other Musculoskeletal: denies: neck pain, shoulder pain, arm pain, back pain, hand pain, leg pain, foot pain, other Skin: denies: rash, lesions, bruno, bruising, other Neurological: denies: weakness, numbness, incoordination, change in speech, confusion, seizures, other - Medication Medications: Active Medications Generic Name Dose Route Start Last Admin Trade Name Freq PRN Reason Stop Dose Admin Acetaminophen 650 mg 04/08/19 16:33 04/12/19 20:17 Tylenol PO 650 mg Q4H PRN Administration Headache/Fever/Mild Pain (1-3) Allopurinol 100 mg 04/09/19 09:00 04/17/19 09:21 Zyloprim PO 100 mg DAILY HERMILA Administration Amlodipine Besylate 5 mg 04/09/19 09:00 04/17/19 09:22 Norvasc PO 5 mg DAILY HERMILA Administration Aspirin 81 mg 04/09/19 09:00 04/17/19 09:22 Aspirin Chewable PO 81 mg DAILY HERMILA Administration Atorvastatin Calcium 10 mg 04/08/19 21:00 04/16/19 20:29 Lipitor PO 10 mg HS HERMILA Administration Calcium Acetate 1,334 mg 04/11/19 17:00 04/17/19 12:40 Phoslo PO 1,334 mg TID-WM HERMILA Administration Carbidopa/Levodopa 1 tab 04/10/19 21:00 04/17/19 15:43 Sinemet 25-100 PO 1 tab TID HERMILA Administration Cefdinir 300 mg 04/13/19 09:00 04/17/19 09:23 Omnicef PO 300 mg DAILY HERMILA Administration Enoxaparin Sodium 30 mg 04/09/19 09:00 04/17/19 09:23 Lovenox SC 30 mg 0900 HERMILA Administration Epoetin Real-epbx 10,000 unit 04/12/19 09:15 04/12/19 12:29 Retacrit SC 10,000 unit Q7D HERMILA Administration Pantoprazole Sodium 40 mg 04/09/19 09:00 04/17/19 09:22 Protonix PO 40 mg DAILY HERMILA Administration Quetiapine Fumarate 25 mg 04/12/19 21:00 04/16/19 20:29 Seroquel PO 25 mg HS HERMILA Administration Senna/Docusate Sodium 2 tab 04/08/19 16:33 04/14/19 08:29 Senokot S PO 2 tab BIDPRN PRN Administration Constipation Sertraline HCl 50 mg 04/09/19 09:00 04/17/19 09:20 Zoloft PO 50 mg DAILY [facility] Administration Vitamin B Complex/Vit C/Folic Acid 1 tab 04/09/19 09:00 04/17/19 09:19 Nephro-Ramiro Tablet PO 1 tab DAILY HERMILA Administration - Exam General Appearance: NAD, awake alert Eye: PERRL, anicteric sclera ENT: normocephalic atraumatic, no oropharyngeal lesions, moist mucosa Neck: supple, symmetric, no JVD, no thyromegaly, no lymphadenopathy Heart: RRR, no murmur, no gallops, no rubs, normal peripheral pulses Respiratory: CTAB, no wheezes, no rales, no ronchi Gastrointestinal: soft, non-tender, non-distended, normal bowel sounds Extremities: no cyanosis, no clubbing, no edema Skin: no lesions, no rashes Neurological: cranial nerve grossly intact, no focal deficits Musculoskeletal: normal tone, normal strength, no muscle wasting Psychiatric: normal affect, normal behavior, A&O x 3 Hosp A/P - Plan Hosp A/P (1) PNA (pneumonia) Code(s): J18.9 - PNEUMONIA, UNSPECIFIED ORGANISM Status: Suspected Qualifiers: Pneumonia type: due to unspecified organism Laterality: left Lung location: lower lobe of lung Qualified Code(s): J18.9 - Pneumonia, unspecified organism Plan: Cont abx. (2) ESRD (end stage renal disease) on dialysis Code(s): N18.6 - END STAGE RENAL DISEASE; Z99.2 - DEPENDENCE ON RENAL DIALYSIS Status: Chronic Plan: Cont PD per Nephrology. (3) HTN (hypertension) Code(s): I10 - ESSENTIAL (PRIMARY) HYPERTENSION Status: Chronic Qualifiers: Plan: Stable. Cont current meds. (4) CAD (coronary artery disease) Code(s): I25.10 - ATHSCL HEART DISEASE OF [place] CORONARY ARTERY W/O ANG PCTRS Status: Chronic Qualifiers: Coronary Disease-Associated Artery/Lesion type: bypass graft [place] vs. transplanted heart: [place] heart Associated angina: without angina Qualified Code(s): I25.810 - Atherosclerosis of coronary artery bypass graft(s) without angina pectoris Plan: Stable. Cont med mgt. (5) Chronic atrial fibrillation Code(s): I48.2 - CHRONIC ATRIAL FIBRILLATION * DO NOT USE * Status: Chronic Plan: Rate controlled. Cont med mgt. (6) Physical deconditioning Code(s): R53.81 - OTHER MALAISE Status: Chronic Plan: Awaiting d/c to SNF. Cont PT/OT while in the hospital. PPx: SCDs. CODE: FULL. Dispo: Cont current mgt. D/c when accpeted to SNF.
[2019-04-17] MEDS: Atorvastatin Calcium 10 MG TAB PO SCH (20:22)
[2019-04-18] MEDS: Calcium Acetate 667 MG CAP PO SCH ×3 (08:00→17:07)
[2019-04-18] MEDS: Cefdinir 300 MG CAP PO SCH (09:00)
[2019-04-18] MEDS: Allopurinol 100 MG TAB PO SCH (09:00)
[2019-04-18] MEDS: Carbidopa/Levodopa 25-100 mg Tablet PO SCH ×2 (09:00→15:19)
[2019-04-18] MEDS: Enoxaparin Sodium 30 MG/0.3 ML SYRINGE SC SCH (09:00)
[2019-04-18] MEDS: Folic Acid/Vit B Comp W-C PO SCH (09:00)
[2019-04-18] MEDS: Amlodipine 5 MG TAB PO SCH (09:05)
--- NOTE | 2019-04-18 09:49 | PRG ---
DATE OF SERVICE: 04/18/2019 SUBJECTIVE: This is a 78-year-old gentleman, being seen for end-stage kidney disease. The patient denies any nausea, vomiting, or chest pain. OBJECTIVE: CONSTITUTIONAL: The patient is awake and alert. VITAL SIGNS: Pulse 75, breathing 16, blood pressure 136/66. GENERAL APPEARANCE AND MENTAL STATUS: Fair. HEAD/NECK: Normocephalic. Atraumatic. EYES: EOMI. No deformity. EARS: Clear. No ulcers. NOSE: Intact. No lesions. MOUTH: Clear. No discharge. THROAT: Clear. No exudate. LUNGS: Clear. No crackles. CARDIAC: S1, S2. No rub. ABDOMEN: Benign. Bowel sounds positive. GENITALIA/RECTUM: Lyons absent. BACK/EXTREMITIES: Edema 0+. NEUROLOGICAL: Alert and motor intact. SKIN: LYMPHATICS: LABORATORY DATA: Reviewed. ASSESSMENT AND PLAN: 1. Stage 6 chronic kidney disease. Plan dialysis. 2. Hypertension, stable. 3. Anemia, stable. 4. Medication based on GFR, appropriate. Job ID: [id number]
[2019-04-18] MEDS: Aspirin Chewable 81 MG TAB PO SCH (10:32)
[2019-04-18] MEDS: Acetaminophen 325 MG TAB PO PRN (17:09)
[2019-04-18 19:12] VITALS: BP 90/53; TEMP 97.8
--- NOTE | 2019-04-19 03:01 | DIS ---
DATE OF ADMISSION: 04/08/2019 DATE OF DISCHARGE: 04/18/2019 DISCHARGE DIAGNOSES: 1. Bacterial pneumonia, suspected gram-positive cocci, left lower lobe. 2. End-stage renal disease with dialysis. 3. Hypertension, stable. 4. Coronary artery disease, chronic and stable. 5. Chronic atrial fibrillation. 6. Deconditioning. 7. Status post closed head injury. CONSULTATIONS: 1. Dr. Medley and Dr. Wellington with Nephrology Service. 2. Dr. Ivey with Pulmonology Critical Care Service. 3. Dr. Adryan Helton with Neurology Service. 4. Dr. Kanu Rivera with Cardiology Service. PERTINENT LABORATORY AND X-RAY FINDINGS: Creatinine ranged between 5.81 to 11.74, estimated GFR ranged between 4-10. Troponin I ranged between 0.193 to 0.603. BNP ranged between 106 to 698. Serum cortisol level 5.6. CBC showed a hemoglobin ranging between 9.6 to 12.2. Blood cultures x2 dated 04/08/2019 showed no growth at 5 days. Ascitic fluid culture dated 04/08/2019 showed no growth at 5 days. Influenza A and B antigen dated 04/08/2019, negative. Respiratory virus panel dated 04/10/2019, negative. Stool Hemoccult dated 04/14/[address] of the abdomen and pelvis dated 04/08/2019, moderate right and left pleural effusions. 2. Left hydronephrosis with left hydroureter. Bilateral inguinal hernias. 3. Portable chest x-ray dated 04/08/2019, showed left perihilar airspace disease. 4. MRI of the brain dated 04/09/2019 showed small-vessel ischemic changes without evidence of acute infarction or hemorrhage. CT of the brain without contrast dated 04/09/2019 showed no acute intracranial process. 5. CT of the brain dated 04/10/2019 showed no acute intracranial process. Stable chronic findings. 6. Abdominal radiographs dated 04/12/2019 showed appropriate positioning of peritoneal dialysis catheter. 7. 2D transthoracic echocardiogram dated 04/12/2019 showed ejection fraction 55% to 60%. Mild left atrial enlargement. Diastolic dysfunction. Mild aortic stenosis. HOSPITAL COURSE: The patient was initially admitted after presenting in volume overload with associated acute hypoxic respiratory failure in the context of malfunctioning peritoneal dialysis catheter. The patient was also noted with a left lower lobe pneumonia, initiated on broad-spectrum IV antibiotic therapy to include cefepime and vancomycin. The patient was initially managed for respiratory failure with BiPAP noninvasive mechanical ventilation. The patient underwent hemodialysis due to acute volume overload and malfunctioning peritoneal dialysis catheter. Ascitic fluid analysis showed no evidence for peritonitis and the patient continued on antibiotic therapy due to suspected bacterial pneumonia. The patient was evaluated by the Cardiology Service due to elevated troponin I; however, this was in the context of end-stage renal disease and status post mechanical fall with closed head injury. No specific intervention was recommended and 2D transthoracic echocardiogram was performed showing overall preserved ejection fraction at 55% to 60% with diastolic dysfunction. The patient continued to receive hemodialysis during the hospital course, tolerating a Wednesday, , and Wednesday schedule. Overall edema had improved with hemodialysis as well as correction of electrolyte abnormalities. The patient was also noted with severe deconditioning and difficulty with ambulation, evaluated by Physical Therapy Service. The patient worked with physical therapy throughout the hospital course, however, was deemed an appropriate candidate for ongoing inpatient rehabilitation due to deconditioning and fall risk. The patient has been approved and will transfer to [facility] on 04/18/2019. I have examined the patient at the time of discharge and discussed followup instructions. The patient verbalized understanding and agreement ready for discharge on 04/18/2019. DISCHARGE MEDICATIONS: 1. Allopurinol 100 mg p.o. daily. 2. Norvasc 5 mg p.o. daily. 3. Lipitor 10 mg p.o. q.a.m. 4. Calcium acetate 1334 mg p.o. t.i.d. 5. Folic acid with vitamin B 1 tablet p.o. daily. 6. Gabapentin 100 mg p.o. daily. 7. Protonix 40 mg p.o. daily. 8. Sertraline 50 mg p.o. daily. 9. Enteric-coated aspirin 81 mg p.o. daily. 10. Sinemet 25/100 mg 1 tablet p.o. t.i.d. 11. Omnicef 300 mg p.o. daily until 04/22/2019. 12. Seroquel 25 mg p.o. at bedtime. FOLLOWUP: The patient may follow up with his primary care provider, Dr. Kaci Pickens after discharge from [facility]. The patient may follow up with Dr. Medley and Dr. Wellington with hemodialysis. CONDITION ON DISCHARGE: Fair. ACTIVITY: Ad levi, rolling walker for ambulation with contact guard assistance. DIET: Regular with supplements of Nepro t.i.d. CODE STATUS: Do not attempt resuscitation. DISPOSITION: Transfer to [facility], 04/18/2019. TIME SPENT: Total time preparing and coordinating discharge, 35 minutes. Job ID: [id number]
== END 2019-04-18 20:41 | DRG 871 ==
LOC: ERS 10:52 → IMCU/EMU 14:17 → ONC 04-12 10:48
PROVIDERS: ADMIT Internal Medicine; ATTEND Internal Medicine
PROC: 5A1D70Z Performance of Urinary Filtration, Intermittent, Less than 6 Hours Per Day (ICD-10-PCS; principal; 2019-04-17)
DX: A41.9 Sepsis, unspecified organism (principal); N18.6 End stage renal disease; J96.01 Acute respiratory failure with hypoxia; G93.41 Metabolic encephalopathy; J18.9 Pneumonia, unspecified organism; T85.691A Other mechanical complication of intraperitoneal dialysis catheter, initial encounter; J90 Pleural effusion, not elsewhere classified; I48.20 Chronic atrial fibrillation, unspecified; I12.0 Hypertensive chronic kidney disease with stage 5 chronic kidney disease or end stage renal disease; Z99.2 Dependence on renal dialysis; Z95.1 Presence of aortocoronary bypass graft; E78.5 Hyperlipidemia, unspecified; F32.9 Major depressive disorder, single episode, unspecified; F41.9 Anxiety disorder, unspecified; M10.9 Gout, unspecified; Z79.899 Other long term (current) drug therapy; Z88.0 Allergy status to penicillin; Z87.891 Personal history of nicotine dependence; D64.9 Anemia, unspecified; I34.0 Nonrheumatic mitral (valve) insufficiency; G20 Parkinson's disease
CPT/HCPCS: 36415; 36416; 70450; 70551; 71045; 74018; 74176; 80048; 80053; 80069; 80202; 82140; 82274; 82533; 82550; 82553; 82805; 83605; 83690; 83880; 84484; 85025; 85060; 87040; 87070; 87205; 87633; 87804; 89051; 90935; 93005; 93306; 94660; 96365; 96366; 96367; G0257; J0692; J1650; J1956; J2185; J3370; J3490; J7050; Q5105

== ENCOUNTER 2019-06-30 12:43 | Inpatient (IN) | payer MEDICARE ==
[2019-06-30 13:43] LABS: #Eosinphils 0.1 thou/uL (0.0-0.7); #Lymphocytes 1.4 thou/uL (1.20-3.40); #Neutrophils 8.1 thou/uL (1.40-6.50); %Basophils 0.3 % (0.0-1.0); %Eosinophils 0.9 % (0.0-10.0); %Monocytes 9.7 % (0.0-10.0); %Neutrophils 76.2 % (42.0-75.0); Hemoglobin 8.9 g/dL (14.0-18.0); Mean Corpuscular Hemoglobin 33.7 pg (27.0-31.0); Mean Platelet Volume 6.6 fL (7.4-10.4); Platelet Count 238 thou/uL (130-400); RBC Distribution Width 13.5 % (11.5-14.5); Red Blood Cell (RBC) Count 2.62 mill/uL (4.70-6.10); White Blood Cell (WBC) Count 10.7 thou/uL (4.8-10.8)
--- NOTE | 2019-06-30 13:45 | RAD ---
Frontal radiograph chest: 06/30/2019 COMPARISON: 04/08/2019 HISTORY: Chest pain, elevated troponin FINDINGS: Midline sternotomy wires and mediastinal clips are present. There is atherosclerotic calcification of the aortic arch. Stable prominence of the cardiac silhouett e. No pneumothorax or pleural fluid. No focal consolidation or alveolar edema. IMPRESSION: No acute findings-stable appearance of the chest.
[2019-06-30 14:01] LABS: ALT (SGPT) Less than 7 U/L (8-55); AST (SGOT) 12 U/L (5-34); Albumin 3.8 g/dL (3.4-4.8); Alkaline Phosphatase 71 U/L (40-110); Anion Gap 17 mmol/L (10-20); BUN (Urea Nitrogen) 57 mg/dL (8.4-25.7); Bilirubin, Total 0.7 mg/dL (0.2-1.2); CK (CPK) 84 U/L (30-200); Calc. Creatinine Clearance 0 mL/min (70-130); Carbon Dioxide 30 mmol/L (23-31); Chloride 99 mmol/L (98-107); Estimated GFR-MDRD 5; Globulin 2.9 g/dL (2.4-3.5); Glucose 114 mg/dL (83-110); Potassium 4.5 mmol/L (3.5-5.1); Protein, Total 6.7 g/dL (5.8-8.1); Sodium 141 mmol/L (136-145)
[2019-06-30 14:04] LABS: CKMB 4.4 ng/mL (0-6.6)
[2019-06-30] MEDS ORDERED: Acetaminophen/Codeine 30-300mg Tablet ONE (14:39)
[2019-06-30] MEDS ORDERED: Ondansetron ODT 4 MG TAB SL PRN (16:53)
[2019-06-30] MEDS ORDERED: Ondansetron PF 4 MG/2 ML Vial IVP PRN ×2 (16:53→18:34)
[2019-06-30] MEDS ORDERED: Acetaminophen 325 MG TAB PO PRN ×2 (16:53→18:34)
[2019-06-30 17:02] VITALS: BMI 30.7
[2019-06-30] MEDS ORDERED: Nitroglycerin 0.4 MG TAB (25 Tab Bottle) SL PRN (17:50)
[2019-06-30] MEDS ORDERED: Ondansetron ODT 4 MG TAB PO PRN (18:34)
[2019-06-30] MEDS ORDERED: Senokot S 8.6-50 MG TAB PO PRN (18:34)
[2019-06-30] MEDS ORDERED: Calcium Carbonate 500 MG ChewTAB PO PRN (18:34)
[2019-06-30 18:39] LABS: CKMB 5.6 ng/mL (0-6.6)
--- NOTE | 2019-06-30 18:45 | HP ---
PRIMARY CARE PHYSICIAN: Abe Pope. PRIMARY STYLE ADVISOR: Dr. Medley. CHIEF COMPLAINT: Chest discomfort. HISTORY OF PRESENT ILLNESS: The patient is a 78-year-old male with end-stage renal disease, on hemodialysis; coronary artery disease status post CABG; paroxysmal atrial fibrillation; and hypertension, who presented to the emergency room at [facility] [place] with chest discomfort. The chest discomfort started earlier today while he was at home. It was pressure-like precordial without any aggravating or relieving factor. He denies any nausea, vomiting, shortness of breath, or diaphoresis. He denies recent immobilization or travel. No fever, chills, or sick contacts reported. He is compliant with all of his medications. He is unable to recall any of his home medication at this time. PAST MEDICAL HISTORY: 1. Coronary artery disease status post CABG. 2. Hypertension. 3. Paroxysmal atrial fibrillation. 4. End-stage renal disease, on hemodialysis. 5. History of congestive heart failure. 6. Parkinson disease. PAST SURGICAL HISTORY: 1. Coronary artery bypass grafting. 2. Coronary stent placement. 3. Dialysis access. 4. Knee surgery. 5. Lumbar puncture. ALLERGIES: THE PATIENT IS ALLERGIC TO PENICILLIN. CURRENT HOME MEDICATIONS: The patient is unable to recall any of his home medication at this time. SOCIAL HISTORY: The patient currently lives at home with his . He quit smoking many years ago. No current use of alcohol or drug use. He is a full code. His is a decision maker. FAMILY HISTORY: Negative for heart disease. REVIEW OF SYSTEMS: Limited due to current mentation. PHYSICAL EXAMINATION: VITAL SIGNS: At [facility] [place], showed temperature 98.6, pulse rate of 53, blood pressure of 95/48, O2 saturation 93% on room air, and respirations of 16. GENERAL: A 78-year-old male, in no apparent distress, denies any chest discomfort at this time, undergoing hemodialysis. HEENT: Head, atraumatic and normocephalic. Sclerae anicteric. Moist mucous membranes. No oral lesion. NECK: Supple. No JVD appreciated. No carotid bruit. LUNGS: Clear to auscultation bilaterally. No wheezing, rales, or rhonchi. HEART: S1 and S2 present. Regular rate and rhythm. A 2/6 systolic murmur over the mitral area. ABDOMEN: Soft and nontender. Bowel sounds present. No rebound or guarding. No costovertebral angle tenderness. EXTREMITIES: No edema or calf tenderness. NEUROLOGIC: Grossly nonfocal. Moves all 4 extremities. PSYCHIATRIC: The patient is alert and awake, poor historian. SKIN: Warm and dry. LYMPH NODES: No palpable lymph nodes in the neck. LABORATORY FINDINGS: WBC was 13.5, hemoglobin 9.7, and hematocrit 31.5. Glucose was 106, BUN 55, and creatinine 9.26. Troponin initially was 0.51. Chest x-ray at [facility] in [place] was negative for infiltrate or edema. EKG at [facility] showed sinus rhythm with PVCs. His telemetry monitoring at this time showed atrial flutter, rate controlled. IMPRESSION: 1. Chest discomfort with elevated troponin, suspected [id number] myocardial infarction. 2. Coronary artery disease status post coronary artery bypass grafting and stent placement. 3. Hypertension. 4. Hyperlipidemia. 5. Parkinson disease. 6. Paroxysmal atrial fibrillation/flutter. 7. History of congestive heart failure. 8. Physical deconditioning. PLAN: The patient will be monitored in the telemetry unit. He received aspirin in the emergency room. We will start him on heparin drip. I discussed with Cardiology, Dr. Lizama. Home medications will be verified. Echocardiogram will be obtained. We will check fasting lipid profile in a.m. Monitor PTT while on anticoagulation. We will resume home medications once verified. We will discuss the plan of care with the family. The patient understands the above plan of care. Job ID: [id number]
--- NOTE | 2019-06-30 20:08 | CON ---
DATE OF CONSULTATION: HISTORY: Quinn Carrillo is a 78-year-old white male who is transferred from [facility] for further evaluation of episode of chest discomfort. He is somewhat of a poor historian and it is uncertain exactly when he had stent or bypass surgery. Apparently, he had a stent placed prior to bypass surgery. He is uncertain how many grafts were placed. However, at other places in the medical record, it states that he had 2 bypasses. He is uncertain of the year, but does remember that this was at [facility] on and [facility] in [place]. He was hospitalized in 03/2019 after he presented after a fall. He had elevated troponin level and was seen by Dr. Rivera who felt this was a non-STEMI type 2. Echocardiogram during that admission revealed ejection fraction of 55% to 60% with evidence of diastolic dysfunction, mild left atrial enlargement, mild aortic stenosis, mild mitral regurgitation, mild tricuspid regurgitation. He also has end-stage renal disease and is on dialysis. He has paroxysmal atrial fibrillation. After dialysis yesterday morning, he states that he just did not feel well. He started to have chest discomfort, which he states lasted all night, and ultimately went to the emergency room in [place], was found to have elevated troponin I and was transferred for further evaluation. PAST MEDICAL HISTORY: 1. Coronary artery disease with history of stent and CABG. 2. Hypertension. 3. Paroxysmal atrial fibrillation, currently in atrial fibrillation. 4. End-stage renal disease, on dialysis. 5. Parkinson disease. 6. Depression. PAST SURGICAL HISTORY: 1. CABG. 2. Coronary stent placement. 3. Knee surgery. 4. AV fistula placement. 5. Back surgery. MEDICATIONS: 1. Allopurinol 100 daily. 2. Atorvastatin 10 q.a.m. 3. Calcitriol 0.25 mcg daily. 4. Carbidopa/levodopa two tablets t.i.d. 5. Folic acid. 6. Vitamin B complex one tablet daily. 7. Protonix 40 daily. 8. Seroquel 50 nightly. 9. Sertraline 50 daily. ALLERGIES: PENICILLIN. SOCIAL HISTORY: He does not smoke or drink. FAMILY HISTORY: Unremarkable. REVIEW OF SYSTEMS: Otherwise unremarkable. PHYSICAL EXAMINATION: VITAL SIGNS: Blood pressure 123/58 and pulse of 100. HEENT: PERRL. NECK: Supple. CHEST: Clear. CARDIAC: S1 and S2 are normal without any S3 or S4. There is a 1/6 to 2/6 systolic murmur. ABDOMEN: Normal bowel sounds without tenderness or organomegaly. EXTREMITIES: No clubbing, cyanosis, or edema. NEUROLOGIC: Grossly intact with difficulty remembering certain aspects of his medical history. LABORATORY DATA: I do not see an EKG on the chart. On the monitor, he is in atrial fibrillation. Hemoglobin 8.9, hematocrit 26.8, white count 10,700, and platelets 238,000. A pH 7.38, pCO2 of 44.0, and pO2 of 64.6. Sodium 141, potassium 4.5, chloride 99, carbon dioxide 30, BUN 57, and creatinine 10.35. Troponin I is up to 2.283. IMPRESSION: 1. Probable [id number] myocardial infarction. 2. Status post coronary artery bypass graft, apparently x2. 3. Hypertension. 4. Hypercholesterolemia. 5. Parkinson disease. 6. End-stage renal disease, on dialysis. 7. Mild aortic stenosis. PLAN: Aspirin is not listed amongst his medications, and in talking with Mr. Carrillo, he does not think that he takes aspirin, but is uncertain why. He has been started on aspirin here as well as placed on a heparin drip. EKG will be requested since I cannot find one on the chart. Further discussion will be held with Mr. Carrillo and his regarding further evaluation. Certainly, consideration may need to be given for cardiac catheterization. Job ID: [id number] MTDD
[2019-06-30] MEDS: Heparin 10,000 UNITS/ 10 ML VIAL SLOW IVP SCH (21:19)
[2019-06-30] MEDS: Famotidine 20 MG TAB PO SCH (21:19)
[2019-06-30] MEDS: Heparin 25,000 units/D5W 500 ML IVPB SCH (21:20)
[2019-07-01 04:47] LABS: Hemoglobin 8.8 g/dL (14.0-18.0); Platelet Count 239 thou/uL (130-400)
[2019-07-01] MEDS: Heparin 10,000 UNITS/ 10 ML VIAL SLOW IVP SCH ×3 (05:01→19:06)
[2019-07-01 05:05] LABS: Cardiac Risk 3.6 (Less than 4.5)
[2019-07-01] MEDS: Allopurinol 100 MG TAB PO SCH (08:59)
[2019-07-01] MEDS: Folic Acid/Vit B Comp W-C PO SCH (09:00)
[2019-07-01] MEDS: Aspirin 325 mg Enteric Coated Tablet PO SCH (09:00)
[2019-07-01] MEDS: Calcium Acetate 667 MG CAP PO SCH ×3 (09:00→17:23)
[2019-07-01] MEDS ORDERED: Atorvastatin Calcium 10 MG TAB PO SCH (09:00)
[2019-07-01] MEDS: Calcitriol 0.25 MCG CAP PO SCH (09:00)
[2019-07-01 11:50] LABS: Anion Gap 18 mmol/L (10-20); BUN (Urea Nitrogen) 39 mg/dL (8.4-25.7); Calc. Creatinine Clearance 9 mL/min (70-130); Carbon Dioxide 25 mmol/L (23-31); Chloride 97 mmol/L (98-107); Estimated GFR-MDRD 6; Glucose 93 mg/dL (83-110); Potassium 5.1 mmol/L (3.5-5.1); Sodium 135 mmol/L (136-145)
--- NOTE | 2019-07-01 12:27 | PDOC.HOSPP ---
- Subjective Encounter Date: 07/01/19 Encounter Time: 10:00 Subjective: no chest pain or sob or palp feels better - Objective Vital Signs & Weight: Vital Signs (12 hours) Temp Pulse Resp BP Pulse Ox 07/01/19 07:41 99.7 F H 114 H 16 111/55 L 96 07/01/19 04:00 99.4 F 117 H 20 112/54 L 97 Weight Weight 196 lb I&O: 06/30/19 07/01/19 07/02/19 06:59 06:59 06:59 Intake Total 268 Output Total 1000 Balance -732 Result Diagrams: 07/01/19 04:18 07/01/19 11:01 Hospitalist ROS - Medication Medications: Active Medications Generic Name Dose Route Start Last Admin Trade Name Nicolásq PRN Reason Stop Dose Admin Allopurinol 100 mg 07/01/19 09:00 07/01/19 08:59 Zyloprim PO 100 mg DAILY HERMILA Administration Aspirin 325 mg 07/01/19 09:00 07/01/19 09:00 Ecotrin PO 325 mg DAILY HERMILA Administration Calcitriol 0.25 mcg 07/01/19 09:00 07/01/19 09:00 Rocaltrol PO 0.25 mcg DAILY HERMILA Administration Calcium Acetate 1,334 mg 07/01/19 08:00 07/01/19 09:00 Phoslo PO 1,334 mg TID-WM HERMILA Administration Famotidine 20 mg 06/30/19 21:00 06/30/19 21:19 Pepcid PO 20 mg QPM HERMILA Administration Heparin Sodium (Porcine) 0 units 06/30/19 18:00 07/01/19 11:50 Heparin 1,000 Units/Ml (10 Ml) SLOW IVP 2,646 unit ASDIR HEMRILA Administration Protocol Heparin Sodium/Dextrose 500 mls @ 0 mls/hr 06/30/19 18:00 06/30/19 21:20 Heparin 25,000 Units/D5w IVPB 500 mls INF HERMILA Administration Protocol Per Protocol Pantoprazole Sodium 40 mg 07/01/19 09:00 07/01/19 09:00 Protonix PO 40 mg DAILY HERMILA Administration Quetiapine Fumarate 50 mg 06/30/19 21:00 06/30/19 21:19 Seroquel PO 50 mg HS HERMILA Administration Sertraline HCl 50 mg 07/01/19 09:00 07/01/19 08:59 Zoloft PO 50 mg DAILY HERMILA Administration Vitamin B Complex/Vit C/Folic Acid 1 tab 07/01/19 09:00 07/01/19 09:00 Nephro-Ramiro Tablet PO 1 tab DAILY HERMILA Administration - Exam General Appearance: awake alert Eye: PERRL, anicteric sclera ENT: no oropharyngeal lesions, moist mucosa Neck: supple, no JVD Heart: RRR, no murmur Respiratory: no wheezes, no rales Gastrointestinal: soft, non-tender, non-distended, normal bowel sounds Extremities: no cyanosis, no edema Neurological: cranial nerve grossly intact, no focal deficits Hosp A/P (1) NSTEMI (non-ST elevated myocardial infarction) Code(s): I21.4 - NON-ST ELEVATION (NSTEMI) MYOCARDIAL INFARCTION Status: Acute (2) CAD (coronary artery disease) Code(s): I25.10 - ATHSCL HEART DISEASE OF [place] CORONARY ARTERY W/O ANG PCTRS Status: Chronic Qualifiers: Coronary Disease-Associated Artery/Lesion type: bypass graft [place] vs. transplanted heart: [place] heart (3) Dyslipidemia Code(s): E78.5 - HYPERLIPIDEMIA, UNSPECIFIED Status: Chronic (4) Parkinson disease Code(s): G20 - PARKINSON'S DISEASE Status: Chronic (5) Depression Code(s): F32.9 - MAJOR DEPRESSIVE DISORDER, SINGLE EPISODE, UNSPECIFIED Status : Chronic Qualifiers: Depression Type: major depressive disorder Major depression episode severity: unspecified (6) Chronic atrial fibrillation Code(s): I48.2 - CHRONIC ATRIAL FIBRILLATION * DO NOT USE * Status: Chronic (7) ESRD (end stage renal disease) on dialysis Code(s): N18.6 - END STAGE RENAL DISEASE; Z99.2 - DEPENDENCE ON RENAL DIALYSIS Status: Chronic (8) HTN (hypertension) Code(s): I10 - ESSENTIAL (PRIMARY) HYPERTENSION Status: Chronic Qualifiers: (9) Physical deconditioning Code(s): R53.81 - OTHER MALAISE Status: Chronic - Plan is on heparin drip, aspirin and lipitor continue levodopa, zoloft, seroquel likely cath on wednesday hemostable mobilize with PT as tolerated LDL is 81, trop max of 2.28
[2019-07-01] MEDS: LEVODOPA PO SCH ×2 (14:44→21:31)
[2019-07-01] MEDS: CARBIDOPA PO SCH ×2 (14:44→21:31)
--- NOTE | 2019-07-01 15:35 | PRG ---
DATE OF SERVICE: 07/01/2019 SUBJECTIVE: A 78-year-old gentleman being seen for end-stage renal disease. The patient denied any nausea, vomiting, or chest pain. OBJECTIVE: GENERAL: The patient is awake, alert. VITAL SIGNS: Afebrile. Pulse , breathing 16, blood pressure 111/65. HEENT: Head normocephalic and atraumatic. Eyes intact, no ulcers. Nose intact, no ulcers. Ears intact, no ulcers. NECK: Supple. No JVD. CHEST: Symmetrical and clear. CARDIOVASCULAR: Shows S1 and S2, no rub, no murmur. GASTROINTESTINAL: Abdomen is soft, bowel sounds positive. EXTREMITIES: Show no edema or ulcers. SKIN: Shows no rash or petechiae. MUSCULOSKELETAL: Shows no joint swelling or stiffness. GENITOURINARY: Shows no Lyons or CVA tenderness. NEUROLOGIC: Motor intact. Cranial nerves intact. LABORATORY DATA: Reviewed. ASSESSMENT AND PLAN: 1. Stage 6 chronic kidney disease, stable. 2. Hypertension with anemia, stable. 3. Medication based on GFR appropriate. Job ID: [id number]
--- NOTE | 2019-07-01 15:47 | CON ---
DATE OF CONSULTATION: 06/30/2019 TIME: 8 p.m. REASON FOR CONSULTATION: End-stage kidney disease, for maintenance hemodialysis. HISTORY OF PRESENT ILLNESS: This is a very pleasant 78-year-old gentleman, who presented to the hospital with chest pain and volume overload. The patient denied no orthopnea, no PND. Denies any nausea or vomiting. PAST MEDICAL HISTORY: Significant for hypertension, end-stage kidney disease, anemia, congestive heart failure, atrial fibrillation, Parkinson disease, coronary artery disease, CABG, dialysis access, PD catheter, failed peritoneal dialysis, and lumbar puncture. ALLERGIES: REVIEWED. MEDICATIONS: Home medications list reviewed. Hospital medications list reviewed. REVIEW OF SYSTEMS: A 15-point review of system was unobtainable. PHYSICAL EXAMINATION: General: The patient is resting. Vital Signs: breathing 16 and blood pressure 95/48. HEENT: Head normocephalic and atraumatic. Eyes intact, no ulcers. Nose intact, no ulcers. Ears intact, no ulcers. Neck: Supple. No JVD. Chest: Symmetrical and clear. Cardiovascular: Shows S1 and S2, no rub, no murmur. Gastrointestinal: Abdomen is soft, bowel sounds positive. Extremities: Show no edema or ulcers. Skin: Shows no rash or petechiae. Musculoskeletal: Shows no joint swelling or stiffness. Genitourinary: Shows no Lyons or CVA tenderness. Neurologic: The patient is resting. LABORATORY DATA: Reviewed. ASSESSMENT AND PLAN: Stage 6 chronic kidney disease with congestive heart failure, plan dialysis. Coronary artery disease and non-ST myocardial infarction, management per Cardiology. Anemia, stable. Medication based on GFR appropriate. Hypertension, stable. Job ID: [id number]
[2019-07-01] MEDS: Heparin 25,000 units/D5W 500 ML IVPB SCH (19:03)
[2019-07-01] MEDS: Atorvastatin Calcium 20 MG TAB PO SCH (21:30)
[2019-07-01] MEDS: Famotidine 20 MG TAB PO SCH (21:31)
[2019-07-02 04:31] LABS: #Eosinphils 0.2 thou/uL (0.0-0.7); #Lymphocytes 1.3 thou/uL (1.20-3.40); #Monocytes 0.7 thou/uL (0.11-0.59); %Basophils 0.1 % (0.0-1.0); %Eosinophils 1.9 % (0.0-10.0); %Lymphocytes 15.6 % (21.0-51.0); %Monocytes 8.9 % (0.0-10.0); %Neutrophils 73.5 % (42.0-75.0); Mean Corpuscular HGB CONC 33.4 g/dL (32.0-36.0); Mean Corpuscular Hemoglobin 33.2 pg (27.0-31.0); Mean Corpuscular Volume 99.6 fL (78.0-98.0); Platelet Count 221 thou/uL (130-400); RBC Distribution Width 13.3 % (11.5-14.5); Red Blood Cell (RBC) Count 2.42 mill/uL (4.70-6.10); White Blood Cell (WBC) Count 8.2 thou/uL (4.8-10.8)
[2019-07-02 04:42] LABS: Anion Gap 20 mmol/L (10-20); BUN (Urea Nitrogen) 53 mg/dL (8.4-25.7); Calc. Creatinine Clearance 8 mL/min (70-130); Carbon Dioxide 25 mmol/L (23-31); Chloride 95 mmol/L (98-107); Estimated GFR-MDRD 5; Glucose 93 mg/dL (83-110); Sodium 136 mmol/L (136-145)
[2019-07-02] MEDS: Calcitriol 0.25 MCG CAP PO SCH (09:28)
[2019-07-02] MEDS: Folic Acid/Vit B Comp W-C PO SCH (09:28)
[2019-07-02] MEDS: Calcium Acetate 667 MG CAP PO SCH ×3 (09:28→16:22)
[2019-07-02] MEDS: Aspirin 325 mg Enteric Coated Tablet PO SCH (09:28)
[2019-07-02] MEDS: CARBIDOPA PO SCH ×3 (09:29→20:26)
[2019-07-02] MEDS: Allopurinol 100 MG TAB PO SCH (09:29)
[2019-07-02] MEDS: LEVODOPA PO SCH ×3 (09:29→20:26)
--- NOTE | 2019-07-02 10:30 | PDOC.HOSPP ---
- Subjective Encounter Date: 07/02/19 Encounter Time: 08:00 Subjective: is sleepy but arousable responds well to verbal stimuli but needs 2 prompts no sob, has not eaten his breakfast yet - Objective Vital Signs & Weight: Vital Signs (12 hours) Temp Pulse Resp BP Pulse Ox 07/02/19 08:00 97.5 F L 92 18 118/58 L 93 L 07/02/19 04:00 92 L 07/02/19 03:59 98.2 F 102 H 18 101/55 L 92 L 07/02/19 00:00 97.9 F 106 H 20 127/58 L 91 L Weight Weight 196 lb 8 oz I&O: 07/01/19 07/02/19 07/03/19 06:59 06:59 06:59 Intake Total 268 415 Output Total 1000 Balance -732 415 Result Diagrams: 07/02/19 04:05 07/02/19 04:05 Hospitalist ROS - Medication Medications: Active Medications Generic Name Dose Route Start Last Admin Trade Name Freq PRN Reason Stop Dose Admin Allopurinol 100 mg 07/01/19 09:00 07/02/19 09:29 Zyloprim PO 100 mg DAILY HERMILA Administration Aspirin 325 mg 07/01/19 09:00 07/02/19 09:28 Ecotrin PO 325 mg DAILY HERMILA Administration Atorvastatin Calcium 20 mg 07/01/19 21:00 07/01/19 21:30 Lipitor PO 20 mg HS HERMILA Administration Calcitriol 0.25 mcg 07/01/19 09:00 07/02/19 09:28 Rocaltrol PO 0.25 mcg DAILY HERMILA Administration Calcium Acetate 1,334 mg 07/01/19 08:00 07/02/19 09:28 Phoslo PO 1,334 mg TID-WM HERMILA Administration Famotidine 20 mg 06/30/19 21:00 07/01/19 21:31 Pepcid PO 20 mg QPM HERMILA Administration Heparin Sodium (Porcine) 0 units 06/30/19 18:00 07/01/19 19:06 Heparin 1,000 Units/Ml (10 Ml) SLOW IVP 2,646 unit ASDIR HERMILA Administration Protocol Heparin Sodium/Dextrose 500 mls @ 0 mls/hr 06/30/19 18:00 07/01/19 19:03 Heparin 25,000 Units/D5w IVPB 500 mls INF HERMILA Administration Protocol Per Protocol Pantoprazole Sodium 40 mg 07/01/19 09:00 07/02/19 09:28 Protonix PO 40 mg DAILY HERMILA Administration Carbidopa/Levodopa [ 2 each 07/01/19 15:00 07/02/19 09:29 Rytary Er] 2 Tab PO 2 each TID HERMILA Administration Quetiapine Fumarate 50 mg 06/30/19 21:00 07/01/19 21:30 Seroquel PO 50 mg HS HERMILA Administration Sertraline HCl 50 mg 07/01/19 09:00 07/02/19 09:28 Zoloft PO 50 mg DAILY HERMILA Administration Vitamin B Complex/Vit C/Folic Acid 1 tab 07/01/19 09:00 07/02/19 09:28 Nephro-Ramiro Tablet PO 1 tab DAILY HERMILA Administration - Exam General Appearance: NAD Eye: PERRL, anicteric sclera ENT: no oropharyngeal lesions, dry oral mucosa Neck: supple, no JVD Heart: RRR, no murmur Respiratory: no wheezes, no rales Gastrointestinal: soft, non-tender, non-distended, normal bowel sounds Extremities: no cyanosis, no edema Neurological: cranial nerve grossly intact, no focal deficits Hosp A/P (1) NSTEMI (non-ST elevated myocardial infarction) Code(s): I21.4 - NON-ST ELEVATION (NSTEMI) MYOCARDIAL INFARCTION Status: Acute (2) CAD (coronary artery disease) Code(s): I25.10 - ATHSCL HEART DISEASE OF [place] CORONARY ARTERY W/O ANG PCTRS Status: Chronic Qualifiers: Coronary Disease-Associated Artery/Lesion type: bypass graft [place] vs. transplanted heart: [place] heart (3) Dyslipidemia Code(s): E78.5 - HYPERLIPIDEMIA, UNSPECIFIED Status: Chronic (4) Parkinson disease Code(s): G20 - PARKINSON'S DISEASE Status: Chronic (5) Depression Code(s): F32.9 - MAJOR DEPRESSIVE DISORDER, SINGLE EPISODE, UNSPECIFIED Status : Chronic Qualifiers: Depression Type: major depressive disorder Major depression episode severity: unspecified (6) Chronic atrial fibrillation Code(s): I48.2 - CHRONIC ATRIAL FIBRILLATION * DO NOT USE * Status: Chronic (7) ESRD (end stage renal disease) on dialysis Code(s): N18.6 - END STAGE RENAL DISEASE; Z99.2 - DEPENDENCE ON RENAL DIALYSIS Status: Chronic (8) HTN (hypertension) Code(s): I10 - ESSENTIAL (PRIMARY) HYPERTENSION Status: Chronic Qualifiers: (9) Physical deconditioning Code(s): R53.81 - OTHER MALAISE Status: Chronic - Plan is on heparin drip, aspirin and lipitor continue levodopa, zoloft, seroquel likely cath on wednesday hemostable mobilize with PT as tolerated LDL is 81, trop max of 2.28 lethargic post HD yesterday which he normally has based on prior encounters here.
[2019-07-02] MEDS: Heparin 25,000 units/D5W 500 ML IVPB SCH (11:45)
--- NOTE | 2019-07-02 15:57 | PRG ---
DATE OF SERVICE: 07/02/2019 SUBJECTIVE: A 78-year-old gentleman is being seen for end-stage renal disease. The patient denies any nausea, vomiting, or chest pain. OBJECTIVE: GENERAL: The patient is awake and alert. VITAL SIGNS: Afebrile, pulse 84, breathing at 16, blood pressure 132/60. HEENT: Head normocephalic and atraumatic. Eyes intact, no ulcers. Nose intact, no ulcers. Ears intact, no ulcers. NECK: Supple. No JVD. CHEST: Symmetrical and clear. CARDIOVASCULAR: Shows S1 and S2, no rub, no murmur. GASTROINTESTINAL: Abdomen is soft, bowel sounds positive. EXTREMITIES: Show no edema or ulcers. SKIN: Shows no rash or petechiae. MUSCULOSKELETAL: Shows no joint swelling or stiffness. GENITOURINARY: Shows no Lyons or CVA tenderness. NEUROLOGIC: Motor intact. Cranial nerves intact. LABORATORY DATA: Hemoglobin 8, potassium is 4. ASSESSMENT: 1. Stage 6 chronic kidney disease, stable. 2. Hypertension, stable. 3. Anemia, stable. 4. Medication based on GFR appropriate. We will plan dialysis tomorrow. Job ID: [id number]
[2019-07-02] MEDS ORDERED: Labetalol HCl 100 MG/20 ML VIAL ONE (20:11)
[2019-07-02] MEDS: Atorvastatin Calcium 20 MG TAB PO SCH (20:26)
[2019-07-02] MEDS: Famotidine 20 MG TAB PO SCH (20:26)
[2019-07-03] MEDS: Heparin 25,000 units/D5W 500 ML IVPB SCH (03:56)
[2019-07-03 04:37] LABS: #Eosinphils 0.2 thou/uL (0.0-0.7); #Lymphocytes 0.9 thou/uL (1.20-3.40); #Monocytes 0.7 thou/uL (0.11-0.59); #Neutrophils 5.7 thou/uL (1.40-6.50); %Basophils 0.2 % (0.0-1.0); %Eosinophils 2.8 % (0.0-10.0); %Monocytes 8.7 % (0.0-10.0); %Neutrophils 76.3 % (42.0-75.0); Hemoglobin 8.2 g/dL (14.0-18.0); Mean Corpuscular HGB CONC 35.8 g/dL (32.0-36.0); Mean Corpuscular Hemoglobin 35.8 pg (27.0-31.0); Platelet Count 233 thou/uL (130-400); RBC Distribution Width 13.2 % (11.5-14.5); Red Blood Cell (RBC) Count 2.29 mill/uL (4.70-6.10); White Blood Cell (WBC) Count 7.4 thou/uL (4.8-10.8)
[2019-07-03 04:55] LABS: Anion Gap 26 mmol/L (10-20); BUN (Urea Nitrogen) 70 mg/dL (8.4-25.7); Calc. Creatinine Clearance 6 mL/min (70-130); Carbon Dioxide 23 mmol/L (23-31); Chloride 91 mmol/L (98-107); Estimated GFR-MDRD 4; Glucose 82 mg/dL (83-110); Potassium 4.4 mmol/L (3.5-5.1); Sodium 136 mmol/L (136-145)
[2019-07-03] MEDS: Heparin 10,000 UNITS/ 10 ML VIAL SLOW IVP SCH (06:09)
--- NOTE | 2019-07-03 11:03 | PDOC.HOSPP ---
- Subjective Encounter Date: 07/03/19 Encounter Time: 09:00 Subjective: awake, responds to questions but is not fully oriented is npo for stress test today no trouble breathing - Objective Vital Signs & Weight: Vital Signs (12 hours) Temp Pulse Resp BP Pulse Ox 07/03/19 08:28 98.3 F 96 16 134/63 96 07/03/19 03:39 97.3 F L 104 H 20 137/60 95 07/02/19 23:46 102 H 21 H 132/61 93 L Weight Weight 195 lb 11.2 oz I&O: 07/02/19 07/03/19 07/04/19 06:59 06:59 06:59 Intake Total 415 1186.4 Balance 415 1186.4 Result Diagrams: 07/03/19 04:25 07/03/19 04:25 Hospitalist ROS - Medication Medications: Active Medications Generic Name Dose Route Start Last Admin Trade Name Freq PRN Reason Stop Dose Admin Allopurinol 100 mg 07/01/19 09:00 07/02/19 09:29 Zyloprim PO 100 mg DAILY HERMILA Administration Aspirin 325 mg 07/01/19 09:00 07/02/19 09:28 Ecotrin PO 325 mg DAILY HERMILA Administration Atorvastatin Calcium 20 mg 07/01/19 21:00 07/02/19 20:26 Lipitor PO 20 mg HS HERMILA Administration Calcitriol 0.25 mcg 07/01/19 09:00 07/02/19 09:28 Rocaltrol PO 0.25 mcg DAILY HERMILA Administration Calcium Acetate 1,334 mg 07/01/19 08:00 07/02/19 16:22 Phoslo PO 1,334 mg TID-WM HERMILA Administration Famotidine 20 mg 06/30/19 21:00 07/02/19 20:26 Pepcid PO 20 mg QPM HERMILA Administration Pantoprazole Sodium 40 mg 07/01/19 09:00 07/02/19 09:28 Protonix PO 40 mg DAILY HERMILA Administration Carbidopa/Levodopa [ 2 each 07/01/19 15:00 07/02/19 20:26 Rytary Er] 2 Tab PO 2 each TID HERMILA Administration Quetiapine Fumarate 50 mg 06/30/19 21:00 07/02/19 20:26 Seroquel PO 50 mg HS HERMILA Administration Sertraline HCl 50 mg 07/01/19 09:00 07/02/19 09:28 Zoloft PO 50 mg DAILY HERMILA Administration Vitamin B Complex/Vit C/Folic Acid 1 tab 07/01/19 09:00 07/02/19 09:28 Nephro-Ramiro Tablet PO 1 tab DAILY HERMILA Administration - Exam General Appearance: awake alert Eye: PERRL, anicteric sclera ENT: no oropharyngeal lesions, moist mucosa Neck: supple, no JVD Heart: RRR, no murmur Respiratory: no wheezes, no rales Gastrointestinal: soft, non-tender, non-distended, normal bowel sounds Extremities: no cyanosis, no edema Neurological: cranial nerve grossly intact, no focal deficits Hosp A/P (1) NSTEMI (non-ST elevated myocardial infarction) Code(s): I21.4 - NON-ST ELEVATION (NSTEMI) MYOCARDIAL INFARCTION Status: Acute (2) CAD (coronary artery disease) Code(s): I25.10 - ATHSCL HEART DISEASE OF [place] CORONARY ARTERY W/O ANG PCTRS Status: Chronic Qualifiers: Coronary Disease-Associated Artery/Lesion type: bypass graft [place] vs. transplanted heart: [place] heart (3) Dyslipidemia Code(s): E78.5 - HYPERLIPIDEMIA, UNSPECIFIED Status: Chronic (4) Parkinson disease Code(s): G20 - PARKINSON'S DISEASE Status: Chronic (5) Depression Code(s): F32.9 - MAJOR DEPRESSIVE DISORDER, SINGLE EPISODE, UNSPECIFIED Status : Chronic Qualifiers: Depression Type: major depressive disorder Major depression episode severity: unspecified (6) Chronic atrial fibrillation Code(s): I48.2 - CHRONIC ATRIAL FIBRILLATION * DO NOT USE * Status: Chronic (7) ESRD (end stage renal disease) on dialysis Code(s): N18.6 - END STAGE RENAL DISEASE; Z99.2 - DEPENDENCE ON RENAL DIALYSIS Status: Chronic (8) HTN (hypertension) Code(s): I10 - ESSENTIAL (PRIMARY) HYPERTENSION Status: Chronic Qualifiers: (9) Physical deconditioning Code(s): R53.81 - OTHER MALAISE Status: Chronic - Plan is off heparin drip, aspirin and lipitor for stress test today continue levodopa, zoloft, seroquel HD today hemostable mobilize with PT as tolerated LDL is 81, trop max of 2.28 will need placement if he didn't ambulate
[2019-07-03] MEDS: Calcium Acetate 667 MG CAP PO SCH ×3 (11:41→19:08)
[2019-07-03] MEDS: LEVODOPA PO SCH ×3 (11:43→20:36)
[2019-07-03] MEDS: CARBIDOPA PO SCH ×3 (11:43→20:36)
[2019-07-03] MEDS: Aspirin 325 mg Enteric Coated Tablet PO SCH (11:56)
[2019-07-03] MEDS: Folic Acid/Vit B Comp W-C PO SCH (11:56)
[2019-07-03] MEDS: Calcitriol 0.25 MCG CAP PO SCH (11:57)
[2019-07-03] MEDS: Allopurinol 100 MG TAB PO SCH (11:57)
--- NOTE | 2019-07-03 12:51 | PRG ---
DATE OF SERVICE: 07/03/2019 SUBJECTIVE: Patient was seen and examined at bedside and overnight events noted. Patient denies any shortness of breath or chest pain or palpitation. No history of nausea or vomiting or diarrhea or fever or chills or cramps. OBJECTIVE: GENERAL: This is elderly male, in no apparent distress. VITAL SIGNS: blood pressure 134/63. LABORATORY DATA: Potassium 4.4, BUN is 70, and creatinine is 12.3. ASSESSMENT AND PLAN: 1. End-stage renal disease, continue hemodialysis as tolerated. 2. Edema. 3. Hypertension. 4. Anemia. Plan to continue on dialysis; Wednesday, Wednesday, and Wednesday. Job ID: [id number]
[2019-07-03] MEDS: Atorvastatin Calcium 20 MG TAB PO SCH (20:35)
[2019-07-03] MEDS: Famotidine 20 MG TAB PO SCH (20:35)
[2019-07-04 05:18] LABS: #Eosinphils 0.2 thou/uL (0.0-0.7); #Monocytes 0.9 thou/uL (0.11-0.59); #Neutrophils 4.2 thou/uL (1.40-6.50); %Eosinophils 2.6 % (0.0-10.0); %Lymphocytes 15.5 % (21.0-51.0); %Monocytes 13.9 % (0.0-10.0); %Neutrophils 68.1 % (42.0-75.0); Hemoglobin 8.1 g/dL (14.0-18.0); Mean Corpuscular HGB CONC 33.9 g/dL (32.0-36.0); Mean Corpuscular Hemoglobin 33.3 pg (27.0-31.0); Mean Corpuscular Volume 98.2 fL (78.0-98.0); Mean Platelet Volume 6.9 fL (7.4-10.4); Platelet Count 260 thou/uL (130-400); Red Blood Cell (RBC) Count 2.43 mill/uL (4.70-6.10); White Blood Cell (WBC) Count 6.2 thou/uL (4.8-10.8)
[2019-07-04 05:31] LABS: Anion Gap 19 mmol/L (10-20); BUN (Urea Nitrogen) 36 mg/dL (8.4-25.7); Calc. Creatinine Clearance 10 mL/min (70-130); Calcium 10.2 mg/dL (7.8-10.44); Carbon Dioxide 27 mmol/L (23-31); Chloride 96 mmol/L (98-107); Estimated GFR-MDRD 7; Glucose 86 mg/dL (83-110); Potassium 4.3 mmol/L (3.5-5.1); Sodium 138 mmol/L (136-145)
[2019-07-04] MEDS: Calcium Acetate 667 MG CAP PO SCH ×3 (08:11→17:52)
[2019-07-04] MEDS: Aspirin 325 mg Enteric Coated Tablet PO SCH (08:12)
[2019-07-04] MEDS: Folic Acid/Vit B Comp W-C PO SCH (08:12)
[2019-07-04] MEDS: Calcitriol 0.25 MCG CAP PO SCH (08:12)
[2019-07-04] MEDS: Allopurinol 100 MG TAB PO SCH (08:12)
[2019-07-04] MEDS: LEVODOPA PO SCH ×3 (08:13→20:48)
[2019-07-04] MEDS: CARBIDOPA PO SCH ×3 (08:13→20:48)
--- NOTE | 2019-07-04 11:00 | PDOC.HOSPP ---
- Subjective Encounter Date: 07/04/19 Encounter Time: 08:00 Subjective: awake, responds to verbal stimuli no chest pain or sob - Objective Vital Signs & Weight: Vital Signs (12 hours) Temp Pulse Resp BP Pulse Ox 07/04/19 07:12 98.6 F 99 18 111/55 L 94 L 07/04/19 03:11 98.9 F 92 18 117/57 L 94 L 07/04/19 02:00 96 07/03/19 23:53 94 110/56 L Weight Weight 195 lb 1.745 oz I&O: 07/03/19 07/04/19 07/05/19 06:59 06:59 06:59 Intake Total 1186.4 680 Balance 1186.4 680 Result Diagrams: 07/04/19 04:35 07/04/19 04:35 Hospitalist ROS - Medication Medications: Active Medications Generic Name Dose Route Start Last Admin Trade Name Freq PRN Reason Stop Dose Admin Allopurinol 100 mg 07/01/19 09:00 07/04/19 08:12 Zyloprim PO 100 mg DAILY HERMILA Administration Aspirin 325 mg 07/01/19 09:00 07/04/19 08:12 Ecotrin PO 325 mg DAILY HERMILA Administration Atorvastatin Calcium 20 mg 07/01/19 21:00 07/03/19 20:35 Lipitor PO 20 mg HS HERMILA Administration Calcitriol 0.25 mcg 07/01/19 09:00 07/04/19 08:12 Rocaltrol PO 0.25 mcg DAILY HERMILA Administration Calcium Acetate 1,334 mg 07/01/19 08:00 07/04/19 08:11 Phoslo PO 1,334 mg TID-WM HERMILA Administration Famotidine 20 mg 06/30/19 21:00 07/03/19 20:35 Pepcid PO 20 mg QPM HERMILA Administration Metoprolol Succinate 25 mg 07/03/19 09:00 07/04/19 08:13 Toprol Xl PO Not Given DAILY HERMILA Pantoprazole Sodium 40 mg 07/01/19 09:00 07/04/19 08:12 Protonix PO 40 mg DAILY HERMILA Administration Carbidopa/Levodopa [ 2 each 07/01/19 15:00 07/04/19 08:13 Rytary Er] 2 Tab PO 2 each TID HERMILA Administration Quetiapine Fumarate 50 mg 06/30/19 21:00 07/03/19 20:35 Seroquel PO 50 mg HS HERMILA Administration Sertraline HCl 50 mg 07/01/19 09:00 07/04/19 08:12 Zoloft PO 50 mg DAILY HERMILA Administration Vitamin B Complex/Vit C/Folic Acid 1 tab 07/01/19 09:00 07/04/19 08:12 Nephro-Ramiro Tablet PO 1 tab DAILY HERMILA Administration - Exam General Appearance: awake alert Eye: PERRL, anicteric sclera ENT: no oropharyngeal lesions, moist mucosa Neck: supple, no JVD Heart: RRR, no murmur Respiratory: no wheezes, no rales Gastrointestinal: soft, non-tender, non-distended, normal bowel sounds Extremities: no cyanosis, no edema Neurological: cranial nerve grossly intact, no focal deficits Hosp A/P (1) NSTEMI (non-ST elevated myocardial infarction) Code(s): I21.4 - NON-ST ELEVATION (NSTEMI) MYOCARDIAL INFARCTION Status: Acute (2) CAD (coronary artery disease) Code(s): I25.10 - ATHSCL HEART DISEASE OF [place] CORONARY ARTERY W/O ANG PCTRS Status: Chronic Qualifiers: Coronary Disease-Associated Artery/Lesion type: bypass graft [place] vs. transplanted heart: [place] heart (3) Dyslipidemia Code(s): E78.5 - HYPERLIPIDEMIA, UNSPECIFIED Status: Chronic (4) Parkinson disease Code(s): G20 - PARKINSON'S DISEASE Status: Chronic (5) Depression Code(s): F32.9 - MAJOR DEPRESSIVE DISORDER, SINGLE EPISODE, UNSPECIFIED Status : Chronic Qualifiers: Depression Type: major depressive disorder Major depression episode severity: unspecified (6) Chronic atrial fibrillation Code(s): I48.2 - CHRONIC ATRIAL FIBRILLATION * DO NOT USE * Status: Chronic (7) ESRD (end stage renal disease) on dialysis Code(s): N18.6 - END STAGE RENAL DISEASE; Z99.2 - DEPENDENCE ON RENAL DIALYSIS Status: Chronic (8) HTN (hypertension) Code(s): I10 - ESSENTIAL (PRIMARY) HYPERTENSION Status: Chronic Qualifiers: (9) Physical deconditioning Code(s): R53.81 - OTHER MALAISE Status: Chronic - Plan is off heparin drip, aspirin and lipitor await stress test after 2nd portion today continue levodopa, zoloft, seroquel HD Wednesday/wed/wed hemostable mobilize with PT as tolerated LDL is 81, trop max of 2.28 will need placement, amb only 20ft with PT
[2019-07-04] MEDS ORDERED: Regadenoson 0.4 MG/5 ML SYRINGE ONE (11:44)
--- NOTE | 2019-07-04 12:20 | NM ---
NUCLEAR MEDICINE CARDIAC STRESS WITH EF AND WALL MOTION: HISTORY: Chest pain TECHNIQUE: 2 day protocol was utilized. The patient was administered 30.70 mCi of technetium 99m Sest amibi for rest imaging and 33 mm of technetium 99 Sestamibi for stress imaging. Cardiac gating was performed. FINDINGS: No reversibility. Fixed on the lateral left ventricle. TID is 1.03 End-diastolic volume is 109 mL End systolic volume is 57 mL Cardiac gating and wall motion: Mild global hypokinesis. 48% ejection fraction. IMPRESSION: 1. No reversibility defect. Fixed scar in the lateral left ventricle. However, the patient does have a positive EKG. Correlate clinically. 2. Mild global hypokinesis. 48% ejection fraction.
[2019-07-04] MEDS ORDERED: Aspirin 325 mg Enteric Coated Tablet PO SCH ×2 (12:46→13:00)
[2019-07-04] MEDS ORDERED: Clopidogrel Bisulfate 300 MG TAB PO SCH (13:00)
--- NOTE | 2019-07-04 16:45 | PRG ---
DATE OF SERVICE: 07/04/2019 SUBJECTIVE: Patient was seen and examined at bedside and overnight events noted. Patient denies any shortness of breath or chest pain or palpitation. No history of nausea or vomiting or diarrhea or fever or chills or cramps. OBJECTIVE: General: This is a well-built male, in no apparent distress. Vital Signs: Temperature 98.2. Heart rate 90. Respiratory rate 18. Blood pressure 139/54. HEENT: Atraumatic, normocephalic. Oral mucosa is moist. Neck: Supple. Cardiovascular: S1, S2 heard. Rate and rhythm regular. Respiratory: Clear to auscultation. Gastrointestinal: Abdomen is soft. Musculoskeletal: No tenderness. No edema. Dermatologic: No skin rash. Neurologic: Alert and awake and oriented x3. No focal neurologic deficits. Moving all the extremities. Psychiatric: Mood and affect normal. LABORATORY DATA: Potassium is 4.3, BUN is 36, and creatinine is 7.8. ASSESSMENT AND PLAN: 1. End-stage renal disease. Continue dialysis as tolerated. 2. Edema. 3. Hypertension. 4. Anemia. 5. Continue dialysis as tolerated. Job ID: [id number]
[2019-07-04] MEDS: Atorvastatin Calcium 20 MG TAB PO SCH (20:48)
[2019-07-04] MEDS: Famotidine 20 MG TAB PO SCH (20:48)
[2019-07-05 04:34] LABS: #Basophils 0.1 thou/uL (0.0-0.2); #Eosinphils 0.2 thou/uL (0.0-0.7); #Lymphocytes 0.9 thou/uL (1.20-3.40); #Monocytes 0.7 thou/uL (0.11-0.59); #Neutrophils 4.8 thou/uL (1.40-6.50); %Basophils 0.8 % (0.0-1.0); %Eosinophils 3.4 % (0.0-10.0); %Lymphocytes 13.3 % (21.0-51.0); %Monocytes 10.8 % (0.0-10.0); %Neutrophils 71.6 % (42.0-75.0); Hemoglobin 8.2 g/dL (14.0-18.0); Mean Corpuscular HGB CONC 32.3 g/dL (32.0-36.0); Mean Corpuscular Hemoglobin 32.3 pg (27.0-31.0); Mean Platelet Volume 7.1 fL (7.4-10.4); Platelet Count 280 thou/uL (130-400); RBC Distribution Width 12.9 % (11.5-14.5); Red Blood Cell (RBC) Count 2.55 mill/uL (4.70-6.10); White Blood Cell (WBC) Count 6.7 thou/uL (4.8-10.8)
[2019-07-05 05:05] LABS: Anion Gap 21 mmol/L (10-20); BUN (Urea Nitrogen) 56 mg/dL (8.4-25.7); Calc. Creatinine Clearance 7 mL/min (70-130); Calcium 10.8 mg/dL (7.8-10.44); Carbon Dioxide 27 mmol/L (23-31); Chloride 94 mmol/L (98-107); Estimated GFR-MDRD 5; Glucose 77 mg/dL (83-110); Potassium 4.5 mmol/L (3.5-5.1); Sodium 137 mmol/L (136-145)
[2019-07-05] MEDS: LEVODOPA PO SCH ×2 (08:52→15:55)
[2019-07-05] MEDS: Calcium Acetate 667 MG CAP PO SCH ×2 (08:52→12:14)
[2019-07-05] MEDS: CARBIDOPA PO SCH ×2 (08:52→15:55)
[2019-07-05] MEDS ORDERED: Clopidogrel Bisulfate 75 MG TAB PO SCH (09:00)
[2019-07-05] MEDS ORDERED: Aspirin 325 mg Enteric Coated Tablet PO SCH (09:00)
[2019-07-05] MEDS: Calcitriol 0.25 MCG CAP PO SCH (12:13)
[2019-07-05] MEDS: Folic Acid/Vit B Comp W-C PO SCH (12:13)
[2019-07-05] MEDS: Allopurinol 100 MG TAB PO SCH (12:14)
--- NOTE | 2019-07-05 13:02 | PRG ---
DATE OF SERVICE: 07/05/2019 SUBJECTIVE: Patient was seen and examined at bedside and overnight events noted. Patient denies any shortness of breath or chest pain or palpitation. No history of nausea or vomiting or diarrhea or fever or chills or cramps. OBJECTIVE: General: This is well-built male, in no acute distress. Vital Signs: Temperature 97.0. Heart Rate 97. Respiratory rate . Blood pressure 121/66. HEENT: Atraumatic, normocephalic. Oral mucosa is moist. Neck: Supple. Cardiovascular: S1, S2 heard. Rate and rhythm regular. Respiratory: Clear to auscultation. Gastrointestinal: Abdomen is soft. Musculoskeletal: No tenderness. No edema. Dermatologic: No skin rash. Neurologic: Alert and awake and oriented x3. No focal neurologic deficits. Moving all the extremities. Psychiatric: Mood and affect normal. LABORATORY DATA: Potassium is 4.5, BUN is 56, and creatinine is 10.2. ASSESSMENT AND PLAN: 1. End-stage renal disease. Continue dialysis Wednesday, Wednesday, Wednesday. 2. Edema. 3. Hypertension. 4. Anemia. 5. Continue dialysis. Job ID: [id number]
--- NOTE | 2019-07-05 15:29 | PDOC.HOSPP ---
- Subjective Encounter Date: 07/05/19 Encounter Time: 09:00 Subjective: is having HD, no sob, responds to verbal stimulation (is slow to talk as usual and is closing his eyes) - Objective Vital Signs & Weight: Vital Signs (12 hours) Temp Pulse Resp BP Pulse Ox 07/05/19 12:11 98.0 F 97 16 121/56 L 94 L 07/05/19 06:55 98.1 F 86 14 143/63 H 96 Weight Weight 192 lb 3.889 oz I&O: 07/04/19 07/05/19 07/06/19 06:59 06:59 06:59 Intake Total 680 500 Output Total 0 Balance 680 500 Result Diagrams: 07/05/19 03:53 07/05/19 03:53 Hospitalist ROS - Medication Medications: Active Medications Generic Name Dose Route Start Last Admin Trade Name Freq PRN Reason Stop Dose Admin Allopurinol 100 mg 07/01/19 09:00 07/05/19 12:14 Zyloprim PO 100 mg DAILY HERMILA Administration Atorvastatin Calcium 20 mg 07/01/19 21:00 07/04/19 20:48 Lipitor PO 20 mg HS HERMILA Administration Calcitriol 0.25 mcg 07/01/19 09:00 07/05/19 12:13 Rocaltrol PO 0.25 mcg DAILY HERMILA Administration Calcium Acetate 1,334 mg 07/01/19 08:00 07/05/19 12:14 Phoslo PO 1,334 mg TID-WM HERMILA Administration Clopidogrel Bisulfate 75 mg 07/05/19 09:00 07/05/19 12:15 Plavix PO 75 mg DAILY HERMILA Administration Famotidine 20 mg 06/30/19 21:00 07/04/19 20:48 Pepcid PO 20 mg QPM HERMILA Administration Metoprolol Succinate 25 mg 07/03/19 09:00 07/05/19 12:14 Toprol Xl PO 25 mg DAILY HERMILA Administration Pantoprazole Sodium 40 mg 07/01/19 09:00 07/05/19 12:14 Protonix PO 40 mg DAILY HERMILA Administration Carbidopa/Levodopa [ 2 each 07/01/19 15:00 07/05/19 08:52 Rytary Er] 2 Tab PO Not Given TID HERMILA Quetiapine Fumarate 50 mg 06/30/19 21:00 07/04/19 20:48 Seroquel PO 50 mg HS HERMILA Administration Sertraline HCl 50 mg 07/01/19 09:00 07/05/19 12:13 Zoloft PO 50 mg DAILY HERMILA Administration Sodium Chloride 10 ml 07/04/19 21:00 07/05/19 12:15 Flush - Normal Saline IVF 10 ml Q12HR HERMILA Administration Vitamin B Complex/Vit C/Folic Acid 1 tab 07/01/19 09:00 07/05/19 12:13 Nephro-Ramiro Tablet PO 1 tab DAILY HERMILA Administration - Exam Eye: PERRL, anicteric sclera ENT: no oropharyngeal lesions, moist mucosa Neck: supple, no JVD Heart: RRR, no murmur Respiratory: no wheezes, no rales Gastrointestinal: soft, non-tender, non-distended, normal bowel sounds Extremities: no cyanosis, no edema Neurological: cranial nerve grossly intact, no focal deficits Hosp A/P (1) NSTEMI (non-ST elevated myocardial infarction) Code(s): I21.4 - NON-ST ELEVATION (NSTEMI) MYOCARDIAL INFARCTION Status: Resolved (2) CAD (coronary artery disease) Code(s): I25.10 - ATHSCL HEART DISEASE OF [place] CORONARY ARTERY W/O ANG PCTRS Status: Chronic Qualifiers: Coronary Disease-Associated Artery/Lesion type: bypass graft [place] vs. transplanted heart: [place] heart (3) Dyslipidemia Code(s): E78.5 - HYPERLIPIDEMIA, UNSPECIFIED Status: Chronic (4) Parkinson disease Code(s): G20 - PARKINSON'S DISEASE Status: Chronic (5) Depression Code(s): F32.9 - MAJOR DEPRESSIVE DISORDER, SINGLE EPISODE, UNSPECIFIED Status : Chronic Qualifiers: Depression Type: major depressive disorder Major depression episode severity: unspecified (6) Chronic atrial fibrillation Code(s): I48.2 - CHRONIC ATRIAL FIBRILLATION * DO NOT USE * Status: Chronic (7) ESRD (end stage renal disease) on dialysis Code(s): N18.6 - END STAGE RENAL DISEASE; Z99.2 - DEPENDENCE ON RENAL DIALYSIS Status: Chronic (8) HTN (hypertension) Code(s): I10 - ESSENTIAL (PRIMARY) HYPERTENSION Status: Chronic Qualifiers: (9) Physical deconditioning Code(s): R53.81 - OTHER MALAISE Status: Chronic - Plan on plavix, aspirin, low dose toprol xl and lipitor stress test is -ve continue levodopa, zoloft, seroquel HD Wednesday/wed/wed hemostable mobilize with PT as tolerated LDL is 81, trop max of 2.28 dc plan is to rehab if cleared by today d/w and gave full updates over phone
[2019-07-05 15:54] VITALS: BP 135/58; TEMP 98.4
--- NOTE | 2019-07-05 18:48 | DIS ---
DATE OF ADMISSION: 06/30/2019 DATE OF DISCHARGE: 07/05/2019 DISCHARGE DISPOSITION: Inpatient rehab. PRIMARY DISCHARGE DIAGNOSES: Lig-LI-fleaaauci myocardial infarction; deconditioning; coronary artery disease; Parkinson disease; end-stage renal disease, on hemodialysis; depression; chronic atrial fibrillation; hypertension. PROCEDURES DONE DURING HOSPITALIZATION: Chest x-ray done on the day of admission showed no acute findings. Echo with 2D Doppler showed ejection fraction of 55% to 60%. Left atrium was moderately dilated. [id number] aortic stenosis. Nuclear stress test done on 07/05/2019 showed no reversible defect, fixed scar in the lateral left ventricle, mild global hypokinesis with 48% ejection fraction on the stress test. LABORATORY DATA: H and H of 8 and 25, platelet count 280, MCV is 100, white count of 6.7. Discharge BUN and creatinine are 56 and 10.2, serum bicarb of 27 on the day of discharge, folic acid 36, vitamin B12 of 851, total cholesterol 143, triglycerides 112, LDL 81, HDL 40. Troponin I was elevated peaking up to 2.28. CK-MB 5.6. DISCHARGE MEDICATIONS: 1. Allopurinol 100 mg p.o. daily. 2. Calcitriol 0.25 mcg p.o. daily. 3. Calcium acetate 1334 mg p.o. 3 times daily. 4. Carbidopa/levodopa 36.25/145 mg extended release capsule 2 tablets 3 times daily. 5. Protonix 40 mg p.o. daily. 6. Seroquel 50 mg p.o. q.h.s. 7. Sertraline 50 mg p.o. daily. 8. Aspirin 81 mg p.o. daily. 9. Lipitor 20 mg p.o. q.h.s. 10. Plavix 75 mg p.o. daily. 11. Toprol-XL 25 mg p.o. daily. ALLERGIES: ALLERGIC TO PENICILLIN. INPATIENT CONSULT: 1. Dr. Rivera for Cardiology. 2. Dr. Medley for Nephrology. DISCHARGE PLAN: The patient to follow up with Dr. Kaci Pickens in 1 week after discharge from rehab. He needs followup with Dr. Rivera in 2 weeks. BRIEF COURSE DURING HOSPITALIZATION: The patient initially got admitted on the for complaints of chest discomfort. He had elevated troponin going up to 2. The patient had multiple risk factors for heart disease. He was placed on heparin drip along with aspirin on telemetry. The patient's EKG did not reveal any ST elevation. He has had consultation with Dr. Lizama and Dr. Rivera. Echo showed good ejection fraction. Nuclear stress test did not reveal any reversible ischemia. He was placed on aspirin and Plavix and increase in Lipitor dose. He has remained hemodynamically stable with no further chest pain. The patient has severe deconditioning and has ambulated very minimally around 20 to 40 feet with physical therapy. In view of this, he is being discharged to inpatient rehab for further recuperation prior to going home. Please note, a [id number] documentation [facility] A total of 35 minutes was spent on discharge plan. I have given complete updates to his , Ms. Lorena Chowdhury over the phone. Job ID: [id number]
--- NOTE | 2019-07-06 07:38 | EKG ---
Test Reason : ROUTINE Blood Pressure : / mmHG Vent. Rate : 116 BPM Atrial Rate : 116 BPM P-R Int : 186 ms QRS Dur : 088 ms QT Int : 322 ms P-R-T Axes : 052 022 067 degrees QTc Int : 447 ms Sinus tachycardia with Premature atrial complexes Otherwise normal ECG When compared with ECG of 30-JUN-2019 19:43, (Unconfirmed) Premature atrial complexes are now Present Confirmed by EMMA MARTINEZ, GEORGE ([id number]) on 07/06/2019 7:38:38 AM Referred By: PATRICIA BAILEY Confirmed By:GEORGE CARTER MD
--- NOTE | 2019-07-06 07:38 | EKG ---
Test Reason : Blood Pressure : / mmHG Vent. Rate : 097 BPM Atrial Rate : 097 BPM P-R Int : 188 ms QRS Dur : 100 ms QT Int : 384 ms P-R-T Axes : 062 031 078 degrees QTc Int : 487 ms Sinus rhythm with marked sinus arrhythmia Minimal voltage criteria for LVH, may be normal variant Prolonged QT Abnormal ECG When compared with ECG of 30-JUN-2019 14:17, (Unconfirmed) No significant change was found Confirmed by GEORGE CARTER MD ([id number]) on 07/06/2019 7:38:19 AM Referred By: PATRICIA BAILEY Confirmed By:GEORGE CARTER MD
[2019-07-06] MEDS ORDERED: Aspirin 81 mg Enteric Coated Tablet PO SCH (09:00)
--- NOTE | 2019-07-07 08:25 | PQF ---
DEBBIE LEAL VINAYA KUMAR MD [id number] CLINICAL DOCUMENTATION CLARIFICATION FORM: POST DISCHARGE Addendum to original discharge summary date: ____ Late entry note date: __ DATE: 07/07/2019 ATTN: Boogie Vincent Please exercise your independent, professional judgment in responding to the clarification form. Clinical indicators are provided on the bottom of this form for your review Please check appropriate box(s): [ ] NSTEMI (RI type I) [ x ] NSTEMI due to Demand Ischemia (AMI Type II) [ ] NSTEMI Type II due to:(please specify condition) [ ] Other CLINICAL INDICATORS - SIGNS / SYMPTOMS / LABS Laboratory 06/29 Troponin 1.385; 2.130; 2.283; CK-MB 4.4; 5.6 Vital signs BP 101/49, Pulse 103, Resp 20, Temp 98.3 ED notes p9 06/29 Chest pain anterior chest wall, elevated troponin, NSTEMI, volume overload H&P p2 06/29 Chest discomfort with elevated troponin, suspected non-ST- Elevation myocardial infarction Consult p1 06/29 felt this was a non NSTEMI type 2 Consult p3 06/[address] elevation myocardial infarction RISKS: ED Notes p3 06/29 Former Smoker H&P p1 06/29 78 year-old male H&P p1 06/29 CAD s/p CABG H&P p1 06/29 PAFib H&P p1 06/29 ESRD on dialysis H&P p1 06/29 CHF H&P p1 06/29 Parkinson Disease H&P p1 06/29 HTN H&P p3 06/29 HLD Cardio consult p2 06/30 Mild Aortic stenosis Cardio consult p2 06/30 hypercholesterolemia TREATMENTS: MAR 4/10 IVF NS 1L MAY 23 Aspirin 325 mg oral MAR 07/03 Plavix 300mg oral ECG 06/30 Cardiology consult 06/29 Hari Caba Monitored in [facility] (This form is maintained as a part of the permanent medical record) 2014 [employer]. All Rights Reserved [email or web address]
--- NOTE | 2019-07-08 09:10 | EKG ---
Test Reason : Blood Pressure : / mmHG Vent. Rate : 102 BPM Atrial Rate : 102 BPM P-R Int : 186 ms QRS Dur : 094 ms QT Int : 356 ms P-R-T Axes : 055 031 081 degrees QTc Int : 463 ms Sinus tachycardia Otherwise normal ECG #1 Confirmed by KWASI ELLIS DO ([id number]), editorial writer ALEXANDRIA STEIN ([id number]) on 07/08/2019 9:10:38 AM Referred By: Confirmed By:KWASI ELLIS DO
--- NOTE | 2019-07-08 09:11 | EKG ---
Test Reason : Blood Pressure : / mmHG Vent. Rate : 102 BPM Atrial Rate : 102 BPM P-R Int : 194 ms QRS Dur : 090 ms QT Int : 366 ms P-R-T Axes : 056 015 066 degrees QTc Int : 477 ms Sinus tachycardia Otherwise normal ECG #2 Confirmed by KWASI ELLIS DO ([id number]), editor producer ALEXANDRIA STEIN ([id number]) on 07/08/2019 9:10:52 AM Referred By: Confirmed By:KWASI ELLIS DO
== END 2019-07-05 17:06 | DRG 280 ==
LOC: ERS 12:43 → 2NO 15:10 → OBSVTOIN 17:31
PROVIDERS: ADMIT Internal Medicine; ATTEND Internal Medicine
PROC: 5A1D70Z Performance of Urinary Filtration, Intermittent, Less than 6 Hours Per Day (ICD-10-PCS; principal; 2019-06-30)
DX: I21.A1 Myocardial infarction type 2 (principal); N18.6 End stage renal disease; I48.92 Unspecified atrial flutter; I13.2 Hypertensive heart and chronic kidney disease with heart failure and with stage 5 chronic kidney disease, or end stage renal disease; I25.10 Atherosclerotic heart disease of native coronary artery without angina pectoris; G20 Parkinson's disease; I35.0 Nonrheumatic aortic (valve) stenosis; E78.5 Hyperlipidemia, unspecified; I48.0 Paroxysmal atrial fibrillation; I50.9 Heart failure, unspecified; F32.9 Major depressive disorder, single episode, unspecified; E78.00 Pure hypercholesterolemia, unspecified; D63.1 Anemia in chronic kidney disease; Z99.2 Dependence on renal dialysis; Z95.1 Presence of aortocoronary bypass graft; Z95.5 Presence of coronary angioplasty implant and graft; Z88.0 Allergy status to penicillin; Z79.899 Other long term (current) drug therapy
CPT/HCPCS: 36415; 71045; 78452; 80048; 80053; 80061; 82550; 82553; 82607; 82746; 84484; 85014; 85018; 85025; 85049; 85730; 90935; 93005; 93010; 93017; 93306; 94760; A9500; G0257; J1644; J2785

== ENCOUNTER 2019-07-24 14:23 | Inpatient (IN) | payer MEDICARE ==
[2019-07-24 16:20] VITALS: BMI 29.2
[2019-07-24] MEDS ORDERED: Acetaminophen 325 MG TAB PO PRN (16:23)
[2019-07-24] MEDS ORDERED: Sodium Chloride 0.9% 500 ML IV PRN (16:45)
[2019-07-24] MEDS: Calcium Acetate 667 MG CAP PO SCH (18:07)
[2019-07-24 18:09] LABS: Platelet Count 332 thou/uL (130-400)
[2019-07-24] MEDS ORDERED: CARBIDOPA PO SCH (21:00)
[2019-07-24] MEDS ORDERED: LEVODOPA PO SCH (21:00)
[2019-07-24] MEDS: Atorvastatin Calcium 20 MG TAB PO SCH (21:01)
[2019-07-24] MEDS: Pantoprazole 40 MG VIAL IVP SCH (21:01)
[2019-07-24 23:24] LABS: Critical Call Chem Troponin I RESULT DECREASING
--- NOTE | 2019-07-25 00:13 | CON ---
DATE OF CONSULTATION: REASON FOR CONSULTATION: End-stage renal disease for maintenance hemodialysis. HISTORY OF PRESENT ILLNESS: A 78-year-old gentleman admitted to the hospital for possible GI bleed. The patient denies any nausea, vomiting, or chest pain. PAST MEDICAL HISTORY: Significant for end-stage renal disease, hypertension, anemia, history of PD catheter placement, history of failed PD catheter, history of atrial fibrillation, congestive heart failure, history of recurrent hospitalization, history of CABG, and history of Parkinson disease. SOCIOECONOMIC: No alcohol or drug use. FAMILY HISTORY: Negative for ESRD. ALLERGIES: REVIEWED. HOME MEDICATIONS: List reviewed. HOSPITAL MEDICATIONS: List reviewed. REVIEW OF SYSTEMS: A 15-point review of system was performed, negative except for positive noted above. HEENT: Eyes intact, no diplopia. Ears: No hearing loss or earache. Nose: No discharge or bleeding. Chest: No cough or phlegm. Abdomen: No nausea or vomiting. Genitourinary: No hematuria. No Lyons catheter. Musculoskeletal: No low back pain. No joint swelling or pain. Neurological: No syncope. No seizures. Skin: No complaints of rash or itching. Psychiatric: No depression. Constitutional: No weight loss or loss of appetite. PHYSICAL EXAMINATION: General: The patient is awake and alert. Vital Signs: Afebrile, pulse 75, breathing at 16, blood pressure reviewed. HEENT: Head normocephalic and atraumatic. Eyes intact, no ulcers. Nose intact, no ulcers. Ears intact, no ulcers. Neck: Supple. No JVD. Chest: Symmetrical and clear. Cardiovascular: Shows S1 and S2, no rub, no murmur. Gastrointestinal: Abdomen is soft, bowel sounds positive. Extremities: Show no edema or ulcers. Skin: Shows no rash or petechiae. Musculoskeletal: Shows no joint swelling or stiffness. Genitourinary: Shows no Lyons or CVA tenderness. Neurologic: Motor intact. Cranial nerves intact. LABORATORY DATA: Recent labs not available. ASSESSMENT AND PLAN: 1. Stage 6 chronic kidney disease. Plan dialysis. 2. Hypertension. Plan dialysis. 3. Anemia. Plan dialysis. Medication based on GFR appropriate. Job ID: [id number]
[2019-07-25 00:22] LABS: CKMB 5.9 ng/mL (0-6.6)
[2019-07-25 02:09] LABS: Band 2 % (5-11); Eosinophils 2 % (0-10); Hemoglobin 8.4 g/dL (14.0-18.0); Lymphocytes 16 % (21-51); MDiff Complete? YES; Mean Corpuscular HGB CONC 33.2 g/dL (32.0-36.0); Mean Corpuscular Hemoglobin 32.1 pg (27.0-31.0); Mean Corpuscular Volume 96.6 fL (78.0-98.0); Mean Platelet Volume 6.9 fL (7.4-10.4); Monocytes 1 % (0-10); Neutrophil 79 % (42-75); Platelet Count 297 thou/uL (130-400); Platelet Morphology Comment Appears Adequate; RBC Distribution Width 14.5 % (11.5-14.5); Red Blood Cell (RBC) Count 2.62 mill/uL (4.70-6.10); White Blood Cell (WBC) Count 7.9 thou/uL (4.8-10.8)
[2019-07-25 02:30] LABS: ALT (SGPT) 11 U/L (8-55); AST (SGOT) 76 U/L (5-34); Albumin 3.4 g/dL (3.4-4.8); Alkaline Phosphatase 122 U/L (40-110); Anion Gap 16 mmol/L (10-20); BUN (Urea Nitrogen) 20 mg/dL (8.4-25.7); Bilirubin, Total 2.2 mg/dL (0.2-1.2); Calc. Creatinine Clearance 17 mL/min (70-130); Calcium 9.3 mg/dL (7.8-10.44); Carbon Dioxide 28 mmol/L (23-31); Chloride 98 mmol/L (98-107); Estimated GFR-MDRD 13; Globulin 4.1 g/dL (2.4-3.5); Glucose 76 mg/dL (83-110); Potassium 3.2 mmol/L (3.5-5.1); Protein, Total 7.5 g/dL (5.8-8.1); Sodium 139 mmol/L (136-145)
--- NOTE | 2019-07-25 03:14 | CON ---
DATE OF CONSULTATION: 07/24/2019 REASON FOR CONSULTATION: Heme-positive stool and anemia. HISTORY OF PRESENT ILLNESS: Mr. Carrillo is a pleasant 78-year-old male from [place], who went to the hospital apparently today on recommendation of his primary doctor, Dr. Kaci Pickens. Apparently on last Wednesday 3 days ago, he began to have black stools. He states that he began to feel weak. Saw physician this morning and was told to come to the hospital. He is noted to be a little bit more hypotensive than usual. He reports he had 2 or 3 bowel movements over the weekend. In the emergency room in [place], his hemoglobin was 6. He had a blood pressure of 108/73 and a pulse of 100. He had a troponin of 8.85. The BUN is 61 and creatinine of 11. AST of 120. Protein of 8.4 and albumin of 3.7. White count was 9.4. INR was normal. Normal chest x-ray. Patient was started on a PPI. He was already taking this at home. He was given a unit of blood and transferred here and prior to that unit of blood transfusion and did right before he arrived here. Most recently, the patient was here in June, seen for chest discomfort by Cardiology, Cardiology in March when he was seen after a fall. At the most recent episode, he was in atrial fibrillation, hemoglobin of 8.9 at that time. He is felt to have a non-ST AL. Aspirin was ordered to his regimen of medication. The patient did have a stress test during that admission, which showed no reversible defects. Ultimately, he was discharged home on the . On talking with the patient, he has had bleeding before. On reviewing his old records in March 2018, he had an EGD for melena at this hospital, had a small AVM that was bleeding in the second portion of duodenum. This was done by Dr. Rm Carpenter. At that time, the patient did have a colonoscopy in [place] 2016, which was normal. Previous abdominal imaging included a CT of abdomen and pelvis on April 08, 2019 that was noted for mild left hydroureter, PD catheter which was subsequently removed, some pleural effusions as well as fat containing bilateral inguinal hernias. Presently, the patient states he feels a bit tired. He denies abdominal pain. No nausea or vomiting. Denies any chest pain or shortness of breath presently. PAST MEDICAL HISTORY: Coronary artery disease, previous bypass grafting, previous peritoneal dialysis, now on hemodialysis, hypertension, end-stage renal disease, atrial fibrillation paroxysmal, Parkinson's, congestive heart failure. PAST SURGICAL HISTORY: Prior surgeries; CABG and cardiac stent, knee surgery, AV fistula, back surgery, EGD in March of 2018 and reported colonoscopy in [place] in 2017 which he reports was normal. MEDICATIONS: At home; 1. Sertraline. 2. Seroquel. 3. Protonix. 4. Toprol. 5. Folic acid. 6. Vitamin B and C. 7. Plavix. 8. Carbidopa/levodopa. 9. Calcium. 10. Calcitriol. 11. Lipitor. 12. Aspirin 81 mg. 13. Allopurinol. Present medications; 1. Tylenol. 2. Allopurinol. 3. Lipitor. 4. Calcitriol. 5. PhosLo. 6. Carbidopa/levodopa. 7. Metoprolol. 8. Protonix 40 mg IV q.12. 9. Seroquel. 10. Sertraline. 11. Normal saline, his saline locked after his transfusion currently. 12. Vitamin B. 13. Folic acid. REVIEW OF SYSTEMS: Negative for chest pain. Negative for nausea or vomiting. Negative for hematemesis. Negative for abdominal pain. PHYSICAL EXAMINATION: VITAL SIGNS: Blood pressure 124/71 and 97/63, heart rates 97, 94, 91 over the last 3 hours. He does not make urine. GENERAL: He is alert and oriented to person, place, and time. LUNGS: Clear. HEART: Irregular rate and rhythm. ABDOMEN: Soft and nontender. There is no palpable hepatosplenomegaly. EXTREMITIES: No clubbing, cyanosis. Did reveal some edema. RECTAL: Shows brown stool in the vault. This reportedly was heme-positive at the outside facility and here samples from March was heme-positive. LABORATORY STUDIES: Here; hemoglobin 7, it was actually 7.1 on 07/19 and 7.6 on 07/16, was 6 at the outside facility, platelet count is 332. INR was not done, but PTT was 36.1 at last admission. No recent BMP or CMP. On 07/19, his BUN and creatinine were 24 and 5.5, today they are 61 and 11. Troponin has not been rechecked here. ASSESSMENT: 1. This 78-year-old gentleman reports that melena over the weekend starting Wednesday, did not feel well and went to see his doctor and they have sent him to the emergency room where he had a hemoglobin of 6, when he was last here it was 7. He received 1 unit of blood here and transported back to this hospital today and his hemoglobin is now 7 again. He has had no signs of active bleeding here. 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 He is on Plavix and aspirin at home. He does take a PPI reportedly daily at home. Differential diagnosis for bleeding include arteriovenous malformation in the small intestines, stomach or even colon related to his Plavix. He was started on a full dose of aspirin when he was here in June for chest pain. It is unclear if he has had some increased GI tract irritation from that. There is no sign of acute gastrointestinal hemorrhage at this time. He did not have a bowel movement for 24 hours. 2. Coronary artery disease with prior stents and bypass. He has a troponin of 8, was here previously with the troponin of 2, this is much higher obviously. He did have a stress test at last admission, was negative. Preliminarily, the nurses here on telemetry tell me that Cardiology feels there is probably demand ischemia, they are going to follow him. He has been told that serial troponins have been ordered. 3. End-stage renal disease. 4. Previous PD catheter placement. 5. Reported previous normal colonoscopy in 2017 in [place] per the patient. RECOMMENDATIONS: 1. IV Protonix q.12 hours. 2. Monitor H and H. 3. Monitor troponins. 4. The patient is to get dialysis this evening overnight. He remained stable, may consider an upper endoscopy tomorrow or the next day depending on his troponins and Cardiology is feeling on this. I suspect we just need to give him some blood and let things calm down before we palmer him off to endoscopy unless he shows signs of acute hemorrhage. I agree with making him n.p.o. after midnight in anticipation of possible endoscopy. Job ID: [id number]
--- NOTE | 2019-07-25 03:27 | CON ---
DATE OF CONSULTATION: 07/24/2019 INDICATION FOR CONSULTATION: A 78-year-old patient with a history of coronary artery disease, end-stage renal disease and also anemia, who was transferred from [facility] due to increasing shortness of breath and what was designated as a GI bleed with blood loss and anemia. He is sent here for further evaluation. HISTORY OF PRESENT ILLNESS: This very unfortunate 78-year-old gentleman, who has end-stage renal disease, on hemodialysis 3 days a week. He has not been feeling very well. He also has history of intermittent atrial fibrillation. He knows the last several days he has been having increasing shortness of breath. He notes he has had dark stools for several days. He presented to the emergency room and was found to have hemoglobin of 6.0. He was transfused 1 unit of blood. Hemoglobin now was 7.0. He also was noted to have a troponin I of 8.8 in [facility] and repeated here was 9.5. His MB is 7.0. He was recently here in the hospital back in March 2019 and then again was seen in the hospital I believe back on June [address] Lizama, previously was seen by Dr. Rivera. At his last hospital admission, I believe he underwent a stress test, which showed no evidence of ischemia. He did have mild global hypokinesis. Ejection fraction was about 48%. He has denied any significant chest pain. However, he does have diabetes. There is no indication that he has diabetes. He does have end-stage renal disease, which may make the troponin I consistently little bit higher. However, troponin I of 9.5, is certainly suspicious for a ygc-DG-gxslozc elevation myocardial infarction. His EKG did show EKG changes with diffuse T-wave inversions in the inferior and lateral leads, which certainly could be compatible with ischemia. He also has atrial fibrillation. He has a history of intermittent atrial fibrillation in the past. An EKG today shows what appears to be at least at times it looks like atrial fibrillation. Other times it appears to be more of a sinus rhythm with PACs. On the monitor, it appears that he is in atrial fibrillation. By close evaluation, the EKG appears to be more of almost a sinus rhythm with PACs and occasional PVCs. He denies any chest pain. He says he has just been recently feeling very bad like he is going to pass out and has been increasing shortness of breath, but denied any significant chest pain. PAST MEDICAL HISTORY: Significant for coronary artery disease. He has had bypass surgery and stent placement. He had stent placements about 7 or 8 years ago he said and about 6 or 7 years ago, he had the bypass surgery. He says he has a two vessel bypass. He has a history of hypertension, history of atrial fibrillation, which has been paroxysmal. He has end-stage renal disease, he is on dialysis 3 days a week. He has a history of depression and Parkinson disease. He has undergone knee surgery in the past. He has had back surgery. He has AV fistula placement also in the past. MEDICATIONS: On his last discharge, which was on the 04 of July included; 1. Allopurinol 100 mg a day. 2. Calcitriol 0.25 mcg daily. 3. Calcium acetate 1334 mg p.o. three times a day. 4. Carbidopa/levodopa 36.25/145, two tablets three times a day. 5. Protonix 40 mg a day. 6. Seroquel 50 mg at bedtime. 7. Sertraline 50 mg daily. 8. Aspirin 81 mg a day. 9. Lipitor 20 mg a day. 10. Plavix 75 mg a day. 11. Toprol-XL 25 mg a day. ALLERGIES: APPARENTLY, HE IS ALLERGIC TO PENICILLIN. SOCIAL HISTORY: There is no history of alcohol or tobacco abuse. FAMILY HISTORY: Noncontributory. REVIEW OF SYSTEMS: A 12-point review of systems as noted above. It is unremarkable except what is noted above. He did complain of shortness of breath and increased fatigue and feeling lightheaded. He denied any new HEENT complaints. No pulmonary complaints. He has had some shortness of breath; however, as noted he noted some dark stools. He actually has had some mild nausea, but no diarrhea. No vomiting. Musculoskeletal, he has had no lower extremity edema, but does complain of just overall weakness in his legs. He has had no syncopal episodes. PHYSICAL EXAMINATION: GENERAL: Reveals a well-developed, well-nourished gentleman. He is in no acute distress, but does appear to be not feeling well. VITAL SIGNS: Show a blood pressure of 97/63, early was 124/71, heart rates in the 90s and shows what appears to be at times atrial fibrillation on the monitor, but could be at other times appears relatively regular, which could be a sinus rhythm, may be possibly a flutter, which may be flutter waves may be in the T-waves, but does not appear to be flutter, appears to be more of a sinus versus an atrial fibrillation at times. He is afebrile. Respiratory rate is about 20 to 22. HEENT: Shows the head to be normocephalic and atraumatic. Carotid pulses are present. I did not hear any significant bruits. His chest actually appeared to be clear to auscultation. He may have some decreased breath sounds on the left side, but otherwise it was clear. I did not hear any rales, rhonchi, or wheezing. CARDIOVASCULAR: Reveals a slight irregular rhythm, somewhat tachycardic. There were no gross murmurs noted except there is a slight systolic murmur at the apex. ABDOMEN: Soft and nontender. Positive bowel sounds are present. EXTREMITIES: Show no clubbing, cyanosis, or edema. Pedal pulses are somewhat difficult to palpate, but are present. NEUROLOGIC: The patient appears to be grossly intact with no evidence of gross focal motor deficits. His affect does appear to be somewhat depressed. LABORATORY DATA: Shows a hemoglobin of 7, early was 6 when he was in [place], hematocrit 21.9. His MB this afternoon is 7.0 with a troponin I of 9.5, and as noted earlier today, his troponin I while he was in [place] was 8.8. His sodium was 139, potassium was 4.9, bicarb was 27, chloride was 95, BUN was 61 with a creatinine of 11.2, blood sugar was 114, calcium was 10.9. An EKG shows also T-wave abnormalities in the lateral leads as noted above. IMPRESSION: 1. Probable history of coronary artery disease with history of angioplasty stent placement and bypass surgery with what appears to be another non ST-segment elevation myocardial infarction. He did have a negative stress test on his last admission. However, given his continued bout of admissions for hospitalizations and increased cardiac enzymes, it may be best to do a cardiac catheterization in this gentleman to fully evaluate his coronary artery status as well as the saphenous vein grafts. 2. End-stage renal disease. He will continue on his dialysis. 3. Anemia. He has had chronic anemia and most likely we will need to have another blood transfusion, which can be performed during dialysis, or maybe the hemoglobin may increase once if he is dialyzed and the volume is removed. 4. Paroxysmal atrial fibrillation, appears that he is also in atrial fibrillation with an irregular heart rate. Some P waves are noted. However, this most likely still represents atrial fibrillation. He is on beta blockers. I would continue these beta blockers at this time. May need to start IV diltiazem or either IV amiodarone if he continues to have the atrial fibrillation. He does have a history in the past of atrial fibrillation. I believe the last admission he also was in atrial fibrillation. 5. He did have a history in the past also by echocardiogram of mild aortic valve stenosis. 6. He also has a history of Parkinson's disease. Further care of the patient will be by Dr. Lizama when he visits with the patient tomorrow. The patient said he did have a followup pending with Dr. Lizama's office. Job ID: [id number]
--- NOTE | 2019-07-25 05:53 | HP ---
CHIEF COMPLAINT: Dark stools and dizziness. HISTORY OF PRESENT ILLNESS: A 78-year-old male with a history of coronary artery disease, CABG x2, on aspirin and Plavix; hypertension; paroxysmal atrial fibrillation, end-stage renal disease on hemodialysis; Parkinson disease, presenting with dark stool since Wednesday. He felt little dizzy with ambulation. He did not have any chest pain. The patient is on aspirin and Plavix for his coronary artery disease, and he was taking those two while he is having dark stools. He is not on any iron supplement. He was admitted in June for chest discomfort. At that time, his troponin level was 2 and they did nuclear stress test, which did not reveal reversible ischemia. Lipitor dose increased and he was discharged with followup. There was a future consideration for catheterization during that time. Now, he is coming with hemoglobin of 6 and troponin elevation of 8. EKG showed atrial fibrillation. The patient is transferred from [facility]. During my examination, his systolic blood pressure above 100. He is hemodynamically stable, mentation at baseline, though he appears pale. He is able to give me some information. He denies any chest pain currently. I reviewed the case with Dr. Dorsey, quill skinner director talent acquisition. Since he has visited recently on June 30 and had a stress test, which is negative, no urgent cardiac intervention at this point. REVIEW OF SYSTEMS: A 13-point review of systems reviewed with the patient. He denies any recent fever, night sweats, chills, productive cough. No chest pain. No nausea, vomiting, abdominal pain, constipation, or diarrhea other than dark stool. He did not notice any bright red blood per rectum. Denies any headache or blurriness. ALLERGIES: HE IS ALLERGIC TO PENICILLIN. PAST MEDICAL HISTORY: 1. Coronary artery disease, status post CABG x2, recent NSTEMI in June 2019. 2. Hypertension. 3. Hyperlipidemia. 4. Parkinson disease. 5. End-stage renal disease, on dialysis. 6. Mild aortic stenosis. MEDICATIONS: 1. Allopurinol 100 mg daily. 2. Lipitor 10 mg at bedtime. 3. Calcitriol 0.25 mcg daily. 4. Sinemet 2 tablets three times a day. 5. Folic acid/vitamin B complex one tablet daily. 6. Protonix 40 mg daily. 7. Seroquel 50 mg nightly. 8. Sertraline 50 mg nightly. SOCIAL HISTORY: The patient does not drink or smoke. He lives with his . FAMILY HISTORY: His parents of old age. PHYSICAL EXAMINATION: VITAL SIGNS: Temperature 97, blood pressure on the monitor systolic 102. He is saturating, I believe upper 90s in the room air. GENERAL: He is alert and oriented x4. He looks quite pale, but not toxic looking. CARDIOVASCULAR: Irregular rhythm. Tachycardia. LUNGS: Clear without any adventitious lung sounds. ABDOMEN: Soft, nontender, nondistended. Good bowel sounds. EXTREMITIES: Without any pitting edema or rash. LABORATORY DATA: Done at [facility] showed hemoglobin of 6 and his troponin was 8.0. IMPRESSION: This is a 78-year-old male with a history of coronary artery disease, on aspirin and Plavix, presenting with few days of dark stool and hemoglobin of 6. 1. Acute blood loss anemia, exacerbated, being on antiplatelets. 2. Ird-JS-lwavlvroy myocardial infarction with a troponin of 8 and it is probably demand ischemia due to low hemoglobin. 3. Chronic paroxysmal atrial fibrillation, currently not on any anticoagulation, rate controlled with metoprolol. PLAN: The patient is admitted in the IMCU, serial H and H, he will be getting a total of 2 units of packed RBCs. He got Protonix 80 mg IV x1 at [facility]. We will initiate 40 twice a day and keep him n.p.o., trying to reach Dr. Mclean, latent fingerprint examiner who is on-call today. 1. Ity-CF-ybivvmttl myocardial infarction/demand ischemia. I talked to Dr. Dorsey , who is on-call for Cardiology this evening. Since he has seen quite recently and he had a stress test, which showed no reversible ischemia, they will see him in the morning as nonemergent, unless things changes. For the most part, his elevated troponin is likely due to demand ischemia due to significant anemia. The patient also denies any active chest pain. We will cycle the troponins and continue with his metoprolol if his blood pressure allow but hold aspirin and Plavix. 2. Hypertension as above. The patient is currently on the low side of blood pressure, bolus NS 500 mL if systolic goes below 85. We can initiate his metoprolol once his blood pressure improves. 3. Deep venous thrombosis prophylaxis, SCDs. Gastrointestinal prophylaxis with Protonix IV. 4. Rest of the management based on clinical course. 5. He is full code. Job ID: [id number] MTDD
[2019-07-25 06:07] LABS: Hemoglobin 8.2 g/dL (14.0-18.0)
[2019-07-25] MEDS: Calcium Acetate 667 MG CAP PO SCH ×3 (09:09→17:54)
[2019-07-25] MEDS: Allopurinol 100 MG TAB PO SCH (09:09)
[2019-07-25] MEDS: Folic Acid/Vit B Comp W-C PO SCH (09:09)
[2019-07-25] MEDS: Calcitriol 0.25 MCG CAP PO SCH (09:09)
[2019-07-25] MEDS: Pantoprazole 40 MG VIAL IVP SCH (09:09)
[2019-07-25] MEDS: Amiodarone 450 MG, Admixture Fee 1 EACH in Dextrose 5% in Water 250 ML IVPB SCH ×2 (09:09→20:00)
[2019-07-25] MEDS ORDERED: Potassium Citrate 10 MEQ TAB PO SCH (10:00)
[2019-07-25] MEDS ORDERED: PROPOFOL 200 MG/20 ML VIAL ONE (10:12)
[2019-07-25] MEDS ORDERED: Lidocaine 1% PF 5 ML VIAL ONE (10:12)
[2019-07-25] MEDS ORDERED: Ondansetron HCl/PF 4 MG/2 ML Vial IVP PRN (11:00)
[2019-07-25] MEDS ORDERED: Promethazine HCl 25 MG/ML VIAL SLOW IVP PRN (11:00)
[2019-07-25] MEDS ORDERED: Promethazine HCl 25 MG/ML VIAL IM PRN (11:00)
[2019-07-25] MEDS ORDERED: Calcium Chloride 1 GM/10 ML Abboject SYRINGE ONE (11:02)
[2019-07-25] MEDS ORDERED: Phenylephrine 10 MG/ML VIAL ONE (11:06)
[2019-07-25] MEDS ORDERED: PHENYLEPHRINE-NS 100 MCG/ML 10 ML SYRINGE ONE (11:07)
--- NOTE | 2019-07-25 12:52 | PRG ---
DATE OF SERVICE: 07/25/2019 SUBJECTIVE: A 78-year-old gentleman being seen for end-stage renal disease. The patient denied nausea, vomiting, or chest pain. OBJECTIVE: GENERAL: The patient is awake and alert. VITAL SIGNS: Afebrile, pulse 75, breathing 16, and blood pressure 102/65. HEENT: Head; normocephalic and atraumatic. Eyes intact, no ulcers. Nose intact, no ulcers. Ears intact, no ulcers. NECK: Supple. No JVD. CHEST: Symmetrical and clear. CARDIOVASCULAR: Shows S1 and S2, no rub, no murmur. GASTROINTESTINAL: Abdomen is soft, bowel sounds positive. EXTREMITIES: Show no edema or ulcers. SKIN: Shows no rash or petechiae. MUSCULOSKELETAL: Shows no joint swelling or stiffness. GENITOURINARY: Shows no Lyons or CVA tenderness. NEUROLOGIC: Motor intact. Cranial nerves intact. LABORATORY DATA: Hemoglobin 8.2. ASSESSMENT AND PLAN: 1. Stage 6 chronic kidney disease. Continue hemodialysis. 2. Hypertension, stable. 3. Anemia, stable. 4. Medication based on glomerular filtration rate are appropriate. 5. Hypokalemia. Recommend potassium replacement. Job ID: [id number]
--- NOTE | 2019-07-25 13:06 | PDOC.HOSPP ---
- Subjective Encounter Date: 07/25/19 Encounter Time: 12:30 Subjective: s/p EGD, pt looks ok, other than slightly pale and mentation clear. denies any SOB or CP. SBP in the monitor - 103. on amio drip. - Objective Vital Signs & Weight: Vital Signs (12 hours) Temp Pulse Ox 07/25/19 08:00 100 07/25/19 07:12 97.9 F 07/25/19 04:00 97.0 F L Weight Weight 186 lb 11.704 oz Most Recent Monitor Data Heart Rate from ECG 121 NIBP 121/86 NIBP BP-Mean 97 Respiration from ECG 20 SpO2 99 I&O: 07/24/19 07/25/19 07/26/19 06:59 06:59 06:59 Intake Total 700 Balance 700 Result Diagrams: 07/25/19 05:58 07/25/19 01:42 Hospitalist ROS - Medication Medications: Active Medications Generic Name Dose Route Start Last Admin Trade Name Freq PRN Reason Stop Dose Admin Allopurinol 100 mg 07/25/19 09:00 07/25/19 09:09 Zyloprim PO Not Given DAILY HERMILA Atorvastatin Calcium 20 mg 07/24/19 21:00 07/24/19 21:01 Lipitor PO 20 mg HS HERMILA Administration Calcitriol 0.25 mcg 07/25/19 09:00 07/25/19 09:09 Rocaltrol PO Not Given DAILY HERMILA Calcium Acetate 1,334 mg 07/24/19 17:00 07/25/19 12:42 Phoslo PO 1,334 mg TID-WM HERMILA Administration Amiodarone HCl 450 mg/ 259 mls @ 0 mls/hr 07/25/19 08:30 07/25/19 09:09 Miscellaneous Medication 1 IVPB 259 mls each/ Dextrose/Water INF HERMILA Administration Protocol As Directed Pantoprazole Sodium 40 mg 07/24/19 21:00 07/25/19 09:09 Protonix IVP Not Given Q12HR HERMILA Quetiapine Fumarate 50 mg 07/24/19 21:00 07/24/19 21:02 Seroquel PO 50 mg HS HERMILA Administration Sertraline HCl 50 mg 07/25/19 09:00 07/25/19 09:09 Zoloft PO Not Given DAILY HERMILA Vitamin B Complex/Vit C/Folic Acid 1 tab 07/25/19 09:00 07/25/19 09:09 Nephro-Ramiro Tablet PO Not Given DAILY HERMILA - Exam General Appearance: NAD, awake alert Eye: PERRL ENT: normocephalic atraumatic Neck: supple Heart: no gallops, irregular Respiratory: CTAB, no wheezes, normal chest expansion Gastrointestinal: soft, non-distended, normal bowel sounds Neurological: no focal deficits Hosp A/P - Plan Acute blood loss anemia Anemia of chr disease --excerbated by being on , plavix -s/p EGD ---unremarkable. -s/p 3 units of prbc on - switched to PO PPI. Hypotension -prn NS bolus -hold BB. -cw amio drip NSTEMI Afib --on amio drip -cath planned for am. -NPO parkinsons -cw sinemet Gout -cw allopurinol ESRD on HD - had HD on 4th PM> Full code.
--- NOTE | 2019-07-25 14:10 | OP ---
DATE OF PROCEDURE: 07/25/2019 ASSISTANCE SURGEON: None. PROCEDURE PERFORMED: Esophagogastroduodenoscopy with biopsies. INDICATIONS: 1. Melena. 2. Anemia. 3. Heme-positive stool. 4. Prior history of duodenal AVM, cauterized, last colonoscopy was in 2017, evidently unremarkable. MEDICATIONS: See Anesthesia record. FINDINGS: After discussion of the risks, benefits, and alternatives of the procedure, informed consent was obtained and witnessed. Pre-endoscopic cardiopulmonary examination was satisfactory. Time-out was performed before sedation was achieved. Sedation was achieved with Anesthesia assistance in the endoscopy unit. A Pentax adult upper endoscope was placed into the oropharynx and passed through the cricopharyngeus under direct visualization. The esophageal mucosa appeared normal throughout with a normal-appearing Z-line at 36 cm from the incisors. The endoscope was advanced into the stomach. Forward and retroflexed views of the entire gastric mucosa were obtained. There was no evidence of any old blood or active bleeding in the stomach. In the proximal body along the greater curvature, there is a patch of focal gastritis with some submucosal hemorrhage and friability, though no ulceration or erosive disease noted. The remainder of the gastric mucosa appears unremarkable. I did obtain biopsies from this area of gastritis for histology and H pylori evaluation. The endoscope was advanced through the pylorus and into the first and second portions of the duodenum, which were normal. The upper endoscope was completely withdrawn and the patient allowed to recover. The patient tolerated the procedure well. There were no immediate postprocedure complications. IMPRESSION: 1. Focal gastritis, proximal body of the stomach, along the greater curvature, with no bleeding noted, biopsied. 2. No old blood or active bleeding. 3. Otherwise, normal esophagogastroduodenoscopy. RECOMMENDATIONS: 1. Continue PPI, could switch to q.24 hour dosing. 2. Monitor H and H. 3. Advance diet. 4. Proceed with cardiac workup. Job ID: [id number]
[2019-07-25] MEDS: Atorvastatin Calcium 20 MG TAB PO SCH (19:58)
[2019-07-26 04:12] LABS: #Eosinphils 0.2 thou/uL (0.0-0.7); #Lymphocytes 1.1 thou/uL (1.20-3.40); #Monocytes 0.9 thou/uL (0.11-0.59); #Neutrophils 5.7 thou/uL (1.40-6.50); %Basophils 0.1 % (0.0-1.0); %Eosinophils 2.8 % (0.0-10.0); %Lymphocytes 14.4 % (21.0-51.0); %Monocytes 11.3 % (0.0-10.0); %Neutrophils 71.4 % (42.0-75.0); Hemoglobin 8.9 g/dL (14.0-18.0); Mean Corpuscular HGB CONC 32.4 g/dL (32.0-36.0); Mean Corpuscular Hemoglobin 31.7 pg (27.0-31.0); Mean Corpuscular Volume 97.9 fL (78.0-98.0); Mean Platelet Volume 7.3 fL (7.4-10.4); Platelet Count 319 thou/uL (130-400); Red Blood Cell (RBC) Count 2.81 mill/uL (4.70-6.10); White Blood Cell (WBC) Count 7.9 thou/uL (4.8-10.8)
[2019-07-26] MEDS ORDERED: Communication Order-Pharmacy FS SCH (07:45)
[2019-07-26] MEDS: Calcium Acetate 667 MG CAP PO SCH ×3 (08:55→18:59)
[2019-07-26] MEDS: Allopurinol 100 MG TAB PO SCH (08:56)
[2019-07-26] MEDS: Folic Acid/Vit B Comp W-C PO SCH (08:56)
[2019-07-26] MEDS: Calcitriol 0.25 MCG CAP PO SCH (08:56)
[2019-07-26] MEDS: Aspirin 81 mg Enteric Coated Tablet PO SCH (08:56)
[2019-07-26] MEDS: Amiodarone 450 MG, Admixture Fee 1 EACH in Dextrose 5% in Water 250 ML IVPB SCH (08:59)
--- NOTE | 2019-07-26 11:38 | PRG ---
DATE OF SERVICE: 07/26/2019 SUBJECTIVE: A 78-year-old gentleman being seen for end-stage renal disease. The patient denied nausea, vomiting, or chest pain. OBJECTIVE: GENERAL: The patient is awake and alert. VITAL SIGNS: Afebrile, pulse 100, breathing 16, and blood pressure 120/68. HEENT: Head; normocephalic and atraumatic. Eyes intact, no ulcers. Nose intact, no ulcers. Ears intact, no ulcers. NECK: Supple. No JVD. CHEST: Symmetrical and clear. CARDIOVASCULAR: Shows S1 and S2, no rub, no murmur. GASTROINTESTINAL: Abdomen is soft, bowel sounds positive. EXTREMITIES: Show no edema or ulcers. SKIN: Shows no rash or petechiae. MUSCULOSKELETAL: Shows no joint swelling or stiffness. GENITOURINARY: Shows no Lyons or CVA tenderness. NEUROLOGIC: Motor intact. Cranial nerves intact. LABORATORY DATA: Hemoglobin 8.9. ASSESSMENT AND PLAN: 1. Stage 6 chronic kidney disease. Continue hemodialysis. 2. Hypertension, stable. 3. Anemia, stable. 4. Hypokalemia. Recommend high-potassium diet. Job ID: [id number]
--- NOTE | 2019-07-26 12:47 | PDOC.HOSPP ---
- Subjective Encounter Date: 07/26/19 Encounter Time: 10:20 Subjective: dong well, has no acute events; hgb stable at 8.9- plan for cath in am. - Objective Vital Signs & Weight: Vital Signs (12 hours) Temp Pulse Ox 07/26/19 11:06 96.8 F L 07/26/19 08:00 100 07/26/19 07:02 97.4 F L Weight Weight 185 lb 10.067 oz Most Recent Monitor Data Heart Rate from ECG 99 NIBP 120/68 NIBP BP-Mean 85 Respiration from ECG 21 SpO2 94 I&O: 07/25/19 07/26/19 07/27/19 06:59 06:59 06:59 Intake Total 700 469 Output Total 200 Balance 700 269 Result Diagrams: 07/26/19 03:43 07/25/19 01:42 Hospitalist ROS - Medication Medications: Active Medications Generic Name Dose Route Start Last Admin Trade Name Freq PRN Reason Stop Dose Admin Allopurinol 100 mg 07/25/19 09:00 07/26/19 08:56 Zyloprim PO 100 mg DAILY HERMILA Administration Aspirin 81 mg 07/26/19 09:00 07/26/19 08:56 Ecotrin PO 81 mg DAILY HERMILA Administration Atorvastatin Calcium 20 mg 07/24/19 21:00 07/25/19 19:58 Lipitor PO 20 mg HS HERMILA Administration Calcitriol 0.25 mcg 07/25/19 09:00 07/26/19 08:56 Rocaltrol PO 0.25 mcg DAILY HERMILA Administration Calcium Acetate 1,334 mg 07/24/19 17:00 07/26/19 08:55 Phoslo PO 1,334 mg TID-WM HERMILA Administration Amiodarone HCl 450 mg/ 259 mls @ 0 mls/hr 07/25/19 08:30 07/26/19 08:59 Miscellaneous Medication 1 IVPB 259 mls each/ Dextrose/Water INF HERMILA Administration Protocol As Directed Metoprolol Succinate 25 mg 07/26/19 09:00 07/26/19 10:36 Toprol Xl PO 25 mg DAILY HERMILA Administration Pantoprazole Sodium 40 mg 07/26/19 09:00 07/26/19 08:56 Protonix PO 40 mg DAILY HERMILA Administration Quetiapine Fumarate 50 mg 07/24/19 21:00 07/25/19 19:58 Seroquel PO 50 mg HS HERMILA Administration Sertraline HCl 50 mg 07/25/19 09:00 07/26/19 08:56 Zoloft PO 50 mg DAILY HERMILA Administration Vitamin B Complex/Vit C/Folic Acid 1 tab 07/25/19 09:00 07/26/19 08:56 Nephro-Ramiro Tablet PO 1 tab DAILY HERMILA Administration - Exam General Appearance: NAD, awake alert Eye: PERRL ENT: normocephalic atraumatic Neck: supple Heart: RRR, normal peripheral pulses Respiratory: CTAB, normal chest expansion Gastrointestinal: soft, normal bowel sounds Neurological: no focal deficits Hosp A/P - Plan Acute blood loss anemia Anemia of chr disease --excerbated by being on , plavix -s/p EGD ---unremarkable. -s/p 3 units of prbc on - switched to PO PPI. -hgb at 8.9 on 6th Hypotension--------->improved -prn NS bolus -hold BB. -cw amio drip NSTEMI Afib --on amio drip -cath planned for am. -NPO after m/n parkinsons -cw sinemet Gout -cw allopurinol ESRD on HD - had HD on 4th PM> Full code.
--- NOTE | 2019-07-26 12:53 | PRG ---
DATE OF SERVICE: 07/26/2019 SUBJECTIVE: Mr. Carrillo feels fine without any complaint today. He denies any nausea, vomiting, or abdominal pain. There is no bowel movement since yesterday. No signs of overt bleeding. OBJECTIVE: VITAL SIGNS: Temperature is 96.8, blood pressure is 120/68, pulse of 85. GENERAL: The patient is alert, conversant, in no distress. HEENT: Anicteric sclerae. CV: Normal S1, S2. Regular rate and rhythm. CHEST: Breath sounds. ABDOMEN: Soft and nontender. No palpable mass or organomegaly. He has active bowel sounds. EXTREMITIES: No edema. LABORATORY DATA: WBC 7.9, hemoglobin 8.9, and platelet count of 319. Electrolytes within normal range. Creatinine 4.32, BUN of 20. ASSESSMENT: 1. Melena and anemia on admission, negative upper endoscopy except for focal gastritis without any stigmata of bleeding. Blood count has remained stable since transfusion. 2. Vha-RY-svbitenaz myocardial infarction. 3. End-stage renal disease, on maintenance hemodialysis. 4. Parkinson disease. RECOMMENDATION: Overall stable from GI standpoint, we will follow up on gastric biopsy. Otherwise, proceed with cardiac catheterization and resume diet and continue pantoprazole 40 mg p.o. daily. Job ID: [id number]
[2019-07-26] MEDS: Atorvastatin Calcium 20 MG TAB PO SCH (20:55)
[2019-07-27] MEDS: Amiodarone 450 MG, Admixture Fee 1 EACH in Dextrose 5% in Water 250 ML IVPB SCH (00:25)
[2019-07-27 04:51] LABS: #Eosinphils 0.2 thou/uL (0.0-0.7); #Monocytes 0.9 thou/uL (0.11-0.59); #Neutrophils 5.9 thou/uL (1.40-6.50); %Basophils 0.3 % (0.0-1.0); %Eosinophils 2.4 % (0.0-10.0); %Lymphocytes 12.1 % (21.0-51.0); %Monocytes 10.7 % (0.0-10.0); %Neutrophils 74.4 % (42.0-75.0); Hemoglobin 8.9 g/dL (14.0-18.0); Mean Corpuscular HGB CONC 31.9 g/dL (32.0-36.0); Mean Corpuscular Hemoglobin 31.5 pg (27.0-31.0); Mean Corpuscular Volume 98.8 fL (78.0-98.0); Mean Platelet Volume 7.6 fL (7.4-10.4); Platelet Count 322 thou/uL (130-400)
[2019-07-27 05:11] LABS: ALT (SGPT) 16 U/L (8-55); AST (SGOT) 36 U/L (5-34); Albumin 3.2 g/dL (3.4-4.8); Alkaline Phosphatase 131 U/L (40-110); Anion Gap 15 mmol/L (10-20); BUN (Urea Nitrogen) 21 mg/dL (8.4-25.7); Bilirubin, Total 0.5 mg/dL (0.2-1.2); Calc. Creatinine Clearance 14 mL/min (70-130); Calcium 9.8 mg/dL (7.8-10.44); Carbon Dioxide 27 mmol/L (23-31); Cardiac Risk 4.4 (Less than 4.5); Chloride 99 mmol/L (98-107); Cholesterol 101 mg/dl (< 200 Desired); Estimated GFR-MDRD 11; Globulin 4.1 g/dL (2.4-3.5); Glucose 98 mg/dL (83-110); HDL Cholesterol 23 mg/dL (>60 Neg Risk); LDL Cholesterol, Calculated 53 mg/dL; Potassium 4.2 mmol/L (3.5-5.1); Protein, Total 7.3 g/dL (5.8-8.1); Sodium 137 mmol/L (136-145); Triglycerides 127 mg/dL (Less than 150)
[2019-07-27] MEDS: Allopurinol 100 MG TAB PO SCH (05:36)
[2019-07-27] MEDS: Aspirin 81 mg Enteric Coated Tablet PO SCH (05:37)
[2019-07-27] MEDS: Calcitriol 0.25 MCG CAP PO SCH (05:37)
[2019-07-27] MEDS: Folic Acid/Vit B Comp W-C PO SCH (05:37)
[2019-07-27] MEDS ORDERED: Heparin 10,000 UNITS/1 ML VIAL ONE (06:44)
[2019-07-27] MEDS ORDERED: Midazolam HCl 2 mg/2 ml Vial ONE (07:07)
[2019-07-27] MEDS ORDERED: Fentanyl 100 MCG/2 ML VIAL ONE (07:07)
--- NOTE | 2019-07-27 07:39 | PRG ---
DATE OF SERVICE: 07/27/2019 SUBJECTIVE: This is a 78-year-old gentleman, being seen for end-stage renal disease. The patient denies any nausea, vomiting, or chest pain. OBJECTIVE: GENERAL: The patient is awake, alert. VITAL SIGNS: Afebrile. Pulse 75, breathing 16, blood pressure 106/60. HEENT: Head normocephalic and atraumatic. Eyes intact, no ulcers. Nose intact, no ulcers. Ears intact, no ulcers. NECK: Supple. No JVD. CHEST: Symmetrical and clear. CARDIOVASCULAR: Shows S1 and S2, no rub, no murmur. GASTROINTESTINAL: Abdomen is soft, bowel sounds positive. EXTREMITIES: Show no edema or ulcers. SKIN: Shows no rash or petechiae. MUSCULOSKELETAL: Shows no joint swelling or stiffness. GENITOURINARY: Shows no Lyons or CVA tenderness. NEUROLOGIC: Motor intact. Cranial nerves intact. LABORATORY DATA: Labs reviewed. ASSESSMENT AND PLAN: 1. Stage 6 chronic kidney disease. Plan dialysis per schedule. 2. Hypertension, stable. 3. Anemia, stable. 4. Medication based on GFR appropriate. Job ID: [id number]
[2019-07-27] MEDS ORDERED: Protamine Sulfate 50 MG/5 ML VIAL ONE (07:43)
[2019-07-27] MEDS ORDERED: Sodium Chloride 0.9% 200 ML IV PRN (08:50)
[2019-07-27] MEDS ORDERED: Nitroglycerin 0.4 MG TAB (25 Tab Bottle) SL PRN (08:50)
[2019-07-27] MEDS ORDERED: Acetaminophen/Codeine 30-300mg Tablet PO PRN ×2 (08:50)
[2019-07-27] MEDS ORDERED: Iopamidol 370 76% 50 ML VIAL FS ONE (09:18)
[2019-07-27] MEDS ORDERED: Iopamidol 370 76% 100 ML VIAL ONE (09:18)
[2019-07-27] MEDS: Calcium Acetate 667 MG CAP PO SCH ×3 (09:57→17:51)
[2019-07-27] MEDS: Amiodarone 200 MG TAB PO SCH ×2 (09:57→20:48)
[2019-07-27 19:36] VITALS: BP 110/60; TEMP 98
[2019-07-27] MEDS: Atorvastatin Calcium 20 MG TAB PO SCH (20:49)
--- NOTE | 2019-07-27 21:14 | PRG ---
DATE OF SERVICE: 07/27/2019 SUBJECTIVE: Mr. Carrillo is doing well. He has had no bleeding. He had a cardiac cath and critical aortic stenosis. He and his nurse tell me that there are plans to transfer him to [facility] tomorrow for TAVR. Temperature is 98.6, blood pressure is 103/54, respirations 18. He is lying flat on his back. He has no discomfort. He denies any groin pain. Abdomen is nontender. He denies any melena. LABORATORY DATA: White count is 8 this morning, hemoglobin 8.9, stable from last two days. Comprehensive metabolic profile is normal except for alkaline phosphatase of 131 and AST of 36. BUN and creatinine are 21 and 5.2. ASSESSMENT: 1. End-stage renal disease, on dialysis. 2. Non-Q-wave myocardial infarction. 3. Critical aortic stenosis. 4. Melena with gastrointestinal bleed on admission with EGD showing proximal gastritis with no bleeding, otherwise normal EGD. Biopsies showed mild chronic and active gastritis. No Helicobacter pylori. RECOMMENDATIONS: 1. PPI therapy. 2. With regard to the patient's GI bleed, it seems he did have GI bleeding. He was reportedly heme-negative at the outside hospital and he had hemoglobin of 5 on admission. He probably should undergo a colonoscopy at some time in the future, although the immediacy of his artery valve is going to take precedence. He states he had a colonoscopy five years ago, which was normal in [place], apparently at [facility]. Thus, I think that it is not urgent that he have colonoscopy before his valve replacement. I told him we could re-evaluate him in the outpatient setting obviously with acute gastrointestinal bleeding after return to the hospital to [place] tomorrow. We will try to catch up with him in the outpatient setting after his valve replacement. Job ID: [id number]
--- NOTE | 2019-07-28 06:56 | DIS ---
DATE OF ADMISSION: 07/24/2019 DATE OF DISCHARGE: 07/27/2019 DIAGNOSES: 1. Acute blood loss anemia requiring 3 units of PRBC transfusion with initial admission hemoglobin of around 6. 2. Anemia of chronic disease exacerbated with aspirin and Plavix, status post esophagogastroduodenoscopy, showing focal gastritis without stigmata of bleeding. 3. Non-ST segment elevation myocardial infarction. 4. History of coronary artery disease. 5. End-stage renal disease, on hemodialysis. 6. Paroxysmal atrial fibrillation, was on a beta nataliia. Currently on amiodarone. DISCHARGE MEDICATIONS: 1. Sinemet 2 tablets three times a day. 2. Aspirin 81 mg daily. 3. Plavix 75 mg daily. 4. Metoprolol succinate 25 mg daily. 5. Pantoprazole 40 mg daily. 6. Quetiapine 25 mg at bedtime. 7. Sertraline 50 mg daily. 8. Folic acid. 9. Vitamin B complex one tablet daily. 10. Lipitor 20 mg daily. 11. Calcitriol 0.25 mcg daily. 12. Allopurinol 100 mg daily. 13. Amiodarone 400 mg twice a day. PHYSICAL EXAMINATION: VITAL SIGNS: On the day of discharge; temperature 97.8, pulse 91, and blood pressure 106/62. GENERAL: The patient is alert and oriented x3. He is not in any acute distress. Cardiopulmonary exam -- unremarkable. Abdomen - soft, BS+ve., non-tender and non-distended. Extremities: - no pitting edema and rash. HOSPITAL COURSE: Please refer to history and physical for more details. Briefly, this is a 78-year-old male who came with significant acute anemia of hemoglobin 6. He was taking aspirin and Plavix while having a dark stool for last few days prior to the ER evaluation. He received 3 units of packed RBCs. He has undergone dialysis x2 during his stay. The patient also had NSTEMI a couple of months ago and he had a stress test that showed no reversible ischemia. However, at that time , his troponin level was 2. Now, during this admission, Initially, he had a troponin of 9.59 and 8.82. This could be exacerbated by having acute blood loss anemia. The patient did go through the cath. Report is currently pending. He is planning to go for further cardiac workup including valve evaluation for TAVR at [facility]. . Currently, Cardiology report is pending. EGD did not show any active bleed other than a focal gastritis, for which he will be on PPI. He is started on an aspirin and Plavix and amiodarone. The patient likely will be transferred to [facility] for possible TAVR today. Further care at the other facility. Job ID: [id number] MTDD
--- NOTE | 2019-07-30 15:48 | EKG ---
Test Reason : STAT Blood Pressure : / mmHG Vent. Rate : 094 BPM Atrial Rate : 094 BPM P-R Int : 148 ms QRS Dur : 102 ms QT Int : 356 ms P-R-T Axes : 077 029 249 degrees QTc Int : 445 ms Atrial flutter with Abberant conduction Abnormal ECG When compared with ECG of 01-JUL-2019 05:19, ST no longer elevated in Inferior leads ST now depressed in Lateral leads T wave inversion now evident in Inferior leads T wave inversion more evident in Anterolateral leads Confirmed by KAE VILLALOBOS (2) on 07/30/2019 3:48:15 PM Referred By: MADIE Confirmed By:KAE VILLALOBOS
--- NOTE | 2019-07-30 16:04 | EKG ---
Test Reason : Blood Pressure : / mmHG Vent. Rate : 102 BPM Atrial Rate : 208 BPM P-R Int : 000 ms QRS Dur : 102 ms QT Int : 348 ms P-R-T Axes : 000 042 258 degrees QTc Int : 453 ms Atrial fibrillation with rapid ventricular response Abnormal ECG When compared with ECG of 24-JUL-2019 20:03, (Unconfirmed) Atrial fibrillation has replaced Sinus rhythm Confirmed by KAE VILLALOBOS (2) on 07/30/2019 4:04:14 PM Referred By: GRISELDA Confirmed By:KAE VILLALOBOS
== END 2019-07-27 21:40 | disposition short-term general hospital (02) | DRG 377 ==
LOC: IMCU/EMU 14:23 → 2NO 07-26 15:32
PROVIDERS: ADMIT Internal Medicine; ATTEND Internal Medicine
PROC: 4A023N8 Measurement of Cardiac Sampling and Pressure, Bilateral, Percutaneous Approach (ICD-10-PCS; principal; 2019-07-24)
PROC: B2161ZZ Fluoroscopy of Right and Left Heart using Low Osmolar Contrast (ICD-10-PCS; 2019-07-24)
PROC: B2111ZZ Fluoroscopy of Multiple Coronary Arteries using Low Osmolar Contrast (ICD-10-PCS; 2019-07-24)
PROC: B2131ZZ Fluoroscopy of Multiple Coronary Artery Bypass Grafts using Low Osmolar Contrast (ICD-10-PCS; 2019-07-24)
PROC: 30233N1 Transfusion of Nonautologous Red Blood Cells into Peripheral Vein, Percutaneous Approach (ICD-10-PCS; 2019-07-24)
PROC: 0DB78ZX Excision of Stomach, Pylorus, Via Natural or Artificial Opening Endoscopic, Diagnostic (ICD-10-PCS; 2019-07-25)
DX: K92.1 Melena (principal); I21.4 Non-ST elevation (NSTEMI) myocardial infarction; N18.6 End stage renal disease; D68.32 Hemorrhagic disorder due to extrinsic circulating anticoagulants; D62 Acute posthemorrhagic anemia; I13.2 Hypertensive heart and chronic kidney disease with heart failure and with stage 5 chronic kidney disease, or end stage renal disease; I25.10 Atherosclerotic heart disease of native coronary artery without angina pectoris; I48.0 Paroxysmal atrial fibrillation; G20 Parkinson's disease; E78.5 Hyperlipidemia, unspecified; I35.0 Nonrheumatic aortic (valve) stenosis; I50.9 Heart failure, unspecified; M10.9 Gout, unspecified; K29.50 Unspecified chronic gastritis without bleeding; T45.525A Adverse effect of antithrombotic drugs, initial encounter; D63.1 Anemia in chronic kidney disease; E87.6 Hypokalemia; I95.9 Hypotension, unspecified; Z95.1 Presence of aortocoronary bypass graft; Z79.82 Long term (current) use of aspirin; Z79.01 Long term (current) use of anticoagulants; Z88.0 Allergy status to penicillin; Z99.2 Dependence on renal dialysis
CPT/HCPCS: 36415; 36430; 80053; 80061; 82553; 83735; 84484; 85007; 85014; 85018; 85025; 85027; 85347; 86850; 86900; 86901; 88305; 88312; 90935; 93005; 93010; 93461; 93561; 93567; 99152; 99153; C1769; C9113; G0257; J0282; J1644; J2001; J2250; J2370; J2704; J2720; J3010; J7070; P9016; Q9967

== ENCOUNTER 2019-12-10 01:17 | Emergency (ER) | payer MEDICARE, OTHER ==
[2019-12-10 02:23] LABS: #Basophils 0.1 thou/uL (0.0-0.2); #Eosinphils 0.3 thou/uL (0.0-0.7); #Lymphocytes 1.7 thou/uL (1.20-3.40); #Monocytes 0.9 thou/uL (0.11-0.59); %Basophils 0.7 % (0.0-1.0); %Eosinophils 3.9 % (0.0-10.0); %Lymphocytes 21.6 % (21.0-51.0); %Monocytes 11.5 % (0.0-10.0); %Neutrophils 62.4 % (42.0-75.0); Hemoglobin 13.8 g/dL (14.0-18.0); Mean Corpuscular Hemoglobin 30.8 pg (27.0-31.0); Mean Corpuscular Volume 99.2 fL (78.0-98.0); Mean Platelet Volume 7.9 fL (7.4-10.4); Platelet Count 186 thou/uL (130-400)
[2019-12-10 02:44] LABS: ALT (SGPT) Less than 7 U/L (8-55); AST (SGOT) 18 U/L (5-34); Albumin 3.9 g/dL (3.4-4.8); Alkaline Phosphatase 110 U/L (40-110); Anion Gap 20 mmol/L (10-20); BUN (Urea Nitrogen) 74 mg/dL (8.4-25.7); Bilirubin, Total 0.6 mg/dL (0.2-1.2); Calc. Creatinine Clearance 0 mL/min (70-130); Calcium 9.8 mg/dL (7.8-10.44); Carbon Dioxide 24 mmol/L (23-31); Chloride 101 mmol/L (98-107); Estimated GFR-MDRD 5; Globulin 3.9 g/dL (2.4-3.5); Glucose 91 mg/dL (83-110); Lipase 58 U/L (8-78); Protein, Total 7.8 g/dL (5.8-8.1); Sodium 140 mmol/L (136-145)
== END 2019-12-10 11:40 | disposition home or self-care (01) ==
LOC: ERS 01:17
DX: T85.611A Breakdown (mechanical) of intraperitoneal dialysis catheter, initial encounter (principal); I12.0 Hypertensive chronic kidney disease with stage 5 chronic kidney disease or end stage renal disease; N18.6 End stage renal disease; Z87.891 Personal history of nicotine dependence; Z79.899 Other long term (current) drug therapy
CPT/HCPCS: 36415; 80053; 83690; 85025; 90935; 99284; G0257

== ENCOUNTER 2020-01-29 09:46 | Emergency (ER) | payer MEDICARE, OTHER ==
--- NOTE | 2020-01-29 10:25 | RAD ---
XR Chest 1 View Portable History: Hypotension Comparison: Radiograph July 18, 2019 Findings: Heart size is normal. Multiple midline sternotomy wires. No pneumothorax. No significant ef fusion. Degenerative change of the right, clavicular joint with distal malleolar ostial lysis. Impression: Chronic findings. No acute intrathoracic abnormality.
[2020-01-29] MEDS ORDERED: Metoprolol Tartrate 25 MG TAB ONE (10:27)
[2020-01-29 11:12] LABS: #Eosinphils 0.3 thou/uL (0.0-0.7); #Lymphocytes 1.7 thou/uL (1.20-3.40); #Neutrophils 8.6 thou/uL (1.40-6.50); %Basophils 0.4 % (0.0-1.0); %Eosinophils 2.9 % (0.0-10.0); %Lymphocytes 14.7 % (21.0-51.0); %Monocytes 8.1 % (0.0-10.0); %Neutrophils 73.9 % (42.0-75.0); Hemoglobin 11.6 g/dL (14.0-18.0); Mean Corpuscular HGB CONC 31.5 g/dL (32.0-36.0); Mean Corpuscular Hemoglobin 31.4 pg (27.0-31.0); Mean Corpuscular Volume 99.9 fL (78.0-98.0); Mean Platelet Volume 7.1 fL (7.4-10.4); Platelet Count 287 thou/uL (130-400); RBC Distribution Width 16.6 % (11.5-14.5); White Blood Cell (WBC) Count 11.6 thou/uL (4.8-10.8)
[2020-01-29 11:31] LABS: Magnesium 2.7 mg/dL (1.6-2.6)
[2020-01-29 11:34] LABS: ALT (SGPT) Less than 7 U/L (8-55); AST (SGOT) 13 U/L (5-34); Albumin 3.7 g/dL (3.4-4.8); Alkaline Phosphatase 117 U/L (40-110); Anion Gap 27 mmol/L (10-20); BUN (Urea Nitrogen) 66 mg/dL (8.4-25.7); Bilirubin, Total 0.6 mg/dL (0.2-1.2); CK (CPK) 39 U/L (30-200); Calc. Creatinine Clearance 0 mL/min (70-130); Carbon Dioxide 22 mmol/L (23-31); Chloride 97 mmol/L (98-107); Estimated GFR-MDRD 3; Globulin 4.9 g/dL (2.4-3.5); Glucose 90 mg/dL (83-110); Protein, Total 8.6 g/dL (5.8-8.1); Sodium 142 mmol/L (136-145)
[2020-01-29 11:36] LABS: Phosphorus 10.5 mg/dL (2.3-4.7)
[2020-01-29 11:55] LABS: CKMB 3.5 ng/mL (0-6.6)
--- NOTE | 2020-01-29 14:32 | CON ---
DATE OF CONSULTATION: 01/29/2020 CONSULTING PHYSICIAN: ER doctor. REASON FOR CONSULTATION: End-stage renal disease evaluation. REASON FOR ADMISSION: Hypotension and not feeling well. HISTORY OF PRESENT ILLNESS: This is a male with history of end-stage renal disease, on peritoneal dialysis, coronary artery disease, hypertension, atrial fibrillation, came to the hospital with above complaints. The patient gets peritoneal dialysis at night and was found to have hypotension and bradycardia and was taken to the hospital. He was given IV fluids on the way by EMS and is feeling slightly better. Blood pressure is also better. No chest pain or palpitation. No nausea, vomiting, or diarrhea reported. No fever or chills. PAST MEDICAL HISTORY: Positive for; 1. End-stage renal disease, on peritoneal dialysis. 2. Coronary artery disease. 3. Hypertension. 4. Hyperlipidemia. 5. Parkinson disease. 6. Aortic stenosis. PAST SURGICAL HISTORY: 1. PD catheter placement. 2. Dialysis access placement. 3. CABG. MEDICATION: No medications. ALLERGIES: PENICILLIN. SOCIAL HISTORY: No smoking, alcohol, or illicit drugs. FAMILY HISTORY: No history of kidney disease. REVIEW OF SYSTEMS: CONSTITUTIONAL: Negative for weight loss or gain, ability to conduct usual activities. SKIN: Negative for rash, itching. EYES: Negative for double vision, pain. ENT/MOUTH: Negative for nose bleeding, neck stiffness, pain, tenderness. CARDIOVASCULAR: Negative for palpitations, dyspnea on exertion, orthopnea. RESPIRATORY: Negative for shortness of breath, wheezing, cough, hemoptysis, fever or night sweats. GASTROINTESTINAL: Negative for poor appetite, abdominal pain, heartburn, nausea, vomiting, constipation, or diarrhea. GENITOURINARY: Negative for urgency, frequency, dysuria, nocturia. MUSCULOSKELETAL: Negative for pain, swelling. NEUROLOGIC/PSYCHIATRIC: Negative for anxiety, depression. ALLERGY/IMMUNOLOGIC: Negative for skin rash, bleeding tendency. PHYSICAL EXAMINATION: GENERAL: This is a well-built male, in no apparent distress. VITAL SIGNS: Reviewed. HEENT: Atraumatic, normocephalic. Oral mucosa moist. NECK: Supple. CV: S1, S2. Rate and rhythm regular. RESPIRATORY: Clear. GASTROINTESTINAL: Abdomen is soft. MUSCULOSKELETAL: 1+ edema. DERMATOLOGIC: No skin rash. NEUROLOGIC: Alert and awake. PSYCHIATRIC: Normal mood and affect. LABORATORY DATA: Hemoglobin is 11.6. ASSESSMENT AND PLAN: 1. End-stage renal disease, on peritoneal dialysis. We will continue peritoneal dialysis as tolerated. Labs are pending. 2. . 3. Anemia of chronic kidney disease. 4. History of hypertension, currently hypotensive. We will use 1.5% dextrose solution. 5. Edema, controlled. We will continue on dialysis as tolerated. Family was updated and all the questions answered. Thank you for the consult. We will follow the case along with you. Job ID: [id number]
== END 2020-01-29 13:30 | disposition home or self-care (01) ==
LOC: ERS 09:46
DX: E86.0 Dehydration (principal); E87.8 Other disorders of electrolyte and fluid balance, not elsewhere classified; I12.0 Hypertensive chronic kidney disease with stage 5 chronic kidney disease or end stage renal disease; N18.6 End stage renal disease; Z99.2 Dependence on renal dialysis; Z87.891 Personal history of nicotine dependence; Z79.899 Other long term (current) drug therapy; Z79.82 Long term (current) use of aspirin
CPT/HCPCS: 36415; 71045; 80053; 82550; 82553; 83605; 83735; 84100; 84484; 85025; 87040; 93005; 94760

== ENCOUNTER 2020-04-26 19:52 | Inpatient (IN) | payer MEDICARE, OTHER ==
[2020-04-26 20:44] LABS: #Eosinphils 0.1 thou/uL (0.0-0.7); #Lymphocytes 1.2 thou/uL (1.20-3.40); #Monocytes 0.7 thou/uL (0.11-0.59); #Neutrophils 5.2 thou/uL (1.40-6.50); %Basophils 0.7 % (0.0-1.0); %Eosinophils 1.7 % (0.0-10.0); %Monocytes 8.9 % (0.0-10.0); %Neutrophils 71.7 % (42.0-75.0); Hemoglobin 11.2 g/dL (14.0-18.0); Mean Corpuscular HGB CONC 30.9 g/dL (32.0-36.0); Mean Platelet Volume 7.1 fL (7.4-10.4); Platelet Count 157 thou/uL (130-400); RBC Distribution Width 16.3 % (11.5-14.5); Red Blood Cell (RBC) Count 3.63 mill/uL (4.70-6.10); White Blood Cell (WBC) Count 7.3 thou/uL (4.8-10.8)
--- NOTE | 2020-04-26 20:48 | RAD ---
RADIOGRAPH CHEST 1 VIEW: DATE: 04/26/2020 TIME: 8:32 PM HISTORY: 79-year-old male with hypotension and altered mental status COMPARISON: 02/26/2020 FINDINGS: Previously demonstrated haziness of right lower lung zone probably represented posteriorly layering p leural effusion, either with or without underlying atelectasis or infiltrate at right lung base. It appears is somewhat different on the current study, with blunting of the right lateral costophreni c angle and region of moderately increased attenuation at right base. Blunting of left lateral costophrenic angle. No pneumothorax. No upper lobe consolidation. Mild faint patchy pulmonary opacities at left lower lung zone, new. Sternotomy wires. IMPRESSION: 1) small bilateral pleural effusions. 2) nonspecific mild pulmonary densities at the bilateral lung bases, right greater than left
[2020-04-26 21:06] LABS: Acetaminophen Less than 6.0 mcg/mL (10.0-30.0); Alcohol Less than 10 mg/dL (Less than 10); Salicylate Less than 8.0 mg/dL (15.0-30.0)
[2020-04-26 21:17] LABS: ALT (SGPT) 17 U/L (8-55); Albumin 2.2 g/dL (3.4-4.8); Alkaline Phosphatase 272 U/L (40-110); Anion Gap 13 mmol/L (10-20); BUN (Urea Nitrogen) 24 mg/dL (8.4-25.7); Bilirubin, Total 0.5 mg/dL (0.2-1.2); Calc. Creatinine Clearance 0 mL/min (70-130); Calcium 8.4 mg/dL (7.8-10.44); Carbon Dioxide 26 mmol/L (23-31); Chloride 102 mmol/L (98-107); Globulin 3.4 g/dL (2.4-3.5); Glucose 83 mg/dL (83-110); Potassium 3.4 mmol/L (3.5-5.1); Protein, Total 5.6 g/dL (5.8-8.1); Sodium 138 mmol/L (136-145)
[2020-04-26 21:26] LABS: AST (SGOT) 28 U/L (5-34); CKMB 2.8 ng/mL (0-6.6)
--- NOTE | 2020-04-26 21:42 | CT ---
CT BRAIN NONCONTRAST: DATE: 04/26/2020 HISTORY: 79-year-old male with altered mental status. COMPARISON: 04/10/2019 FINDINGS: There is no evidence of acute intra-axial or extra-axial hemorrhage. There is no midline shift or any other mass effect. There is no extra-axial fluid collection. There is no evidence of obstructive hydrocephalus. Calvarium is intact. There is diffuse brain parenchymal volume loss. There are low att enuation areas in the white matter. These are nonspecific, but in a patient of this age, they are probably chronic ischemic white matter changes due to microvascular atherosclerosis. There are small and tiny old lacunar infarctions in bilateral basal ganglia, caudate bodies, right thalamus, and brainstem, more specifically shena. There has been no significant interval change.. IMPRESSION: 1) No acute intracranial findings. 2) small and tiny old lacunar infarctions in bilateral corpus striatum, brainstem, and right thalamus . 3) involutional changes and chronic ischemic white matter changes.
[2020-04-27 00:40] LABS: Troponin I 0.143 ng/mL (< 0.028)
[2020-04-27] MEDS ORDERED: Midodrine HCl 5 MG TAB PO SCH (02:45)
[2020-04-27] MEDS ORDERED: Pharmacy to RENALLY ADJUST CEFEPIME IVPB PRN (03:09)
[2020-04-27 03:40] LABS: SARS-CoV-2 NAA Rapid Test DETECTED (NotDetected)
--- NOTE | 2020-04-27 04:34 | PDOC.HHP ---
Hospitalist HPI AMS History of Present Illness: This is a 79-year-old male patient with a history of ESRD on peritoneal dialysis, hypertension CHF A. fib. He was noted to have AMS and hypotension and was sent to [facility] and was in route to be transition [facility] around decision was made to decision to bring him here with a drastic fold in his blood pressure. IV fluids 1 L was given prior to arrival here. On presentation he was confused, BP was 102/50, respiratory 22, pulse 83, temperature 97.5 saturation 100% on room air. His labs showed hemoglobin of 11.2, WBC 7.3, platelets 157. Chemistry showed hypokalemia of 3.4, creatinine 7.86, alkaline phosphate 222 and troponin of 0.134. Toxicology screen with no salicylates or acetaminophen. His Covid test however turned out positive. CT scan of the head showed no acute intracranial process. Chest x-ray showed small bilateral pleural effusions with nonspecific mild pulmonary densities at bilateral lung bases. He was started on a liter of IV fluids given his soft blood pressure. Hospitalist team was consulted for admission. At the time of my evaluation patient was still generally confused however was able to say his name likely slight improvement. He otherwise will not answer any questions. Allergies/Adverse Reactions: Allergy/AdvReac Type Severity Reaction Status Date / Time Penicillins Allergy Rash Verified 07/24/19 16:15 Home Medications: Medication Instructions Recorded Confirmed Type Allopurinol 100 mg PO DAILY 02/27/17 07/24/19 History Calcium Acetate 1,334 mg PO TID-WM 03/06/18 07/24/19 History Pantoprazole [Protonix] 40 mg PO DAILY 02/22/19 07/24/19 History Sertraline HCl 50 mg PO DAILY 02/22/19 07/24/19 History Calcitriol [Rocaltrol] 0.25 mcg PO DAILY 06/30/19 07/24/19 History Carbidopa/Levodopa [Rytary ER] 2 tab PO TID 06/30/19 07/24/19 History Folic Acid/Vit B Complex and C 1 tablet PO DAILY 06/30/19 07/24/19 History [Dialyvite 800] QUEtiapine Fumarate [SEROquel] 50 mg PO HS 06/30/19 07/24/19 History Aspirin [Ecotrin Low Strength] 81 mg PO DAILY #30 tab 07/05/19 07/24/19 Rx Atorvastatin Calcium [Lipitor] 20 mg PO HS #30 tab 07/05/19 07/24/19 Rx Metoprolol Succinate [Toprol XL] 25 mg PO DAILY #30 tab 07/05/19 07/24/19 Rx Amiodarone [Cordarone] 400 mg PO BID 10 Days #20 tab 07/27/19 Rx Past History: PMHx:Hypertension, ESRD, CHF, A. fib, CAD PSHx:Coronary disease status post CABG, back surgery, atrial valve replacement. Family history: None of significance. Social history: No information available. Hospitalist HPI ROS ROS unobtainable: due to mental status Hospitalist Exam General - other findings: Patient confused, chronically ill looking Eye: PERRL, anicteric sclera ENT: normocephalic atraumatic Neck: supple Heart: RRR, no murmur, no gallops Respiratory: CTAB, no wheezes, no rales, no ronchi Gastrointestinal: soft, non-tender, non-distended, normal bowel sounds Gastrointestinal - other findings: Peritoneal dialysis catheter in place. Extremities: no cyanosis, no clubbing, no edema Neurological: no focal deficits Neurological - other findings: Spontaneous movement of all limbs Psychiatric: not oriented Hospitalist Results Result Diagrams: 04/27/20 05:10 04/26/20 20:33 Lab results: Laboratory Last Values WBC 7.3 thou/uL (4.8-10.8) 04/26/20 20: RBC 3.63 mill/uL (4.70-6.10) L 04/26/20 20:33 Hgb 11.2 g/dL (14.0-18.0) L 04/26/20 20:33 Hct 36.4 % (42.0-52.0) L 04/26/20 20: MCV 100.0 fL (78.0-98.0) H 04/26/20 20:33 MCH 31.0 pg (27.0-31.0) 04/26/20 20: MCHC 30.9 g/dL (32.0-36.0) L 04/26/20 20: RDW 16.3 % (11.5-14.5) H 04/26/20 20:33 Plt Count 157 thou/uL (130-400) 04/26/20 20:33 MPV 7.1 fL (7.4-10.4) L 04/26/20 20:33 Neutrophils % 71.7 % (42.0-75.0) 04/26/20 20:33 Lymphocytes % 17.0 % (21.0-51.0) L 04/26/20 20:33 Monocytes % 8.9 % (0.0-10.0) 04/26/20 20:33 Eosinophils % 1.7 % (0.0-10.0) 04/26/20 20:33 Basophils % 0.7 % (0.0-1.0) 04/26/20 20:33 Neutrophils # 5.2 thou/uL (1.40-6.50) 04/26/20 20:33 Lymphocytes # 1.2 thou/uL (1.20-3.40) 04/26/20 20:33 Monocytes # 0.7 thou/uL (0.11-0.59) H 04/26/20 20:33 Eosinophils # 0.1 thou/uL (0.0-0.7) 04/26/20 20:33 Basophils # 0.0 thou/uL (0.0-0.2) 04/26/20 20:33 Sodium 138 mmol/L (136-145) 04/26/20 20:33 Potassium 3.4 mmol/L (3.5-5.1) L 04/26/20 20:33 Chloride 102 mmol/L (98-107) 04/26/20 20:33 Carbon Dioxide 26 mmol/L (23-31) 04/26/20 20:33 Anion Gap 13 mmol/L (10-20) 04/26/20 20:33 BUN 24 mg/dL (8.4-25.7) 04/26/20 20:33 Creatinine 7.86 mg/dL (0.7-1.3) H 04/26/20 20:33 Estimated GFR (MDRD) 7 04/26/20 20:33 Glucose 83 mg/dL (83-110) 04/26/20 20:33 Calcium 8.4 mg/dL (7.8-10.44) 04/26/20 20:33 Magnesium 2.3 mg/dL (1.6-2.6) 04/27/20 02:34 Total Bilirubin 0.5 mg/dL (0.2-1.2) 04/26/20 20:33 AST 28 U/L (5-34) 04/26/20 20:33 ALT 17 U/L (8-55) 04/26/20 20:33 Alkaline Phosphatase 272 U/L (40-110) H 04/26/20 20:33 CK-MB (CK-2) 2.8 ng/mL (0-6.6) 04/26/20 20:33 Troponin I 0.140 ng/mL (< 0.028) H 04/27/20 02:34 Serum Total Protein 5.6 g/dL (5.8-8.1) L 04/26/20 20:33 Albumin 2.2 g/dL (3.4-4.8) L 04/26/20 20:33 Globulin 3.4 g/dL (2.4-3.5) 04/26/20 20:33 Albumin/Globulin Ratio 0.6 g/dL (1.2-2.2) L 04/26/20 20:33 Salicylates Less than 8.0 mg/dL (15.0-30.0) L 04/26/20 20:33 Acetaminophen Less than 6.0 mcg/mL (10.0-30.0) L 04/26/20 20:33 Plasma Alcohol Less than 10 mg/dL (Less than 10) 04/26/20 20:33 SARS-CoV-2 Rap RNA(RT-PCR) DETECTED (NotDetected) A* 04/27/20 02:20 Hospitalist H&P A/P Plan: This is a 79-year-old male patient with a history of hypertension, CHF, A. fib and ESRD on peritoneal dialysis brought in on account of altered mental status with hypotension. Is concerning for possible sepsis however with no clear etiology. Acute encephalopathy Unclear sourcerule out sepsis Received 1 L IV fluidswe will hold continuous fluids given his ESRD We will check lactate We will start him on antibioticscefepime Follow-up on blood cultures Covid labs pending May need peritoneal fluid analysis in a.m. Sepsis Patient has confusion of unclear cause However does not meet SIRS criteria. We will cover on antibiotics Follow-up cultures ESRD on PD Consult nephrology in a.m. History of A. fib Continue medications once verified. Coronary artery disease s/p CABG Continue home medications once verified. VT prophylaxisheparin CODE STATUSunknown at the moment Addendum: Covid tested positive This may be likely due to Covid We will start vitamin C/E/zinc Check D-dimer, ferritin CRP
[2020-04-27 05:34] LABS: #Eosinphils 0.1 thou/uL (0.0-0.7); #Lymphocytes 1.4 thou/uL (1.20-3.40); #Monocytes 0.6 thou/uL (0.11-0.59); #Neutrophils 5.6 thou/uL (1.40-6.50); %Basophils 0.4 % (0.0-1.0); %Eosinophils 1.6 % (0.0-10.0); %Lymphocytes 17.6 % (21.0-51.0); %Monocytes 7.5 % (0.0-10.0); Hemoglobin 11.3 g/dL (14.0-18.0); Mean Corpuscular HGB CONC 31.5 g/dL (32.0-36.0); Mean Corpuscular Hemoglobin 31.5 pg (27.0-31.0); Mean Platelet Volume 7.1 fL (7.4-10.4); Platelet Count 174 thou/uL (130-400); RBC Distribution Width 16.2 % (11.5-14.5); Red Blood Cell (RBC) Count 3.58 mill/uL (4.70-6.10); White Blood Cell (WBC) Count 7.7 thou/uL (4.8-10.8)
[2020-04-27 05:54] LABS: Anion Gap 13 mmol/L (10-20); BUN (Urea Nitrogen) 27 mg/dL (8.4-25.7); Calc. Creatinine Clearance 0 mL/min (70-130); Calcium 8.8 mg/dL (7.8-10.44); Carbon Dioxide 23 mmol/L (23-31); Chloride 104 mmol/L (98-107); Glucose 67 mg/dL (83-110); Potassium 3.5 mmol/L (3.5-5.1); Sodium 136 mmol/L (136-145)
[2020-04-27 06:00] LABS: Acetaminophen Less than 6.0 mcg/mL (10.0-30.0); Alcohol Less than 10 mg/dL (Less than 10); Salicylate Less than 8.0 mg/dL (15.0-30.0)
[2020-04-27] MEDS: Cefepime 2 GM in Sodium Chloride 0.9% 100 ML IVPB SCH (08:39)
[2020-04-27] MEDS: Heparin 5,000 UNITS/ML VIAL SC SCH ×3 (08:39→20:47)
[2020-04-27] MEDS: Potassium Chloride 20 MEQ TAB PO SCH ×2 (10:45→11:07)
[2020-04-27] MEDS: Cholecalciferol (Vitamin D3) 400 UNITS TAB PO SCH (10:45)
[2020-04-27] MEDS: Ascorbic Acid 500 mg Chewable Tablet PO SCH ×2 (10:45→13:53)
[2020-04-27] MEDS: Zinc Sulfate 220 MG CAP PO SCH ×2 (10:45→13:53)
[2020-04-27] MEDS: Midodrine HCl 5 MG TAB PO SCH ×3 (10:46→20:58)
--- NOTE | 2020-04-27 12:38 | CON ---
DATE OF CONSULTATION: 04/27/2020 CONSULTING PHYSICIAN: Jhonatan Song MD REASON FOR CONSULTATION: End-stage renal disease evaluation care. REASON FOR ADMISSION: Altered mentation. HISTORY OF PRESENT ILLNESS: This is a 79-year-old with history of end-stage renal disease, hypertension, CAD, came to the hospital with altered mentation and hypertension. The patient gets PD at home. Blood pressure was low and no fever or chills. No nausea or vomiting. COVID test was positive. PAST MEDICAL HISTORY: Positive for end-stage renal disease hypertension, CHF, coronary artery disease. PAST SURGICAL HISTORY: PD catheter placement, aortic valve replacement, back surgery, and bypass. HOME MEDICATIONS: Reviewed. ALLERGIES: PENICILLIN. SOCIAL HISTORY: No smoking, alcohol, or illicit drugs. FAMILY HISTORY: No history of kidney disease. REVIEW OF SYSTEMS: Could not be obtained as the patient is confused. PHYSICAL EXAMINATION: GENERAL: Elderly male in no apparent distress. VITAL SIGNS: pulse 87, respiratory rate 18, blood pressure . HEENT: Atraumatic, normocephalic. NECK: Supple. CV: S1, S2. Rate and rhythm regular. RESPIRATORY: Clear. GASTROINTESTINAL: Abdomen is soft. MUSCULOSKELETAL: 1+ edema. DERMATOLOGIC: No skin rash. NEUROLOGIC: Confused. LABORATORY DATA: Hemoglobin is 11.3, potassium 3.5, BUN is 27, creatinine is 8.03. ASSESSMENT AND PLAN: 1. End-stage renal disease. We will continue on peritoneal dialysis. 2. Edema. 3. History of hypertension. 4. Anemia of chronic disease. PLAN: To continue on peritoneal dialysis as tolerated. Monitor potassium. We will follow. Job ID: [id number]
--- NOTE | 2020-04-27 13:39 | PDOC.HOSPP ---
- Subjective Encounter Date: 04/27/20 Encounter Time: 10:10 Subjective: Patient looks lethargic and also little confused during my exam. It appears that this morning he was more oriented. Family wants him to be DN AR. - Objective Vital Signs & Weight: Vital Signs (12 hours) Temp Pulse Resp BP Pulse Ox 04/27/20 08:40 97.6 F 87 18 114/55 L 100 04/27/20 06:36 97.8 F 89 18 97/59 L 95 Weight Weight 158 lb 1.6 oz Result Diagrams: 04/27/20 05:10 04/27/20 05:10 Hospitalist ROS - Medication Medications: Active Medications Generic Name Dose Route Start Last Admin Trade Name Freq PRN Reason Stop Dose Admin Cholecalciferol 400 units 04/27/20 09:00 04/27/20 10:45 Cholecalciferol (Vitamin D3) 400 Units Tab PO 400 units DAILY HERMILA Administration Heparin Sodium (Porcine) 5,000 units 04/27/20 09:00 04/27/20 08:39 Heparin 5,000 Units/Ml Vial SC 5,000 units TID HERMILA Administration Cefepime HCl 2 gm/ Sodium 100 mls @ 200 mls/hr 04/27/20 08:00 04/27/20 08:39 Chloride IVPB 100 mls Q2DAYS@0800 HERMILA Administration Midodrine 10 mg 04/27/20 09:00 04/27/20 10:46 Midodrine Hcl 5 Mg Tab PO 10 mg TID HERMILA Administration Potassium Chloride 20 meq 04/27/20 08:00 04/27/20 11:07 Potassium Chloride 20 Meq Tab PO Not Given [facility] Hospitalist Exam Vitals: Vital Signs (12 hours) Temp Pulse Resp BP Pulse Ox 04/27/20 08:40 97.6 F 87 18 114/55 L 100 04/27/20 06:36 97.8 F 89 18 97/59 L 95 Weight Weight 158 lb 1.6 oz General Appearance: awake alert, ill appearing Eye: PERRL ENT: normocephalic atraumatic Neck: supple Heart: RRR Respiratory: CTAB, normal chest expansion Gastrointestinal: soft, normal bowel sounds Neurological: cranial nerve grossly intact, no focal deficits Psychiatric: oriented to person Hosp A/P - Plan 79-year-old male patient with a history of hypertension, CHF, A. fib and ESRD on peritoneal dialysis brought in on account of altered mental status with hypotension. Is concerning for possible sepsis however with no clear etiology. Acute encephalopathy-- -seems improved - start him on antibioticscefepime Follow-up on blood cultures ESRD on PD Consulted nephrology Dr. Wellington History of A. fib Continue medications once verified. Coronary artery disease s/p CABG Continue home medications once verified. Covid pneumonia -vitamin C/E/zinc -Ferritin and D-dimer level high -could be also due to dialysis -cefepime and doxy psych VT prophylaxisheparin DNAR
[2020-04-27] MEDS ORDERED: Lorazepam 2 MG/ML VIAL SLOW IVP PRN (14:47)
[2020-04-27] MEDS: Senokot 8.6 MG TAB PO SCH (20:58)
[2020-04-27] MEDS ORDERED: Albumin 25% 25 GM/100 ML BOT IVPB SCH (21:00)
[2020-04-28] MEDS ORDERED: Albumin 25% 25 GM/100 ML BOT IVPB PRN (03:00)
[2020-04-28 07:48] LABS: Anion Gap 14 mmol/L (10-20); BUN (Urea Nitrogen) 26 mg/dL (8.4-25.7); Calc. Creatinine Clearance 7 mL/min (70-130); Carbon Dioxide 22 mmol/L (23-31); Chloride 104 mmol/L (98-107); Glucose 82 mg/dL (83-110); Potassium 3.1 mmol/L (3.5-5.1); Sodium 137 mmol/L (136-145)
[2020-04-28] MEDS ORDERED: DEX FS PRN (09:34)
[2020-04-28] MEDS ORDERED: PERIT DIALYSIS NO 6 FS PRN (09:34)
[2020-04-28] MEDS ORDERED: HEPARIN FS PRN (09:34)
[2020-04-28] MEDS: Heparin 5,000 UNITS/ML VIAL SC SCH ×3 (09:52→22:15)
[2020-04-28] MEDS: Dexamethasone 4 mg/ml Vial SLOW IVP SCH (09:53)
[2020-04-28] MEDS ORDERED: Potassium Chloride 20 MEQ TAB PO SCH (10:15)
[2020-04-28] MEDS: Potassium Chloride 20 MEQ TAB PO SCH (11:13)
--- NOTE | 2020-04-28 12:58 | PRG ---
DATE OF SERVICE: 04/28/2020 SUBJECTIVE: Patient was seen at the bedside. Remains a bit confused today. OBJECTIVE: GENERAL: This is an elderly male in no apparent distress. VITAL SIGNS: Temperature 97, pulse 86, respiratory rate 18, blood pressure 151/75. HEENT: Atraumatic, normocephalic. Oral mucosa is moist. NECK: Supple. CARDIOVASCULAR: S1, S2 heard. Rate and rhythm regular. RESPIRATORY: Clear to auscultation. GASTROINTESTINAL: Abdomen is soft. MUSCULOSKELETAL: No tenderness. No edema. DERMATOLOGIC: No skin rash. NEUROLOGIC: Confused. PSYCHIATRIC: Mood and affect normal. LABORATORY DATA: Potassium 3.1, BUN is 26, creatinine is 8.4. ASSESSMENT AND PLAN: 1. End-stage renal disease, on peritoneal dialysis. Plan is to continue on peritoneal dialysis. 2. Altered mentation seems to be slightly better today. 3. Edema. 4. Hypertension. 5. Anemia of chronic disease. 6. We will continue Epogen. Continue PD. 7. Hypokalemia. Replace. We will follow. Job ID: [id number]
--- NOTE | 2020-04-28 13:45 | PDOC.HOSPP ---
- Subjective Encounter Date: 04/28/20 Encounter Time: 09:30 Subjective: Patient seen this morning. He is less confused he states his name and where he is. He is much more oriented than I have seen him yesterday. - Objective Vital Signs & Weight: Vital Signs (12 hours) Temp Pulse Resp BP Pulse Ox 04/28/20 12:00 97.4 F L 86 20 151/75 H 99 04/28/20 09:52 96.4 F L 89 16 144/67 H 99 04/28/20 04:00 96.2 F L 82 16 147/78 H 100 Weight Weight 158 lb 1.6 oz I&O: 04/27/20 04/28/20 04/29/20 06:59 06:59 06:59 Intake Total 320 Balance 320 Result Diagrams: 04/27/20 05:10 04/28/20 07:22 Hospitalist ROS - Medication Medications: Active Medications Generic Name Dose Route Start Last Admin Trade Name Freq PRN Reason Stop Dose Admin Ascorbic Acid 1,000 mg 04/27/20 09:00 04/27/20 13:53 Ascorbic Acid 500 Mg Chewable Tablet PO Not Given DAILY HERMILA Cholecalciferol 400 units 04/27/20 09:00 04/27/20 10:45 Cholecalciferol (Vitamin D3) 400 Units Tab PO 400 units DAILY HERMILA Administration Dexamethasone 6 mg 04/28/20 09:00 04/28/20 09:53 Dexamethasone 4 Mg/Ml Vial SLOW IVP 6 mg DAILY HERMILA Administration Heparin Sodium (Porcine) 5,000 units 04/27/20 09:00 04/28/20 09:52 Heparin 5,000 Units/Ml Vial SC 5,000 units TID HERMILA Administration Cefepime HCl 2 gm/ Sodium 100 mls @ 200 mls/hr 04/27/20 08:00 04/27/20 08:39 Chloride IVPB 100 mls Q2DAYS@0800 HERMILA Administration Doxycycline Hyclate 100 mg/ 100 mls @ 100 mls/hr 04/28/20 05:00 04/28/20 0 5:10 Sodium Chloride IVPB 100 mls 0500,1700 HERMILA Administration Lorazepam 1 mg 04/27/20 14:47 04/27/20 15:03 Lorazepam 2 Mg/Ml Vial SLOW IVP 1 mg Q6H PRN Administration Agitation Senna 2 tab 04/27/20 21:00 04/27/20 20:58 Senokot 8.6 Mg Tab PO Not Given BID HERMILA Zinc Sulfate 220 mg 04/27/20 09:00 04/27/20 13:53 Zinc Sulfate 220 Mg Cap PO Not Given DAILY [facility] Hospitalist Exam Vitals: Vital Signs (12 hours) Temp Pulse Resp BP Pulse Ox 04/28/20 12:00 97.4 F L 86 20 151/75 H 99 04/28/20 09:52 96.4 F L 89 16 144/67 H 99 04/28/20 04:00 96.2 F L 82 16 147/78 H 100 Weight Weight 158 lb 1.6 oz General Appearance: NAD, awake alert Eye: PERRL ENT: normocephalic atraumatic Neck: supple Heart: RRR Respiratory: CTAB, normal chest expansion Gastrointestinal: soft, normal bowel sounds Neurological: cranial nerve grossly intact, no focal deficits Psychiatric: oriented to person, oriented to place Hosp A/P - Plan 79-year-old male patient with a history of hypertension, CHF, A. fib and ESRD on peritoneal dialysis brought in on account of altered mental status with hypotension. Is concerning for possible sepsis however with no clear etiology. Acute encephalopathy probably secondary to COVID PNA -Improved ESRD on PD Consulted nephrology Dr. Wellington -Restarted his home renal medications. History of A. fib Coronary artery disease s/p CABG -He is on Toprol-XL and I do not see any anticoagulant as his home regimen Covid pneumonia -vitamin C/E/zinc -Ferritin and D-dimer level high -could be also due to dialysis -cefepime and doxycyclin VT prophylaxisheparin Physical therapy evaluation Possible discharge home with home health versus inpatient, when able DNAR
[2020-04-28] MEDS: Ascorbic Acid 500 mg Chewable Tablet PO SCH (16:21)
[2020-04-28] MEDS: Zinc Sulfate 220 MG CAP PO SCH (16:21)
[2020-04-28] MEDS: Senokot 8.6 MG TAB PO SCH ×2 (16:22→22:14)
[2020-04-28] MEDS: Cholecalciferol (Vitamin D3) 400 UNITS TAB PO SCH (16:22)
[2020-04-28] MEDS: Midodrine HCl 5 MG TAB PO SCH ×2 (16:22→22:14)
[2020-04-28] MEDS: Polyethylene Glycol 3350 17 GM Packet PO SCH (16:23)
[2020-04-28] MEDS: Calcium Acetate 667 MG CAP PO SCH (16:23)
[2020-04-28] MEDS: Sevelamer Carbonate 800 MG TAB PO SCH (16:23)
[2020-04-28] MEDS: Amitriptyline HCl 25 MG TAB PO SCH (22:14)
[2020-04-28] MEDS: rOPINIRole HCl 0.25 MG TAB PO SCH (22:14)
[2020-04-29] MEDS: Sevelamer Carbonate 800 MG TAB PO SCH ×3 (07:54→17:28)
[2020-04-29] MEDS: Calcium Acetate 667 MG CAP PO SCH ×3 (07:54→17:28)
[2020-04-29] MEDS: Senokot 8.6 MG TAB PO SCH ×2 (07:54→20:47)
[2020-04-29] MEDS: Magnesium Oxide 400 MG TAB PO SCH (07:55)
[2020-04-29] MEDS: Ascorbic Acid 500 mg Chewable Tablet PO SCH (07:56)
[2020-04-29] MEDS: Potassium Chloride 20 MEQ TAB PO SCH (07:57)
[2020-04-29] MEDS: Folic Acid/Vit B Comp W-C PO SCH (07:57)
[2020-04-29] MEDS: Zinc Sulfate 220 MG CAP PO SCH (07:58)
[2020-04-29] MEDS: Calcitriol 0.25 MCG CAP PO SCH (07:58)
[2020-04-29] MEDS: Heparin 5,000 UNITS/ML VIAL SC SCH ×3 (07:58→20:47)
[2020-04-29] MEDS: Cholecalciferol (Vitamin D3) 400 UNITS TAB PO SCH (07:58)
[2020-04-29] MEDS: Cefepime 2 GM in Sodium Chloride 0.9% 100 ML IVPB SCH (07:59)
[2020-04-29] MEDS: Dexamethasone 4 mg/ml Vial SLOW IVP SCH (07:59)
[2020-04-29] MEDS: Polyethylene Glycol 3350 17 GM Packet PO SCH (07:59)
[2020-04-29 08:24] LABS: Anion Gap 16 mmol/L (10-20); BUN (Urea Nitrogen) 32 mg/dL (8.4-25.7); Calc. Creatinine Clearance 7 mL/min (70-130); Calcium 9.7 mg/dL (7.8-10.44); Carbon Dioxide 24 mmol/L (23-31); Chloride 102 mmol/L (98-107); Glucose 87 mg/dL (83-110); Potassium 3.6 mmol/L (3.5-5.1); Sodium 138 mmol/L (136-145)
[2020-04-29] MEDS: Midodrine HCl 5 MG TAB PO SCH ×2 (10:01→21:24)
--- NOTE | 2020-04-29 12:22 | PRG ---
DATE OF SERVICE: 04/29/2020 SUBJECTIVE: A 79-year-old gentleman being seen for end-stage renal disease. The patient denied nausea, vomiting, or chest pain. PHYSICAL EXAMINATION: General: The patient is awake and alert. Vital Signs: Afebrile, pulse 90, breathing at 16, blood pressure 136/69. HEENT: Head normocephalic and atraumatic. Eyes intact, no ulcers. Nose intact, no ulcers. Ears intact, no ulcers. Neck: Supple. No JVD. Chest: Symmetrical and clear. Cardiovascular: Shows S1 and S2, no rub, no murmur. Gastrointestinal: Abdomen is soft, bowel sounds positive. Extremities: Show no edema or ulcers. Skin: Shows no rash or petechiae. Musculoskeletal: Shows no joint swelling or stiffness. Genitourinary: Shows no Lyons or CVA tenderness. Neurologic: Motor intact. Cranial nerves intact. LABORATORY DATA: Reviewed. ASSESSMENT AND PLAN: 1. Stage 6 chronic kidney disease, continue dialysis. 2. Hypertension, stable. 3. Anemia, stable. 4. Medication based on GFR appropriate. Job ID: [id number] [facility]
--- NOTE | 2020-04-29 13:16 | PDOC.HOSPP ---
- Subjective Encounter Date: 04/29/20 Encounter Time: 09:30 Subjective: Patient is seen this morning he does not have any acute distress. Talk to the charge nurse. Plan for send him to the inpatient rehab. For his overall generalized weakness. Mentation at baseline. Today not excessively confused. - Objective Vital Signs & Weight: Vital Signs (12 hours) Temp Pulse Resp BP Pulse Ox 04/29/20 11:25 97.5 F L 90 16 159/73 H 95 04/29/20 08:05 96.3 F L 94 16 151/68 H 96 04/29/20 04:15 98.0 F 97 14 150/72 H 100 Weight Weight 161 lb 8 oz I&O: 04/28/20 04/29/20 04/30/20 06:59 06:59 06:59 Intake Total 900 Output Total 437 Balance 463 Result Diagrams: 04/27/20 05:10 04/29/20 07:31 Hospitalist ROS - Medication Medications: Active Medications Generic Name Dose Route Start Last Admin Trade Name Nicolásq PRN Reason Stop Dose Admin Amitriptyline HCl 50 mg 04/28/20 21:00 04/28/20 22:14 Amitriptyline Hcl 25 Mg Tab PO 50 mg HS HERMILA Administration Ascorbic Acid 1,000 mg 04/27/20 09:00 04/29/20 07:56 Ascorbic Acid 500 Mg Chewable Tablet PO 1,000 mg DAILY HERMILA Administration Calcitriol 0.25 mcg 04/29/20 09:00 04/29/20 07:58 Calcitriol 0.25 Mcg Cap PO 0.25 mcg DAILY HERMILA Administration Calcium Acetate 1,334 mg 04/28/20 17:00 04/29/20 11:21 Calcium Acetate 667 Mg Cap PO 1,334 mg TID- HERMILA Administration Cholecalciferol 400 units 04/27/20 09:00 04/29/20 07:58 Cholecalciferol (Vitamin D3) 400 Units Tab PO 400 units DAILY HERMILA Administration Dexamethasone 6 mg 04/28/20 09:00 04/29/20 07:59 Dexamethasone 4 Mg/Ml Vial SLOW IVP 6 mg DAILY HERMILA Administration Heparin Sodium (Porcine) 5,000 units 04/27/20 09:00 04/29/20 07:58 Heparin 5,000 Units/Ml Vial SC 5,000 units TID HERMILA Administration Cefepime HCl 2 gm/ Sodium 100 mls @ 200 mls/hr 04/27/20 08:00 04/29/20 07:59 Chloride IVPB 100 mls Q2DAYS@0800 HERMILA Administration Doxycycline Hyclate 100 mg/ 100 mls @ 100 mls/hr 04/28/20 05:00 04/29/20 04:13 Sodium Chloride IVPB 100 mls 0500,1700 HERMILA Administration Lorazepam 1 mg 04/27/20 14:47 04/27/20 15:03 Lorazepam 2 Mg/Ml Vial SLOW IVP 1 mg Q6H PRN Administration Agitation Magnesium Oxide 200 mg 04/29/20 09:00 04/29/20 07:55 Magnesium Oxide 400 Mg Tab PO 200 mg DAILY HERMILA Administration Metoprolol Succinate 50 mg 04/29/20 09:00 04/29/20 07:57 Metoprolol Succinate Xl 50 Mg Tab PO 50 mg DAILY HERMILA Administration Midodrine 10 mg 04/28/20 21:00 04/29/20 10:01 Midodrine Hcl 5 Mg Tab PO 10 mg BID HERMILA Administration Pantoprazole Sodium 40 mg 04/29/20 09:00 04/29/20 07:58 Pantoprazole 40 Mg Tab PO 40 mg DAILY HERMILA Administration Polyethylene Glycol 17 gm 04/28/20 09:00 04/29/20 07:59 Polyethylene Glycol 3350 17 Gm Packet PO 17 gm DAILY HERMILA Administration Potassium Chloride 40 meq 04/29/20 08:00 04/29/20 07:57 Potassium Chloride 20 Meq Tab PO 05/01/20 08:01 40 meq QAM-WM HERMILA Administration Ropinirole HCl 0.25 mg 04/28/20 21:00 04/28/20 22:14 Ropinirole Hcl 0.25 Mg Tab PO 0.25 mg HS HERMILA Administration Senna 2 tab 04/27/20 21:00 04/29/20 07:54 Senokot 8.6 Mg Tab PO 2 tab BID HERMILA Administration Sertraline HCl 100 mg 04/29/20 09:00 04/29/20 07:58 Sertraline Hcl 100 Mg Tab PO 100 mg DAILY EHRMILA Administration Sevelamer Carbonate 2,400 mg 04/28/20 17:00 04/29/20 11:21 Sevelamer Carbonate 800 Mg Tab PO 2,400 mg TID-WM HERMILA Administration Vitamin B Complex/Vit C/Folic Acid 1 tab 04/29/20 09:00 04/29/20 07:57 Folic Acid/Vit B Comp W-C PO 1 tab DAILY HERMILA Administration Zinc Sulfate 220 mg 04/27/20 09:00 04/29/20 07:58 Zinc Sulfate 220 Mg Cap PO 220 mg DAILY HERMILA Administration Hospitalist Exam Vitals: Vital Signs (12 hours) Temp Pulse Resp BP Pulse Ox 04/29/20 11:25 97.5 F L 90 16 159/73 H 95 04/29/20 08:05 96.3 F L 94 16 151/68 H 96 04/29/20 04:15 98.0 F 97 14 150/72 H 100 Weight Weight 161 lb 8 oz General Appearance: NAD, awake alert Eye: PERRL ENT: normocephalic atraumatic Neck: supple Heart: RRR, II/IV Respiratory: CTAB, normal chest expansion Gastrointestinal: soft, normal bowel sounds Neurological: no focal deficits Psychiatric: A&O x 3 Hosp A/P - Plan 79-year-old male patient with a history of hypertension, CHF, A. fib and ESRD on peritoneal dialysis brought in on account of altered mental status with hypotension. Is concerning for possible sepsis however with no clear etiology. Acute encephalopathy probably secondary to COVID PNA -Improved -He does have a labile mentation but I believe that is partially due to age- related dementia at its baseline ESRD on PD Consulted nephrology Dr. Wellington -Restarted his home renal medications. History of A. fib Coronary artery disease s/p CABG -He is on Toprol-XL and I do not see any anticoagulant as his home regimen Covid pneumonia -vitamin C/E/zinc -Ferritin and D-dimer level high -could be also due to dialysis -cefepime and doxycyclin VT prophylaxisheparin Physical and occupational therapy evaluation DNAR Pending placement
[2020-04-29 14:16] VITALS: BMI 25.2
[2020-04-29] MEDS: rOPINIRole HCl 0.25 MG TAB PO SCH (20:47)
[2020-04-29] MEDS: Amitriptyline HCl 25 MG TAB PO SCH (20:48)
[2020-04-29 23:59] LABS: Lactic Acid 1.6 mmol/L (0.5-2.2)
[2020-04-30 00:02] LABS: Anion Gap 16 mmol/L (10-20); BUN (Urea Nitrogen) 37 mg/dL (8.4-25.7); Calc. Creatinine Clearance 7 mL/min (70-130); Calcium 9.6 mg/dL (7.8-10.44); Carbon Dioxide 24 mmol/L (23-31); Chloride 103 mmol/L (98-107); Glucose 122 mg/dL (83-110); Magnesium 2.4 mg/dL (1.6-2.6); Phosphorus 4.1 mg/dL (2.3-4.7); Sodium 139 mmol/L (136-145)
[2020-04-30 00:25] LABS: CKMB 2.5 ng/mL (0-6.6)
[2020-04-30 05:30] LABS: Anion Gap 17 mmol/L (10-20); BUN (Urea Nitrogen) 35 mg/dL (8.4-25.7); Calc. Creatinine Clearance 8 mL/min (70-130); Calcium 9.9 mg/dL (7.8-10.44); Carbon Dioxide 22 mmol/L (23-31); Chloride 103 mmol/L (98-107); Glucose 103 mg/dL (83-110); Potassium 3.6 mmol/L (3.5-5.1); Sodium 138 mmol/L (136-145)
--- NOTE | 2020-04-30 07:47 | ULT ---
ULTRASOUND DOPPLER DUPLEX VENOUS BILATERAL LOWER EXTREMITIES: DATE: 04/30/2020 HISTORY: 79-year-old male with elevated d-dimer TECHNIQUE: Grayscale, color-flow, and spectral analysis, of major veins of bilateral lower extremities. FINDINGS: There is demonstration of blood flow with normal compressibility, of the bilateral common femoral, pr ofunda femoral, greater saphenous, femoral, popliteal, and posterior tibial, veins. IMPRESSION: 1. Negative. No deep venous thrombosis of bilateral lower extremities. 2. Minimal lower extremity soft tissue edema
[2020-04-30] MEDS: Dexamethasone 4 mg/ml Vial SLOW IVP SCH (08:55)
[2020-04-30] MEDS: Senokot 8.6 MG TAB PO SCH ×2 (08:58→19:55)
[2020-04-30] MEDS: Cholecalciferol (Vitamin D3) 400 UNITS TAB PO SCH (08:58)
[2020-04-30] MEDS: Zinc Sulfate 220 MG CAP PO SCH (08:58)
[2020-04-30] MEDS: Midodrine HCl 5 MG TAB PO SCH ×2 (08:59→20:29)
[2020-04-30] MEDS: Sevelamer Carbonate 800 MG TAB PO SCH ×3 (08:59→18:23)
[2020-04-30] MEDS: Calcium Acetate 667 MG CAP PO SCH ×3 (08:59→18:24)
[2020-04-30] MEDS: Folic Acid/Vit B Comp W-C PO SCH (09:00)
[2020-04-30] MEDS: Magnesium Oxide 400 MG TAB PO SCH (09:00)
[2020-04-30] MEDS: Potassium Chloride 20 MEQ TAB PO SCH (09:00)
[2020-04-30] MEDS: Ascorbic Acid 500 mg Chewable Tablet PO SCH (09:04)
[2020-04-30] MEDS: Calcitriol 0.25 MCG CAP PO SCH (09:05)
[2020-04-30] MEDS: Heparin 5,000 UNITS/ML VIAL SC SCH ×3 (09:05→19:55)
[2020-04-30] MEDS: Polyethylene Glycol 3350 17 GM Packet PO SCH (09:06)
--- NOTE | 2020-04-30 12:30 | PDOC.HOSPP ---
- Subjective Encounter Date: 04/30/20 Encounter Time: 10:45 Subjective: Patient seen this morning he is oriented to himself only. It appears he had an episode of A. fib with RVR last night. Cardiology evaluation pending. - Objective Vital Signs & Weight: Vital Signs (12 hours) Temp Pulse Resp BP Pulse Ox 04/30/20 11:37 97.6 F 74 20 139/65 94 L 04/30/20 07:45 97.9 F 81 20 155/68 H 100 04/30/20 04:00 97.3 F L 73 18 142/92 H 97 Weight Admit Weight 161 lb 8 oz Weight 171 lb 13.12 oz I&O: 04/29/20 04/30/20 05/01/20 06:59 06:59 06:59 Intake Total 900 840 280 Output Total 437 413 Balance 463 427 280 Result Diagrams: 04/27/20 05:10 04/30/20 04:58 Hospitalist ROS - Medication Medications: Active Medications Generic Name Dose Route Start Last Admin Trade Name Therese PRN Reason Stop Dose Admin Amitriptyline HCl 50 mg 04/28/20 21:00 04/29/20 20:48 Amitriptyline Hcl 25 Mg Tab PO 50 mg HS HERMILA Administration Ascorbic Acid 1,000 mg 04/27/20 09:00 04/30/20 09:04 Ascorbic Acid 500 Mg Chewable Tablet PO 1,000 mg DAILY HERMILA Administration Calcitriol 0.25 mcg 04/29/20 09:00 04/30/20 09:05 Calcitriol 0.25 Mcg Cap PO 0.25 mcg DAILY HERMILA Administration Calcium Acetate 1,334 mg 04/28/20 17:00 04/30/20 08:59 Calcium Acetate 667 Mg Cap PO 1,334 mg TID- HERMILA Administration Cholecalciferol 400 units 04/27/20 09:00 04/30/20 08:58 Cholecalciferol (Vitamin D3) 400 Units Tab PO 400 units DAILY HERMILA Administration Dexamethasone 6 mg 04/28/20 09:00 04/30/20 08:55 Dexamethasone 4 Mg/Ml Vial SLOW IVP 6 mg DAILY HERMILA Administration Heparin Sodium (Porcine) 5,000 units 04/27/20 09:00 04/30/20 09:05 Heparin 5,000 Units/Ml Vial SC 5,000 units TID HERMILA Administration Cefepime HCl 2 gm/ Sodium 100 mls @ 200 mls/hr 04/27/20 08:00 04/29/20 07:59 Chloride IVPB 100 mls Q2DAYS@0800 HERMILA Administration Doxycycline Hyclate 100 mg/ 100 mls @ 100 mls/hr 04/28/20 05:00 04/30/20 04:37 Sodium Chloride IVPB 100 mls 0500,1700 HERMILA Administration Lorazepam 1 mg 04/27/20 14:47 04/27/20 15:03 Lorazepam 2 Mg/Ml Vial SLOW IVP 1 mg Q6H PRN Administration Agitation Magnesium Oxide 200 mg 04/29/20 09:00 04/30/20 09:00 Magnesium Oxide 400 Mg Tab PO 200 mg DAILY HERMILA Administration Metoprolol Succinate 50 mg 04/29/20 09:00 04/30/20 09:04 Metoprolol Succinate Xl 50 Mg Tab PO 50 mg DAILY HERMILA Administration Midodrine 10 mg 04/28/20 21:00 04/30/20 08:59 Midodrine Hcl 5 Mg Tab PO 10 mg BID HERMILA Administration Pantoprazole Sodium 40 mg 04/29/20 09:00 04/30/20 09:04 Pantoprazole 40 Mg Tab PO 40 mg DAILY HERMILA Administration Polyethylene Glycol 17 gm 04/28/20 09:00 04/30/20 09:06 Polyethylene Glycol 3350 17 Gm Packet PO 17 gm DAILY HERMILA Administration Potassium Chloride 40 meq 04/29/20 08:00 04/30/20 09:00 Potassium Chloride 20 Meq Tab PO 05/01/20 08:01 40 meq QAM-WM HERMILA Administration Ropinirole HCl 0.25 mg 04/28/20 21:00 04/29/20 20:47 Ropinirole Hcl 0.25 Mg Tab PO 0.25 mg HS HERMILA Administration Senna 2 tab 04/27/20 21:00 04/30/20 08:58 Senokot 8.6 Mg Tab PO 2 tab BID HERMILA Administration Sertraline HCl 100 mg 04/29/20 09:00 04/30/20 08:58 Sertraline Hcl 100 Mg Tab PO 100 mg DAILY HERMILA Administration Sevelamer Carbonate 2,400 mg 04/28/20 17:00 04/30/20 08:59 Sevelamer Carbonate 800 Mg Tab PO 2,400 mg TID-WM HERMILA Administration Sodium Chloride 10 ml 04/28/20 01:30 04/30/20 09:07 Flush - Normal Saline 10 Ml Syringe IVF 10 ml PRN PRN Administration Saline Flush Vitamin B Complex/Vit C/Folic Acid 1 tab 04/29/20 09:00 04/30/20 09:00 Folic Acid/Vit B Comp W-C PO 1 tab DAILY HERMILA Administration Zinc Sulfate 220 mg 04/27/20 09:00 04/30/20 08:58 Zinc Sulfate 220 Mg Cap PO 220 mg DAILY HERMILA Administration Hospitalist Exam Vitals: Vital Signs (12 hours) Temp Pulse Resp BP Pulse Ox 04/30/20 11:37 97.6 F 74 20 139/65 94 L 04/30/20 07:45 97.9 F 81 20 155/68 H 100 04/30/20 04:00 97.3 F L 73 18 142/92 H 97 Weight Admit Weight 161 lb 8 oz Weight 171 lb 13.12 oz General Appearance: awake alert, ill appearing Eye: PERRL ENT: normocephalic atraumatic Neck: supple Heart: RRR, normal peripheral pulses Respiratory: CTAB, no wheezes, normal chest expansion Neurological: no focal deficits Psychiatric: oriented to person Hosp A/P - Plan 79-year-old male patient with a history of hypertension, CHF, A. fib and ESRD on peritoneal dialysis brought in on account of altered mental status with hypotension. Is concerning for possible sepsis however with no clear etiology. Acute encephalopathy probably secondary to COVID PNA -Improved -He does have a labile mentation but I believe that is partially due to age- related dementia at its baseline ESRD on PD Consulted nephrology Dr. Wellington -Restarted his home renal medications. History of A. fib Coronary artery disease s/p CABG -He is on Toprol-XL and I do not see any anticoagulant as his home regimen Covid pneumonia -vitamin C/E/zinc -Ferritin and D-dimer level high -could be also due to dialysis -cefepime and doxycyclin VT prophylaxisheparin Physical and occupational therapy evaluation DNAR Pending placement -Ongoing labile mentation He has history of A. fib -Overnight he had A. fib with RVR -Currently his rate is controlled with Toprol-XL -Patient is not on any blood thinner at home -Echo done in June 2019 showed EF of 60% normal rate right ventricular function mild to moderate aortic stenosis and mild mitral regurgitation. -Patient had a cath in July 2019, at that time there was a plan to transfer him to [facility] for possible TAVR. It is unclear whether he followed through.
--- NOTE | 2020-04-30 15:07 | PRG ---
DATE OF SERVICE: 04/30/2020 SUBJECTIVE: A 79-year-old male being seen for end-stage renal disease. The patient denied nausea or chest pain. OBJECTIVE: GENERAL: The patient is awake and alert. VITAL SIGNS: The patient is afebrile. Pulse 74, breathing at 16, blood pressure 142/92. HEENT: Head normocephalic and atraumatic. Eyes intact, no ulcers. Nose intact, no ulcers. Ears intact, no ulcers. NECK: Supple. No JVD. CHEST: Symmetrical and clear. CARDIOVASCULAR: Shows S1 and S2, no rub, no murmur. GASTROINTESTINAL: Abdomen is soft, bowel sounds positive. EXTREMITIES: Show no edema or ulcers. SKIN: Shows no rash or petechiae. MUSCULOSKELETAL: Shows no joint swelling or stiffness. GENITOURINARY: Shows no Lyons or CVA tenderness. NEUROLOGIC: Motor intact. Cranial nerves intact. LABORATORY DATA: Labs reviewed. ASSESSMENT AND PLAN: 1. Stage chronic kidney disease. Continue peritoneal dialysis. 2. Hypertension, stable. 3. Anemia, stable. 4. Medication based on GFR appropriate. Job ID: [id number]
[2020-04-30] MEDS ORDERED: Heparin 1,000 UNITS/ML (10 ml) 6,000 UNITS in PERITON.DIALYSIS 7-2.5 % DEXTR 6,000 ML FS PRN (19:00)
[2020-04-30] MEDS: Doxycycline 100 MG CAP PO SCH (19:54)
[2020-04-30] MEDS: Amitriptyline HCl 25 MG TAB PO SCH (19:55)
--- NOTE | 2020-05-01 00:30 | CON ---
DATE OF CONSULTATION: HISTORY: Quinn Carrillo is a 79-year-old white male with end-stage renal disease, who is admitted with COVID pneumonia. I first evaluated him in June 2019, after he presented in [place] with chest discomfort. He had previously had stents placed and underwent CABG x2. This was performed previously although the patient could never tell me when, but he thought it was in [place]. Echocardiogram revealed ejection fraction of 55% to 60% and [id number] aortic stenosis. During the hospitalization, he had paroxysmal atrial fibrillation and was placed on intravenous heparin while hospitalized but not sent home on anticoagulation due to history of multiple previous GI bleeds. He underwent Cardiolite testing, which revealed a fixed defect in the lateral wall. He was mostly cared for during the hospitalization by Dr. Rivera who had seen him previously in March 2019. He then presented again in July 2019, with increased shortness of breath, some GI blood loss with drop in hemoglobin down to 6.0. He underwent GI evaluation, was found to have gastritis, but no active bleeding. He had elevated troponin. He ultimately underwent cardiac catheterization on July 26. The aortic valve area was 0.61 sq cm. There was severe anterior hypokinesis. There was severe mid anterior hypokinesis with ejection fraction of 40% to 45%, severe mitral regurgitation. There was an 80% left main, 30% proximal LAD, 90% ramus at the left main and total occlusion of the ramus distal to the stent. Circumflex, 70% proximal stenosis and an 80% small 1st obtuse marginal stenosis. Right coronary artery was small and totally occluded proximally and filled antegrade via bridging collaterals. Bypass grafts revealed patent MARCELINO to the LAD. There was a patent graft to the ramus. Due to his severe aortic stenosis, he was transferred to [facility] in [place] and underwent TAVR. He was last seen in the office January 2020 with improvement in his shortness of breath and no further chest discomfort. Also a Micra VVI pacemaker was placed during that admission. He now is admitted with mental status changes, ultimately he has been found to have COVID pneumonia. PAST MEDICAL HISTORY: Coronary artery disease with history of stenting and CABG, severe aortic stenosis status post TAVR, hypertension, paroxysmal atrial fibrillation currently in sinus rhythm, end-stage renal disease on dialysis, Parkinson disease, depression. OPERATIONS: CABG, TAVR, coronary stent placement, knee surgery, AV fistula placement, back surgery. MEDICATIONS: Are as listed in the chart. ALLERGIES: PENICILLIN. SOCIAL HISTORY: He does not smoke or drink. FAMILY HISTORY: Unremarkable. PHYSICAL EXAMINATION: VITAL SIGNS: 139/63, pulse of 86, sinus rhythm on the monitor. Physical exam is deferred due to COVID. LABORATORY DATA: EKGs revealed sinus rhythm with first-degree AV block, nonspecific ST and T-wave changes. Hemoglobin 11.3, hematocrit 35.8, white count 7700, platelets 174,000. Sodium 138, potassium 3.6, chloride 103, carbon dioxide 22, BUN 35, creatinine 8.5. COVID positive. IMPRESSION: 1. COVID pneumonia with mental status changes. 2. Paroxysmal atrial fibrillation. On review of all of his telemetry rhythm strips, he has been in sinus rhythm the whole time this admission. At times, he is VVI. paced and this is not an idioventricular rhythm. I do not see any evidence of atrial fibrillation this admission. 3. History of multiple gastrointestinal bleeds, the last of which in July 2019 had hemoglobin dropped to 6.0. Therefore, he is not anticoagulated. 4. Status post coronary artery bypass graft x2 with both grafts patent in July 2019. 5. Severe aortic stenosis status post transcatheter aortic valve replacement in [place]. 6. End-stage renal disease on dialysis. 7. Hypertension. 8. Hypercholesterolemia. 9. Parkinson disease. PLAN: The patient should not be anticoagulated due to multiple gastrointestinal bleeds in the past. He has not had any atrial fibrillation that is documented in the chart. We will continue same medications. Please call with problems. Job ID: [id number] [facility]
[2020-05-01] MEDS: Sevelamer Carbonate 800 MG TAB PO SCH ×2 (09:13→12:13)
[2020-05-01] MEDS: Dexamethasone 4 mg/ml Vial SLOW IVP SCH (09:13)
[2020-05-01] MEDS: Ascorbic Acid 500 mg Chewable Tablet PO SCH (09:13)
[2020-05-01] MEDS: Potassium Chloride 20 MEQ TAB PO SCH (09:14)
[2020-05-01] MEDS: Calcium Acetate 667 MG CAP PO SCH ×2 (09:14→12:13)
[2020-05-01] MEDS: Magnesium Oxide 400 MG TAB PO SCH (09:15)
[2020-05-01] MEDS: Folic Acid/Vit B Comp W-C PO SCH ×2 (09:15→09:16)
[2020-05-01] MEDS: Zinc Sulfate 220 MG CAP PO SCH (09:16)
[2020-05-01] MEDS: Cholecalciferol (Vitamin D3) 400 UNITS TAB PO SCH (09:16)
[2020-05-01] MEDS: Doxycycline 100 MG CAP PO SCH (09:16)
[2020-05-01] MEDS: Senokot 8.6 MG TAB PO SCH (09:16)
[2020-05-01] MEDS: Calcitriol 0.25 MCG CAP PO SCH (09:16)
[2020-05-01] MEDS: Polyethylene Glycol 3350 17 GM Packet PO SCH (09:17)
[2020-05-01] MEDS: Cefepime 2 GM in Sodium Chloride 0.9% 100 ML IVPB SCH (09:19)
[2020-05-01] MEDS: Midodrine HCl 5 MG TAB PO SCH (10:33)
[2020-05-01 10:52] LABS: #Eosinphils 0.1 thou/uL (0.0-0.7); #Lymphocytes 1.4 thou/uL (1.20-3.40); #Monocytes 0.7 thou/uL (0.11-0.59); #Neutrophils 5.9 thou/uL (1.40-6.50); %Basophils 0.1 % (0.0-1.0); %Eosinophils 0.8 % (0.0-10.0); %Lymphocytes 17.7 % (21.0-51.0); %Monocytes 8.1 % (0.0-10.0); %Neutrophils 73.3 % (42.0-75.0); Hemoglobin 11.1 g/dL (14.0-18.0); Mean Corpuscular HGB CONC 31.1 g/dL (32.0-36.0); Mean Corpuscular Hemoglobin 31.8 pg (27.0-31.0); Mean Platelet Volume 7.1 fL (7.4-10.4); Platelet Count 167 thou/uL (130-400); RBC Distribution Width 16.6 % (11.5-14.5); White Blood Cell (WBC) Count 8.1 thou/uL (4.8-10.8)
[2020-05-01] MEDS: Heparin 5,000 UNITS/ML VIAL SC SCH ×2 (11:11→15:30)
[2020-05-01 11:50] VITALS: TEMP 97.7
--- NOTE | 2020-05-01 12:28 | PDOC.DS.DS ---
Provider Date of Admission: 04/27/20 00:32 Admitting Provider: Jhonatan Song MD Primary Care Physician: Kaci Pickens MD Course Hospital Course: 79-year-old male patient with a history of hypertension, CHF, A. fib and ESRD on peritoneal dialysis brought in on account of altered mental status with hypotension. Is concerning for possible sepsis however with no clear etiology. Acute encephalopathy probably secondary to COVID PNA -He does have a labile mentation but I believe that is partially due to age- related dementia at its baseline ESRD on PD History of A. fib---cardiology evaluated for the transient A. fib with RVR and the he converted to sinus rhythm. Rate controlled with Toprol Coronary artery disease s/p CABG -Echo done in June 2019 showed EF of 60% normal rate right ventricular function mild to moderate aortic stenosis and mild mitral regurgitation. -Patient had a cath in July 2019, at that time there was a plan to transfer him to [facility] for possible TAVR. It is unclear whether he followed through. -He is on Toprol-XL -patient is not on any blood thinner due to multiple GI bleeds in the past Covid pneumonia -vitamin C/E/zinc -cefepime and doxycyclin transitioned to doxycycline upon discharge Stable to be discharged to the care home facility. Discharge time over 30 minutes. Resuscitation Status: 04/27/20 13:11 Resuscitation Status Routine Resuscitation Status: DNAR: NO Resuscitation Discussed with: patient Lab Results: 05/01/20 10:41 04/30/20 04:58 Abnormal Lab Results - Last 48 hrs 04/29/20 13:58: C-Reactive Protein 6.11 H 04/29/20 13:58: Ferritin 1180.38 H 04/29/20 13:58: D-Dimer 5.96 H 04/29/20 23:35: BUN 37 H, Creatinine 9.05 H 04/29/20 23:35: Troponin I 0.130 H 04/29/20 23:35: B-Natriuretic Peptide 1170.1 H 04/30/20 04:58: Carbon Dioxide 22 L, BUN 35 H, Creatinine 8.51 H 05/01/20 10:41: RBC 3.50 L, Hgb 11.1 L, Hct 35.9 L, MCV 102.0 H, MCH 31.8 H, MCHC 31.1 L, RDW 16.6 H, MPV 7.1 L, Lymphocytes % 17.7 L, Monocytes # 0.7 H Vitals: Vital Signs (12 hours) Temp Pulse Resp BP BP Pulse Ox 05/01/20 11:30 97.7 F 80 21 H 128/63 96 05/01/20 09:22 97.4 F L 77 16 133/63 96 05/01/20 04:00 98.1 F 70 18 137/68 100 Weight Admit Weight 161 lb 8 oz Weight 162 lb 11.218 oz Physical Exam: The patient was seen and examined on the day of discharge. Patient is in his usual state of labile mentation but he is clinically stable to be transferred to care home facility today. He is satting 96% in the room air. Plan Prescriptions: Dexamethasone [Decadron] 6 mg PO DAILY 7 Days #7 tablet Doxycycline [Vibramycin] 100 mg PO BID 7 Days #14 cap Zinc Sulfate 220 mg PO DAILY 30 Days #30 cap Home Medications: Medication Instructions Recorded Confirmed Type Allopurinol 100 mg PO DAILY 02/27/17 04/27/20 History Calcium Acetate 1,334 mg PO TID-WM 03/06/18 04/27/20 History Pantoprazole [Protonix] 40 mg PO DAILY 02/22/19 04/27/20 History Sertraline HCl 100 mg PO DAILY 02/22/19 04/27/20 History Calcitriol [Rocaltrol] 0.25 mcg PO DAILY 06/30/19 04/27/20 History Folic Acid/Vit B Complex and C 1 tablet PO DAILY 06/30/19 04/27/20 History [Dialyvite 800] Amitriptyline HCl [Elavil] 50 mg PO HS 04/27/20 04/27/20 History Baclofen 5 mg PO PRN PRN 04/27/20 04/27/20 History Folic Acid/Vit B Complex and C 800 mg PO DAILY 04/27/20 04/27/20 History [Dialyvite 800] Lorazepam [Ativan] 1 mg PO PRN PRN 04/27/20 04/27/20 History Magnesium 200 mg PO DAILY 04/27/20 04/27/20 History Metoprolol Succinate [Toprol XL] 50 mg PO DAILY 04/27/20 04/27/20 History Midodrine HCl [ProAmatine] 5 mg PO BID 04/27/20 04/27/20 History Potassium Chloride [K-Dur] 2 tab PO DAILY 04/27/20 04/27/20 History Sertraline HCl 100 mg PO DAILY 04/27/20 04/27/20 History Sevelamer HCl [Renagel] 3 tab PO TID-WM 04/27/20 04/27/20 History rOPINIRole HCl [Ropinirole HCl] 0.25 mg PO HS 04/27/20 04/27/20 History Dexamethasone [Decadron] 6 mg PO DAILY 7 Days #7 tablet 05/01/20 Rx Doxycycline [Vibramycin] 100 mg PO BID 7 Days #14 cap 05/01/20 Rx Zinc Sulfate 220 mg PO DAILY 30 Days #30 cap 05/01/20 Rx Allergies: Penicillins Allergy (Verified 04/27/20 13:52) Rash Activity:: Activity as Tolerated Nourishment:: Regular Diet Referrals: Kaci Pickens MD [Primary Care Provider] - Disposition: [facility] Quality CORE MEASURES:: N/A
--- NOTE | 2020-05-01 16:11 | PRG ---
DATE OF SERVICE: 05/01/2020 SUBJECTIVE: A 79-year-old gentleman, being seen for end-stage renal disease. The patient denied any nausea, vomiting, or chest pain. PHYSICAL EXAMINATION: GENERAL: The patient is awake and alert. VITAL SIGNS: Afebrile, pulse 80, breathing at 16, blood pressure 128/63. HEENT: Head normocephalic and atraumatic. Eyes intact, no ulcers. Nose intact, no ulcers. Ears intact, no ulcers. NECK: Supple. No JVD. CHEST: Symmetrical and clear. CARDIOVASCULAR: Shows S1 and S2, no rub, no murmur. GASTROINTESTINAL: Abdomen is soft, bowel sounds positive. EXTREMITIES: Show no edema or ulcers. SKIN: Shows no rash or petechiae. MUSCULOSKELETAL: Shows no joint swelling or stiffness. GENITOURINARY: Shows no Lyons or CVA tenderness. NEUROLOGIC: Motor intact. Cranial nerves intact. LABORATORY DATA: Reviewed. ASSESSMENT AND PLAN: 1. Stage 6 chronic kidney disease, plan peritoneal dialysis. 2. Hypertension, stable. 3. Anemia, stable. Medication based on GFR appropriate. Job ID: [id number]
[2020-05-01 17:36] VITALS: BP 164/71
== END 2020-05-01 16:15 | DRG 871 ==
LOC: ERS 19:52 → ERHOLD 04-27 00:32 → 2SE 04-27 06:11
PROVIDERS: ADMIT Student in an Organized Health Care Education/Training Program; ATTEND Internal Medicine
PROC: 8E0ZXY6 Isolation (ICD-10-PCS; principal; 2020-04-27)
PROC: 5A1D70Z Performance of Urinary Filtration, Intermittent, Less than 6 Hours Per Day (ICD-10-PCS; 2020-04-27)
DX: A41.9 Sepsis, unspecified organism (principal); U07.1 COVID-19; J12.82 Pneumonia due to coronavirus disease 2019; N18.6 End stage renal disease; I13.2 Hypertensive heart and chronic kidney disease with heart failure and with stage 5 chronic kidney disease, or end stage renal disease; G93.49 Other encephalopathy; Z66 Do not resuscitate; I50.9 Heart failure, unspecified; D63.1 Anemia in chronic kidney disease; G20 Parkinson's disease; F02.80 Dementia in other diseases classified elsewhere, unspecified severity, without behavioral disturbance, psychotic disturbance, mood disturbance, and anxiety; I48.0 Paroxysmal atrial fibrillation; E78.00 Pure hypercholesterolemia, unspecified; I25.10 Atherosclerotic heart disease of native coronary artery without angina pectoris; Z99.2 Dependence on renal dialysis; Z95.1 Presence of aortocoronary bypass graft; Z88.0 Allergy status to penicillin; Z79.82 Long term (current) use of aspirin; Z79.899 Other long term (current) drug therapy
CPT/HCPCS: 36415; 51701; 70450; 71045; 80048; 80053; 80307; 82553; 82728; 83605; 83735; 83880; 84100; 84484; 85025; 85379; 86140; 90945; 93005; 93010; 93970; G0257; J0692; J1100; J1644; J2060; J3490; P9047; U0002

== ENCOUNTER 2020-05-05 22:04 | Inpatient (IN) | payer MEDICARE, OTHER ==
[2020-05-05] MEDS ORDERED: Tranexamic Acid 1,000 MG/10 ML VIAL ONE (22:29)
[2020-05-05 22:46] LABS: #Lymphocytes 0.8 thou/uL (1.20-3.40); #Monocytes 0.5 thou/uL (0.11-0.59); #Neutrophils 15.1 thou/uL (1.40-6.50); %Basophils 0.1 % (0.0-1.0); %Eosinophils 0.1 % (0.0-10.0); %Lymphocytes 4.8 % (21.0-51.0); %Monocytes 3.2 % (0.0-10.0); %Neutrophils 91.9 % (42.0-75.0); Hemoglobin 13.2 g/dL (14.0-18.0); Mean Corpuscular HGB CONC 31.2 g/dL (32.0-36.0); Mean Corpuscular Hemoglobin 31.3 pg (27.0-31.0); Mean Platelet Volume 7.6 fL (7.4-10.4); Platelet Count 223 thou/uL (130-400); RBC Distribution Width 16.5 % (11.5-14.5); Red Blood Cell (RBC) Count 4.21 mill/uL (4.70-6.10); White Blood Cell (WBC) Count 16.5 thou/uL (4.8-10.8)
[2020-05-05 22:52] LABS: PTT 32.6 sec (22.9-36.1); Prothrombin Time 13.3 sec (12.0-14.7)
[2020-05-05 23:05] LABS: ALT (SGPT) 18 U/L (8-55); AST (SGOT) 22 U/L (5-34); Albumin 3.3 g/dL (3.4-4.8); Alkaline Phosphatase 182 U/L (40-110); Anion Gap 19 mmol/L (10-20); BUN (Urea Nitrogen) 50 mg/dL (8.4-25.7); Bilirubin, Total 0.7 mg/dL (0.2-1.2); Calc. Creatinine Clearance 0 mL/min (70-130); Calcium 10.1 mg/dL (7.8-10.44); Carbon Dioxide 29 mmol/L (23-31); Chloride 93 mmol/L (98-107); Globulin 4.5 g/dL (2.4-3.5); Glucose 84 mg/dL (83-110); Potassium 4.2 mmol/L (3.5-5.1); Protein, Total 7.8 g/dL (5.8-8.1); Sodium 137 mmol/L (136-145)
[2020-05-06] MEDS ORDERED: Pantoprazole 40 MG VIAL ONE (00:16)
--- NOTE | 2020-05-06 00:33 | PDOC.HHP ---
Hospitalist HPI GI bleed History of Present Illness: This is a 79-year-old male patient with past history of ESRD on peritoneal dialy sis, dementia, hypertension, CHF, A. fib, Covid and gastritis who was sent here from his rehab facility on account of lower GI bleed. Patient was seen here about a year ago and had upper GI endoscopy that noted gastritis. Patient is unable to provide historyhistory was taken from chart and sign off. Of note, patient was discharged from here 5 days ago after being managed for hypotension, pneumonia due to Covid and sepsis. Was discharged to rehab and has been on VT prophylaxis on heparin. A day ago it was noted that he started having GI bleed and hypotension with BP 70/40 and he was brought in for further evaluation. At presentation his blood pressure was 82/56, pulse 85, respiratory 20, temperature 97.6 saturating 100% on room air. His labs showed WBC 16.5, hemoglobin 13.2, platelets 223. Chemistry showed sodium 137, potassium 4.2 BUN 15 creatinine 9.22. INR was within normal range. Given that she actively passing blood FL, 1 unit packed red blood cells was initiated in the ED. He also received 1 L normal saline and tranexamic acid prior to hospitalist team being consulted for admission. At the time of my evaluation patient was generally confused and cannot provide any history. Allergies/Adverse Reactions: Allergy/AdvReac Type Severity Reaction Status Date / Time Penicillins Allergy Rash Verified 04/27/20 13:52 Home Medications: Medication Instructions Recorded Confirmed Type Allopurinol 100 mg PO DAILY 02/27/17 04/27/20 History Calcium Acetate 1,334 mg PO TID-WM 03/06/18 04/27/20 History Pantoprazole [Protonix] 40 mg PO DAILY 02/22/19 04/27/20 History Sertraline HCl 100 mg PO DAILY 02/22/19 04/27/20 History Calcitriol [Rocaltrol] 0.25 mcg PO DAILY 06/30/19 04/27/20 History Folic Acid/Vit B Complex and C 1 tablet PO DAILY 06/30/19 04/27/20 History [Dialyvite 800] Amitriptyline HCl [Elavil] 50 mg PO HS 04/27/20 04/27/20 History Baclofen 5 mg PO PRN PRN 04/27/20 04/27/20 History Folic Acid/Vit B Complex and C 800 mg PO DAILY 04/27/20 04/27/20 History [Dialyvite 800] Lorazepam [Ativan] 1 mg PO PRN PRN 04/27/20 04/27/20 History Magnesium 200 mg PO DAILY 04/27/20 04/27/20 History Metoprolol Succinate [Toprol XL] 50 mg PO DAILY 04/27/20 04/27/20 History Midodrine HCl [ProAmatine] 5 mg PO BID 04/27/20 04/27/20 History Potassium Chloride [K-Dur] 2 tab PO DAILY 04/27/20 04/27/20 History Sertraline HCl 100 mg PO DAILY 04/27/20 04/27/20 History Sevelamer HCl [Renagel] 3 tab PO TID-WM 04/27/20 04/27/20 History rOPINIRole HCl [Ropinirole HCl] 0.25 mg PO HS 04/27/20 04/27/20 History Dexamethasone [Decadron] 6 mg PO DAILY 7 Days #7 tablet 05/01/20 Rx Doxycycline [Vibramycin] 100 mg PO BID 7 Days #14 cap 05/01/20 Rx Zinc Sulfate 220 mg PO DAILY 30 Days #30 cap 05/01/20 Rx Past History: PMHx:, A. fib, CHF, dementia hypertension, ESRD PSHx:CABG, dialysis shunt placement, back surgery, valve replacement, FHx: None of significance Social:No alcohol drugs or smoking history. Lives in nursing facility. Hospitalist HPI ROS ROS unobtainable: due to mental status Hospitalist Exam General Appearance: ill appearing General - other findings: Awake but confused. Eye: PERRL, anicteric sclera ENT: normocephalic atraumatic Neck: supple, symmetric, no JVD, no thyromegaly Heart: RRR, no murmur, no gallops, no rubs Respiratory: CTAB, no wheezes, no rales, no ronchi Gastrointestinal: soft, non-tender, non-distended, normal bowel sounds Gastrointestinal - other findings: PD catheter in place. No erythema or sign of infection Extremities: no cyanosis, no clubbing, no edema Neurological: cranial nerve grossly intact, no focal deficits Neurological - other findings: Spontaneously moves all limbs Psychiatric: oriented to person (Only) Hospitalist Results Result Diagrams: 05/05/20 22:33 05/05/20 22:33 Lab results: Laboratory Last Values WBC 16.5 thou/uL (4.8-10.8) H 05/05/20 22:33 RBC 4.21 mill/uL (4.70-6.10) L 05/05/20 22:33 Hgb 13.2 g/dL (14.0-18.0) L 05/05/20 22:33 Hct 42.2 % (42.0-52.0) 05/05/20 22: MCV 100.0 fL (78.0-98.0) H 05/05/20 22: MCH 31.3 pg (27.0-31.0) H 05/05/20 22: MCHC 31.2 g/dL (32.0-36.0) L 05/05/20 22: RDW 16.5 % (11.5-14.5) H 05/05/20 22: Plt Count 223 thou/uL (130-400) 05/05/20 22: MPV 7.6 fL (7.4-10.4) 05/05/20 22: Neutrophils % 91.9 % (42.0-75.0) H 05/05/20 22: Lymphocytes % 4.8 % (21.0-51.0) L 05/05/20 22: Monocytes % 3.2 % (0.0-10.0) 05/05/20 22: Eosinophils % 0.1 % (0.0-10.0) 05/05/20 22: Basophils % 0.1 % (0.0-1.0) 05/05/20 22: Neutrophils # 15.1 thou/uL (1.40-6.50) H 05/05/20 22: Lymphocytes # 0.8 thou/uL (1.20-3.40) L 05/05/20 22: Monocytes # 0.5 thou/uL (0.11-0.59) 05/05/20 22:33 Eosinophils # 0.0 thou/uL (0.0-0.7) 05/05/20 22: Basophils # 0.0 thou/uL (0.0-0.2) 05/05/20 22:33 PT 13.3 sec (12.0-14.7) 05/05/20 22:33 INR 1.0 05/05/20 22:33 APTT 32.6 sec (22.9-36.1) 05/05/20 22:33 Sodium 137 mmol/L (136-145) 05/05/20 22:33 Potassium 4.2 mmol/L (3.5-5.1) 05/05/20 22:33 Chloride 93 mmol/L (98-107) L 05/05/20 22:33 Carbon Dioxide 29 mmol/L (23-31) 05/05/20 22:33 Anion Gap 19 mmol/L (10-20) 05/05/20 22:33 BUN 50 mg/dL (8.4-25.7) H 05/05/20 22:33 Creatinine 9.22 mg/dL (0.7-1.3) H 05/05/20 22:33 Estimated GFR (MDRD) 6 05/05/20 22:33 Glucose 84 mg/dL (83-110) 05/05/20 22:33 Calcium 10.1 mg/dL (7.8-10.44) 05/05/20 22:33 Total Bilirubin 0.7 mg/dL (0.2-1.2) 05/05/20 22:33 AST 22 U/L (5-34) 05/05/20 22:33 ALT 18 U/L (8-55) 05/05/20 22:33 Alkaline Phosphatase 182 U/L (40-110) H 05/05/20 22:33 Serum Total Protein 7.8 g/dL (5.8-8.1) 05/05/20 22:33 Albumin 3.3 g/dL (3.4-4.8) L 05/05/20 22:33 Globulin 4.5 g/dL (2.4-3.5) H 05/05/20 22:33 Albumin/Globulin Ratio 0.7 g/dL (1.2-2.2) L 05/05/20 22:33 Blood Type O NEGATIVE 05/05/20 22:33 Antibody Screen NEGATIVE 05/05/20 22:33 Crossmatch See Detail 05/05/20 22:33 Hospitalist H&P A/P Plan: This is a 79-year-old male patient with a history of ESRD on PD, hypertension, A. fib, coronary artery disease status post CABG, recent Covid infection, gastritis with previous GI bleed was brought in today from rehab after recent admission with continuous lower GI bleed. Anemia secondary to lower GI bleed Unclear source upper/lower GI bleed. Patient has a history of gastritis Start on Protonix Has already received 1 unit of bloodanemia was however mild with hemoglobin at 13.2. We will monitor H&H GI evaluation Possible sepsis Patient is altered however is unclear his baseline. Also has hypertension #New leukocytosis of 16.5 with recent admission Will order chest x-ray, unclear if patient produces urine. May require peritoneal fluid evaluation We will cover him on broad-spectrum antibiotic Blood cultures IV fluids as he can tolerate given his ESRD Trend lactate Follow-up blood cultures Hypotension Patient's map below 65possibly due to sepsis/GI blood loss Improved with initial hydration and initiation of transfusion We will repeat 1 L normal saline bolus Start midodrine Start pressors if MAP remains below 65 ESRD Nephrology consult a.m. Dementia A. fib Stablenot in RVR Continue monitoring Recent Covid infection Currently stable We will monitor. Generally poor clinical state We will consult palliative care for goals of care discussion Possible evaluation for hospice. VT prophylaxisSCD CODE STATUSto be discussed
[2020-05-06] MEDS ORDERED: Midodrine HCl 5 MG TAB PO SCH (01:45)
[2020-05-06] MEDS ORDERED: Cefepime 2 GM in Sodium Chloride 0.9% 100 ML IVPB SCH (02:00)
[2020-05-06] MEDS ORDERED: Norepinephrine 4 MG/4 ML VIAL ONE (10:58)
--- NOTE | 2020-05-06 11:20 | RAD ---
Portable frontal chest radiograph: 05/06/2020 COMPARISON: 04/26/2020 HISTORY: Rectal bleeding, possible sepsis FINDINGS: Stable midline sternotomy wires. Stent material overlies the mediastinum. There is atherosc lerotic calcification of the aortic arch. Rotation to the right and shallow inspiration slightly limits detail. Minimal stable patchy opacity in the medial right base. No focal consolidation or alve olar edema. IMPRESSION: No significant interval change. Transcribed Date/Time: 05/06/2020 9:47 AM
--- NOTE | 2020-05-06 12:14 | CON ---
DATE OF CONSULTATION: 05/06/2020 CONSULTING PHYSICIAN: Hospitalist Group. REASON FOR CONSULTATION: The patient is in the CCU. HISTORY OF PRESENT ILLNESS: Quinn Carrillo is a 79-year-old male who was brought into the Hospitalist Service last night with apparent lower gastrointestinal bleeding. The patient had a brief episode of hypotension, but did not require initiation of vasopressors. He was given 1 unit of blood, although his hemoglobin never dropped below 13.2. He is currently awake, alert, and in no distress. PAST MEDICAL HISTORY: 1. Atrial fibrillation. 2. Congestive heart failure. 3. Dementia. 4. Hypertension. 5. End-stage renal disease, requiring peritoneal dialysis. PAST SURGICAL HISTORY: 1. Peritoneal dialysis catheter placement. 2. Umbilical hernia repair. 3. AV fistula placement, left arm. 4. Coronary stents x2. 5. Lumbar disk surgery. SOCIAL HISTORY: Nonsmoker. Does not consume alcohol. Does not use illicit drugs. ALLERGIES: PENICILLIN. MEDICATIONS: Prior to admission; 1. Allopurinol. 2. Calcium acetate. 3. Protonix. 4. Sertraline. 5. Rocaltrol. 6. Folic acid. 7. Vitamin B complex. 8. Vitamin C. 9. Amitriptyline. 10. Baclofen. 11. Lorazepam. 12. Magnesium. 13. Metoprolol. 14. Midodrine. 15. Potassium. 16. Sertraline. 17. Sevelamer. 18. Ropinirole. 19. Dexamethasone. 20. Doxycycline. 21. Zinc sulfate. REVIEW OF SYSTEMS: He was recently diagnosed with a COVID infection, but apparently has been relatively asymptomatic from a Respiratory standpoint. PHYSICAL EXAMINATION: VITAL SIGNS: Temperature 97.0, pulse 78, blood pressure 121/63, and O2 saturation 100%. HEENT: Unremarkable. NECK: No adenopathy or JVD. LUNGS: Clear. CARDIOVASCULAR: S1, S2. Regular. ABDOMEN: Soft and nontender. PD catheter placement in the lower left quadrant. EXTREMITIES: No clubbing, cyanosis, or edema. LABORATORY DATA: White blood cell count 16.5, hematocrit 42.2, and platelet count 223. INR 1.0. Sodium 137, potassium 4.2, chloride 93, CO2 of 29, BUN 50, creatinine 9.2, and glucose 84. His chest x-ray showed no mass, effusion, or infiltrate. He has old sternal wires. This film was reviewed by . ASSESSMENT: 1. Apparent lower gastrointestinal bleed, which was transient. 2. Recurrent COVID-19 infection with no respiratory compromise. PLAN: 1. I guess the working diagnosis is that he has gastrointestinal bleeding from possible diverticulitis, diverticulosis. He seems stable from this standpoint. 2. COVID infection - asymptomatic from a Respiratory standpoint. PLAN: 1. Generalized supportive care with evaluation by GI. 2. Monitor labs. 3. We will follow with you as long as he is in CCU. Job ID: [id number]
--- NOTE | 2020-05-06 12:36 | PDOC.HOSPP ---
- Subjective Encounter Date: 05/06/20 Encounter Time: 12:00 Subjective: Patient doing better this morning. He has had no blood per his bottom since coming to the IMCU. He had a large brown bowel movement this morning without evidence of blood. His vital signs have been stable with no tachycardia and no hypotension after his fluid and blood given in the emergency room. - Objective Result Diagrams: 05/05/20 22:33 05/05/20 22:33 Hospitalist ROS - Review of Systems ROS unobtainable: due to mental status Hospitalist Exam General Appearance: NAD, awake alert ENT: moist mucosa Heart: RRR, no murmur, no gallops, no rubs Respiratory: CTAB, no wheezes, no rales, no ronchi Gastrointestinal: soft, non-tender, non-distended, normal bowel sounds Extremities: no edema Psychiatric: normal affect, normal behavior, oriented to person. negative: oriented to place, oriented to time Hosp A/P - Plan This is a 79-year-old male patient with a history of ESRD on PD, hypertension, A. fib, coronary artery disease status post CABG, recent Covid infection, gastritis with previous GI bleed was brought in from rehab after recent admission with continuous lower GI bleed. Anemia secondary to lower GI bleed Unclear source upper/lower GI bleed. Patient has a history of gastritis Started on Protonix Has already received 1 unit of bloodanemia was however mild with hemoglobin at 13.2. Recheck was down to 10. We will monitor H&H GI evaluationDr. Mclean consulted. Possible sepsis Patient is altered however is unclear his baseline. Also has hypotensionnow resolved #New leukocytosis of 16.5 with recent admission Will order chest x-ray, unclear if patient produces urine. May require peritone al fluid evaluation We will cover him on broad-spectrum antibiotic Blood cultures IV fluids as he can tolerate given his ESRD Trend lactate Follow-up blood cultures Hypotensionresolved Blood pressure normal this morning after transfusion in the emergency room and 1 L normal saline bolus ESRD Dr. Wellington consulted this morning Dementia A. fib Stablenot in RVR Continue monitoring Recent Covid infection Currently stable We will monitor. Generally poor clinical state We will consult palliative care for goals of care discussion VT prophylaxisSCD
[2020-05-06] MEDS: Pantoprazole 40 MG VIAL IVP SCH ×2 (14:34→21:48)
[2020-05-06] MEDS: Midodrine HCl 5 MG TAB PO SCH ×3 (14:35→21:48)
--- NOTE | 2020-05-06 14:44 | CON ---
DATE OF CONSULTATION: REASON FOR CONSULTATION: "GI bleed." HISTORY OF PRESENT ILLNESS: Mr. Carrillo was sent over from his assisted living center with a report that he had some bright red blood per rectum. In the emergency room, he had a blood pressure of 109/56, transiently down to 76/58; pulses were in the 60s to 70s; temperature was afebrile. He responded to some IV fluids. The nurse's report states he had rectal bleeding at the emergency room. Actually, he was at this hospital for some hypotension a few days ago as well. The patient is unable to add any history because of his dementia. Apparently, he has been on heparin for thromboembolism prophylaxis. The nurses report they see no bleeding. He received 1 unit of blood last night. His hemoglobin was 13 on admission and I am told it is around 10 now, but labs are not available. PAST MEDICAL HISTORY: End-stage renal disease, on peritoneal dialysis; dementia; hypertension; CHF; atrial fibrillation. He had COVID not long ago. He had an EGD on 07/25/2019, focal gastritis. Biopsies were negative. He had a prior history of acutely bleeding duodenal AVM with Dr. Rm Carpenter on 04/03/2018. Reportedly, he had a colonoscopy in 2017 in [place], which was normal. PAST SURGICAL HISTORY: CABG, dialysis placement, back surgery, heart valve replacement. FAMILY HISTORY: Nonsignificant. SOCIAL HISTORY: Unable to be obtained. He lives in nursing facility. MEDICATIONS: In the outpatient setting, 1. Allopurinol. 2. Calcium. 3. Protonix. 4. Sertraline. 5. Calcitriol. 6. Vitamin B. 7. Dialyvite. 8. Decadron 6 mg daily, that was back on 05/01. 9. Zinc. 10. Ropinirole. 11. . 12. Potassium. 13. Midodrine 5 p.o. b.i.d. 14. Metoprolol. 15. Lorazepam. 16. Baclofen. 17. Amitriptyline. Medications here, 1. Cefepime. 2. Midodrine. 3. Protonix 40 IV q.12 hours. 4. He got some tranexamic acid apparently in the ER. PHYSICAL EXAMINATION: GENERAL: Presently, the patient is in no distress in the ICU. He is confused. He is alert and oriented to person. This is his baseline. VITAL SIGNS: His blood pressure is in the 120s/60s with a pulse of 80. LUNGS: Clear. HEART: Regular without clicks or murmurs. ABDOMEN: Soft and nontender. RECTAL: Reveals yellow stool with no masses and no lesions. There is a large amount of yellow stool there and there are no signs of active bleeding. ASSESSMENT: Reported gastrointestinal bleed. This is the second time he has been admitted for hypotension. This time they state he had rectal bleeding. There are no signs of rectal bleeding now. His hemoglobin apparently did drop from 13 to 10, but those labs are not available to further review. His BUN and creatinine were stable. RECOMMENDATIONS: IV PPI. We will follow along with you. If there are signs of acute bleeding, I asked the nurse to call me. We can set the patient up for endoscopy, but it does not seem that is necessary at this time. Job ID: [id number]
[2020-05-06 15:00] VITALS: BMI 26.7
[2020-05-06 15:23] LABS: SARS-CoV-2 NAA Rapid Test DETECTED (NotDetected)
--- NOTE | 2020-05-06 18:17 | CON ---
DATE OF CONSULTATION: 05/06/2020 CONSULTING PHYSICIAN: Dr. Song. REASON FOR CONSULTATION: End-stage renal disease evaluation. REASON FOR ADMISSION: GI bleed. HISTORY OF PRESENT ILLNESS: A 79-year-old male with history of end-stage renal disease, dementia, hypertension, who was at the rehab and found to have possible GI bleed and also have recent COVID infection. He also was hypotensive. He does peritoneal dialysis and was sent over to the hospital, is being treated here. Nephrology consulted for maintenance peritoneal dialysis. PAST MEDICAL HISTORY: Positive for; 1. End-stage renal disease. 2. CHF. 3. Atrial fibrillation. 4. Dementia. 5. Hypertension. 6. GI bleed. PAST SURGICAL HISTORY: Dialysis access placement, peritoneal dialysis catheter, valve replacement, CABG. HOME MEDICATIONS: Reviewed. ALLERGIES: PENICILLIN. SOCIAL HISTORY: No smoking, alcohol, or illicit drug abuse. FAMILY HISTORY: No history of kidney disease. REVIEW OF SYSTEMS: Could not be obtained due to mentation status. PHYSICAL EXAMINATION: GENERAL: This is an elderly male, no apparent distress. VITAL SIGNS: Temperature 98.1, pulse 70, respiratory rate 16, blood pressure 95/53. HEENT: Atraumatic, normocephalic. NECK: Supple. CV: S1, S2 heard. Rate and rhythm, regular. RESPIRATORY: Clear. GI: Abdomen is soft. MUSCULOSKELETAL: No tenderness. No edema. DERMATOLOGIC: No skin rash. NEUROLOGIC: Somnolent. LABORATORY DATA: Hemoglobin 13.2. Potassium 4.2, BUN 50, creatinine is 9.2. ASSESSMENT AND PLAN: 1. End-stage renal disease, on peritoneal dialysis. We will continue on peritoneal dialysis as tolerated with minimal prescription due to hypotension and GI bleed. 2. Anemia with recent GI bleed. Monitor hemoglobin closely. Rule out any bleed. 3. History of hypertension, currently hypotension. 4. Hypoalbuminemia. 5. Edema, controlled. 6. History of recent COVID-19 infection. PLAN: Monitor closely. We will continue on peritoneal dialysis with 1.5% solution and 4 exchanges. Monitor blood pressure closely and use albumin as needed. We will continue to follow. Thank you for the consult. Job ID: [id number]
[2020-05-06] MEDS ORDERED: Lorazepam 1 MG TAB PO PRN (18:36)
[2020-05-06 20:30] LABS: Hemoglobin 10.1 g/dL (14.0-18.0)
[2020-05-06] MEDS ORDERED: Amitriptyline HCl 25 MG TAB PO SCH (21:00)
[2020-05-06] MEDS ORDERED: rOPINIRole HCl 0.25 MG TAB PO SCH (21:00)
[2020-05-06 21:57] LABS: #Eosinphils 0.2 thou/uL (0.0-0.7); #Lymphocytes 1.8 thou/uL (1.20-3.40); #Monocytes 0.8 thou/uL (0.11-0.59); #Neutrophils 7.1 thou/uL (1.40-6.50); %Basophils 0.3 % (0.0-1.0); %Eosinophils 2.3 % (0.0-10.0); %Neutrophils 71.4 % (42.0-75.0); Hemoglobin 9.7 g/dL (14.0-18.0); Mean Corpuscular HGB CONC 32.6 g/dL (32.0-36.0); Mean Corpuscular Hemoglobin 31.6 pg (27.0-31.0); Mean Corpuscular Volume 96.9 fL (78.0-98.0); Mean Platelet Volume 7.3 fL (7.4-10.4); Platelet Count 160 thou/uL (130-400); Red Blood Cell (RBC) Count 3.08 mill/uL (4.70-6.10); White Blood Cell (WBC) Count 9.9 thou/uL (4.8-10.8)
[2020-05-06 22:07] LABS: Anion Gap 17 mmol/L (10-20); BUN (Urea Nitrogen) 59 mg/dL (8.4-25.7); Calc. Creatinine Clearance 7 mL/min (70-130); Carbon Dioxide 23 mmol/L (23-31); Chloride 100 mmol/L (98-107); Potassium 3.7 mmol/L (3.5-5.1); Sodium 136 mmol/L (136-145)
[2020-05-06 22:08] LABS: Calcium 8.6 mg/dL (7.8-10.44); Glucose 76 mg/dL (83-110)
[2020-05-07 04:08] LABS: #Eosinphils 0.2 thou/uL (0.0-0.7); #Lymphocytes 1.3 thou/uL (1.20-3.40); #Monocytes 0.8 thou/uL (0.11-0.59); #Neutrophils 7.6 thou/uL (1.40-6.50); %Lymphocytes 13.1 % (21.0-51.0); %Monocytes 8.5 % (0.0-10.0); %Neutrophils 76.5 % (42.0-75.0); Hemoglobin 10.1 g/dL (14.0-18.0); Mean Corpuscular HGB CONC 33.4 g/dL (32.0-36.0); Mean Corpuscular Hemoglobin 33.1 pg (27.0-31.0); Mean Corpuscular Volume 98.9 fL (78.0-98.0); Mean Platelet Volume 7.7 fL (7.4-10.4); Platelet Count 163 thou/uL (130-400); RBC Distribution Width 16.7 % (11.5-14.5); Red Blood Cell (RBC) Count 3.06 mill/uL (4.70-6.10); White Blood Cell (WBC) Count 9.9 thou/uL (4.8-10.8)
--- NOTE | 2020-05-07 07:56 | PDOC.HOSPP ---
- Subjective Encounter Date: 05/07/20 Encounter Time: 11:00 Subjective: Patient without events overnight. He remains confused. No further bleeding noted. - Objective Vital Signs & Weight: Vital Signs (12 hours) Temp Pulse Resp BP Pulse Ox 05/07/20 05:40 86 18 138/67 95 05/07/20 04:00 97.6 F 84 18 143/65 H 94 L 05/07/20 02:00 90 16 127/60 93 L 05/07/20 00:00 98.3 F 92 20 122/58 L 95 05/06/20 20:00 98.3 F 103 H 18 91/53 L 93 L Weight Weight 170 lb 9.6 oz I&O: 05/06/20 05/07/20 05/08/20 06:59 06:59 06:59 Intake Total 240 Balance 240 Result Diagrams: 05/07/20 03:38 05/06/20 21:40 Additional Labs: Accuchecks 05/06/20 05/06/20 21:43 04:07 POC Glucose 75 60 L Hospitalist ROS - Review of Systems ROS unobtainable: due to mental status - Medication Medications: Active Medications Generic Name Dose Route Start Last Admin Trade Name Freq PRN Reason Stop Dose Admin Amitriptyline HCl 50 mg 05/06/20 21:00 05/06/20 21:49 Amitriptyline Hcl 25 Mg Tab PO 50 mg HS HERMILA Administration Cefepime HCl 2 gm/ Sodium 100 mls @ 200 mls/hr 05/06/20 02:00 05/06/20 18:50 Chloride IVPB Not Given Q2D HERMILA Midodrine 5 mg 05/06/20 01:45 05/06/20 18:50 Midodrine Hcl 5 Mg Tab PO 05/06/20 03:45 Not Given NOW HERMILA Midodrine 5 mg 05/06/20 21:00 05/06/20 21:48 Midodrine Hcl 5 Mg Tab PO 5 mg BID HERMILA Administration Pantoprazole Sodium 40 mg 05/06/20 09:00 05/06/20 21:48 Pantoprazole 40 Mg Vial IVP 40 mg Q12HR HERMILA Administration Ropinirole HCl 0.25 mg 05/06/20 21:00 05/06/20 21:48 Ropinirole Hcl 0.25 Mg Tab PO 0.25 mg HS HERMILA Administration Hospitalist Exam Vitals: Vital Signs (12 hours) Temp Pulse Resp BP Pulse Ox 05/07/20 05:40 86 18 138/67 95 05/07/20 04:00 97.6 F 84 18 143/65 H 94 L 05/07/20 02:00 90 16 127/60 93 L 05/07/20 00:00 98.3 F 92 20 122/58 L 95 05/06/20 20:00 98.3 F 103 H 18 91/53 L 93 L Weight Weight 170 lb 9.6 oz General Appearance: NAD, awake alert ENT: moist mucosa Heart: RRR, no murmur, no gallops, no rubs Respiratory: CTAB, no wheezes, no rales, no ronchi Gastrointestinal: soft, non-tender, non-distended, normal bowel sounds Psychiatric: normal affect, normal behavior Hosp A/P - Plan This is a 79-year-old male patient with a history of ESRD on PD, hypertension, A. fib, coronary artery disease status post CABG, recent Covid infection, gastritis with previous GI bleed was brought in from rehab after recent admission with continuous lower GI bleed. Anemia secondary to lower GI bleed Unclear source upper/lower GI bleed. Patient has a history of gastritis Started on Protonix Has already received 1 unit of bloodanemia was however mild with hemoglobin at 13.2. Recheck was down to 10. Stable since then. We will monitor H&H GI evaluationDr. Mclean consulted. No plan to scope unless fresh blood is seen. Possible sepsis Patient is altered however is unclear his baseline. Also has hypotensionnow resolved #New leukocytosis of 16.5 with recent admissionresolved, likely stress reaction Chest x-ray unchanged. Patient currently on broad-spectrum antibiotics. Blood cultures pending, if negative can likely stop antibiotics IV fluids as he can tolerate given his ESRD Hypotensionresolved Blood pressure normal since transfusion in the emergency room ESRD Dr. Wellington consulted for peritoneal dialysis Dementia A. fib Stablenot in RVR Continue monitoring Recent Covid infection Currently stable We will monitor. Generally poor clinical state We will consult palliative care for goals of care discussion VT prophylaxisSCD Disposition: Patient can likely go back to rehab tomorrow if his blood cultures remain negative and he has no further bleeding.
[2020-05-07] MEDS: Calcium Acetate 667 MG CAP PO SCH ×3 (08:30→16:21)
[2020-05-07] MEDS: Sevelamer Carbonate 800 MG TAB PO SCH ×3 (08:31→16:20)
[2020-05-07] MEDS: Pantoprazole 40 MG VIAL IVP SCH (08:32)
[2020-05-07] MEDS: Midodrine HCl 5 MG TAB PO SCH (08:32)
[2020-05-07] MEDS ORDERED: Ascorbic Acid 500 mg Chewable Tablet PO SCH (09:00)
[2020-05-07] MEDS ORDERED: Folic Acid/Vit B Comp W-C PO SCH (09:00)
[2020-05-07] MEDS ORDERED: Calcitriol 0.25 MCG CAP PO SCH (09:00)
[2020-05-07] MEDS ORDERED: Magnesium Oxide 400 MG TAB PO SCH (09:00)
[2020-05-07] MEDS ORDERED: Cholecalciferol (Vitamin D3) 400 UNITS TAB PO SCH (09:00)
[2020-05-07] MEDS ORDERED: Non-Formulary Item 1 EACH (Sertraline Hcl [Sertraline Hcl] 50 MG Tablet) PO SCH (09:00)
[2020-05-07] MEDS ORDERED: Allopurinol 100 MG TAB PO SCH (09:00)
[2020-05-07] MEDS ORDERED: Zinc Sulfate 220 MG CAP PO SCH (09:00)
--- NOTE | 2020-05-07 14:33 | PRG ---
DATE OF SERVICE: 05/07/2020 REASON FOR CONSULTATION: GI bleed/hematochezia. SUBJECTIVE: The patient continues to be confused due to his underlying dementia, so the majority of the information was obtained from nursing staff. Per nursing staff since admission, he has not had any episodes of hematemesis, melena, or hematochezia. He did have one bowel movement last night that was semi-solid and brown in coloration. He did have a transient episode of hypotension last night that responded well to IV fluids and has since not had any further episodes. Upon evaluating the patient, he was lying in bed, in no acute distress. Alert and oriented x1. Currently did not have any problems or complaints. OBJECTIVE: VITAL SIGNS: Temperature 98.1, pulse 89, blood pressure 122/56, respiratory rate 18, saturating 100% on room air. GENERAL: The patient was lying in bed, in no acute distress. Alert and oriented x1. CARDIOVASCULAR: Regular rate and rhythm. RESPIRATORY: Clear to auscultation bilaterally. ABDOMEN: Normoactive bowel sounds. Soft, nontender, nondistended. EXTREMITIES: No cyanosis, clubbing, or edema. LABORATORY DATA: CBC with a white blood cell count of 9.9, hemoglobin 10.1, hematocrit 30.3, platelets 163. IMAGING DATA: No current GI imaging is available for review. ASSESSMENT AND PLAN: The patient is a 79-year-old gentleman with past medical history of end-stage renal disease, on peritoneal dialysis; hypertension; congestive heart failure; atrial fibrillation; dementia; and recent COVID infection, presenting with a presumed case of hematochezia, but no evidence of bleeding during this hospitalization. Hematochezia: The patient was admitted from the shelter with complaints of hematochezia characterized as bright red blood per rectum. In the ER, he did have a transient episode of hypotension that responded well to IV fluids. On initial examination in the ER, the patient was not noted to have any evidence of GI bleeding with no evidence of melena or hematochezia on rectal examination. During the last 24 hours, the patient has not had any episodes of hematochezia, melena, or hematemesis indicative of a GI bleed, nor has he had any change in his H and H. Given the transient episode of hypotension, this is unlikely to be related to GI bleeding at this time. RECOMMENDATIONS: 1. Would continue to trend his H and H and transfuse as necessary to maintain an H and H of 7/21. 2. Continue to monitor clinically for signs of active GI bleeding. 3. Could continue the patient on pantoprazole 40 mg, but decrease to once daily. 4. Would avoid any anticoagulation for the next 24 hours, then restart if clinically appropriate. 5. No endoscopic evaluation is indicated at this time. Given lack of evidence of GI bleeding overt or otherwise, we will sign off at this time. Please call with any questions. Job ID: [id number]
[2020-05-07 16:26] VITALS: TEMP 98.2
[2020-05-07 16:32] VITALS: BP 114/57
--- NOTE | 2020-05-07 17:03 | PDOC.DS.DS ---
Provider Date of Admission: 05/06/20 00:23 Date of Discharge: 05/07/20 Admitting Provider: Jhonatan Song MD Consultations: Gastroentrology (Dr. Mclean), Nephrology (Dr. Wellington), Pulmonary (Dr. Jefferson) Primary Care Physician: Kaci Pickens MD Course Hospital Course: This is a 79-year-old white male with end-stage renal disease on peritoneal dialysis and a history of altered mental status recently on and off at home. He developed Covid infection diagnosed March 27 at [facility]. He was admitted to our hospital April 27 with altered mental status and eventually was discharged to rehabilitation center. Patient was doing well there though with continued altered mental status and then he developed rectal bleeding and hypotension. Patient was evaluated in our emergency room. He had fluids and 1 unit of packed red blood cells given in the ER with resolution of his hypo tension. Patient had no further bleeding from his rectum in the hospital. He had normal soft brown bowel movements. He had no further hypertension either. His initial hemoglobin dropped from 13 to 10 after that it remained stable for the last [address] Mclean from GI was consulted and he recommended watching the patient and only scoping him if he had further bleeding visualized. Dr. Wellington was consulted and continued peritoneal dialysis. Patient was initially started on antibiotics due to the hypotension however he had no leukocytosis during his hospital stay, no fever, no change in his chest x-ray, and no other infectious signs. His blood cultures remain negative during his hospitalization though a final result is still pending. Patient is stable and is being discharged back to the rehabilitation center. Pertinent Studies: Portable frontal chest radiograph: 05/06/2020 COMPARISON: 04/26/2020 HISTORY: Rectal bleeding, possible sepsis FINDINGS: Stable midline sternotomy wires. Stent material overlies the mediastinum. There is atherosclerotic calcification of the aortic arch. Rotation to the right and shallow inspiration slightly limits detail. Minimal stable patchy opacity in the medial right base. No focal consolidation or alveolar edema. IMPRESSION: No significant interval change. Lab Results: 05/07/20 03:38 05/06/20 21:40 Abnormal Lab Results - Last 48 hrs 05/05/20 22:33: Crossmatch See Detail 05/05/20 22:33: Chloride 93 L, BUN 50 H, Creatinine 9.22 H, Alkaline Phosphatase 182 H, Albumin 3.3 L, Globulin 4.5 H, Albumin/Globulin Ratio 0.7 L 05/05/20 22:33: WBC 16.5 H, RBC 4.21 L, Hgb 13.2 L, MCV 100.0 H, MCH 31.3 H, MCHC 31.2 L, RDW 16.5 H, Neutrophils % 91.9 H, Lymphocytes % 4.8 L, Neutrophils # 15.1 H, Lymphocytes # 0.8 L 05/06/20 00:34: SARS-CoV-2 Rap RNA(RT-PCR) DETECTED A* 05/06/20 09:55: Hgb 10.1 L, Hct 31.1 L 05/06/20 19:09: Hgb 10.0 L, Hct 30.3 L 05/06/20 21:40: BUN 59 H, Creatinine 9.37 H 05/06/20 21:40: RBC 3.08 L, Hgb 9.7 L, Hct 29.9 L, MCH 31.6 H, RDW 17.0 H, MPV 7.3 L, Lymphocytes % 18.0 L, Neutrophils # 7.1 H, Monocytes # 0.8 H 05/07/20 03:38: RBC 3.06 L, Hgb 10.1 L, Hct 30.3 L, MCV 98.9 H, MCH 33.1 H, RDW 16.7 H, Neutrophils % 76.5 H, Lymphocytes % 13.1 L, Neutrophils # 7.6 H, Monocytes # 0.8 H Microbiology - Entire Visit 05/06/20 Unknown Venous blood - Right Arm Blood Culture - Preliminary Specimen has been received and culture in progress. No Growth to date. 05/06/20 Unknown Venous blood - Right Hand Blood Culture - Preliminary Specimen has been received and culture in progress. No Growth to date. Vitals: Vital Signs (12 hours) Temp Pulse Pulse Pulse Resp BP BP 05/07/20 16:25 98.2 F 99 16 05/07/20 16:00 99 18 05/07/20 15:10 88 94 114/57 L 160/60 H 05/07/20 14:00 88 18 05/07/20 12:00 98.1 F 89 18 05/07/20 10:00 94 18 05/07/20 05:40 86 18 BP Pulse Ox 05/07/20 16:25 100/60 99 05/07/20 16:00 129/57 L 95 05/07/20 15:10 05/07/20 14:00 114/57 L 95 05/07/20 12:00 122/56 L 100 05/07/20 10:00 137/60 96 05/07/20 05:40 138/67 95 Weight Admit Weight 170 lb 9.6 oz Weight 170 lb 9.6 oz Physical Exam: The patient was seen and examined on the day of discharge. Problem Assessment: Anemia secondary to lower GI bleed Possible sepsisruled out Hypotensionresolved ESRD on peritoneal dialysis Dementia A. fib Recent Covid infection Plan of Treatment: Patient will be transferred back to rehabilitation. Should he have further bleeding noted hemoglobin hematocrit will need to be checked and GI consulted again. Time Spent in discharge related activities (mins): 32 Plan Home Medications: Medication Instructions Recorded Confirmed Type Allopurinol 100 mg PO DAILY 02/27/17 05/06/20 History Calcium Acetate 1,334 mg PO TID- 03/06/18 05/06/20 History Pantoprazole [Protonix] 40 mg PO DAILY 02/22/19 05/06/20 History Sertraline HCl 100 mg PO DAILY 02/22/19 05/06/20 History Calcitriol [Rocaltrol] 0.25 mcg PO DAILY 06/30/19 05/06/20 History Amitriptyline HCl [Elavil] 50 mg PO HS 04/27/20 05/06/20 History Lorazepam [Ativan] 1 mg PO PRN PRN 04/27/20 05/06/20 History Magnesium 400 mg PO DAILY 04/27/20 05/06/20 History Metoprolol Succinate [Toprol XL] 50 mg PO DAILY 04/27/20 05/06/20 History Midodrine HCl [ProAmatine] 5 mg PO BID 04/27/20 05/06/20 History Sertraline HCl 100 mg PO DAILY 04/27/20 05/06/20 History Sevelamer HCl [Renagel] 3 tab PO TID- 04/27/20 05/06/20 History rOPINIRole HCl [Ropinirole HCl] 0.25 mg PO HS 04/27/20 05/06/20 History Doxycycline [Vibramycin] 100 mg PO BID 7 Days #14 cap 05/01/20 05/06/20 Rx Zinc Sulfate 220 mg PO DAILY 30 Days #30 cap 05/01/20 05/06/20 Rx Ascorbic Acid [Vitamin C] 500 mg PO DAILY 05/06/20 05/06/20 History Cholecalciferol (Vitamin D3) 400 unit PO DAILY 05/06/20 05/06/20 History [Vitamin D3] Folic Acid/Vit B Comp W-C 1 tab PO DAILY 05/06/20 05/06/20 History [Nephro-Ramiro] Pantoprazole [Protonix] 40 mg PO DAILY tab 05/07/20 Rx Allergies: Penicillins Allergy (Verified 04/27/20 13:52) Rash Activity:: Activity as Tolerated Nourishment:: Heart Healthy Diet, Low Sodium Diet Therapies:: Occupational Therapy, Physical Therapy Equipment/Supplies:: Not Applicable IV Therapy:: Not Applicable Referrals: Kaci Pickens MD [Primary Care Provider] - Disposition: REHABILITATION INPATIENT Quality CORE MEASURES:: N/A
--- NOTE | 2020-05-07 19:20 | PRG ---
DATE OF SERVICE: 05/07/2020 OBJECTIVE: GENERAL: This is a well-built male, in no apparent distress. VITAL SIGNS: Temperature 98.2, pulse 99, respiratory rate 15, blood pressure 100/60. LABORATORY DATA: Potassium 3.7, BUN is 59, creatinine is 9.3. ASSESSMENT AND PLAN: 1. End-stage renal disease. We will continue on peritoneal dialysis. 2. Anemia. 3. History of recent gastrointestinal bleed. 4. Hypertension. 5. Hypoalbuminemia. 6. Edema, controlled. 7. History of recent COVID-19 infection. We will continue on peritoneal dialysis as tolerated. We will follow. Job ID: [id number]
--- NOTE | 2020-05-08 07:31 | PQF ---
CLINICAL DOCUMENTATION CLARIFICATION FORM: Dear Dr. Owen Banks Date: 05-08-20 Please exercise your independent, professional judgment in responding to the clarification form. Clinical indicators are provided on the bottom of this form for your review Please check appropriate box(es): [ X ] Acute blood loss anemia due to GI Bleed [ ] Chronic Anemia Blood due to ESRD [ ] Acute on Chronic Blood loss anemia due to GI Bleed and ESRD [ ] Other diagnosis [ ] Unable to determine For continuity of documentation, please document condition throughout progress notes and discharge summary. Thank You. To be completed by CDI/Coding staff for physician review: CLINICAL INDICATORS - SIGNS / SYMPTOMS / LABS / RESULTS AND LOCATION IN EMR LABS: Hgb Hct 2.14 13.2 42.2 2.15 10.1 31.1 2.15 10.0 30.3 2.15 9.7 29.9 2.16 10.1 30.3 ED: BP 82/56, 125/79, 76/58, 96/50, 109/56, Hypotension resolved in ED RISK FACTORS / RESULTS AND LOCATION IN EMR 2.15 ED Rectal Bleeding 2.15 H&P (Affram): *ESRD *Lower GI Bleed TREATMENTS / RESULTS AND LOCATION IN EMR ED: 2L NS IV COPE: 2.14 PRBC 1 unit transfused 2.15 GI Consult (Caridad) CDS Signature: Mattie Cruz RN, CCDS Phone #: [phone] [email or web address] This is a permanent part of the Medical Record [facility]
== END 2020-05-07 18:00 | DRG 377 ==
LOC: ERS 22:04 → 2SE 05-06 00:23
PROVIDERS: ADMIT Student in an Organized Health Care Education/Training Program; ATTEND Emergency Medicine
PROC: 30233N1 Transfusion of Nonautologous Red Blood Cells into Peripheral Vein, Percutaneous Approach (ICD-10-PCS; principal; 2020-05-05)
PROC: 3E1M39Z Irrigation of Peritoneal Cavity using Dialysate, Percutaneous Approach (ICD-10-PCS; 2020-05-06)
DX: K92.1 Melena (principal); N18.6 End stage renal disease; D62 Acute posthemorrhagic anemia; I13.2 Hypertensive heart and chronic kidney disease with heart failure and with stage 5 chronic kidney disease, or end stage renal disease; I95.9 Hypotension, unspecified; I48.91 Unspecified atrial fibrillation; F03.90 Unspecified dementia, unspecified severity, without behavioral disturbance, psychotic disturbance, mood disturbance, and anxiety; I50.9 Heart failure, unspecified; E88.09 Other disorders of plasma-protein metabolism, not elsewhere classified; Z99.2 Dependence on renal dialysis; Z95.0 Presence of cardiac pacemaker; Z95.2 Presence of prosthetic heart valve; Z88.0 Allergy status to penicillin; Z79.899 Other long term (current) drug therapy; Z95.1 Presence of aortocoronary bypass graft; Z86.16 Personal history of COVID-19
CPT/HCPCS: 0240U; 36415; 36416; 36430; 71045; 80053; 85025; 85610; 85730; 86850; 86900; 86901; 87040; 90945; 93005; 96374; C9113; G0257; P9016

== ENCOUNTER 2020-05-12 18:06 | Inpatient (IN) | payer MEDICARE, OTHER ==
[2020-05-12 19:08] LABS: #Eosinphils 0.1 thou/uL (0.0-0.7); #Lymphocytes 1.4 thou/uL (1.20-3.40); #Monocytes 0.6 thou/uL (0.11-0.59); #Neutrophils 5.2 thou/uL (1.40-6.50); %Basophils 0.4 % (0.0-1.0); %Eosinophils 1.6 % (0.0-10.0); %Lymphocytes 19.1 % (21.0-51.0); %Monocytes 8.1 % (0.0-10.0); %Neutrophils 70.8 % (42.0-75.0); Hemoglobin 10.8 g/dL (14.0-18.0); Mean Corpuscular HGB CONC 32.8 g/dL (32.0-36.0); Mean Corpuscular Hemoglobin 33.1 pg (27.0-31.0); Mean Platelet Volume 7.1 fL (7.4-10.4); Platelet Count 162 thou/uL (130-400); RBC Distribution Width 16.2 % (11.5-14.5); Red Blood Cell (RBC) Count 3.25 mill/uL (4.70-6.10); White Blood Cell (WBC) Count 7.3 thou/uL (4.8-10.8)
[2020-05-12 19:17] LABS: PTT 32.2 sec (22.9-36.1); Prothrombin Time 13.7 sec (12.0-14.7)
--- NOTE | 2020-05-13 00:15 | PDOC.HHP ---
Hospitalist HPI Blood per rectum History of Present Illness: 79-year-old male with history of hypertension, ESRD on peritoneal dialysis, status post recent lower GI bleed requiring PRBC, did not have any endoscopy, transferred to rehab. Patient was noted to have 2 bowel movements with blood in diaper. He was transferred here for work-up of GI bleed. His H&H remained stable at 10.8. Patient denies any abdominal pain, he denies any hematemesis. He denies any previous EGD or colonoscopy in the past. Allergies/Adverse Reactions: Allergy/AdvReac Type Severity Reaction Status Date / Time Penicillins Allergy Rash Verified 04/27/20 13:52 Home Medications: Medication Instructions Recorded Confirmed Type Allopurinol 100 mg PO DAILY 02/27/17 05/06/20 History Calcium Acetate 1,334 mg PO TID- 03/06/18 05/06/20 History Pantoprazole [Protonix] 40 mg PO DAILY 02/22/19 05/06/20 History Sertraline HCl 100 mg PO DAILY 02/22/19 05/06/20 History Calcitriol [Rocaltrol] 0.25 mcg PO DAILY 06/30/19 05/06/20 History Amitriptyline HCl [Elavil] 50 mg PO HS 04/27/20 05/06/20 History Lorazepam [Ativan] 1 mg PO PRN PRN 04/27/20 05/06/20 History Magnesium 400 mg PO DAILY 04/27/20 05/06/20 History Metoprolol Succinate [Toprol XL] 50 mg PO DAILY 04/27/20 05/06/20 History Midodrine HCl [ProAmatine] 5 mg PO BID 04/27/20 05/06/20 History Sertraline HCl 100 mg PO DAILY 04/27/20 05/06/20 History Sevelamer HCl [Renagel] 3 tab PO TID- 04/27/20 05/06/20 History rOPINIRole HCl [Ropinirole HCl] 0.25 mg PO 04/27/20 05/06/20 History Doxycycline [Vibramycin] 100 mg PO BID 7 Days #14 cap 05/01/20 05/06/20 Rx Zinc Sulfate 220 mg PO DAILY 30 Days #30 cap 05/01/20 05/06/20 Rx Ascorbic Acid [Vitamin C] 500 mg PO DAILY 05/06/20 05/06/20 History Cholecalciferol (Vitamin D3) 400 unit PO DAILY 05/06/20 05/06/20 History [Vitamin D3] Folic Acid/Vit B Comp W-C 1 tab PO DAILY 05/06/20 05/06/20 History [Nephro-Ramiro] Pantoprazole [Protonix] 40 mg PO DAILY tab 05/07/20 Rx Past History: PMHx: Atrial fibrillation, ESRD, dementia, CHF PSHx: Valve replacement, peritoneal dialysis catheter placement FHx: Noncontributory in this elderly man Social: Currently living at SNF, previously resided in the , denies any tobacco alcohol illicit drug use Hospitalist HPI ROS All other systems reviewed; all pertinent +/- noted in HPI/Subj Hospitalist Exam General Appearance: NAD, awake alert General - other findings: Elderly male, calm, Eye: PERRL, anicteric sclera ENT: normocephalic atraumatic, no oropharyngeal lesions Neck: supple, symmetric, no carotid bruit Heart: RRR, no murmur Respiratory: CTAB, no wheezes, no tachypnea Gastrointestinal: soft, non-tender, non-distended, no palpable masses Gastrointestinal - other findings: PD catheter in situ Extremities: no cyanosis, no clubbing Skin: normal turgor, no lesions Neurological: cranial nerve grossly intact, no focal deficits Neurological - other findings: Alert and oriented x3 now Psychiatric: normal affect, normal behavior, A&O x 3 Hospitalist Results Result Diagrams: 05/12/20 18:43 Lab results: Laboratory Last Values WBC 7.3 thou/uL (4.8-10.8) 05/12/20 18:43 RBC 3.25 mill/uL (4.70-6.10) L 05/12/20 18:43 Hgb 10.8 g/dL (14.0-18.0) L 05/12/20 18:43 Hct 32.8 % (42.0-52.0) L 05/12/20 18:43 MCV 101.0 fL (78.0-98.0) H 05/12/20 18:43 MCH 33.1 pg (27.0-31.0) H 05/12/20 18:43 MCHC 32.8 g/dL (32.0-36.0) 05/12/20 18:43 RDW 16.2 % (11.5-14.5) H 05/12/20 18:43 Plt Count 162 thou/uL (130-400) 05/12/20 18:43 MPV 7.1 fL (7.4-10.4) L 05/12/20 18:43 Neutrophils % 70.8 % (42.0-75.0) 05/12/20 18:43 Lymphocytes % 19.1 % (21.0-51.0) L 05/12/20 18:43 Monocytes % 8.1 % (0.0-10.0) 05/12/20 18:43 Eosinophils % 1.6 % (0.0-10.0) 05/12/20 18:43 Basophils % 0.4 % (0.0-1.0) 05/12/20 18:43 Neutrophils # 5.2 thou/uL (1.40-6.50) 05/12/20 18:43 Lymphocytes # 1.4 thou/uL (1.20-3.40) 05/12/20 18:43 Monocytes # 0.6 thou/uL (0.11-0.59) H 05/12/20 18:43 Eosinophils # 0.1 thou/uL (0.0-0.7) 05/12/20 18:43 Basophils # 0.0 thou/uL (0.0-0.2) 05/12/20 18:43 PT 13.7 sec (12.0-14.7) 05/12/20 18:43 INR 1.0 05/12/20 18:43 APTT 32.2 sec (22.9-36.1) 05/12/20 18:43 Blood Type O NEGATIVE 05/12/20 18:43 Antibody Screen NEGATIVE 05/12/20 18:43 Hospitalist H&P A/P (1) Lower GI bleed Code(s): K92.2 - GASTROINTESTINAL HEMORRHAGE, UNSPECIFIED Status: Acute (2) Chronic atrial fibrillation Code(s): I48.2 - CHRONIC ATRIAL FIBRILLATION * DO NOT USE * Status: Chronic (3) Depression Code(s): F32.9 - MAJOR DEPRESSIVE DISORDER, SINGLE EPISODE, UNSPECIFIED Status: Chronic Qualifiers: Depression Type: major depressive disorder Major depression episode severity: unspecified (4) ESRD (end stage renal disease) on dialysis Code(s): N18.6 - END STAGE RENAL DISEASE; Z99.2 - DEPENDENCE ON RENAL DIALYSIS Status: Chronic (5) HTN (hypertension) Code(s): I10 - ESSENTIAL (PRIMARY) HYPERTENSION Status: Chronic Qualifiers: Plan: Lower GI bleed with mild anemiamonitor H&H every 12 We will consult GI for colonoscopy Start liquid diet for now Continue to follow ESRDcontinue PD we will consult renal Hypertensioncontrolled History of A. fibrhythm controlled now, continue to follow DVT prophylaxissubcutaneous heparin Advanced directivediscussed with patient he states he had living will but would like to trial full code
[2020-05-13] MEDS ORDERED: Bisacodyl 5 MG TAB PO PRN (00:20)
[2020-05-13] MEDS ORDERED: HYDROcodone/Acetaminophen 5/325 mg Tablet PO PRN (00:20)
[2020-05-13] MEDS ORDERED: Ondansetron PF 4 MG/2 ML Vial IVP PRN (00:20)
[2020-05-13 01:31] LABS: #Basophils 0.1 thou/uL (0.0-0.2); #Eosinphils 0.1 thou/uL (0.0-0.7); #Lymphocytes 1.6 thou/uL (1.20-3.40); #Monocytes 0.8 thou/uL (0.11-0.59); #Neutrophils 5.9 thou/uL (1.40-6.50); %Basophils 1.4 % (0.0-1.0); %Eosinophils 1.2 % (0.0-10.0); %Lymphocytes 18.6 % (21.0-51.0); %Monocytes 8.9 % (0.0-10.0); Hemoglobin 9.7 g/dL (14.0-18.0); Mean Corpuscular HGB CONC 32.2 g/dL (32.0-36.0); Mean Corpuscular Hemoglobin 31.8 pg (27.0-31.0); Mean Corpuscular Volume 98.8 fL (78.0-98.0); Mean Platelet Volume 6.9 fL (7.4-10.4); Platelet Count 168 thou/uL (130-400); Red Blood Cell (RBC) Count 3.05 mill/uL (4.70-6.10); White Blood Cell (WBC) Count 8.4 thou/uL (4.8-10.8)
[2020-05-13] MEDS: Sodium Chloride 0.9% 1,000 ML IV SCH ×2 (02:21→05:17)
[2020-05-13 02:56] LABS: #Eosinphils 0.1 thou/uL (0.0-0.7); #Lymphocytes 1.1 thou/uL (1.20-3.40); #Monocytes 0.6 thou/uL (0.11-0.59); #Neutrophils 5.4 thou/uL (1.40-6.50); %Basophils 0.4 % (0.0-1.0); %Eosinophils 1.2 % (0.0-10.0); %Lymphocytes 15.1 % (21.0-51.0); %Monocytes 8.6 % (0.0-10.0); %Neutrophils 74.7 % (42.0-75.0); Mean Corpuscular HGB CONC 32.6 g/dL (32.0-36.0); Mean Corpuscular Hemoglobin 32.2 pg (27.0-31.0); Mean Corpuscular Volume 98.8 fL (78.0-98.0); Mean Platelet Volume 7.2 fL (7.4-10.4); Platelet Count 152 thou/uL (130-400); RBC Distribution Width 16.1 % (11.5-14.5); White Blood Cell (WBC) Count 7.2 thou/uL (4.8-10.8)
[2020-05-13 04:45] LABS: Band 1 % (5-11); Eosinophils 1 % (0-10); Hemoglobin 8.7 g/dL (14.0-18.0); Lymphocytes 16 % (21-51); MDiff Complete? YES; Mean Corpuscular HGB CONC 32.3 g/dL (32.0-36.0); Mean Corpuscular Hemoglobin 31.8 pg (27.0-31.0); Mean Corpuscular Volume 98.5 fL (78.0-98.0); Metamyelocyte 1 % (0-0); Monocytes 5 % (0-10); Neutrophil 75 % (42-75); Platelet Count 148 thou/uL (130-400); Platelet Morphology Comment Appears Adequate; Red Blood Cell (RBC) Count 2.73 mill/uL (4.70-6.10); White Blood Cell (WBC) Count 7.1 thou/uL (4.8-10.8)
[2020-05-13 04:56] LABS: ALT (SGPT) 11 U/L (8-55); AST (SGOT) 17 U/L (5-34); Albumin 2.2 g/dL (3.4-4.8); Alkaline Phosphatase 108 U/L (40-110); Anion Gap 15 mmol/L (10-20); BUN (Urea Nitrogen) 38 mg/dL (8.4-25.7); Bilirubin, Total 0.5 mg/dL (0.2-1.2); Calc. Creatinine Clearance 7 mL/min (70-130); Calcium 8.5 mg/dL (7.8-10.44); Carbon Dioxide 27 mmol/L (23-31); Chloride 100 mmol/L (98-107); Glucose 136 mg/dL (83-110); Potassium 3.7 mmol/L (3.5-5.1); Sodium 138 mmol/L (136-145)
[2020-05-13 04:59] LABS: Globulin 2.8 g/dL (2.4-3.5)
[2020-05-13] MEDS ORDERED: Heparin 5,000 UNITS/ML VIAL SC SCH (09:00)
[2020-05-13] MEDS ORDERED: Zinc Sulfate 220 MG CAP ONE (09:53)
[2020-05-13] MEDS: Zinc Sulfate 220 MG CAP PO SCH (10:11)
[2020-05-13] MEDS: Calcium Acetate 667 MG CAP PO SCH ×3 (10:11→18:10)
[2020-05-13] MEDS: Calcitriol 0.25 MCG CAP PO SCH (10:11)
[2020-05-13] MEDS: Sevelamer Carbonate 800 MG TAB PO SCH ×3 (10:11→18:10)
--- NOTE | 2020-05-13 11:49 | PDOC.HOSPP ---
- Subjective Encounter Date: 05/13/20 Encounter Time: 12:00 Subjective: Patient without change overnight. He did have 1 bowel movement with a few clots in it this morning. No other rectal bleeding noted. Patient's is at the bedside. She reports that the patient over the last week has been having significantly worsened episodes of shaking all over especially in his lower extremities. He had had some restless leg syndrome diagnosed by his primary care physician for the last year, but this seems worse than that. Patient has had worsening intermittent confusion on previous admissions and even at home per his . He does intermittently have hallucinations where he will swatted th ings or grabbing things. Patient's also reports that he has problems choking on things regularly. Patient's is starting to think that he may not recover he may continue to decline however she would like to address these most recent things and see if he can make some sort of turnaround. She has been considering whether or not to eventually have him go on hospice but not quite ready for that. - Objective Vital Signs & Weight: Vital Signs (12 hours) Temp Pulse Resp BP Pulse Ox 05/13/20 11:24 97 17 151/76 H 98 05/13/20 09:47 98.2 F 88 19 143/98 H 98 Weight Weight 178 lb 9.191 oz Result Diagrams: 05/13/20 13:44 05/13/20 04:11 Hospitalist ROS - Review of Systems ROS unobtainable: due to mental status - Medication Medications: Active Medications Generic Name Dose Route Start Last Admin Trade Name Therese PRN Reason Stop Dose Admin Calcitriol 0.25 mcg 05/13/20 09:00 05/13/20 10:11 Calcitriol 0.25 Mcg Cap PO 0.25 mcg DAILY HERMILA Administration Calcium Acetate 1,334 mg 05/13/20 08:00 05/13/20 10:11 Calcium Acetate 667 Mg Cap PO 1,334 mg TID-WM HERMILA Administration Pantoprazole Sodium 40 mg 05/13/20 09:00 05/13/20 10:11 Pantoprazole 40 Mg Tab PO 40 mg DAILY HERMILA Administration Sertraline HCl 100 mg 05/13/20 09:00 05/13/20 10:11 Sertraline Hcl 100 Mg Tab PO 100 mg DAILY HERMILA Administration Sevelamer Carbonate 2,400 mg 05/13/20 08:00 05/13/20 10:11 Sevelamer Carbonate 800 Mg Tab PO 2,400 mg TID-WM HERMILA Administration Zinc Sulfate 220 mg 05/13/20 09:00 05/13/20 10:11 Zinc Sulfate 220 Mg Cap PO 220 mg DAILY HERMILA Administration Hospitalist Exam Vitals: Vital Signs (12 hours) Temp Pulse Resp BP Pulse Ox 05/13/20 11:24 97 17 151/76 H 98 05/13/20 09:47 98.2 F 88 19 143/98 H 98 Weight Weight 178 lb 9.191 oz General - other findings: Patient sleeping but easily arousable, confused ENT: moist mucosa Heart: RRR, no murmur, no gallops, no rubs Respiratory: CTAB, no wheezes, no rales, no ronchi Gastrointestinal: soft, non-tender, non-distended, normal bowel sounds Neurological - other findings: Moving all extremities, did have one episode of shaking of bilateral legs Psychiatric: oriented to person. negative: oriented to place, oriented to time Hosp A/P - Plan Lower GI bleed with mild anemia Monitor H&H every 12dropped from 10 to 8 We will consult GI for colonoscopy Start liquid diet for now Continue to follow Acute metabolic encephalopathy Patient may have some mild dementia but also with acute delirium on and off on top of that Some question of partial seizure activity though it is more likely restless leg syndrome Shaking of lower extremities Likely restless leg syndrome, though with significant worsening in severity of episodes seizure activity cannot be completely excluded I did asked the patient's to find out what previous RLS treatments he has been tried on to let the neurologist know We will consult neurology for assistance ESRD Continue PD we will consult renal Hypertension Controlled History of A. fibrhythm Controlled now, continue to follow Depression Continue home medicines DVT prophylaxisdiscontinue subcutaneous heparin due to GI bleed
[2020-05-13 11:59] LABS: SARS-CoV-2 PCR by NAA DETECTED (NotDetected)
--- NOTE | 2020-05-13 12:22 | PRG ---
DATE OF SERVICE: 05/13/2020 SUBJECTIVE: A 79-year-old gentleman being seen for end-stage renal disease. The patient denied nausea, vomiting, or chest pain. OBJECTIVE: GENERAL: The patient is awake and alert. VITAL SIGNS: Afebrile, pulse 75, breathing at 16, and blood pressure was 143/98. HEENT: Head normocephalic and atraumatic. Eyes intact, no ulcers. Nose intact, no ulcers. Ears intact, no ulcers. Neck: Supple. No JVD. Chest: Symmetrical and clear. Cardiovascular: Shows S1 and S2, no rub, no murmur. Gastrointestinal: Abdomen is soft, bowel sounds positive. Extremities: Show no edema or ulcers. Skin: Shows no rash or petechiae. Musculoskeletal: Shows no joint swelling or stiffness. Genitourinary: Shows no Lyons or CVA tenderness. Neurologic: Motor intact. Cranial nerves intact. LABORATORY DATA: Reviewed. ASSESSMENT: Stage 6 chronic kidney disease, stable. Hypertension, stable. Anemia, stable. Medication based on GFR appropriate. Job ID: [id number]
[2020-05-13 14:15] LABS: #Basophils 0.1 thou/uL (0.0-0.2); #Eosinphils 0.1 thou/uL (0.0-0.7); #Lymphocytes 1.6 thou/uL (1.20-3.40); #Monocytes 0.6 thou/uL (0.11-0.59); #Neutrophils 5.3 thou/uL (1.40-6.50); %Basophils 0.7 % (0.0-1.0); %Eosinophils 1.9 % (0.0-10.0); %Lymphocytes 20.5 % (21.0-51.0); %Monocytes 7.4 % (0.0-10.0); %Neutrophils 69.5 % (42.0-75.0); Hemoglobin 9.3 g/dL (14.0-18.0); Mean Corpuscular Hemoglobin 31.7 pg (27.0-31.0); Mean Corpuscular Volume 99.1 fL (78.0-98.0); Mean Platelet Volume 7.2 fL (7.4-10.4); Platelet Count 161 thou/uL (130-400); RBC Distribution Width 16.1 % (11.5-14.5); Red Blood Cell (RBC) Count 2.93 mill/uL (4.70-6.10); White Blood Cell (WBC) Count 7.6 thou/uL (4.8-10.8)
--- NOTE | 2020-05-13 16:09 | CON ---
NEUROLOGY CONSULTATION DATE OF CONSULTATION: 05/13/2020 REASON FOR CONSULTATION: Altered mental status/jerking of the lower extremities. HISTORY OF PRESENT ILLNESS: Mr. Quinn Carrillo is a 79-year-old male with history significant for hypertension; end-stage renal disease, on peritoneal dialysis; status post recent lobe GI bleed, requiring transfusion, presented with blood per rectum. The patient also was found to be confused and having visual hallucination and picking on objects. He is agitated at times. Per nursing staff, the told them that he has been diagnosed with sundowning and delirium at the rehab facility. He also had jerking movements of the lower extremities. The patient is confused at baseline and is only oriented to person. Unable to provide the history. History is obtained from review of the medical records and also from by talking to the nursing staff. REVIEW OF SYSTEMS: Unobtainable due to the patient's mental status. Allergies/Adverse Reactions: Allergy/AdvReac Type Severity Reaction Status Date / Time Penicillins Allergy Rash Verified 04/27/20 13:52 Home Medications: Medication Instructions Recorded Confirmed Type Allopurinol 100 mg PO DAILY 02/27/17 05/06/20 History Calcium Acetate 1,334 mg PO TID- 03/06/18 05/06/20 History Pantoprazole [Protonix] 40 mg PO DAILY 02/22/19 05/06/20 History Sertraline HCl 100 mg PO DAILY 02/22/19 05/06/20 History Calcitriol [Rocaltrol] 0.25 mcg PO DAILY 06/30/19 05/06/20 History Amitriptyline HCl [Elavil] 50 mg PO HS 04/27/20 05/06/20 History Lorazepam [Ativan] 1 mg PO PRN PRN 04/27/20 05/06/20 History Magnesium 400 mg PO DAILY 04/27/20 05/06/20 History Metoprolol Succinate [Toprol XL] 50 mg PO DAILY 04/27/20 05/06/20 History Midodrine HCl [ProAmatine] 5 mg PO BID 04/27/20 05/06/20 History Sertraline HCl 100 mg PO DAILY 04/27/20 05/06/20 History Sevelamer HCl [Renagel] 3 tab PO TID-WM 04/27/20 05/06/20 History rOPINIRole HCl [Ropinirole HCl] 0.25 mg PO HS 04/27/20 05/06/20 History Doxycycline [Vibramycin] 100 mg PO BID 7 Days #14 cap 05/01/20 05/06/20 Rx Zinc Sulfate 220 mg PO DAILY 30 Days #30 cap 05/01/20 05/06/20 Rx Ascorbic Acid [Vitamin C] 500 mg PO DAILY 05/06/20 05/06/20 History Cholecalciferol (Vitamin D3) 400 unit PO DAILY 05/06/20 05/06/20 History [Vitamin D3] Folic Acid/Vit B Comp W-C 1 tab PO DAILY 05/06/20 05/06/20 History [Nephro-Ramiro] Pantoprazole [Protonix] 40 mg PO DAILY tab 05/07/20 Rx PAST MEDICAL HISTORY: Atrial fibrillation, end-stage renal disease, dementia, congestive heart failure. PAST SURGICAL HISTORY: Valve replacement, peritoneal dialysis catheter placement. FAMILY HISTORY: No significant family history. SOCIAL HISTORY: The patient is currently staying at the snf facility. , lives with his . There is no documented history of alcohol, illegal drug use. PHYSICAL EXAMINATION: GENERAL APPEARANCE: NAD. Eye: PERRL, anicteric sclera ENT: normocephalic atraumatic, no oropharyngeal lesions Neck: supple, symmetric, no carotid bruit Heart: RRR, no murmur Respiratory: CTAB, no wheezes, no tachypnea Gastrointestinal: soft, non-tender, non-distended, no palpable masses Gastrointestinal - other findings: PD catheter in situ Extremities: no cyanosis, no clubbing Skin: normal turgor, no lesions Neurological: Mental status; the patient is alert and oriented to person only. He thinks he is in [place]. He is not oriented to month or year. He has been picking on objects and has been having visual hallucinations. Motor; muscle, tone, and bulk are normal. Moving all 4 extremities equally and symmetrically. Sensory withdraws to nailbed pressure bilaterally. Cerebellar; did not cooperate with the testing. Gait deferred due to patient's safety reason. Cranial nerves 2 through 12 intact. DATA REVIEWED: I reviewed the labs. They were significant for anemia, hemoglobin of 10.8, and hematocrit of 32.5. WBC 7.3 thou/uL (4.8-10.8) 05/12/20 18:43 RBC 3.25 mill/uL (4.70-6.10) L 05/12/20 18:43 Hgb 10.8 g/dL (14.0-18.0) L 05/12/20 18:43 Hct 32.8 % (42.0-52.0) L 05/12/20 18:43 MCV 101.0 fL (78.0-98.0) H 05/12/20 18:43 MCH 33.1 pg (27.0-31.0) H 05/12/20 18:43 MCHC 32.8 g/dL (32.0-36.0) 05/12/20 18:43 RDW 16.2 % (11.5-14.5) H 05/12/20 18:43 Plt Count 162 thou/uL (130-400) 05/12/20 18:43 MPV 7.1 fL (7.4-10.4) L 05/12/20 18:43 Neutrophils % 70.8 % (42.0-75.0) 05/12/20 18:43 Lymphocytes % 19.1 % (21.0-51.0) L 05/12/20 18:43 Monocytes % 8.1 % (0.0-10.0) 05/12/20 18:43 Eosinophils % 1.6 % (0.0-10.0) 05/12/20 18:43 Basophils % 0.4 % (0.0-1.0) 05/12/20 18:43 Neutrophils # 5.2 thou/uL (1.40-6.50) 05/12/20 18:43 Lymphocytes # 1.4 thou/uL (1.20-3.40) 05/12/20 18:43 Monocytes # 0.6 thou/uL (0.11-0.59) H 05/12/20 18:43 Eosinophils # 0.1 thou/uL (0.0-0.7) 05/12/20 18:43 Basophils # 0.0 thou/uL (0.0-0.2) 05/12/20 18:43 PT 13.7 sec (12.0-14.7) 05/12/20 18:43 INR 1.0 05/12/20 18:43 APTT 32.2 sec (22.9-36.1) 05/12/20 18:43 Blood Type O NEGATIVE 05/12/20 18:43 Antibody Screen NEGATIVE 05/12/20 18:43 ASSESSMENT AND PLAN: (1) Confusion Status: Acute (2) Chronic atrial fibrillation Code(s): I48.2 - CHRONIC ATRIAL FIBRILLATION * DO NOT USE * Status: Chronic (3) Lower GI bleed Code(s): K92.2 - GASTROINTESTINAL HEMORRHAGE, UNSPECIFIED Status: Acute (4) ESRD (end stage renal disease) on dialysis Code(s): N18.6 - END STAGE RENAL DISEASE; Z99.2 - DEPENDENCE ON RENAL DIALYSIS Status: Chronic (5) HTN (hypertension) Code(s): I10 - ESSENTIAL (PRIMARY) HYPERTENSION Status: Chronic Qualifiers: Mr. Quinn Carrillo is a 79-year-old male, who was consulted because of involuntary jerking of the lower extremities. The differential diagnosis includes most likely restless legs syndrome secondary to anemia. It is difficult to evaluate for Parkinson's at this time. Consider iron supplementation. The patient is also confused, which is not his baseline according to the nursing staff. Consider MRI of the brain to rule out acute intracranial process and an EEG to rule out underlying cortical irritability. Consider MRI of the lumbar spine also to rule out lumbar disk disease. Neuro checks every 4 hours. Continue home medications. Continue medical management per primary team, Nephrology, and GI. We will continue to follow. Plan discussed with the nursing staff. Thank you for the consult. Job ID: [id number] MTDD
[2020-05-13] MEDS ORDERED: Allopurinol 100 MG TAB PO SCH (16:45)
[2020-05-13] MEDS ORDERED: Lorazepam 2 MG/ML VIAL ONE (20:17)
[2020-05-13] MEDS ORDERED: Lorazepam 2 MG/ML VIAL SLOW IVP PRN (20:58)
[2020-05-13] MEDS ORDERED: Lorazepam 2 MG/ML VIAL SLOW IVP SCH (21:45)
[2020-05-13] MEDS: Amitriptyline HCl 25 MG TAB PO SCH (22:23)
[2020-05-13] MEDS: rOPINIRole HCl 0.25 MG TAB PO SCH (22:23)
[2020-05-14 01:36] LABS: #Basophils 0.1 thou/uL (0.0-0.2); #Eosinphils 0.1 thou/uL (0.0-0.7); #Lymphocytes 1.7 thou/uL (1.20-3.40); #Monocytes 0.9 thou/uL (0.11-0.59); #Neutrophils 9.1 thou/uL (1.40-6.50); %Basophils 0.9 % (0.0-1.0); %Eosinophils 0.4 % (0.0-10.0); %Lymphocytes 14.1 % (21.0-51.0); %Monocytes 7.9 % (0.0-10.0); %Neutrophils 76.6 % (42.0-75.0); Hemoglobin 9.4 g/dL (14.0-18.0); Mean Corpuscular HGB CONC 31.7 g/dL (32.0-36.0); Mean Corpuscular Hemoglobin 31.6 pg (27.0-31.0); Mean Corpuscular Volume 99.8 fL (78.0-98.0); Mean Platelet Volume 7.1 fL (7.4-10.4); Platelet Count 205 thou/uL (130-400); Red Blood Cell (RBC) Count 2.97 mill/uL (4.70-6.10); White Blood Cell (WBC) Count 11.9 thou/uL (4.8-10.8)
--- NOTE | 2020-05-14 01:58 | CON ---
DATE OF CONSULTATION: 05/13/2020 CHIEF COMPLAINT: Blood in the stool. HISTORY OF PRESENT ILLNESS: Mr. Carrillo is a 79-year-old man who was sent back over to the emergency room from the senior living after he had two red bloody bowel movements in his diaper. He is noted to have red blood in the rectal vault by rectal exam in the ER last night. There is no bloody stools reported during the day today, but the evening nurse yvonne did report one red bloody stool with clots. The patient has had no nausea or vomiting. No diarrhea or constipation known otherwise. He has been on peritoneal dialysis. He has had delirium in the emergency room. Currently he is oriented to his name only and unable to contribute at all to his Past Medical History or History of Present Illness. PAST MEDICAL HISTORY: Includes end-stage renal disease on peritoneal dialysis, hypertension, atrial fibrillation, CHF, dementia. PAST SURGICAL HISTORY: Coronary artery bypass graft, dialysis catheter for peritoneal dialysis, back surgery, heart valve replacement. FAMILY HISTORY: Negative for GI malignancy. SOCIAL HISTORY: No tobacco, alcohol, or drugs. ALLERGIES: PENICILLIN. CURRENT MEDICATIONS: Include; 1. Allopurinol. 2. Amitriptyline. 3. Pantoprazole. 4. Ropinirole. 5. Sertraline. 6. Sevelamer. 7. Zinc. REVIEW OF SYSTEMS: Unobtainable due to the patient's delirium. PHYSICAL EXAMINATION: VITAL SIGNS: Pulse 117, blood pressure 108/45, temperature 98.3. GENERAL: He is confused. He is able to tell me his name, but not place or year. He is not able to the answer questions meaningfully otherwise. HEENT: His eyes have no scleral icterus. Oropharynx is clear without lesions. No cervical or supraclavicular lymphadenopathy. LUNGS: Clear to auscultation bilaterally. HEART: Tachycardic S1, S2 without murmur. ABDOMEN: Soft. No obvious tenderness. His bowel sounds are present. EXTREMITIES: No lower extremity edema. He has dark red blood with clots in the diaper in the trash can. LABORATORY DATA: White blood cell count 7.6, hemoglobin 9.3, platelets 161. INR 1.0. Creatinine 10.4, bilirubin 0.5, AST 17, ALT 11, alkaline phosphatase 108. BNP 1600. INR 1.0. White blood cell count 7.6, hemoglobin 9.3, platelets 161. Nasal COVID swab is positive. IMPRESSION: 1. Recurrent hematochezia. This could be due to ischemic colitis or diverticular bleed or other lower source. He reportedly had a colonoscopy in [place] in 2017; however, this needs to be verified. He has only had one reported bloody stool today and had a couple last night. He is tachycardiac, but does not appear to have ongoing large volume bleeding. We will recheck the trend of his hemoglobin. If he continues to drop his hemoglobin, then he might ultimately require colonoscopy in the future; however, this will have to be taken into consideration in the context of his positive COVID tests. His hemoglobin, however, has actually remained stable. 2. Anemia which is multifactorial from his renal disease and potentially some degree from blood loss as well. We will follow the trend of his hemoglobin. 3. Delirium, dementia. 4. End-stage renal disease, on peritoneal dialysis. RECOMMENDATIONS: 1. If possible, obtain the previous colonoscopy report. 2. Follow the trend of his hemoglobin. 3. Clear liquid diet for now. 4. If he continues to have overt bleeding, then consider proceeding with colonoscopy versus nuclear medicine bleeding scan. 5. Continue proton pump inhibitor. Job ID: [id number]
[2020-05-14 04:58] VITALS: BMI 23.4
[2020-05-14] MEDS ORDERED: GUAIFENESIN SF SOLN 200 MG/10 ML UDCUP PO PRN (07:23)
[2020-05-14] MEDS ORDERED: diphenhydrAMINE 25 MG CAP PO PRN (07:23)
[2020-05-14] MEDS ORDERED: Calcium Carbonate 500 MG ChewTAB PO PRN (07:23)
[2020-05-14] MEDS ORDERED: Simethicone Chewable 80 MG TAB PO PRN (07:23)
[2020-05-14] MEDS ORDERED: Loperamide HCl 2 MG CAP PO PRN (07:23)
[2020-05-14] MEDS ORDERED: traZODone HCl 50 MG TAB PO PRN (07:23)
[2020-05-14] MEDS ORDERED: cloNIDine 0.1 MG TAB PO PRN (07:23)
[2020-05-14] MEDS ORDERED: Acetaminophen 500 MG TAB PO PRN (07:23)
--- NOTE | 2020-05-14 07:28 | PDOC.HOSPP ---
- Subjective Encounter Date: 05/14/20 Encounter Time: 11:00 Subjective: Patient without any events overnight. Some question of single bloody bowel movement overnight but none since. He is a little more oriented today and knows he is in [facility] but cannot give the year. Still with some baseline confusion. - Objective Vital Signs & Weight: Vital Signs (12 hours) Temp Pulse Resp BP BP Pulse Ox 05/14/20 03:38 97.6 F 108 H 22 H 142/56 H 99 05/14/20 01:36 97.0 F L 116 H 22 H 98/56 L 96 05/14/20 01:02 99 05/14/20 01:00 117 H 20 100/46 L 99 05/14/20 00:00 117 H 13 108/45 L 100 05/13/20 23:30 117 H 20 96/50 L 99 05/13/20 23:05 98.3 F 05/13/20 22:30 128 H 26 H 101/47 L 99 05/13/20 22:00 128 H 26 H 90/53 L 99 05/13/20 21:00 132 H 28 H 101/55 L 99 05/13/20 20:30 120 H 26 H 115/68 100 05/13/20 20:00 122 H 26 H 99/53 L 100 05/13/20 19:30 121 H 20 121/64 100 Weight Weight 159 lb I&O: 05/13/20 05/14/20 05/15/20 06:59 06:59 06:59 Intake Total 0 Output Total 0 Balance 0 Result Diagrams: 05/14/20 13:01 05/13/20 04:11 Hospitalist ROS - Review of Systems ROS unobtainable: due to mental status - Medication Medications: Active Medications Generic Name Dose Route Start Last Admin Trade Name Freq PRN Reason Stop Dose Admin Amitriptyline HCl 50 mg 05/13/20 21:00 05/13/20 22:23 Amitriptyline Hcl 25 Mg Tab PO Not Given HS HERMILA Calcitriol 0.25 mcg 05/13/20 09:00 05/13/20 10:11 Calcitriol 0.25 Mcg Cap PO 0.25 mcg DAILY HERMILA Administration Calcium Acetate 1,334 mg 05/13/20 08:00 05/13/20 18:10 Calcium Acetate 667 Mg Cap PO Not Given TID-WM HERMILA Pantoprazole Sodium 40 mg 05/13/20 09:00 05/13/20 10:11 Pantoprazole 40 Mg Tab PO 40 mg DAILY HERMILA Administration Ropinirole HCl 0.25 mg 05/13/20 21:00 05/13/20 22:23 Ropinirole Hcl 0.25 Mg Tab PO Not Given HS HERMILA Sertraline HCl 100 mg 05/13/20 09:00 05/13/20 10:11 Sertraline Hcl 100 Mg Tab PO 100 mg DAILY HERMILA Administration Sevelamer Carbonate 2,400 mg 05/13/20 08:00 05/13/20 18:10 Sevelamer Carbonate 800 Mg Tab PO Not Given TID-WM HERMILA Zinc Sulfate 220 mg 05/13/20 09:00 05/13/20 10:11 Zinc Sulfate 220 Mg Cap PO 220 mg DAILY HERMILA Administration Hospitalist Exam Vitals: Vital Signs (12 hours) Temp Pulse Resp BP BP Pulse Ox 05/14/20 03:38 97.6 F 108 H 22 H 142/56 H 99 05/14/20 01:36 97.0 F L 116 H 22 H 98/56 L 96 05/14/20 01:02 99 05/14/20 01:00 117 H 20 100/46 L 99 05/14/20 00:00 117 H 13 108/45 L 100 05/13/20 23:30 117 H 20 96/50 L 99 05/13/20 23:05 98.3 F 05/13/20 22:30 128 H 26 H 101/47 L 99 05/13/20 22:00 128 H 26 H 90/53 L 99 05/13/20 21:00 132 H 28 H 101/55 L 99 05/13/20 20:30 120 H 26 H 115/68 100 05/13/20 20:00 122 H 26 H 99/53 L 100 05/13/20 19:30 121 H 20 121/64 100 Weight Weight 159 lb General Appearance: NAD General - other findings: Sleepy, arousable ENT: moist mucosa Heart: RRR, no murmur, no gallops, no rubs Respiratory: CTAB, no wheezes, no rales, no ronchi Gastrointestinal: soft, non-tender, non-distended, normal bowel sounds Extremities: no edema Psychiatric: normal affect, normal behavior, oriented to person, oriented to place, lethargic. negative: oriented to time Hosp A/P - Plan Lower GI bleed with mild anemia Monitor H&H every 12dropped from 10 to 8 but now stable at 9. No evidence significant ongoing bleeding GI following, trying to obtain records from [place] from colonoscopy in 2017 Start liquid diet once cleared by ST Continue to follow Acute metabolic encephalopathy Patient may have some mild dementia but also with acute delirium on and off on top of that Some question of partial seizure activity though it is more likely restless leg syndrome Shaking of lower extremities Likely restless leg syndrome, though with significant worsening in severity of episodes seizure activity cannot be completely excluded I did asked the patient's to find out what previous RLS treatments he has been tried on to let the neurologist know Patient appears to have Ropinirol on home med list Appreciate Dr. Adrian's assistance EEG scheduled for today ESRD Dr. Medley consulted and continuing PD Hypertension Controlled History of A. fibrhythm Controlled now, continue to follow Depression Continue home medicines DVT prophylaxisdiscontinued subcutaneous heparin due to GI bleed Disposition: Possibly back to SNF today if ok from GI standpoint
[2020-05-14] MEDS ORDERED: DARBEPOETIN ALFA IN POLYSORBAT SC SCH ×2 (07:30→07:45)
[2020-05-14] MEDS ORDERED: [UNRECOGNIZED DRUG - OTHER] SC SCH (07:30)
[2020-05-14] MEDS: Potassium Chloride 20 MEQ TAB PO SCH (08:46)
[2020-05-14] MEDS: Cholecalciferol (Vitamin D3) 400 UNITS TAB PO SCH (08:46)
[2020-05-14] MEDS: Folic Acid/Vit B Comp W-C PO SCH (08:47)
[2020-05-14] MEDS: Magnesium Oxide 400 MG TAB PO SCH (08:47)
[2020-05-14] MEDS: Calcitriol 0.25 MCG CAP PO SCH (08:47)
[2020-05-14] MEDS: Allopurinol 100 MG TAB PO SCH (08:47)
[2020-05-14] MEDS: Cyanocobalamin (Vitamin B-12) 1,000 MCG TAB PO SCH (08:47)
[2020-05-14] MEDS: Zinc Sulfate 220 MG CAP PO SCH (08:48)
[2020-05-14] MEDS: Ascorbic Acid 500 mg Chewable Tablet PO SCH (08:48)
[2020-05-14] MEDS: Calcium Acetate 667 MG CAP PO SCH ×3 (08:50→18:12)
[2020-05-14] MEDS: Sevelamer Carbonate 800 MG TAB PO SCH ×3 (08:50→18:12)
[2020-05-14] MEDS: Midodrine HCl 5 MG TAB PO SCH ×2 (08:51→22:00)
[2020-05-14] MEDS: Polyethylene Glycol 3350 17 GM Packet PO SCH (08:52)
[2020-05-14] MEDS ORDERED: Non-Formulary Item 1 EACH (Magnesium Oxide [Magnesium Oxide] 400 MG Tablet) PO SCH (09:00)
[2020-05-14] MEDS ORDERED: Non-Formulary Item 1 EACH (Ascorbic Acid [Vitamin C] 500 MG Capsule) PO SCH (09:00)
[2020-05-14] MEDS ORDERED: CHOLECALCIFEROL 10 MCG PO SCH (09:00)
[2020-05-14] MEDS ORDERED: FLU VACC QS2020-21(65YR UP)/PF 240 MCG/0.7 ML SYRINGE IM ONE (09:00)
--- NOTE | 2020-05-14 11:21 | PRG ---
DATE OF SERVICE: 05/14/2020 SUBJECTIVE: A 79-year-old gentleman, being seen for end-stage renal disease. The patient denied nausea, vomiting, or chest pain. OBJECTIVE: GENERAL: The patient is awake and alert. VITAL SIGNS: Afebrile, pulse 100, breathing at 16, blood pressure 131/56. HEENT: Head normocephalic and atraumatic. Eyes intact, no ulcers. Nose intact, no ulcers. Ears intact, no ulcers. Neck: Supple. No JVD. Chest: Symmetrical and clear. Cardiovascular: Shows S1 and S2, no rub, no murmur. Gastrointestinal: Abdomen is soft, bowel sounds positive. Extremities: Show no edema or ulcers. Skin: Shows no rash or petechiae. Musculoskeletal: Shows no joint swelling or stiffness. Genitourinary: Shows no Lyons or CVA tenderness. Neurologic: Motor intact. Cranial nerves intact. LABORATORY DATA: Hemoglobin 9.4. ASSESSMENT: Stage 6 chronic kidney disease. Continue dialysis. Hypertension, stable. Anemia, stable. Medication based on GFR appropriate. Job ID: [id number]
[2020-05-14 13:10] LABS: #Basophils 0.1 thou/uL (0.0-0.2); #Eosinphils 0.1 thou/uL (0.0-0.7); #Lymphocytes 1.3 thou/uL (1.20-3.40); #Monocytes 0.8 thou/uL (0.11-0.59); #Neutrophils 5.5 thou/uL (1.40-6.50); %Basophils 0.7 % (0.0-1.0); %Eosinophils 1.7 % (0.0-10.0); %Lymphocytes 16.8 % (21.0-51.0); %Monocytes 9.9 % (0.0-10.0); %Neutrophils 70.8 % (42.0-75.0); Hemoglobin 7.8 g/dL (14.0-18.0); Mean Corpuscular HGB CONC 32.1 g/dL (32.0-36.0); Mean Corpuscular Hemoglobin 31.9 pg (27.0-31.0); Mean Corpuscular Volume 99.2 fL (78.0-98.0); Mean Platelet Volume 6.9 fL (7.4-10.4); Platelet Count 155 thou/uL (130-400); RBC Distribution Width 15.9 % (11.5-14.5); Red Blood Cell (RBC) Count 2.45 mill/uL (4.70-6.10); White Blood Cell (WBC) Count 7.8 thou/uL (4.8-10.8)
--- NOTE | 2020-05-14 13:52 | PDOC.NEUPN ---
- Subjective Encounter Date: 05/14/20 Subjective: is doing better than yesterday. He is alert and oriented to person and also place hospital. Not oriented to month or year. He does have some baseline confusion. - Objective Vital Signs & Weight: Vital Signs (12 hours) Temp Pulse Resp BP BP Pulse Ox 05/14/20 11:38 97.5 F L 103 H 23 H 135/66 97 05/14/20 07:38 97.6 F 103 H 18 131/56 L 97 05/14/20 03:38 97.6 F 108 H 22 H 142/56 H 99 Weight Weight 159 lb I&O: 05/13/20 05/14/20 05/15/20 06:59 06:59 06:59 Intake Total 0 Output Total 0 Balance 0 Result Diagrams: 05/14/20 13:01 05/13/20 04:11 Radiology Reviewed by me: Yes EKG Reviewed by me: Yes ROS - Review of Systems ROS unobtainable: due to mental status - Medication Medications: Active Medications Generic Name Dose Route Start Last Admin Trade Name There[place] PRN Reason Stop Dose Admin Allopurinol 100 mg 05/14/20 09:00 05/14/20 08:47 Allopurinol 100 Mg Tab PO 100 mg DAILY HERMILA Administration Amitriptyline HCl 50 mg 05/13/20 21:00 05/13/20 22:23 Amitriptyline Hcl 25 Mg Tab PO Not Given HS HERMILA Ascorbic Acid 500 mg 05/14/20 09:00 05/14/20 08:48 Ascorbic Acid 500 Mg Chewable Tablet PO 500 mg DAILY HERMILA Administration Calcitriol 0.25 mcg 05/13/20 09:00 05/14/20 08:47 Calcitriol 0.25 Mcg Cap PO 0.25 mcg DAILY HERMILA Administration Calcium Acetate 1,334 mg 05/13/20 08:00 05/14/20 13:47 Calcium Acetate 667 Mg Cap PO 1,334 mg TID- HERMILA Administration Cholecalciferol 400 units 05/14/20 09:00 05/14/20 08:46 Cholecalciferol (Vitamin D3) 400 Units Tab PO 400 units DAILY HERMILA Administration Cyanocobalamin 1,000 mcg 05/14/20 09:00 05/14/20 08:47 Cyanocobalamin (Vitamin B-12) 1,000 Mcg Tab PO 1,000 mcg DAILY HERMILA Administration Magnesium Oxide 400 mg 05/14/20 09:00 05/14/20 08:47 Magnesium Oxide 400 Mg Tab PO 400 mg DAILY HERMILA Administration Metoprolol Succinate 50 mg 05/14/20 09:00 05/14/20 08:48 Metoprolol Succinate Xl 50 Mg Tab PO 50 mg DAILY HERMILA Administration Midodrine 5 mg 05/14/20 09:00 05/14/20 08:51 Midodrine Hcl 5 Mg Tab PO Not Given BID HERMILA Pantoprazole Sodium 40 mg 05/13/20 09:00 05/14/20 08:48 Pantoprazole 40 Mg Tab PO 40 mg DAILY HERMILA Administration Polyethylene Glycol 17 gm 05/14/20 09:00 05/14/20 08:52 Polyethylene Glycol 3350 17 Gm Packet PO Not Given DAILY HERMILA Potassium Chloride 40 meq 05/14/20 09:00 05/14/20 08:46 Potassium Chloride 20 Meq Tab PO 40 meq DAILY HERMILA Administration Ropinirole HCl 0.25 mg 05/13/20 21:00 05/13/20 22:23 Ropinirole Hcl 0.25 Mg Tab PO Not Given HS HERMILA Sertraline HCl 100 mg 05/13/20 09:00 05/14/20 08:52 Sertraline Hcl 100 Mg Tab PO 100 mg DAILY HERMILA Administration Sevelamer Carbonate 2,400 mg 05/13/20 08:00 05/14/20 13:47 Sevelamer Carbonate 800 Mg Tab PO 2,400 mg TID-WM HERMILA Administration Sodium Chloride 10 ml 05/14/20 09:00 05/14/20 08:50 Flush - Normal Saline 10 Ml Syringe IVF 10 ml Q12HR HERMILA Administration Vitamin B Complex/Vit C/Folic Acid 1 tab 05/14/20 09:00 05/14/20 08:47 Folic Acid/Vit B Comp W-C PO 1 tab DAILY HERMILA Administration Zinc Sulfate 220 mg 05/13/20 09:00 05/14/20 08:48 Zinc Sulfate 220 Mg Cap PO 220 mg DAILY HERMILA Administration - Exam General Appearance: awake alert Eye: PERRL ENT: normocephalic atraumatic Neck: supple Respiratory: CTAB Cardiovascular: no murmur Gastrointestinal: soft Extremities: no cyanosis Skin: normal turgor Neurological: no new deficit Musculoskeletal: normal tone, no muscle wasting PSYCH: normal affect, oriented to person, oriented to place Results - Labs Result Diagrams: 05/14/20 13:01 05/13/20 04:11 Lab results: WBC 7.8 thou/uL (4.8-10.8) 05/14/20 13:01 Hgb 7.8 g/dL (14.0-18.0) L 05/14/20 13:01 Hct 24.2 % (42.0-52.0) L 05/14/20 13:01 MCV 99.2 fL (78.0-98.0) H 05/14/20 13:01 Plt Count 155 thou/uL (130-400) 05/14/20 13:01 Neutrophils % 70.8 % (42.0-75.0) 05/14/20 13:01 Band Neuts % (Manual) 1 % (5-11) L 05/13/20 04:11 Sodium 138 mmol/L (136-145) 05/13/20 04:11 Potassium 3.7 mmol/L (3.5-5.1) 05/13/20 04:11 Chloride 100 mmol/L (98-107) 05/13/20 04:11 Carbon Dioxide 27 mmol/L (23-31) 05/13/20 04:11 BUN 38 mg/dL (8.4-25.7) H 05/13/20 04:11 Creatinine 10.43 mg/dL (0.7-1.3) H 05/13/20 04:11 Glucose 136 mg/dL (83-110) H 05/13/20 04:11 Calcium 8.5 mg/dL (7.8-10.44) 05/13/20 04:11 Total Bilirubin 0.5 mg/dL (0.2-1.2) 05/13/20 04:11 AST 17 U/L (5-34) 05/13/20 04:11 ALT 11 U/L (8-55) 05/13/20 04:11 Alkaline Phosphatase 108 U/L (40-110) 05/13/20 04:11 Serum Total Protein 5.0 g/dL (5.8-8.1) L 05/13/20 04:11 Albumin 2.2 g/dL (3.4-4.8) L 05/13/20 04:11 PN A/P (1) Restless leg syndrome Status: Acute (2) Acute encephalopathy Code(s): G93.40 - ENCEPHALOPATHY, UNSPECIFIED Status: Acute (3) Acute metabolic encephalopathy Code(s): G93.41 - METABOLIC ENCEPHALOPATHY Status: Acute (4) Confusion Code(s): R41.0 - DISORIENTATION, UNSPECIFIED Status: Acute (5) Folate deficiency Code(s): E53.8 - DEFICIENCY OF OTHER SPECIFIED B GROUP VITAMINS Status: Acute (6) Peritoneal dialysis catheter dysfunction Code(s): T85.611A - BREAKDOWN OF INTRAPERITONEAL DIALYSIS CATHETER, INIT Status: Acute Qualifiers: Encounter type: subsequent encounter Qualified Code(s): T85.611D - Breakdown (mechanical) of intraperitoneal dialysis catheter, subsequent encounter (7) CAD (coronary artery disease) Code(s): I25.10 - ATHSCL HEART DISEASE OF [place] CORONARY ARTERY W/O ANG PCTRS Status: Chronic Qualifiers: Coronary Disease-Associated Artery/Lesion type: bypass graft [place] vs. transplanted heart: [place] heart (8) Chronic anticoagulation Code(s): Z79.01 - PRODUCT DESIGN SPECIALIST (CURRENT) USE OF ANTICOAGULANTS Status: Chronic (9) Chronic atrial fibrillation Code(s): I48.2 - CHRONIC ATRIAL FIBRILLATION * DO NOT USE * Status: Chronic (10) Depression Code(s): F32.9 - MAJOR DEPRESSIVE DISORDER, SINGLE EPISODE, UNSPECIFIED Status: Chronic Qualifiers: Depression Type: major depressive disorder Major depression episode severity: unspecified (11) Dyslipidemia Code(s): E78.5 - HYPERLIPIDEMIA, UNSPECIFIED Status: Chronic (12) ESRD (end stage renal disease) on dialysis Code(s): N18.6 - END STAGE RENAL DISEASE; Z99.2 - DEPENDENCE ON RENAL DIALYSIS Status: Chronic (13) HTN (hypertension) Code(s): I10 - ESSENTIAL (PRIMARY) HYPERTENSION Status: Chronic Qualifiers: - Plan Daily Plan: PT/OT, speech therapy, DVT proph w/SCDs Mr. Carrillo is a 79-year-old male with history significant for chronic atrial fibrillation, hypertension, hyperlipidemia, restless leg syndrome consulted for worsening of restless leg syndrome and also acute confusion seems to be improved since yesterday. Altered mental status seems multifactorial most likely secondary to metabolic etiology and hospital delirium delirium with underlying dementia. EEG reviewed which showed moderate generalized nonspecific cerebral dysfunction but no evidence of seizure activity. Consider head CT to evaluate for acute intracranial process. Neurochecks every 4 hours. Patient has been diagnosed with restless leg syndrome as outpatient and is on Mirapex. Consider a trial of increased dose of Mirapex 0.5 mg p.o. twice daily Sinemet helps with the worsening restless leg syndrome. Continue home medications. Continue medical management per primary team PT/OT/speech. Telemetry to rule out arrhythmias. DVT prophylaxis Plan discussed in detail with the nursing staff
--- NOTE | 2020-05-14 13:59 | PDOC.EEG ---
Neurology EEG Report - Report Report: This EEG was performed using 24 channel [email or web address] video EEG machine with 24 disc electrodes. This was an extended 2 hours 5 minutes of inpatient video EEG recording. Digital analysis of the EEG was done for spike and seizure detection which revealed no abnormalities. Background: The posterior background rhythm is not observed Hyperventilation: Not performed. Photic Stimulation: Bioccipital symmetric driving response is observed. Sleep: Drowsiness is observed. EEG Diagnosis: Occasional irregular theta activity seen during the recording. Absence of posterior background rhythm Clinical interpretation: This EEG is consistent with moderate generalized nonspecific cerebral dysfunction.
[2020-05-14] MEDS ORDERED: GoLYTELY 4,000 ml Bottle PO SCH (14:15)
--- NOTE | 2020-05-14 14:36 | PRG ---
DATE OF SERVICE: 05/14/2020 SUBJECTIVE: Nursing reports no further hematochezia today. No bowel movements at all. He just started on his lunch. He is not having any abdominal pain. After 1 unit RBC transfusion, hemoglobin was 9.4 this morning, but it did drop back down to 7.8 this afternoon. He remains hemodynamically stable with no other complaints. OBJECTIVE: VITAL SIGNS: Temperature 97.5, pulse 103, blood pressure 135/66, and oxygen saturation 97% on room air. GENERAL: No acute distress, sitting up in bed comfortably. HEART: Regular, borderline tachycardia. LUNGS: Clear to auscultation bilaterally. ABDOMEN: Soft and nontender to palpation. EXTREMITIES: No peripheral edema. LABORATORY STUDIES: Hemoglobin down to 7.8 after 1 unit RBC transfusion, WBC 7.8, and platelets 155. INR 1.0. Sodium 138, potassium 3.7, BUN 38, and creatinine 10.43. ASSESSMENT AND PLAN: 1. Rectal bleeding, recurrent. 2. Anemia, acute on chronic. I had a long conversation with the patient's , Trenton, on the phone today at [phone]. She does recall he had a colonoscopy maybe a year ago, down in [place], but neither she nor her can recall the results. It was evidently fairly unremarkable, but this is now a recurrent admission with rectal bleeding and he indeed did have some acute decline in hemoglobin with this. We do not have records from his prior procedure. At this point, I think the best course would be to go ahead and plan for diagnostic colonoscopy tomorrow. Please call anytime with questions or concerns. Job ID: [id number]
[2020-05-14] MEDS: rOPINIRole HCl 0.25 MG TAB PO SCH (22:00)
[2020-05-14] MEDS: Pramipexole Di-HCl 0.25 MG TAB PO SCH (22:00)
[2020-05-14] MEDS: Amitriptyline HCl 25 MG TAB PO SCH (22:00)
--- NOTE | 2020-05-14 23:24 | RAD ---
KUB INDICATION: Feeding tube placement COMPARISON: May 01, 2019 FINDINGS: Bowel gas: Nonspecific but without overt appearance of obstruction. Lung bases: Clear. Additional findings: There is a gastric catheter tip projecting in the region of the gastric fundus. There is an aortic valvular replacement with midline sternotomy changes. Osseous structures: No acute osseous abnormality is demonstrated. IMPRESSION: 1. Gastric catheter tip seen within the region of the gastric fundus.
[2020-05-15] MEDS ORDERED: Lorazepam 2 MG/ML VIAL SLOW IVP PRN (03:42)
--- NOTE | 2020-05-15 07:40 | PDOC.HOSPP ---
- Subjective Encounter Date: 05/15/20 Encounter Time: 10:00 Subjective: Patient back from colonoscopy and still very sleepy. Gets agitated when I attempt to arouse and will not wake up and talk currently. No events overnight or noted bloody bowel movements. - Objective Vital Signs & Weight: Vital Signs (12 hours) Temp Pulse Resp BP Pulse Ox 05/15/20 03:53 97.6 F 119 H 24 H 115/85 93 L 05/14/20 23:24 97.9 F 101 H 20 120/56 L 96 05/14/20 20:00 96.8 F L 94 16 119/70 96 Weight Weight 159 lb I&O: 05/14/20 05/15/20 05/16/20 06:59 06:59 06:59 Intake Total 0 250 Output Total 0 Balance 0 250 Result Diagrams: 05/14/20 13:01 05/13/20 04:11 Hospitalist ROS - Review of Systems ROS unobtainable: due to mental status - Medication Medications: Active Medications Generic Name Dose Route Start Last Admin Trade Name Freq PRN Reason Stop Dose Admin Hydrocodone Bitart/Acetaminophen 1 tab 05/13/20 00:20 05/15/20 03:50 Hydrocodone/Acetaminophen 5/325 Mg Tablet PO 1 tab Q4H PRN Administration Moderate Pain (4-6) Allopurinol 100 mg 05/14/20 09:00 05/14/20 08:47 Allopurinol 100 Mg Tab PO 100 mg DAILY HERMILA Administration Amitriptyline HCl 50 mg 05/13/20 21:00 05/14/20 22:00 Amitriptyline Hcl 25 Mg Tab PO 50 mg HS HERMILA Administration Ascorbic Acid 500 mg 05/14/20 09:00 05/14/20 08:48 Ascorbic Acid 500 Mg Chewable Tablet PO 500 mg DAILY HERMILA Administration Calcitriol 0.25 mcg 05/13/20 09:00 05/14/20 08:47 Calcitriol 0.25 Mcg Cap PO 0.25 mcg DAILY HERMILA Administration Calcium Acetate 1,334 mg 05/13/20 08:00 05/14/20 18:12 Calcium Acetate 667 Mg Cap PO 1,334 mg TID-WM HERMILA Administration Cholecalciferol 400 units 05/14/20 09:00 05/14/20 08:46 Cholecalciferol (Vitamin D3) 400 Units Tab PO 400 units DAILY HERMILA Administration Cyanocobalamin 1,000 mcg 05/14/20 09:00 05/14/20 08:47 Cyanocobalamin (Vitamin B-12) 1,000 Mcg Tab PO 1,000 mcg DAILY HERMILA Administration Magnesium Oxide 400 mg 05/14/20 09:00 05/14/20 08:47 Magnesium Oxide 400 Mg Tab PO 400 mg DAILY HERMILA Administration Metoprolol Succinate 50 mg 05/14/20 09:00 05/14/20 08:48 Metoprolol Succinate Xl 50 Mg Tab PO 50 mg DAILY HERMILA Administration Midodrine 5 mg 05/14/20 09:00 05/14/20 22:00 Midodrine Hcl 5 Mg Tab PO 5 mg BID HERMILA Administration Pantoprazole Sodium 40 mg 05/13/20 09:00 05/14/20 08:48 Pantoprazole 40 Mg Tab PO 40 mg DAILY HERMILA Administration Polyethylene Glycol 17 gm 05/14/20 09:00 05/14/20 08:52 Polyethylene Glycol 3350 17 Gm Packet PO Not Given DAILY HERMILA Potassium Chloride 40 meq 05/14/20 09:00 05/14/20 08:46 Potassium Chloride 20 Meq Tab PO 40 meq DAILY HERMILA Administration Pramipexole Dihydrochloride 0.5 mg 05/14/20 21:00 05/14/20 22:00 Pramipexole Di-Hcl 0.25 Mg Tab PO 0.5 mg BID HERMILA Administration Ropinirole HCl 0.25 mg 05/13/20 21:00 05/14/20 22:00 Ropinirole Hcl 0.25 Mg Tab PO 0.25 mg HS HERMILA Administration Sertraline HCl 100 mg 05/13/20 09:00 05/14/20 08:52 Sertraline Hcl 100 Mg Tab PO 100 mg DAILY HERMILA Administration Sevelamer Carbonate 2,400 mg 05/13/20 08:00 05/14/20 18:12 Sevelamer Carbonate 800 Mg Tab PO 2,400 mg TID-WM HERMILA Administration Sodium Chloride 10 ml 05/14/20 09:00 05/14/20 22:00 Flush - Normal Saline 10 Ml Syringe IVF 10 ml Q12HR HERMILA Administration Vitamin B Complex/Vit C/Folic Acid 1 tab 05/14/20 09:00 05/14/20 08:47 Folic Acid/Vit B Comp W-C PO 1 tab DAILY HERMILA Administration Zinc Sulfate 220 mg 05/13/20 09:00 05/14/20 08:48 Zinc Sulfate 220 Mg Cap PO 220 mg DAILY HERMILA Administration Hospitalist Exam Vitals: Vital Signs (12 hours) Temp Pulse Resp BP Pulse Ox 05/15/20 03:53 97.6 F 119 H 24 H 115/85 93 L 05/14/20 23:24 97.9 F 101 H 20 120/56 L 96 05/14/20 20:00 96.8 F L 94 16 119/70 96 Weight Weight 159 lb General Appearance: NAD General - other findings: Somnolent, somewhat arousable but not talking ENT: moist mucosa Heart: RRR, no murmur, no gallops, no rubs Respiratory: CTAB, no wheezes, no rales, no ronchi Gastrointestinal: soft, non-tender, non-distended, normal bowel sounds Psychiatric: somnolent Hosp A/P - Plan Lower GI bleed with mild anemia Hgb dropped below 8 yesterday. Unable to obtain previous colonoscopy reports. Colonoscopy this morning showed an ulcer with adherent clot just inside the anal verge. Likely bleeding internal hemorrhoid. Two hemoclips placed. We'll recheck hemoglobin at noon and then tomorrow morning. Reintroduce diet but will need to keep patient's bowel movements soft. If no further bleeding or blood loss tomorrow then he can go to rehab. Acute metabolic encephalopathy Patient may have some mild dementia but also with acute delirium on and off on top of that Some question of partial seizure activity though it is more likely restless leg syndrome EEG negative for seizure activity Shaking of lower extremities Likely restless leg syndrome, EEG neg for seizures. Appreciate Dr. Adrian's assistance Adjusting medications ESRD Dr. Medley consulted and continuing PD Hypertension Controlled History of A. fibrhythm Controlled now, continue to follow Depression Continue home medicines DVT prophylaxisdiscontinued subcutaneous heparin due to GI bleed Disposition: Likely back to rehab/SNF if colonoscopy ok and Hgb stable. Will recheck around noon. Will need rereferral to rehab as he has been in the hospital too long now to go straight back. Likely back to rehab tomorrow.
[2020-05-15] MEDS ORDERED: Ketamine 50 MG/ML (10ML VIAL) ONE (07:49)
[2020-05-15] MEDS: Sevelamer Carbonate 800 MG TAB PO SCH ×3 (08:00→17:00)
[2020-05-15] MEDS: Ascorbic Acid 500 mg Chewable Tablet PO SCH (09:00)
[2020-05-15] MEDS: Potassium Chloride 20 MEQ TAB PO SCH (09:00)
[2020-05-15] MEDS: Folic Acid/Vit B Comp W-C PO SCH (09:00)
[2020-05-15] MEDS: Cyanocobalamin (Vitamin B-12) 1,000 MCG TAB PO SCH (09:00)
[2020-05-15] MEDS: Calcium Acetate 667 MG CAP PO SCH ×3 (09:00→17:00)
[2020-05-15] MEDS: Cholecalciferol (Vitamin D3) 400 UNITS TAB PO SCH (09:00)
[2020-05-15] MEDS: Zinc Sulfate 220 MG CAP PO SCH (09:00)
[2020-05-15] MEDS: Calcitriol 0.25 MCG CAP PO SCH (09:00)
[2020-05-15] MEDS: Polyethylene Glycol 3350 17 GM Packet PO SCH (09:00)
[2020-05-15] MEDS: Midodrine HCl 5 MG TAB PO SCH ×2 (09:00→22:03)
[2020-05-15] MEDS: Allopurinol 100 MG TAB PO SCH (09:00)
[2020-05-15] MEDS: Pramipexole Di-HCl 0.25 MG TAB PO SCH ×2 (09:00→22:03)
[2020-05-15] MEDS: Magnesium Oxide 400 MG TAB PO SCH (09:00)
--- NOTE | 2020-05-15 09:37 | OP ---
DATE OF PROCEDURE: 05/15/2020 PROCEDURE PERFORMED: Colonoscopy with control of hemorrhage. INDICATIONS FOR PROCEDURE: Hematochezia, post hemorrhagic anemia. DESCRIPTION OF PROCEDURE: After the risks and benefits were explained to the patient's surrogate (patient's Trenton Carrillo) including risks of bleeding, infection, perforation, reactions to anesthesia, aspiration, and/or pain, informed consent was obtained. The patient was then taken to the endoscopy suite, where he was maneuvered into the left lateral decubitus position. Once in adequate position, deep sedation was administered via propofol and anesthesia support. Once adequate sedation was achieved, a digital rectal examination was performed that was relatively normal except for the presence of external hemorrhoids, followed by introduction of the standard colonoscope, which was then advanced to the cecum with some difficulty requiring manual abdominal pressure to the abdomen in order to facilitate passage of the scope. The quality of the prep was good with clear views achieved. The patient tolerated the procedure well with no immediate perioperative complications. Upon conclusion of the procedure, all equipment was removed from the patient and he was transferred to PACU in satisfactory condition. FINDINGS: Digital rectal exam, small to medium size external hemorrhoids were seen on external examination, but were nonbleeding in character. Mildly poor sphincter tone was palpated on digital rectal exam. Colon findings: Normal-appearing mucosa was seen briefly in the terminal ileum, although I did have difficulty achieving terminal ileum intubation. Normal-appearing mucosa was then seen at the appendiceal orifice and ileocecal valve. Normal-appearing mucosa was also seen within the cecum itself. Numerous small and large diverticula were seen in the ascending, transverse, descending, and sigmoid colon, but with careful inspection and irrigation of each of these diverticula, there was no evidence of active or recent bleeding. Otherwise, normal-appearing mucosa was seen in the ascending colon, transverse colon, and descending colon. A 3 mm sessile polyp was seen in the sigmoid colon but not removed during this examination due to increased risk of bleeding from this lesion. Normal-appearing mucosa was then seen within the rectum. However, on withdrawal of the scope through the anal canal, a 3-4 mm ulceration was seen in the just proximal to the anal canal and above the dentate line. At the superior aspect of the ulceration was an adherent blood clot. Upon removal of the blood clot, active bleeding was seen that required the placement of two hemoclips in order to achieve hemostasis. At the end of the maneuver, good hemostasis was achieved with no further bleeding noted. Otherwise on rectal retroflexion, small internal hemorrhoids were also seen, likely contributing to the bleeding source just intervened upon. IMPRESSION: 1. A 3 to 4 mm clean-based ulceration just proximal to the anal canal with an adherent blood clot at the superior aspect of it. Upon removal of the blood clot, it exhibited active bleeding which was intervened upon with hemoclip x2 with good hemostasis achieved. This could be secondary to solitary rectal ulcer syndrome. 2. Severe pancolonic diverticulosis without any bleeding source. 3. A 3 mm sigmoid colon polyp not intervened upon during this examination due to increased risk of bleeding. 4. Nonbleeding external hemorrhoids. RECOMMENDATIONS: 1. We would continue to trend his H and H and transfuse as necessary to maintain an H and H of 7/21. 2. Continue to monitor clinically for signs of active GI bleeding. 3. We would restart patient on a regular diet, but would place the patient on a bowel regimen to keep the stool soft at least for the next 48 hours. 4. If the patient continues to have rectal bleeding, we will consider placement of band ligation over this probable bleeding internal hemorrhoid and/or evaluation by the colorectal surgeon. 5. We would hold any anticoagulation on him for at least the next 48 hours. 6. We would avoid any instrumentation of the anal canal and distal rectum for at least the next 48 hours. 7. NG tube placement is no longer needed and was removed during the time of colonoscopy. 8. We will sign off at this time. Please call with any questions. Job ID: [id number]
--- NOTE | 2020-05-15 10:06 | PRG ---
DATE OF SERVICE: 05/15/2020 SUBJECTIVE: A 79-year-old gentleman, being seen for end-stage renal disease. The patient did PD well. Denies any nausea, vomiting, or chest pain. OBJECTIVE: General: The patient is resting. Vital Signs: Afebrile, pulse 94, breathing at 16, blood pressure 119/70. HEENT: Head normocephalic and atraumatic. Eyes intact, no ulcers. Nose intact, no ulcers. Ears intact, no ulcers. Neck: Supple. No JVD. Chest: Symmetrical and clear. Cardiovascular: Shows S1 and S2, no rub, no murmur. Gastrointestinal: Abdomen is soft, bowel sounds positive. Extremities: Show no edema or ulcers. Skin: Shows no rash or petechiae. Musculoskeletal: Shows no joint swelling or stiffness. Genitourinary: Shows no Ly[place] or CVA tenderness. Neurologic: Motor intact. Cranial nerves intact. LABORATORY DATA: Reviewed. ASSESSMENT AND PLAN: 1. Stage 6 chronic kidney disease. Continue PD. 2. Anemia, recommend transfusion. 3. Hypertension, stable. 4. Medication based on GFR appropriate. Job ID: [id number]
[2020-05-15 12:12] LABS: #Eosinphils 0.2 thou/uL (0.0-0.7); #Lymphocytes 1.4 thou/uL (1.20-3.40); #Monocytes 0.6 thou/uL (0.11-0.59); #Neutrophils 5.5 thou/uL (1.40-6.50); %Basophils 0.5 % (0.0-1.0); %Eosinophils 2.3 % (0.0-10.0); %Lymphocytes 18.5 % (21.0-51.0); %Monocytes 8.2 % (0.0-10.0); %Neutrophils 70.5 % (42.0-75.0); Mean Corpuscular HGB CONC 32.4 g/dL (32.0-36.0); Mean Corpuscular Hemoglobin 32.4 pg (27.0-31.0); Platelet Count 149 thou/uL (130-400); RBC Distribution Width 15.8 % (11.5-14.5); Red Blood Cell (RBC) Count 2.78 mill/uL (4.70-6.10); White Blood Cell (WBC) Count 7.8 thou/uL (4.8-10.8)
--- NOTE | 2020-05-15 12:19 | PDOC.NEUPN ---
- Subjective Encounter Date: 05/15/20 - Objective Vital Signs & Weight: Vital Signs (12 hours) Temp Pulse Resp BP Pulse Ox 05/15/20 11:24 97.3 F L 93 20 124/56 L 96 05/15/20 03:53 97.6 F 119 H 24 H 115/85 93 L Weight Weight 159 lb I&O: 05/14/20 05/15/20 05/16/20 06:59 06:59 06:59 Intake Total 0 250 Output Total 0 Balance 0 250 Result Diagrams: 05/15/20 12:04 05/13/20 04:11 Radiology Reviewed by me: Yes EKG Reviewed by me: Yes ROS - Review of Systems ROS unobtainable: due to mental status - Medication Medications: Active Medications Generic Name Dose Route Start Last Admin Trade Name Freq PRN Reason Stop Dose Admin Hydrocodone Bitart/Acetaminophen 1 tab 05/13/20 00:20 05/15/20 03:50 Hydrocodone/Acetaminophen 5/325 Mg Tablet PO 1 tab Q4H PRN Administration Moderate Pain (4-6) Allopurinol 100 mg 05/14/20 09:00 05/14/20 08:47 Allopurinol 100 Mg Tab PO 100 mg DAILY HERMILA Administration Amitriptyline HCl 50 mg 05/13/20 21:00 05/14/20 22:00 Amitriptyline Hcl 25 Mg Tab PO 50 mg HS HERMILA Administration Ascorbic Acid 500 mg 05/14/20 09:00 05/14/20 08:48 Ascorbic Acid 500 Mg Chewable Tablet PO 500 mg DAILY HERMILA Administration Calcitriol 0.25 mcg 05/13/20 09:00 05/14/20 08:47 Calcitriol 0.25 Mcg Cap PO 0.25 mcg DAILY HERMILA Administration Calcium Acetate 1,334 mg 05/13/20 08:00 05/14/20 18:12 Calcium Acetate 667 Mg Cap PO 1,334 mg TID-WM HERMILA Administration Cholecalciferol 400 units 05/14/20 09:00 05/14/20 08:46 Cholecalciferol (Vitamin D3) 400 Units Tab PO 400 units DAILY HERMILA Administration Cyanocobalamin 1,000 mcg 05/14/20 09:00 05/14/20 08:47 Cyanocobalamin (Vitamin B-12) 1,000 Mcg Tab PO 1,000 mcg DAILY HERMILA Administration Magnesium Oxide 400 mg 05/14/20 09:00 05/14/20 08:47 Magnesium Oxide 400 Mg Tab PO 400 mg DAILY HERMILA Administration Metoprolol Succinate 50 mg 05/14/20 09:00 05/14/20 08:48 Metoprolol Succinate Xl 50 Mg Tab PO 50 mg DAILY HERMILA Administration Midodrine 5 mg 05/14/20 09:00 05/14/20 22:00 Midodrine Hcl 5 Mg Tab PO 5 mg BID HERMILA Administration Pantoprazole Sodium 40 mg 05/13/20 09:00 05/14/20 08:48 Pantoprazole 40 Mg Tab PO 40 mg DAILY HERMILA Administration Polyethylene Glycol 17 gm 05/14/20 09:00 05/14/20 08:52 Polyethylene Glycol 3350 17 Gm Packet PO Not Given DAILY HERMILA Potassium Chloride 40 meq 05/14/20 09:00 05/14/20 08:46 Potassium Chloride 20 Meq Tab PO 40 meq DAILY HERMILA Administration Pramipexole Dihydrochloride 0.5 mg 05/14/20 21:00 05/14/20 22:00 Pramipexole Di-Hcl 0.25 Mg Tab PO 0.5 mg BID HERMILA Administration Ropinirole HCl 0.25 mg 05/13/20 21:00 05/14/20 22:00 Ropinirole Hcl 0.25 Mg Tab PO 0.25 mg HS HERMILA Administration Sertraline HCl 100 mg 05/13/20 09:00 05/14/20 08:52 Sertraline Hcl 100 Mg Tab PO 100 mg DAILY HERMILA Administration Sevelamer Carbonate 2,400 mg 05/13/20 08:00 05/14/20 18:12 Sevelamer Carbonate 800 Mg Tab PO 2,400 mg TID-WM HERMILA Administration Sodium Chloride 10 ml 05/14/20 09:00 05/14/20 22:00 Flush - Normal Saline 10 Ml Syringe IVF 10 ml Q12HR HERMILA Administration Vitamin B Complex/Vit C/Folic Acid 1 tab 05/14/20 09:00 05/14/20 08:47 Folic Acid/Vit B Comp W-C PO 1 tab DAILY HERMILA Administration Zinc Sulfate 220 mg 05/13/20 09:00 05/14/20 08:48 Zinc Sulfate 220 Mg Cap PO 220 mg DAILY HERMILA Administration - Exam General Appearance: ill appearing Eye: PERRL ENT: normocephalic atraumatic Neck: supple Respiratory: CTAB Cardiovascular: no murmur Gastrointestinal: soft Extremities: no cyanosis Skin: normal turgor Neurological: no new deficit Musculoskeletal: normal tone, no muscle wasting PSYCH: somnolent, lethargic Results - Labs Result Diagrams: 05/15/20 12:04 05/13/20 04:11 Lab results: WBC 7.8 thou/uL (4.8-10.8) 05/15/20 12:04 Hgb 9.0 g/dL (14.0-18.0) L 05/15/20 12:04 Hct 27.8 % (42.0-52.0) L 05/15/20 12:04 MCV 100.0 fL (78.0-98.0) H 05/15/20 12:04 Plt Count 149 thou/uL (130-400) 05/15/20 12:04 Neutrophils % 70.5 % (42.0-75.0) 05/15/20 12:04 Band Neuts % (Manual) 1 % (5-11) L 05/13/20 04:11 Sodium 138 mmol/L (136-145) 05/13/20 04:11 Potassium 3.7 mmol/L (3.5-5.1) 05/13/20 04:11 Chloride 100 mmol/L (98-107) 05/13/20 04:11 Carbon Dioxide 27 mmol/L (23-31) 05/13/20 04:11 BUN 38 mg/dL (8.4-25.7) H 05/13/20 04:11 Creatinine 10.43 mg/dL (0.7-1.3) H 05/13/20 04:11 Glucose 136 mg/dL (83-110) H 05/13/20 04:11 Calcium 8.5 mg/dL (7.8-10.44) 05/13/20 04:11 Total Bilirubin 0.5 mg/dL (0.2-1.2) 05/13/20 04:11 AST 17 U/L (5-34) 05/13/20 04:11 ALT 11 U/L (8-55) 05/13/20 04:11 Alkaline Phosphatase 108 U/L (40-110) 05/13/20 04:11 Serum Total Protein 5.0 g/dL (5.8-8.1) L 05/13/20 04:11 Albumin 2.2 g/dL (3.4-4.8) L 05/13/20 04:11 PN A/P (1) Restless leg syndrome Status: Acute (2) Acute encephalopathy Code(s): G93.40 - ENCEPHALOPATHY, UNSPECIFIED Status: Acute (3) Acute metabolic encephalopathy Code(s): G93.41 - METABOLIC ENCEPHALOPATHY Status: Acute (4) Confusion Code(s): R41.0 - DISORIENTATION, UNSPECIFIED Status: Acute (5) Folate deficiency Code(s): E53.8 - DEFICIENCY OF OTHER SPECIFIED B GROUP VITAMINS Status: Acute (6) Peritoneal dialysis catheter dysfunction Code(s): T85.611A - BREAKDOWN OF INTRAPERITONEAL DIALYSIS CATHETER, INIT Status: Acute Qualifiers: Encounter type: subsequent encounter Qualified Code(s): T85.611D - Breakdown (mechanical) of intraperitoneal dialysis catheter, subsequent encounter (7) CAD (coronary artery disease) Code(s): I25.10 - ATHSCL HEART DISEASE OF [place] CORONARY ARTERY W/O ANG PCTRS Status: Chronic Qualifiers: Coronary Disease-Associated Artery/Lesion type: bypass graft Tribe vs. transplanted heart: lime heart (8) Chronic anticoagulation Code(s): Z79.01 - CUSTOM STUDIO COORDINATOR (CURRENT) USE OF ANTICOAGULANTS Status: Chronic (9) Chronic atrial fibrillation Code(s): I48.2 - CHRONIC ATRIAL FIBRILLATION * DO NOT USE * Status: Chronic (10) Depression Code(s): F32.9 - MAJOR DEPRESSIVE DISORDER, SINGLE EPISODE, UNSPECIFIED Status: Chronic Qualifiers: Depression Type: major depressive disorder Major depression episode severity: unspecified (11) Dyslipidemia Code(s): E78.5 - HYPERLIPIDEMIA, UNSPECIFIED Status: Chronic (12) ESRD (end stage renal disease) on dialysis Code(s): N18.6 - END STAGE RENAL DISEASE; Z99.2 - DEPENDENCE ON RENAL DIALYSIS Status: Chronic (13) HTN (hypertension) Code(s): I10 - ESSENTIAL (PRIMARY) HYPERTENSION Status: Chronic Qualifiers: - Plan Daily Plan: PT/OT, speech therapy, DVT proph w/SCDs Mr. Carrillo is a 79-year-old male with history significant for chronic atrial fibrillation, hypertension, hyperlipidemia, restless leg syndrome consulted for worsening of restless leg syndrome and also acute confusion . Altered mental status seems multifactorial most likely secondary to metabolic etiology and hospital delirium delirium with underlying dementia. Mr. Carrillo seems very somnolent this morning and did not answer any questions or open eyes to no social stimuli. This is an acute decline from yesterday We will order stat head CT to rule out acute intracranial process. EEG reviewed which showed moderate generalized nonspecific cerebral dysfunction but no evidence of seizure activity. Neurochecks every 4 hours. Continue Mirapex 0.5 mg twice daily for restless leg syndrome. Dose increased during this admission Continue home medications. Continue medical management per primary team PT/OT/speech. Telemetry to rule out arrhythmias. DVT prophylaxis Palliative care consult Continue medical management per primary team. Plan discussed in detail with the nursing staff
--- NOTE | 2020-05-15 13:15 | CT ---
CT HEAD WITHOUT IV CONTRAST COMPARISON: 04/26/2020 HISTORY: Altered mental status/confusion. CVA. TECHNIQUE: Axial CT imaging at 5 mm intervals from vertex through skull base without contrast FINDINGS: There is decreased attenuation in the periventricular white matter which is nonspecific but likely re flective of chronic small vessel ischemic changes. 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 There is mild cerebral volume loss. The ventricular system is normal in size, shape, and position for the degree of sulcal atrophy. There is no evidence of an acute cord infarction, hemorrhage, mass effect, or midline shift. Skull base has a normal CT appearance. Visualized paranasal sinuses are clear. Osseous structures appear intact. No interval change from prior exam. IMPRESSION: 1. No acute intracranial abnormality demonstrated. 2. Stable chronic changes.
[2020-05-15] MEDS: rOPINIRole HCl 0.25 MG TAB PO SCH (22:03)
[2020-05-15] MEDS: Amitriptyline HCl 25 MG TAB PO SCH (22:03)
[2020-05-16 05:15] LABS: #Eosinphils 0.2 thou/uL (0.0-0.7); #Lymphocytes 1.2 thou/uL (1.20-3.40); #Monocytes 0.6 thou/uL (0.11-0.59); #Neutrophils 4.9 thou/uL (1.40-6.50); %Basophils 0.3 % (0.0-1.0); %Eosinophils 3.2 % (0.0-10.0); %Lymphocytes 17.3 % (21.0-51.0); %Monocytes 8.6 % (0.0-10.0); %Neutrophils 70.6 % (42.0-75.0); Mean Corpuscular HGB CONC 31.5 g/dL (32.0-36.0); Mean Corpuscular Hemoglobin 31.6 pg (27.0-31.0); Mean Platelet Volume 6.8 fL (7.4-10.4); Platelet Count 167 thou/uL (130-400); RBC Distribution Width 15.7 % (11.5-14.5); Red Blood Cell (RBC) Count 2.84 mill/uL (4.70-6.10); White Blood Cell (WBC) Count 6.9 thou/uL (4.8-10.8)
[2020-05-16 05:36] LABS: Anion Gap 12 mmol/L (10-20); BUN (Urea Nitrogen) 24 mg/dL (8.4-25.7); Calc. Creatinine Clearance 7 mL/min (70-130); Calcium 8.7 mg/dL (7.8-10.44); Carbon Dioxide 32 mmol/L (23-31); Chloride 98 mmol/L (98-107); Glucose 120 mg/dL (83-110); Potassium 3.6 mmol/L (3.5-5.1); Sodium 138 mmol/L (136-145)
--- NOTE | 2020-05-16 07:37 | PDOC.HOSPP ---
- Subjective Encounter Date: 05/16/20 - Objective Vital Signs & Weight: Vital Signs (12 hours) Temp Pulse Resp BP Pulse Ox 05/16/20 04:03 97.1 F L 101 H 22 H 141/67 H 99 05/15/20 23:29 97.1 F L 106 H 20 117/56 L 97 05/15/20 20:00 100 Weight Weight 159 lb I&O: 05/15/20 05/16/20 05/17/20 06:59 06:59 06:59 Intake Total 250 150 Output Total 0 Balance 250 150 Result Diagrams: 05/16/20 04:52 05/16/20 04:52 Hospitalist ROS - Medication Medications: Active Medications Generic Name Dose Route Start Last Admin Trade Name Freq PRN Reason Stop Dose Admin Hydrocodone Bitart/Acetaminophen 1 tab 05/13/20 00:20 05/15/20 03:50 Hydrocodone/Acetaminophen 5/325 Mg Tablet PO 1 tab Q4H PRN Administration Moderate Pain (4-6) Allopurinol 100 mg 05/14/20 09:00 05/15/20 09:00 Allopurinol 100 Mg Tab PO Not Given DAILY [facility] Amitriptyline HCl 50 mg 05/13/20 21:00 05/15/20 22:03 Amitriptyline Hcl 25 Mg Tab PO 50 mg HS HERMILA Administration Ascorbic Acid 500 mg 05/14/20 09:00 05/15/20 09:00 Ascorbic Acid 500 Mg Chewable Tablet PO Not Given DAILY [facility] Calcitriol 0.25 mcg 05/13/20 09:00 05/15/20 09:00 Calcitriol 0.25 Mcg Cap PO Not Given DAILY [facility] Calcium Acetate 1,334 mg 05/13/20 08:00 05/15/20 12:00 Calcium Acetate 667 Mg Cap PO Not Given TID-WM [facility] Cholecalciferol 400 units 05/14/20 09:00 05/15/20 09:00 Cholecalciferol (Vitamin D3) 400 Units Tab PO Not Given DAILY [facility] Cyanocobalamin 1,000 mcg 05/14/20 09:00 05/15/20 09:00 Cyanocobalamin (Vitamin B-12) 1,000 Mcg Tab PO Not Given DAILY [facility] Magnesium Oxide 400 mg 05/14/20 09:00 05/15/20 09:00 Magnesium Oxide 400 Mg Tab PO Not Given DAILY [facility] Metoprolol Succinate 50 mg 05/14/20 09:00 05/15/20 09:00 Metoprolol Succinate Xl 50 Mg Tab PO Not Given DAILY [facility] Midodrine 5 mg 05/14/20 09:00 05/15/20 22:03 Midodrine Hcl 5 Mg Tab PO 5 mg BID HERMILA Administration Pantoprazole Sodium 40 mg 05/13/20 09:00 05/15/20 09:00 Pantoprazole 40 Mg Tab PO Not Given DAILY [facility] Pantoprazole Sodium 40 mg 05/15/20 07:30 05/15/20 09:00 Pantoprazole 40 Mg Tab PO Not Given 0730 HERMIL[facility] Polyethylene Glycol 17 gm 05/14/20 09:00 05/15/20 09:00 Polyethylene Glycol 3350 17 Gm Packet PO Not Given DAILY [facility] Potassium Chloride 40 meq 05/14/20 09:00 05/15/20 09:00 Potassium Chloride 20 Meq Tab PO Not Given DAILY [facility] Pramipexole Dihydrochloride 0.5 mg 05/14/20 21:00 05/15/20 22:03 Pramipexole Di-Hcl 0.25 Mg Tab PO 0.5 mg BID HERMILA Administration Ropinirole HCl 0.25 mg 05/13/20 21:00 05/15/20 22:03 Ropinirole Hcl 0.25 Mg Tab PO 0.25 mg HS HERMILA Administration Sertraline HCl 100 mg 05/13/20 09:00 05/15/20 09:00 Sertraline Hcl 100 Mg Tab PO Not Given DAILY [facility] Sevelamer Carbonate 2,400 mg 05/13/20 08:00 05/15/20 17:00 Sevelamer Carbonate 800 Mg Tab PO Not Given TID-WM HERMIL[facility] Sodium Chloride 10 ml 05/14/20 09:00 05/15/20 22:05 Flush - Normal Saline 10 Ml Syringe IVF 10 ml Q12HR HERMILA Administration Vitamin B Complex/Vit C/Folic Acid 1 tab 05/14/20 09:00 05/15/20 09:00 Folic Acid/Vit B Comp W-C PO Not Given DAILY [facility] Zinc Sulfate 220 mg 05/13/20 09:00 05/15/20 09:00 Zinc Sulfate 220 Mg Cap PO Not Given DAILY [facility] Hospitalist Exam Vitals: Vital Signs (12 hours) Temp Pulse Resp BP Pulse Ox 05/16/20 04:03 97.1 F L 101 H 22 H 141/67 H 99 05/15/20 23:29 97.1 F L 106 H 20 117/56 L 97 05/15/20 20:00 100 Weight Weight 159 lb Hosp A/P - Plan Lower GI bleed with mild anemia Colonoscopy yesterday showed an ulcer with adherent clot just inside the anal verge. Likely bleeding internal hemorrhoid. Two hemoclips placed. Blood count stable at 9 since yesterday. No evidence further bleeding. Acute metabolic encephalopathy Patient may have some mild dementia but also with acute delirium on and off on top of that Some question of partial seizure activity though it is more likely restless leg syndrome EEG negative for seizure activity Appears to be slowly progressive and not likely to improve. has decided to transition patient to hospice. Shaking of lower extremities Likely restless leg syndrome, EEG neg for seizures. Appreciate Dr. Adrian's assistance Adjusting medications ESRD Dr. Medley consulted and continuing PD Hypertension Controlled History of A. fibrhythm Controlled now, continue to follow Depression Continue home medicines DVT prophylaxisdiscontinued subcutaneous heparin due to GI bleed Disposition: Plan on discharge home with hospice today and stop dialysis.
[2020-05-16 07:46] VITALS: BP 128/58; TEMP 97.5
[2020-05-16] MEDS: Folic Acid/Vit B Comp W-C PO SCH (08:36)
[2020-05-16] MEDS: Potassium Chloride 20 MEQ TAB PO SCH (08:37)
[2020-05-16] MEDS: Zinc Sulfate 220 MG CAP PO SCH (08:37)
[2020-05-16] MEDS: Calcitriol 0.25 MCG CAP PO SCH (08:37)
[2020-05-16] MEDS: Allopurinol 100 MG TAB PO SCH (08:37)
[2020-05-16] MEDS: Cholecalciferol (Vitamin D3) 400 UNITS TAB PO SCH (08:37)
[2020-05-16] MEDS: Cyanocobalamin (Vitamin B-12) 1,000 MCG TAB PO SCH (08:37)
[2020-05-16] MEDS: Ascorbic Acid 500 mg Chewable Tablet PO SCH (08:37)
[2020-05-16] MEDS: Pramipexole Di-HCl 0.25 MG TAB PO SCH (08:37)
[2020-05-16] MEDS: Sevelamer Carbonate 800 MG TAB PO SCH (08:37)
[2020-05-16] MEDS: Magnesium Oxide 400 MG TAB PO SCH (08:37)
[2020-05-16] MEDS: Calcium Acetate 667 MG CAP PO SCH (08:37)
[2020-05-16] MEDS: Midodrine HCl 5 MG TAB PO SCH (08:39)
[2020-05-16] MEDS: Polyethylene Glycol 3350 17 GM Packet PO SCH (08:41)
--- NOTE | 2020-05-16 11:54 | PRG ---
DATE OF SERVICE: 05/16/2020 SUBJECTIVE: A 79-year-old gentleman being seen for end-stage renal disease. The patient denied nausea, vomiting, or chest pain. PHYSICAL EXAMINATION: General: The patient is awake and alert. Vital Signs: Afebrile, pulse 98, breathing at 16, blood pressure 128/58. HEENT: Head normocephalic and atraumatic. Eyes intact, no ulcers. Nose intact, no ulcers. Ears intact, no ulcers. Neck: Supple. No JVD. Chest: Symmetrical and clear. Cardiovascular: Shows S1 and S2, no rub, no murmur. Gastrointestinal: Abdomen is soft, bowel sounds positive. Extremities: Show no edema or ulcers. Skin: Shows no rash or petechiae. Musculoskeletal: Shows no joint swelling or stiffness. Genitourinary: Shows no Lyons or CVA tenderness. Neurologic: Motor intact. Cranial nerves intact. LABORATORY DATA: Show hemoglobin 9. ASSESSMENT AND PLAN: 1. Chronic kidney disease, stage 6, stable. 2. Hypertension, stable. 3. Anemia, stable. 4. Medication based on GFR appropriate. Job ID: [id number]
--- NOTE | 2020-05-16 14:16 | PDOC.DS.DS ---
Provider Date of Admission: 05/14/20 11:31 Date of Discharge: 05/16/20 Admitting Provider: Gage Thorpe MD Consultations: Gastroentrology (Dr. Ansari and Dr. Lew), Nephrology (Dr. Medley), Neurology (Dr. Adrian) Primary Care Physician: Kaci Pickens MD Course Hospital Course: This is a 79-year-old white male with a history of end-stage renal disease on peritoneal dialysis who has had progressive mental decline over the last year with delirium episodes getting more frequent and severe over the last couple months. Patient has been in rehab and has had multiple episodes of blood in his stools requiring a transportation to the hospital that would then stabilize and he would be sent back. Patient had some bloody stools and came in here again. His hemoglobin did eventually drop some during his hospitalization but then was then stable after that. Given the recurrent nature of this Dr. Lew with GI decided to do a colonoscopy which showed a rectal ulcer, bleeding, which he put 2 hemoclips on. Patient had neurology consultation for recurrent shaking spells of his lower extremities. EEG was negative for seizure activity and these were determined to be due to worsening restless leg syndrome. His medications were adjusted. He also had Dr. Medley consulted for continued peritoneal dialysis. Patient remained confused during his hospitalization which has been becoming mor e common per the . Patient's eventually determined that patient would not want continued treatments like dialysis without any hope of improvement and with his continued mental decline. She decided to take him home on home hospice and to hold all dialysis. Pertinent Studies: KUB INDICATION: Feeding tube placement COMPARISON: May 01, 2019 FINDINGS: Bowel gas: Nonspecific but without overt appearance of obstruction. Lung bases: Clear. Additional findings: There is a gastric catheter tip projecting in the region of the gastric fundus. There is an aortic valvular replacement with midline sternotomy changes. Osseous structures: No acute osseous abnormality is demonstrated. IMPRESSION: 1. Gastric catheter tip seen within the region of the gastric fundus. CT HEAD WITHOUT IV CONTRAST COMPARISON: 04/26/2020 HISTORY: Altered mental status/confusion. CVA. TECHNIQUE: Axial CT imaging at 5 mm intervals from vertex through skull base without contrast FINDINGS: There is decreased attenuation in the periventricular white matter which is nonspecific but likely reflective of chronic small vessel ischemic changes. 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 There is mild cerebral volume loss. The ventricular system is normal in size, shape, and position for the degree of sulcal atrophy. There is no evidence of an acute cord infarction, hemorrhage, mass effect, or midline shift. Skull base has a normal CT appearance. Visualized paranasal sinuses are clear. Osseous structures appear intact. No interval change from prior exam. IMPRESSION: 1. No acute intracranial abnormality demonstrated. 2. Stable chronic changes. Procedures: Colonoscopy with control of hemorrhage Findings: 1. A 3 to 4 mm clean-based ulceration proximal to the anal canal with blood clot, and free-flowing blood after clot removal. 2 hemoclips placed with good hemostasis. 2. Severe pancolonic diverticulosis without any bleeding source 3. 3 mm sigmoid colon polyp not intervened on 4. Nonbleeding external hemorrhoids EEG Findings: Moderate generalized nonspecific cerebral dysfunction Resuscitation Status: 05/13/20 00:20 Resuscitation Status Routine Resuscitation Status: FULL: Full Resuscitation Lab Results: 05/16/20 04:52 05/16/20 04:52 Abnormal Lab Results - Last 48 hrs 05/15/20 12:04: RBC 2.78 L, Hgb 9.0 L, Hct 27.8 L, MCV 100.0 H, MCH 32.4 H, RDW 15.8 H, Lymphocytes % 18.5 L, Monocytes # 0.6 H 05/16/20 04:52: Carbon Dioxide 32 H, Creatinine 8.76 H 05/16/20 04:52: RBC 2.84 L, Hgb 9.0 L, Hct 28.5 L, MCV 100.0 H, MCH 31.6 H, MCHC 31.5 L, RDW 15.7 H, MPV 6.8 L, Lymphocytes % 17.3 L, Monocytes # 0.6 H Vitals: Vital Signs (12 hours) Temp Pulse Resp BP Pulse Ox 05/16/20 07:43 97.5 F L 98 16 128/58 L 98 05/16/20 04:03 97.1 F L 101 H 22 H 141/67 H 99 Weight Weight 159 lb Physical Exam: The patient was seen and examined on May 15, 2020, but not on the day of discharge due to transportation arriving before I could get there and the fact that discharge management was prepared the day before. Problem Assessment: Lower GI bleed due to rectal ulcer with anemia Acute metabolic encephalopathy with likely underlying dementia Restless leg syndrome ESRDon dialysis Hypertension History of A. fibrhythm Depression Plan of Treatment: Patient's has decided to take patient home on hospice and to halt hemodialysis due to patient's progressive mental decline and lack of benefit. Time Spent in discharge related activities (mins): 32 Plan Prescriptions: Pramipexole Di-HCl [Mirapex] 0.5 mg PO BID #60 tablet Home Medications: Medication Instructions Recorded Confirmed Type Allopurinol 100 mg PO DAILY 02/27/17 05/14/20 History Calcium Acetate 1,334 mg PO TID-WM 03/06/18 05/14/20 History Calcitriol [Rocaltrol] 0.25 mcg PO DAILY 06/30/19 05/14/20 History Amitriptyline HCl [Elavil] 50 mg PO HS 04/27/20 05/14/20 History Metoprolol Succinate [Toprol XL] 50 mg PO DAILY 04/27/20 05/14/20 History Midodrine HCl [ProAmatine] 5 mg PO BID 04/27/20 05/14/20 History Sertraline HCl 100 mg PO DAILY 04/27/20 05/14/20 History rOPINIRole HCl [Ropinirole HCl] 0.5 mg PO HS 04/27/20 05/14/20 History Zinc Sulfate 220 mg PO DAILY 30 Days #30 cap 05/01/20 05/14/20 Rx Ascorbic Acid [Vitamin C] 500 mg PO DAILY 05/06/20 05/14/20 History Cholecalciferol (Vitamin D3) 400 unit PO DAILY 05/06/20 05/14/20 History [Vitamin D3] Acetaminophen [Tylenol] 500 mg PO Q4H PRN 05/14/20 05/14/20 History Bisacodyl 10 mg CO DAILY PRN 05/14/20 05/14/20 History Calcium Carbonate [Tums] 1,000 mg PO QID PRN 05/14/20 05/14/20 History Cyanocobalamin (Vitamin B-12) 1,000 mcg PO DAILY 05/14/20 05/14/20 History [Vitamin B-12] Darbepoetin Real in Polysorbat 40 mcg SC Q7D 05/14/20 05/14/20 History [Aranesp] Folic Acid/Vit B Comp W-C 1 tab PO DAILY 05/14/20 05/14/20 History [Nephro-Ramiro Tablet] Loperamide HCl [Loperamide] 2 mg PO PRN PRN 05/14/20 05/14/20 History Magnesium Oxide 400 mg PO DAILY 05/14/20 05/14/20 History Pantoprazole [Protonix] 40 mg PO QAM 05/14/20 05/14/20 History Polyethylene Glycol 3350 [Miralax] 17 gm PO DAILY 05/14/20 05/14/20 History Potassium Chloride [K-Dur] 40 meq PO DAILY 05/14/20 05/14/20 History Simethicone [Gas Relief] 80 mg PO TID PRN 05/14/20 05/14/20 History cloNIDine [Catapres] 0.1 mg PO Q6H PRN 05/14/20 05/14/20 History diphenhydrAMINE [Benadryl] 25 mg PO Q6HR PRN 05/14/20 05/14/20 History guaiFENesin [Cough Syrup] 10 ml PO Q4HR PRN 05/14/20 05/14/20 History traZODone HCl [Trazodone HCl] 50 mg PO HS PRN 05/14/20 05/14/20 History Pramipexole Di-HCl [Mirapex] 0.5 mg PO BID #60 tablet 05/16/20 Rx Allergies: Penicillins Allergy (Verified 04/27/20 13:52) Rash Activity:: Activity as Tolerated Nourishment:: Renal Diet, Other (NDD-1 pureed and honey thick liquids) Therapies:: Other (as per hospice) Equipment/Supplies:: Not Applicable IV Therapy:: Not Applicable Referrals: Hospice, [facility] [Other] (Please contact above number for any questions or concerns) Kaci Pickens MD [Primary Care Provider] - 7 Days Disposition: HOSPICE-HOME Quality CORE MEASURES:: N/A
--- NOTE | 2020-05-16 15:32 | PQF ---
CLINICAL DOCUMENTATION CLARIFICATION FORM: Dear Dr. Banks Date: 05/16/2020 Please exercise your independent, professional judgment in responding to the clarification form. Clinical indicators are provided on the bottom of this form for your review Please check appropriate box(es): [ ] Acute blood loss anemia [ X ] Anemia, acute on chronic. [ X ] Chronic Anemia: [ X ] Blood loss [ ] Other [ ] Anemia of Chronic Disease (please specify) [ ] Other diagnosis [ ] Unable to determine In addition, please specify: Present on Admission (POA): [ X ] Yes [ ] No [ ] Unable to determine For continuity of documentation, please document condition throughout progress notes and discharge summary. Thank You.To be completed by CDI/Coding staff for physician review: CLINICAL INDICATORS - SIGNS / SYMPTOMS / LABS / RESULTS AND LOCATION IN EMR *05/13 Consult (Elan) Impression: Recurrent hematochezia Anemia which is multifactorial from his renal disease and potentially some degree from blood loss as well. *05/14 pn (Darren) A/P: Lower GI bleed with mild anemia. *05/14 pn (Case) Subjective: After 1 unit RBC transfusion, hemoglobin was 9.3 this morning, but it did drop back down to 7.8 this afternoon. A/P: Anemia, acute on chronic *DC Summary 05/16 (Darren): Problem: Lower GI bleed due to rectal ulcer with anemia. RISK FACTORS / RESULTS AND LOCATION IN EMR H&P 05/12 (Ila): HPI: Hx HTN, ESRD, s/p recent lower GI bleed requiring PRBC. A/P: Lower GI Bleed TREATMENTS / RESULTS AND LOCATION IN EMR 05/15 Operative Note (Vipin): Procedure: Colonoscopy with control of hemorrhage Recommendations: continue to trend his H and H and transfuse as necessary to maintain an H and H of 10/09 Thank you, Shaina Cannon RN, [email or web address] This is a permanent part of the Medical Record [facility]
== END 2020-05-16 11:40 | disposition hospice, home (50) | DRG 393 ==
LOC: ERS 18:06 → ERHOLD 21:56 → 2SE 05-14 01:56 → OBSVTOIN 05-14 11:31
PROVIDERS: ADMIT Internal Medicine; ATTEND Emergency Medicine
PROC: 0W3P8ZZ Control Bleeding in Gastrointestinal Tract, Via Natural or Artificial Opening Endoscopic (ICD-10-PCS; principal; 2020-05-15)
DX: K62.6 Ulcer of anus and rectum (principal); U07.1 COVID-19; N18.6 End stage renal disease; G93.41 Metabolic encephalopathy; I13.2 Hypertensive heart and chronic kidney disease with heart failure and with stage 5 chronic kidney disease, or end stage renal disease; I48.20 Chronic atrial fibrillation, unspecified; K92.2 Gastrointestinal hemorrhage, unspecified; D62 Acute posthemorrhagic anemia; F03.90 Unspecified dementia, unspecified severity, without behavioral disturbance, psychotic disturbance, mood disturbance, and anxiety; I50.9 Heart failure, unspecified; F32.9 Major depressive disorder, single episode, unspecified; G25.81 Restless legs syndrome; D63.1 Anemia in chronic kidney disease; G93.89 Other specified disorders of brain; K64.4 Residual hemorrhoidal skin tags; K57.30 Diverticulosis of large intestine without perforation or abscess without bleeding; Z88.0 Allergy status to penicillin; Z79.899 Other long term (current) drug therapy; Z95.2 Presence of prosthetic heart valve; Z99.2 Dependence on renal dialysis
CPT/HCPCS: 36415; 70450; 74018; 80048; 85025; 85610; 85730; 86850; 86900; 86901; 87635; 90945; 93005; 95712; 95819; 95957; 96372; 96374; 96376; G0257; G0378; J1644; J2060; U0003; U0005